=== PATIENT | female | born 1945 | race Hispanic/Latino ===

== ENCOUNTER 2018-06-10 10:14 | Observation (INO) | payer OTHER ==
--- OUTSIDE RECORDS SUMMARY | 2018-06-10 10:44 | XMS REPORT | Clinical Summary ---
:1945 Author Organization [facility] Address [address] [place] [address] Care Team Providers Name Role Phone Asked, No Pcp Primary Care Provider Unavailable Allergies No Known Allergies Medications Medication Sig Dispensed Refills Start Date End Date Status clopidogrel (PLAVIX) 75 Take 75 mg by 0 Active mg tablet mouth daily. levothyroxine Take 125 mcg by 0 Active (SYNTHROID, LEVOTHROID) mouth every 125 MCG tablet morning. isosorbide mononitrate Take 120 mg by 0 Active (IMDUR) 120 MG 24 hr mouth daily. tablet furosemide (LASIX) 20 MG Take 20 mg by 0 Active tablet mouth daily. linagliptin (TRADJENTA) Take 5 mg by 0 Active 5 mg tablet mouth daily with breakfast. lovastatin (MEVACOR) 10 Take 20 mg by 0 Active MG tablet mouth nightly. amlodipine-valsartan Take 1 tablet by 0 Active (EXFORGE) 5-160 mg per mouth daily. tablet Active Problems Not on file Family History Medical History Relation Name Comments No Known Problems Father No Known Problems Mother Relation Name Status Comments Father Mother Social History Tobacco Use Types Packs/Day Years Used Date Never Smoker Alcohol Use Drinks/Week oz/Week Comments No Sex Assigned at Date Recorded Not on file Job Start Date Occupation Industry Not on file Not on file Not on file Travel History Travel Start Travel End No recent travel history available. Last Filed Vital Signs Not on file Plan of Treatment Not on file Results Not on fileafter 06/09/2017 Insurance Payer Benefit Plan / Group Subscriber ID Type Phone Address [employer] MED[employer]ARE [employer] xxxxxxxxx HMO Advance Directives Patient has advance care planning documents on file. For more information, please contact:Walt Davenport[address] [place] [address]
--- OUTSIDE RECORDS SUMMARY | 2018-06-10 10:44 | XMS REPORT ---
:1945 Author Organization [employer] Care Team Providers Name Role Phone Russell, Na Provider Role Unavailable Allergies, Adverse Reactions, Alerts Substance Reaction Event Type N.K.D.A. 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 Assessment senior care current use of insulin Z79.4 Active Problem CKD (chronic kidney disease) stage N18.4 Active 4, GFR 15-29 ml/min Assessment CKD (chronic kidney disease) stage N18.4 Active 4, GFR 15-29 ml/min Assessment Unsteady gait R26.81 Active Problem Elevated blood pressure reading R03.0 Active Problem H/O: CVA (cerebrovascular accident) Z86.73 Active Problem Hyperlipidemia E78.5 Active Problem Unsteady gait R26.81 Active Problem Arteriosclerosis of coronary artery I25.10 Active Assessment Hypothyroidism E03.9 Active Assessment Type 2 diabetes mellitus with E11.22 Active diabetic chronic kidney disease Assessment Hyperlipidemia E78.5 Active Assessment Benign essential HTN I10 Active Problem Type 2 diabetes mellitus with E11.22 Active diabetic chronic kidney disease Problem Chronic kidney disease, stage III N18.3 Active (moderate) Assessment 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 59443451802 150 Active TOME SUSANA TABLETA POR BOCA DOS VECES POR GERI Lipitor [facility] 33517928026 40 Active TOME SUSANA TABLETA SUSANA VEZ AL GERI POR BOCA Lantus SoloStar [facility] 52165662184 100 UNIT/ML Active 66 units daily Subcutaneous once a day Amlodipine [facility] 82661844970 10-160 Orally Active 1 tablet Besylate-Valsar Once a day simon Myrbetriq [facility] 48251663338 25 MG Orally Active 1 tablet Once a day Amitiza [facility] 75139776024 24 MCG Orally Active 1 capsule with Twice a day food ZyrTEC [facility] 77991126608 Active not defined Synthroid ND 42635267867 100 MCG Active TOME SUSANA TABLETA SUSANA VEZ AL GERI POR VIA ORAL Tradjenta [facility] 80622825212 5 MG Orally Active 1 tablet Once a day Lipitor ND 95753603344 40 MG Orally Active 1 tablet Once a day Zantac [facility] 17340055474 150 MG Orally Active 1 tablet at Once a day bedtime Ketoconazole [facility] 60201981089 2 % Externally Active 1 application Once a day to affected area Exforge [facility] 32642966632 10-160 Active TOME SUSANA TABLETA SUSANA VEZ AL GERI POR [place]OC[place] Lasix ND 55116866772 40 MG Orally Aug 18, Active 1 tablet Once a day [address] [facility] 28739683989 24 Active TAKE ONE CAPSULE BY MOUTH TWICE A DAY FOR CONSTIPATION Isosorbide [facility] 46828576760 120 MG Orally Active 1 tablet in Mononitrate ER Once a day the morning Gabapentin ND 14046473550 100 MG Orally Feb 17, Active 1 capsule Three times a 2017 day Glucometer Kit NDC 0 Fingerstick Active Check BS twice BID a day Levothyroxine [facility] 89117397330 112 MCG Orally Active 1 tablet on an Sodium Once a day empty stomach in the morning Plavix [facility] 11216478096 75 MG Orally Active 1 tablet Once a day Levothyroxine [facility] 63208325900 100 MCG Orally Inactive 1 tablet on an Sodium Once a day empty stomach in the morning Triamcinolone [facility] 74138193620 0.5 % Active 1 application Acetonide Externally to affected Twice a day area Amlodipine [facility] 54061001564 10-160 MG Active TOME SUSANA Besylate-Valsar TABLETA SUSANA simon VEZ AL GERI POR VIA ORAL Tradjenta [facility] 80909321947 5 MG Orally Active 1 tablet Once a day Imdur NDC 0 Active not defined Results No Known Results Summary Purpose eClinicalWorks Submission
--- OUTSIDE RECORDS SUMMARY | 2018-06-10 10:44 | XMS REPORT ---
:1945 Author Organization [employer] Care Team Providers Name Role Phone Russell, Lola Provider Role Unavailable Allergies, Adverse Reactions, Alerts Substance Reaction Event Type N.K.D.A. 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 Assessment Hyperlipidemia E78.5 Active Assessment Unsteady gait R26.81 Active Assessment CKD (chronic kidney disease) stage N18.4 Active 4, GFR 15-29 ml/min Assessment Type 2 diabetes mellitus with E11.22 Active diabetic chronic kidney disease Problem Type 2 diabetes mellitus with E11.65 Active hyperglycemia Assessment Benign essential HTN I10 Active Problem Type 2 diabetes mellitus with E11.22 Active diabetic chronic kidney disease Assessment Hypothyroidism E03.9 Active Problem Chronic kidney disease, stage III N18.3 Active (moderate) Medications Medication Code Code Instructions Start End Status Dosage System Date Date Imdur NDC 0 Active not defined Triamcinolone ND 07484977818 0.5 % Active 1 application Acetonide Externally to affected Twice a day area Myrbetriq ND 53651563849 25 MG Orally Active 1 tablet Once a day Exforge ND 10859857715 10-160 Active TOME SUSANA TABLETA SUSANA VEZ AL GERI POR BOCA Plavix ND 89281014926 75 MG Orally Active 1 tablet Once a day Valsartan ND 86991977556 160 MG Orally Inactive 1 tablet Once a day Amlodipine [facility] 23677693940 10-160 Orally Active 1 tablet Besylate-Valsar Once a day simon Ketoconazole [facility] 53223490005 2 % Externally Active 1 application Once a day to affected area Isosorbide [facility] 37360529512 120 MG Orally Active 1 tablet in Mononitrate ER Once a day the morning Lasix [facility] 28052156865 40 MG Orally Aug 18, Active 1 tablet Once a day 2017 Lantus SoloStar [facility] 09160597279 100 UNIT/ML Active as directed Subcutaneous Glucometer Kit [facility] 0 Fingerstick Active Check BS twice BID a day Levothyroxine [facility] 97794951651 112 MCG Orally Active 1 tablet on an Sodium Once a day empty stomach in the morning Amitiza [facility] 49017809758 24 Active TAKE ONE CAPSULE BY MOUTH TWICE A DAY FOR CONSTIPATION Zantac [facility] 62086892173 150 MG Orally Active 1 tablet at Once a day bedtime Amitiza [facility] 43787994966 24 MCG Orally Active 1 capsule with Twice a day food Levothyroxine [facility] 88593785765 100 MCG Orally Inactive 1 tablet on an Sodium Once a day empty stomach in the morning Amlodipine [facility] 53186097385 10-160 MG Active 1 tablet Besylate-Valsar Orally Once a simon day Lipitor [facility] 34769093582 40 MG Orally Active 1 tablet Once a day ZyrTEC [facility] 09878970361 Active not defined Tradjenta [facility] 28390787347 5 MG Orally Active 1 tablet Once a day Results No Known Results Summary Purpose eClinicalWorks Submission
--- OUTSIDE RECORDS SUMMARY | 2018-06-10 10:44 | XMS REPORT ---
:1945 Author [facility] Care Team Providers Name Role Phone Russell, Lola Provider Role Unavailable Allergies, Adverse Reactions, Alerts Substance Reaction Event Type N.K.D.A. 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 Problem Elevated blood pressure reading R03.0 Active Assessment Hyperlipidemia E78.5 Active 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 Problem Constipation, unspecified K59.00 Active constipation type Assessment CKD (chronic kidney disease) stage N18.4 Active 4, GFR 15-29 ml/min Problem Arteriosclerosis of coronary artery I25.10 Active Problem H/O: CVA (cerebrovascular accident) Z86.73 Active Problem CKD (chronic kidney disease) stage N18.4 Active 4, GFR 15-29 ml/min Problem Unsteady gait R26.81 Active Assessment Type 2 diabetes mellitus with E11.22 Active diabetic chronic kidney disease Assessment Benign essential HTN I10 Active Assessment Hypothyroidism E03.9 Active Problem Chronic kidney disease, stage III N18.3 Active (moderate) 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 Problem Type 2 diabetes mellitus with E11.65 Active hyperglycemia Problem Type 2 diabetes mellitus with E11.22 Active diabetic chronic kidney disease Medications Medication Code Code Instructions Start End Status Dosage System Date Date Zantac [facility] 52027328948 150 Active TOME SUSANA TABLETA POR BOCA DOS VECES POR GERI Lipitor [facility] 77024794632 40 Active TOME SUSANA TABLETA SUSANA VEZ AL GERI POR BOCA Amlodipine [facility] 96476898126 10-160 MG Active TOME SUSANA Besylate-Valsar TABLETA SUSANA simon VEZ AL GERI POR VIA ORAL Glucometer Kit ND 0 Fingerstick Active Check BS twice BID a day ZyrTEC [facility] 84327018364 Active not defined Levothyroxine ND 25513820234 112 MCG Orally Active 1 tablet on an Sodium Once a day empty stomach in the morning Exforge ND 96043221434 10-160 Active TOME SUSANA TABLETA SUSANA VEZ AL GERI POR BOCA Amitiza [facility] 50348578903 24 Active TAKE ONE CAPSULE BY MOUTH TWICE A DAY FOR CONSTIPATION Plavix [facility] 59251064049 75 MG Orally Active 1 tablet Once a day Myrbetriq ND 20171460286 25 MG Orally Active 1 tablet Once a day Ketoconazole ND 42931028152 2 % Externally Active 1 application Once a day to affected area Lasix ND 49864283858 40 MG Orally Aug 18, Active 1 tablet Once a day 2017 Levothyroxine [facility] 84377768446 100 MCG Orally Inactive 1 tablet on an Sodium Once a day empty stomach in the morning Lipitor [facility] 40942171000 40 MG Active TOME SUSANA TABLETA SUSANA VEZ AL GERI POR BOCA Synthroid ND 81251085136 100 MCG Active TOME SUSANA TABLETA SUSANA VEZ AL GERI POR VIA ORAL Amlodipine [facility] 33385952594 10-160 Orally Active 1 tablet Besylate-Valsar Once a day simon Zantac [facility] 84784366181 150 MG Active TOME SUSANA TABLETA POR BOCA DOS VECES POR GERI Gabapentin [facility] 84940165615 100 MG Orally Active 1 capsule Three times a day Isosorbide ND 63926737002 120 MG Orally Active 1 tablet in Mononitrate ER Once a day the morning Amitiza [facility] 30771794878 24 MCG Orally Active 1 capsule with Twice a day food Triamcinolone ND 15451154203 0.5 % Active 1 application Acetonide Externally to affected Twice a day area Lipitor ND 81736311206 40 MG Orally Active 1 tablet Once a day Tradjenta ND 01525504938 5 MG Orally Active 1 tablet Once a day Tradjenta [facility] 95941785919 5 MG Orally Active 1 tablet Once a day Imdur NDC 0 Active not defined Adama Back [facility] 37948337473 100 UNIT/ML Active 62 units daily Subcutaneous once a day Results No Known Results Immunizations Vaccine Administration Date FluAD Apr 08, 2018 Summary Purpose eClinicalWorks Submission
--- NOTE | 2018-06-10 11:45 | EKG ---
Test Date: 2018-06-10 Test Time: 10:33:34 [place] Worker: JESSICA MEASUREMENT RESULTS: Intervals: Rate: 50 NM: 138 QRSD: 160 QT: 502 QTc: 457 [place]: P: 64 NM: 138 QRS: 7 T: 114 INTERPRETIVE STATEMENTS: Sinus bradycardia with sinus arrhythmia Left bundle branch block Abnormal ECG Compared to ECG 03/13/2016 07:32:06 Left-axis deviation no longer present Electronically Signed On 06-10-18 11:44:01 [employer]IT [employer] by Omer Dahl
[2018-06-10] MEDS ORDERED: ONDANSETRON 4 MG/2 ML VIAL ONE (11:51)
[2018-06-10] MEDS ORDERED: MORPHINE 4 MG/ML SYR ONE (11:51)
[2018-06-10 11:55] LABS: Protime INR 1.05
[2018-06-10 11:56] LABS: Absolute Lymphocytes (CBC) 1.9 K/uL (0.7-4.9); Absolute Monocytes 0.5 K/uL (0.1-1.3); Absolute Neutrophil 6.1 K/uL (1.8-8.0); Basophils % 0.5 % (0-1.3); Eosinophils % 1.6 % (0-4.4); Hematocrit 36.8 % (36.0-45.0); Lymphocytes % 21.8 % (15.3-44.8); MCH 31.7 pg (27.0-35.0); MCV 92.3 fL (80-100); MPV 8.5 fL (7.6-11.3); Monocytes % 5.8 % (3.3-12.3); RBC Red Blood Cell Count 3.98 M/uL (3.86-4.86)
[2018-06-10 12:02] LABS: Albumin 3.4 g/dL (3.4-5.0); Bilirubin Direct 0.2 mg/dL (0-0.2); Bilirubin Total 0.7 mg/dL (0.2-1.0); Magnesium 2.3 mg/dL (1.8-2.4); Potassium 4.6 mmol/L (3.5-5.1); Protein, Total 6.5 g/dL (6.4-8.2); Troponin (Emerg Dept Use Only) 0.02 ng/mL (0.0-0.045)
--- NOTE | 2018-06-10 12:48 | RAD REPORT ---
EXAM DESCRIPTION: [place] Single View06/10/2018 12:36 pm CLINICAL HISTORY: Shortness of breath COMPARISON: July 23, 2017 FINDINGS: Mild bilateral pulmonary opacities suspected. The heart is mildly to moderately enlarged IMPRESSION: Mild CHF is suspected
--- NOTE | 2018-06-10 13:11 | EDPHYS ---
Physician Documentation [facility] Name: Lola Braun Age: 73 yrs Sex: Female : 1945 Arrival Date: 06/10/2018 Time: 10:18 Bed 26 Private MD: Lola Russell ED Physician Emmett Browne HPI: 06/10 11:23 This 73 yrs old Female presents to ER via Wheelchair with complaints of Back jmm Pain, Chest Pain, Breathing Difficulty. 11:23 The patient or guardian reports chest pain that is located primarily in the substernal jmm area. Onset: gradually, 1 week(s) ago. The pain radiates to Associated signs and symptoms: Pertinent positives: shortness of breath. Duration: The patient or guardian reports multiple episodes, that are intermittent. Modifying factors: The symptoms are alleviated by nothing. the symptoms are aggravated by nothing. This is a 73 year old female with a history of dm, CAd, htn, hlp that presents to the ED with 1 week of intermittent chest pain radiating to the back. Patient also complains of shortness of breath. Episode was similar to a chf exacerbation on a previous admission . Historical: - Allergies: 10:38 NKDA; aj - Home Meds: 10:38 Tradjenta 5 mg oral tab 1 tab once daily [Active]; ranitidine HCl 150 mg Oral cap 1 cap aj 2 times per day [Active]; clopidogrel 75 mg oral tab 1 tab once daily [Active]; isosorbide mononitrate 120 mg Oral Tb24 once daily [Active]; levothyroxine 112 mcg tab 1 tab once daily [Active]; gabapentin 100 mg oral cap 1 caps 3 times per day [Active]; losartan 12.5 mg oral tab 1 tab once daily [Active]; Amitiza 24 mcg oral cap 1 cap 2 times per day [Active]; atorvastatin 40 mg oral tab 1 tab once daily [Active]; amlodipine-valsartan 10-160 mg oral tab 1 tab once daily [Active]; furosemide 40 mg Oral tab 1 tab once daily [Active]; Lantus 100 unit/mL Sub-Q soln 50 units nightly [Active]; - PMHx: 10:38 Diabetes - IDDM; Myocardial infarction; Hypertension; Hyperlipidemia; aj - PSHx: 10:38 Heart stents; aj - Immunization history:: Adult Immunizations up to date, Flu vaccine is up to date. - Social history:: Smoking status: Patient/guardian denies using tobacco. - Ebola Screening: : Patient negative for fever greater than or equal to 101.5 degrees Fahrenheit, and additional compatible Ebola Virus Disease symptoms Patient denies exposure to infectious person Patient denies travel to an Ebola-affected area in the 21 days before illness onset No symptoms or risks identified at this time. ROS: 11:23 Constitutional: Negative for fever, chills, and weight loss, Eyes: Negative for injury, jmm pain, redness, and discharge, ENT: Negative for injury, pain, and discharge, Cardiovascular: Negative for chest pain, palpitations, and edema, Respiratory: Negative for shortness of breath, cough, wheezing, and pleuritic chest pain, Abdomen/GI: Negative for abdominal pain, nausea, vomiting, diarrhea, and constipation. 11:23 MS/Extremity: Negative for injury and deformity. 11:23 Cardiovascular: Positive for chest pain. 11:23 Back: Positive for pain with movement. 11:23 All other systems are negative. Exam: 11:23 Constitutional: This is a well developed, well nourished patient who is awake, alert, jmm and in no acute distress. Head/Face: atraumatic. Eyes: EOMI, no conjunctival erythema appreciated ENT: Moist Mucus Membranes Neck: Trachea midline, Supple Chest/axilla: Normal chest wall appearance and motion. 11:23 Cardiovascular: Rate: normal, Rhythm: regular, Pulses: no pulse deficits are appreciated. 11:23 Respiratory: the patient does not display signs of respiratory distress, Respirations: normal, Breath sounds: are clear throughout. 11:23 Abdomen/GI: Inspection: abdomen appears normal, Bowel sounds: normal, Palpation: abdomen is soft and non-tender. 11:23 Back: ROM is normal. 11:23 Musculoskeletal/extremity: ROM: intact in all extremities. 11:23 Skin: Appearance: Color: normal in color. 11:23 Neuro: Orientation: is normal, Mentation: is normal, Memory: is normal. 11:23 Psych: Behavior/mood is pleasant, cooperative. 13:08 Back: pain, that is moderate, of the right scapular area, right subscapular area and jmm right low back. Vital Signs: 10:38 BP 156 / 53; Pulse 56; Resp 21; Temp 97.8; Pulse Ox 96% on R/A; Weight 98.43 kg; Height aj 5 ft. 5 in. (165.10 cm); 12:41 BP 132 / 52; Pulse 52; Resp 17; Pulse Ox 94% on R/A; Pain 3/10; sg 14:27 BP 145 / 58; Pulse 55; Resp 20; Pulse Ox 96% on R/A; sg 15:20 BP 138 / 55; Pulse 56; Resp 17; Pulse Ox 98% on R/A; Pain 3/10; sg 10:38 Body Mass Index 36.11 (98.43 kg, 165.10 cm) aj MDM: 10:57 Patient medically screened. nerissa 13:08 The patient was given aspirin in the Emergency Department. Data reviewed: vital signs, [facility] nurses notes, lab test result(s), EKG, radiologic studies, plain films. ED course: I discussed the patient with Dr. Jacques whom accepted admission. . 06/10 11:20 Order name: Basic Metabolic Panel; Complete Time: 12:05 [facility] 06/10 11:20 Order name: CBC with Diff; Complete Time: 12:05 [facility] 06/10 11:20 Order name: LFT's; Complete Time: 12:05 [facility] 06/10 11:20 Order name: Magnesium; Complete Time: 12:05 [facility] 06/10 11:20 Order name: NT PRO-BNP; Complete Time: 12:05 [facility] 06/10 11:20 Order name: PT-INR; Complete Time: 12:05 [facility] 06/10 11:20 Order name: Troponin (emerg Dept Use Only); Complete Time: 12:05 [facility] 06/10 11:20 Order name: XRAY Chest (1 view); Complete Time: 12:54 [facility] 06/10 14:04 Order name: Troponin (emerg Dept Use Only) 06/10 14:54 Order name: Troponin (Emerg Dept Use Only); Complete Time: 15:07 [facility] 06/10 14:54 Order name: T4 Free; Complete Time: 15:07 [facility] 06/10 14:54 Order name: Thyroid Stimulating Hormone; Complete Time: 15:07 [facility] 06/10 14:54 Order name: Hemoglobin A1c; Complete Time: 15:07 [facility] 06/10 11:20 Order name: EKG; Complete Time: 11: [facility] 06/10 11:20 Order name: Cardiac monitoring; Complete Time: [facility] 06/10 11:20 Order name: EKG - Nurse/Tech; Complete Time: [facility] 06/10 11:20 Order name: IV Saline Lock; Complete Time: [facility] 06/10 11:20 Order name: Labs collected and sent; Complete Time: [facility] 06/10 11:20 Order name: O2 Per Protocol; Complete Time: [facility] 06/10 11:20 Order name: O2 Sat Monitoring; Complete Time: : [facility] Administered Medications: 11:50 Drug: morphine 2 mg Route: IVP; Site: right forearm; sg 12:25 Follow up: Response: No adverse reaction; Pain is decreased sg 11:53 Drug: Zofran 4 mg Route: IVP; Site: right forearm; sg 12:25 Follow up: Response: No adverse reaction sg 13:45 Drug: Lasix 20 mg Route: IVP; Site: right forearm; sg 13:45 Drug: Aspirin Chewable Tablet 324 mg Route: PO; sg 13:45 Drug: Lasix 20 mg Route: IVP; Site: right forearm; sg Disposition: 17:01 Co-signature as Attending Physician, Emmett Browne MD I agree with the assessment and nerissa plan of care. Disposition: 06/10/18 13:11 Hospitalization ordered by Eliel Jacques for Observation. Preliminary diagnosis are Acute combined systolic (congestive) and diastolic (congestive) heart failure, Chest pain, unspecified. - Bed requested for Telemetry/MedSurg (observation). - Status is Observation. iw - Condition is Stable. - Problem is an acute exacerbation. - Symptoms have improved. UTI on Admission? No Signatures: Dispatcher [employer] El Tran RN RN sg Myers, Amanda, RN RN aj Anderson, Corey, MD MD cha Mickail, Joel, PA PA Bety Langley, Sondra Chicas RN, RN RN df Corrections: (The following items were deleted from the chart) 14:31 13:11 Hospitalization Ordered by Eliel Jacques DO for Observation. Preliminary df diagnosis is Acute combined systolic (congestive) and diastolic (congestive) heart failure; Chest pain, unspecified. Bed requested for Telemetry/MedSurg (observation). Status is Observation. Condition is Stable. Problem is an acute exacerbation. Symptoms have improved. UTI on Admission? No. jmm 15:22 14:31 06/10/2018 13:11 Hospitalization Ordered by Eliel Jacquse DO for Observation. iw Preliminary diagnosis is Acute combined systolic (congestive) and diastolic (congestive) heart failure; Chest pain, unspecified. Bed requested for Telemetry/MedSurg (observation). Status is Observation. Condition is Stable. Problem is an acute exacerbation. Symptoms have improved. UTI on Admission? No. df
--- NOTE | 2018-06-10 13:11 | ER ---
Nurse's Notes [facility] Name: Lola Braun Age: 73 yrs Sex: Female : 1945 Arrival Date: 06/10/2018 Time: 10:18 Bed 26 Private MD: Lola Russell Diagnosis: Acute combined systolic (congestive) and diastolic (congestive) heart failure;Chest pain, unspecified Presentation: 06/10 10:31 Presenting complaint: Patient states: SOB and pain with deep inspiration for 1 week. aj Denies cough or fever. Transition of care: patient was not received from another setting of care. Onset of symptoms was June 03, 2018. Risk Assessment: Do you want to hurt yourself or someone else? Patient reports no desire to harm self or others. Initial Sepsis Screen: Does the patient meet any 2 criteria? No. Patient's initial sepsis screen is negative. Does the patient have a suspected source of infection? No. Patient's initial sepsis screen is negative. Care prior to arrival: None. 10:31 Method Of Arrival: Wheelchair aj 10:31 Acuity: RAUL 3 aj Triage Assessment: 10:38 General: Appears in no apparent distress. comfortable, Behavior is calm, cooperative, aj appropriate for age. EENT: No signs and/or symptoms were reported regarding the EENT system. Neuro: Level of Consciousness is awake, alert, obeys commands, Oriented to person, place, time, situation, Appropriate for age. Respiratory: Airway is patent Respiratory effort is even, unlabored, Respiratory pattern is regular, symmetrical. Respiratory: Reports shortness of breath pain with respiration. GI: Abdomen is non-distended, obese, Reports epigastric pain. Derm: Skin is intact, is healthy with good turgor, Skin is pink, warm \T\ dry. normal. Musculoskeletal: Circulation, motion, and sensation intact. Range of motion:. Historical: - Allergies: 10:38 NKDA; aj - Home Meds: 10:38 Tradjenta 5 mg oral tab 1 tab once daily [Active]; ranitidine HCl 150 mg Oral cap 1 cap aj 2 times per day [Active]; clopidogrel 75 mg oral tab 1 tab once daily [Active]; isosorbide mononitrate 120 mg Oral Tb24 once daily [Active]; levothyroxine 112 mcg tab 1 tab once daily [Active]; gabapentin 100 mg oral cap 1 caps 3 times per day [Active]; losartan 12.5 mg oral tab 1 tab once daily [Active]; Amitiza 24 mcg oral cap 1 cap 2 times per day [Active]; atorvastatin 40 mg oral tab 1 tab once daily [Active]; amlodipine-valsartan 10-160 mg oral tab 1 tab once daily [Active]; furosemide 40 mg Oral tab 1 tab once daily [Active]; Lantus 100 unit/mL Sub-Q soln 50 units nightly [Active]; - PMHx: 10:38 Diabetes - IDDM; Myocardial infarction; Hypertension; Hyperlipidemia; aj - PSHx: 10:38 Heart stents; aj - Immunization history:: Adult Immunizations up to date, Flu vaccine is up to date. - Social history:: Smoking status: Patient/guardian denies using tobacco. - Ebola Screening: : Patient negative for fever greater than or equal to 101.5 degrees Fahrenheit, and additional compatible Ebola Virus Disease symptoms Patient denies exposure to infectious person Patient denies travel to an Ebola-affected area in the 21 days before illness onset No symptoms or risks identified at this time. Screenin:25 Abuse screen: Denies threats or abuse. Denies injuries from another. Nutritional sg screening: No deficits noted. Tuberculosis screening: No symptoms or risk factors identified. Never had TB. Fall Risk None identified. Assessment: 11:24 General: Appears in no apparent distress. comfortable, well groomed, well developed, sg well nourished, Behavior is calm, cooperative, appropriate for age. Neuro: No deficits noted. Level of Consciousness is awake, alert, obeys commands, Oriented to person, place, time, situation, Marketing Assistant are equal bilaterally Moves all extremities. Full function Gait is steady, Speech is normal, Facial symmetry appears normal, Pupils are PERRLA, Denies weakness blurred vision dizziness, difficulty swallowing, paresthesias numbness headache photophobia diplopia. Cardiovascular: Patient's skin is warm and dry. Chest pain is described as vague, is located in anterior chest wall. Respiratory: Airway is patent Respiratory effort is even, unlabored, Respiratory pattern is regular, symmetrical, Parent/caregiver reports the patient having shortness of breath on exertion cough that is. GI: No signs and/or symptoms were reported involving the gastrointestinal system. : No signs and/or symptoms were reported regarding the genitourinary system. EENT: No signs and/or symptoms were reported regarding the EENT system. Derm: Skin is pink, warm \T\ dry. Musculoskeletal: No signs and/or symptoms reported regarding the musculoskeletal system. 12:20 Reassessment: Patient appears in no apparent distress at this time. Patient and/or iw family updated on plan of care and expected duration. Pain level reassessed. Patient is alert, oriented x 3, equal unlabored respirations, skin warm/dry/pink. Patient states feeling better. 13:30 Reassessment: Patient appears in no apparent distress at this time. Patient and/or iw family updated on plan of care and expected duration. Pain level reassessed. Patient is alert, oriented x 3, equal unlabored respirations, skin warm/dry/pink. Patient states feeling better. 14:25 Reassessment: Patient appears in no apparent distress at this time. pt family at iw bedside, pt eating with pt daughter, awaiting a bedside assignment for admission to the floor, pt and pt family stated understanding. 14:40 Reassessment: attempt to call pt report, pt nurse unavailable at this time per Azra PETERSON sg Charge nurse, instructed to please call back. 15:04 Reassessment: Patient appears in no apparent distress at this time. Patient and/or sg family updated on plan of care and expected duration. Pain level reassessed. Patient is alert, oriented x 3, equal unlabored respirations, skin warm/dry/pink. attempt to call report, pt nurse calling report and is unavailable at this time, awaiting a call back, pt and pt family updated on POC, stated understanding, will continue to monitor Patient states feeling better. Vital Signs: 10:38 BP 156 / 53; Pulse 56; Resp 21; Temp 97.8; Pulse Ox 96% on R/A; Weight 98.43 kg; Height aj 5 ft. 5 in. (165.10 cm); 12:41 BP 132 / 52; Pulse 52; Resp 17; Pulse Ox 94% on R/A; Pain 3/10; sg 14:27 BP 145 / 58; Pulse 55; Resp 20; Pulse Ox 96% on R/A; sg 15:20 BP 138 / 55; Pulse 56; Resp 17; Pulse Ox 98% on R/A; Pain 3/10; sg 10:38 Body Mass Index 36.11 (98.43 kg, 165.10 cm) ED Course: 10:18 Patient arrived in ED. mr 10:19 Lola Russell MD is Private Physician. mr 10:32 Triage completed. aj 10:34 EKG done, by supply tech. reviewed by Emmett Browne MD. at1 10:38 Arm band placed on left wrist. Patient placed in waiting room, in a wheelchair, Patient aj notified of wait time. EKG completed in triage. Results shown to MD. 10:45 No provider procedures requiring assistance completed. sg 10:47 Juventino Mckeon PA is PHCP. jmm 10:47 Emmett Browne MD is Attending Physician. jmm 11:00 Patient has correct armband on for positive identification. Placed in gown. Bed in low iw position. Side rails up X2. Pulse ox on. NIBP on. Warm blanket given. Head of bed elevated. 11:18 El Horan, RN is Primary Nurse. sg 11:40 Initial lab(s) drawn, by me, sent to lab. Inserted saline lock: 22 gauge in right iw forearm, using aseptic technique. 12:16 X-ray completed. Portable x-ray completed in exam room. Patient tolerated procedure jb2 well. 12:37 XRAY Chest (1 view) In Process Unspecified. EDMS 13:10 Elile Jacques DO is Hospitalizing Provider. jmm 13:50 Repeat lab(s) drawn. by me, sent to lab. sg 14:30 Patient admitted, IV remains in place. intact, No redness/swelling at site. iw Administered Medications: 11:50 Drug: morphine 2 mg Route: IVP; Site: right forearm; sg 12:25 Follow up: Response: No adverse reaction; Pain is decreased sg 11:53 Drug: Zofran 4 mg Route: IVP; Site: right forearm; sg 12:25 Follow up: Response: No adverse reaction sg 13:45 Drug: Lasix 20 mg Route: IVP; Site: right forearm; sg 13:45 Drug: Aspirin Chewable Tablet 324 mg Route: PO; sg 13:45 Drug: Lasix 20 mg Route: IVP; Site: right forearm; sg Outcome: 13:11 Decision to Hospitalize by Provider. jmm 15:20 Admitted to Tele accompanied by tech, family with patient, via wheelchair, room 416, sg with chart, Report called to NICHOLAS Martin 15:20 Condition: good 15:20 Instructed on the need for admit, safety practices, Demonstrated understanding of instructions. 15:22 Patient left the ED. iw Signatures: Dispatcher [employer] EDEl Leach, Jesika Caba RN, RN RN aj Mickail, Joel, PA PA jmm Rivera, Mary mr Zehrajdhoa, Hal jbBety Raphael RN RN iw Gonzales, Amanda, nurseryman assistant EKG Tat1
[2018-06-10] MEDS ORDERED: ACETAMINOPHEN 500 MG TAB PO PRN (13:54)
[2018-06-10] MEDS ORDERED: ONDANSETRON 4 MG/2 ML VIAL IV PRN (13:54)
--- NOTE | 2018-06-10 14:14 | P.HP ---
Certification for Inpatient Patient admitted to: Observation With expected LOS: <2 Midnights Patient will require the following post-hospital care: Home Health Services Practitioner: I am a practitioner with admitting privileges, knowledge of patient current condition, hospital course, and medical plan of care. Services: Services provided to patient in accordance with Admission requirements found in Title 42 Section 412.3 of the Code of Federal Regulations Patient History Date of Service: 06/10/18 Primary Care Provider: Dr. Russell; Cardiology-Dr. Donovan; Nephrology-Dr. Gilbert Reason for admission: Chest pain, shortness of breath History of Present Illness: 73-year-old female presented to the emergency room with chest pain, shortness of breath and edema to the lower extremity. Patient reports chest pain, shortness of breath and edema to the lower extremities for over a week. Chest pain mainly to the right side and back. He mainly starts in the back and radiates to the front. She reports some lightheadedness with this. She further reports increasing shortness of breath and edema to the lower extremity. Patient with history of CAD, diastolic CHF, diabetes mellitus type 2 insulin dependent, chronic renal disease stage IIIB, hyperlipidemia, hypothyroidism and obesity. Patient came to the ER for further evaluation. In the ER patient evaluated. Blood pressure stable. Patient found to have mild CHF on chest x-ray. BNP elevated. Initial troponin 0.02. CBC unremarkable. Sodium 141, potassium 4.6, BUN of 23, creatinine 1.4 with a GFR 37. Glucose 144. Patient was given IV Lasix in the emergency room. Patient admitted for further evaluation. He EKG showed left bundle branch block. When I saw the patient in the ER, she appeared stable. Daughter at bedside. She is without any significant chest pain at the moment. Edema to the lower extremities noted. Patient had previous echocardiogram done in February of 2016 shown ejection fraction of 52%. At that time she had an abnormal cardiac stress test that required left heart catheterization as an outpatient. Apparently a stent was placed. Patient is seen by cardiology and nephrology as an outpatient. Allergies No Known Drug Allergies Allergy (Verified 03/14/16 17:26) Unknown Home medications list reviewed: Yes Home Medications: Amlodipine/Valsartan [Amlodipine-Valsartan 5-160 mg] 1 tab PO DAILY 03/12/16 Clopidogrel Bisulfate [Clopidogrel] 1 tab PO DAILY 03/12/16 Furosemide [Lasix*] 1 tab PO DAILY 03/12/16 Insulin Glargine,Hum.rec.anlog [Lantus Solostar] 03/12/16 Isosorbide Mononitrate [Imdur] 1 tab PO DAILY 03/12/16 Linagliptin [Tradjenta] 1 tab PO DAILY 03/12/16 Lovastatin 1 tab PO DAILY 03/12/16 Mirabegron [Myrbetriq] 1 tab PO DAILY 03/12/16 Ciprofloxacin HCl [Cipro 500 MG Tablet] 500 mg PO BID #10 tab 03/15/16 Levothyroxine [Synthroid*] 0.125 mg PO [id number] #30 tab 03/15/16 - Past Medical/Surgical History Diabetic: Yes -: Hypertension -: Diabetes mellitus type 2, insulin-dependent -: Coronary artery disease, Cardiology-Dr. Donovan -: Hypothyroidism -: Hyperlipidemia -: History of CVA -: Obesity -: Chronic kidney disease, stage IIIB -: GERD -: Chronic constipation -: Diabetic neuropathy -: Heart catheterization requiring stent -: Appendectomy Psychosocial/ Personal History: She is of 59 years, has 9 children, she does not work. - Family History Father -: Heart disease, Diabetes - Social History Smoking Status: Never smoker Alcohol use: No CD- Drugs: No Caffeine use: Yes Place of Residence: Home Review of Systems General: Weakness, As per HPI Eyes: Unremarkable ENT: Unremarkable Respiratory: Shortness of Breath, As per HPI Cardiovascular: Chest Pain, Edema, As per HPI Gastrointestinal: Unremarkable Genitourinary: Unremarkable Musculoskeletal: Pedal edema, As per HPI Integumentary: Unremarkable Neurological: Unremarkable Lymphatics: Unremarkable Physical Examination - Physical Exam General: Alert, In no apparent distress, Oriented x3, Cooperative HEENT: Atraumatic, Normocephalic, PERRLA, Mucous membr. moist/pink Neck: Supple, No Thyromegaly Respiratory: Diminished (Decreased to the bases bilateral) Cardiovascular: Normal pulses, Regular rate/rhythm Gastrointestinal: Normal bowel sounds, Soft and benign, Non-distended, No ascites, No tenderness, No masses, No rebound, No guarding Musculoskeletal: No erythema, No tenderness, No warmth Integumentary: Tenderness/swelling (1 +nonpitting edema to the lower extremities bilateral) Neurological: Normal speech, Normal strength at 5/5 x4 extr, Normal tone, Normal affect - Studies Laboratory Data (last 24 hrs) 06/10/18 11:30: PT 12.4, INR 1.05 06/10/18 11:30: WBC 8.7, Hgb 12.6, Hct 36.8, Plt Count 198 06/10/18 11:30: Sodium 141, Potassium 4.6, BUN 23 H, Creatinine 1.40 H, Glucose 144 H, Magnesium 2.3, Total Bilirubin 0.7, AST 13 L, ALT 19, Alkaline Phosphatase 92 Assessment and Plan - Plan Impression: Chest pain, shortness of breath and edema to the lower extremities secondary to acute on chronic diastolic CHF complicated with history of CAD with prior stent , EKG showing left bundle branch block Hypertension Diabetes mellitus type 2, insulin dependent Chronic renal disease stage IIIB Hyperlipidemia GERD Obesity Diabetic neuropathy Hypothyroidism Plan: Chest pain, shortness of breath and edema to the lower extremities secondary to acute on chronic diastolic CHF complicated with history of CAD with prior stent : Patient will be admitted and monitored closely. Will continue to monitor on telemetry. Will monitor cardiac enzymes. Patient given IV Lasix. Medication may need to be adjusted at discharge. Will continue with her isosorbide mononitrate 120 mg daily. Will review home medication. Will recheck chest x- ray in the morning. Will order echocardiogram to further evaluate her CHF. Will continue with a 1500 cc per day fluid restriction and low-salt diet. Will monitor strict in/out and daily weights. Will keep the patient NPO as the patient may require cardiac evaluation-stress test or heart catheterization. Cardiology consulted to further assess. Await recommendations. Patient will require home health and physical therapy at discharge. Adjustments in medication may be required. Will check to see if the patient will require home oxygen at discharge. Anticipate discharge in the next 24-48 hr. Hypertension: Will continue with valsartan. Will discontinue Norvasc due to edema. Will also discontinue losartan since the patient is already taking valsartan. Will provide hydralazine as needed. Medications will need to be further monitored and adjusted. Diabetes mellitus type 2, insulin dependent: Will continue with sliding scale. Will check A1c. Patient takes basal insulin at home. Chronic renal disease stage IIIB: Will check renal ultrasound. Will monitor electrolytes since the patient will be on IV Lasix. Will consult nephrology for further recommendation. Hyperlipidemia: Will continue with Lipitor 40 mg daily. Will check fasting lipid panel. GERD: Will discontinue Zantac and provide Protonix 40 mg daily. Obesity: Will calculate BMI. Will address lifestyle modification education. Diabetic neuropathy: Will continue with Neurontin 100 mg 1 pill 3 times a day. Hypothyroidism: Will check tsh and free T4. Will continue with levothyroxine 112 mcg daily. Discharge Plan: Home Plan to discharge in: 24 Hours - Advance Directives Does patient have a Living Will: No Does patient have a Durable POA for Healthcare: No - Code Status/Comfort Care Code Status Assessed: Yes (Patient full code.) Time Spent Managing Pts Care (In Minutes): 55
[2018-06-10] MEDS ORDERED: ASPIRIN 81 MG CHEWABLE TABLET ONE (14:16)
[2018-06-10] MEDS ORDERED: FUROSEMIDE 40 MG/4 ML VIAL ONE (14:17)
[2018-06-10 14:51] LABS: Troponin (Emerg Dept Use Only) 0.02 ng/mL (0.0-0.045)
[2018-06-10 14:52] LABS: Thyroid Stimulating Hormone 9.03 uIU/mL (0.360-3.740)
[2018-06-10] MEDS ORDERED: HYDRALAZINE HCL 20 MG/ML VIAL IV PRN (15:11)
[2018-06-10 16:21] VITALS: BMI 42.0
[2018-06-10] MEDS ORDERED: LUBIPROSTONE 24 MCG PO PRN (16:30)
[2018-06-10] MEDS: INSULIN -REGULAR HUMAN 50 UNIT/0.5 ML ML SQ SCH ×2 (16:30→23:10)
[2018-06-10] MEDS: FUROSEMIDE 20 MG/ 2ML VIAL IV SCH (17:21)
[2018-06-10] MEDS: GABAPENTIN 100 MG CAP PO SCH ×2 (17:21→23:09)
[2018-06-10] MEDS: ENOXAPARIN 40 MG/0.4 ML SQ SCH (17:21)
[2018-06-10 18:19] LABS: CKMB Creatine Kinase MB 2.2 ng/mL (0.3-3.6); Creatine Phosphokinase 119 U/L (26-192); Troponin I < 0.02 ng/mL (0.0-0.045)
[2018-06-10 19:13] LABS: Urine Appearance CLEAR; Urine Bilirubin NEGATIVE (NEG); Urine Blood NEGATIVE (NEG); Urine Color YELLOW; Urine Glucose NEGATIVE (NEG); Urine Protein NEGATIVE (NEG); Urine Specific Gravity <=1.005 (1.005-1.030); Urine Urobilinogen 0.2 mg/dL (0.2-1.0)
--- NOTE | 2018-06-10 19:30 | RAD REPORT ---
EXAM DESCRIPTION: US - Renal Ultrasound-Complete - 06/10/2018 7:14 pm CLINICAL HISTORY: Chronic renal disease COMPARISON: CT imaging November 2016 FINDINGS: The right kidney measures 9.2 x 4.3 x 3.7 cm. The left kidney measures 8.4 x 4.7 x 3.5 cm . Increased cortical echogenicity is present. Multiple areas of cortical thinning are present. Findin gs are all consistent with medical renal disease. Cortical thinning matches the 2017 CT study. No hyd ronephrosis or suspicious renal mass. A small 4 mm echogenic focus lateral mid right kidney may be a nonobstructing calcification or small focus of fatty tissue. This is not seen as a significant findin g. Bladder is mostly contracted. No gross abnormality. IMPRESSION: Bilateral medical renal disease is present. No hydronephrosis or suspicious mass. No other significant findings.
[2018-06-10 19:52] LABS: Urine Microscopic Reflex NO UMIC
--- NOTE | 2018-06-10 20:23 | CON ---
Chief Complaint: Pain all over. One of the pain she has is chest pain. History Of Present Illness: Mrs. Braun came to the hospital mostly because of lower back pain. She has a history of some kind of intervention, not sure if it was a leg artery stent or coronary artery stent done by Dr. Donovan. It was "many years ago, they are not sure how long." They no longer see Dr Tracey Donovan. Mrs. Braun has underlying diabetes and hypertension and dyslipidemia. She uses no tobacco. She has had diabetes for more than 15 years. Outpatient Medications: Tradjenta, clopidogrel, isosorbide mononitrate, levothyroxine, gabapentin, l osartan, Amitiza, atorvastatin, amlodipine, valsartan, furosemide, Lantus insulin. Allergies: SHE REPORTS NO ALLERGIES. Social History: Denies tobacco use, alcohol use, illegal drug use. Physical Examination: General: The patient is obese, alert, oriented, not in distress HEENT: Unremarkable. Vital Signs: Blood pressure 156/53, pulse 56, temperature 97.8, 98 kg, 5 feet 5 inches. Body mass i ndex 36. Lungs: Clear. There is no carotid bruit. Heart: Within normal limits. Abdomen: Soft. Extremities: Unremarkable. Diagnostic Data: Electrocardiogram shows sinus rhythm with a left bundle-branch block. Troponins ar e normal. Impression: The patient has been told she has stable angina in the past, but this according to her i s acceleration or worsening of how often she gets the pain, so I think it would be shelton to do a pharmacologic nuclear stress test and ec ho. SAHIL/COREY Voice ID: [id number] Report ID: [id number]
[2018-06-10] MEDS ORDERED: ATORVASTATIN 40 MG TAB PO SCH (21:00)
[2018-06-11 04:07] LABS: Absolute Monocytes 0.7 K/uL (0.1-1.3); Absolute Neutrophil 5.6 K/uL (1.8-8.0); Basophils % 0.4 % (0-1.3); Eosinophils % 2.3 % (0-4.4); Hematocrit 36.6 % (36.0-45.0); Lymphocytes % 23.7 % (15.3-44.8); MCH 31.2 pg (27.0-35.0); MCV 92.6 fL (80-100); MPV 8.7 fL (7.6-11.3); Monocytes % 7.8 % (3.3-12.3); RBC Red Blood Cell Count 3.96 M/uL (3.86-4.86)
[2018-06-11 04:36] LABS: CKMB Creatine Kinase MB 1.9 ng/mL (0.3-3.6); Creatine Phosphokinase 100 U/L (26-192); Troponin I < 0.02 ng/mL (0.0-0.045)
[2018-06-11 04:40] LABS: Magnesium 2.1 mg/dL (1.8-2.4); Potassium 4.2 mmol/L (3.5-5.1)
[2018-06-11] MEDS ORDERED: LEVOTHYROXINE SOD 0.112 MG TAB PO SCH (06:30)
--- NOTE | 2018-06-11 07:16 | RAD REPORT ---
EXAM DESCRIPTION: RAD - Chest Pa And Lat (2 Views) - 06/11/2018 6:58 am CLINICAL HISTORY: CHF COMPARISON: June 10 TECHNIQUE: PA and lateral views of the chest were obtained. FINDINGS: The lungs are fibrotic as a baseline. Cardiac silhouette remains enlarged. Vasculature h as decreased in prominence. No new or progressive pleural effusion. No pneumothorax. No acute bony fi nding noted. No aortic abnormality. IMPRESSION: CHF/ volume overload pattern has cleared. Patient does have baseline chronic interstitia l lung disease.
[2018-06-11] MEDS: INSULIN -REGULAR HUMAN 50 UNIT/0.5 ML ML SQ SCH ×3 (07:30→17:09)
[2018-06-11] MEDS ORDERED: PANTOPRAZOLE 40MG TABLET PO SCH (07:30)
[2018-06-11] MEDS ORDERED: REGADENOSON 0.4 MG/5 ML SYR IV ONE (08:10)
[2018-06-11] MEDS ORDERED: ISOSORBIDE MONO SR 60 MG TAB PO SCH (09:00)
[2018-06-11] MEDS ORDERED: ASPIRIN EC 81 MG TAB PO SCH (09:00)
[2018-06-11] MEDS ORDERED: CLOPIDOGREL 75 MG TABLET PO SCH (09:00)
[2018-06-11] MEDS ORDERED: VALSARTAN 80 MG TAB PO SCH (09:00)
[2018-06-11] MEDS: GABAPENTIN 100 MG CAP PO SCH ×2 (10:00→14:00)
[2018-06-11] MEDS: ENOXAPARIN 40 MG/0.4 ML SQ SCH (10:02)
[2018-06-11] MEDS: FUROSEMIDE 20 MG/ 2ML VIAL IV SCH ×2 (10:02→17:39)
--- NOTE | 2018-06-11 10:21 | RAD REPORT ---
EXAM DESCRIPTION: NM - Rest Stress Cardiac Imaging - 06/11/2018 10:07 am CLINICAL HISTORY: Chest pain COMPARISON: March 2016 TECHNIQUE: The patient was administered approximately 10 mCi of Tc 99m Sestamibi prior to resting SP ECT imaging of the heart. The patient was then administered approximately 30 mCi of Tc 99m Sestamibi following exercise or pharmacologic stress. Multiplanar SPECT images were reviewed. FINDINGS: The end diastolic volume is 137 ml, the end systolic volume is 77 ml, and the ejection fra ction is 44 %. Ventricular volumes and ejection fraction are similar to the 2016 study. Small to moderate area of scarring seen in the anterior wall. This generally matches the 2016 study. Prior study showed questionable ischemic change inferolateral wall. However, asymmetry is not seen on the current examination. IMPRESSION: No stress-induced ischemia. The questionable ischemia in the inferolateral wall in 2016 is not seen on the current study. Small a moderate area of scarring anterior wall. End-diastolic volume was 137 milliliters with a 44% EF. These values closely match 2016.
--- NOTE | 2018-06-11 14:03 | P.DS ---
Admission Date: 06/10/18 Discharge Date: 06/11/18 Primary Care Provider: Dr. Russell; Cardiology-Dr. Donovan; Nephrology-Dr. Gilbert Disposition: DC HOME/HOME HEALTH CARE Discharge Condition: GOOD Reason for Admission: Chest pain, shortness of breath Consultations: Nephrology-Dr. Hdez Cardiology-Dr. Castaneda Procedures: ECHO: Results Pending at discharge Cardiac Stress test: COMPARISON: March 2016 TECHNIQUE: The patient was administered approximately 10 mCi of Tc 99m Sestamibi prior to resting SPECT imaging of the heart. The patient was then administered approximately 30 mCi of Tc 99m Sestamibi following exercise or pharmacologic stress. Multiplanar SPECT images were reviewed. FINDINGS: The end diastolic volume is 137 ml, the end systolic volume is 77 ml , and the ejection fraction is 44 %. Ventricular volumes and ejection fraction are similar to the 2016 study. Small to moderate area of scarring seen in the anterior wall. This generally matches the 2016 study. Prior study showed questionable ischemic change inferolateral wall. However, asymmetry is not seen on the current examination. IMPRESSION: No stress-induced ischemia. The questionable ischemia in the inferolateral wall in 2016 is not seen on the current study. Small a moderate area of scarring anterior wall. End-diastolic volume was 137 milliliters with a 44% EF. These values closely match 2016. Renal US: COMPARISON: CT imaging November 2016 FINDINGS: The right kidney measures 9.2 x 4.3 x 3.7 cm. The left kidney measures 8.4 x 4.7 x 3.5 cm. Increased cortical echogenicity is present. Multiple areas of cortical thinning are present. Findings are all consistent with medical renal disease. Cortical thinning matches the 2017 CT study. No hydronephrosis or suspicious renal mass. A small 4 mm echogenic focus lateral mid right kidney may be a nonobstructing calcification or small focus of fatty tissue. This is not seen as a significant finding. Bladder is mostly contracted. No gross abnormality. IMPRESSION: Bilateral medical renal disease is present. No hydronephrosis or suspicious mass. No other significant findings. Medical Problem List: Chest pain, shortness of breath and edema to the lower extremities secondary to acute on chronic systolic CHF with EF 44% complicated with history of CAD with prior stent, EKG showing left bundle branch block Hypertension Diabetes mellitus type 2, insulin dependent, uncontrolled with A1C 10.0 Chronic renal disease stage IIIB Hyperlipidemia GERD Obesity, BMI 42 Diabetic neuropathy Hypothyroidism Suspect obstructive sleep apnea Brief History of Present Illness: 73-year-old female presented to the emergency room with chest pain, shortness of breath and edema to the lower extremity. Patient reports chest pain, shortness of breath and edema to the lower extremities for over a week. Chest pain mainly to the right side and back. He mainly starts in the back and radiates to the front. She reports some lightheadedness with this. She further reports increasing shortness of breath and edema to the lower extremity. Patient with history of CAD, diastolic CHF, diabetes mellitus type 2 insulin dependent, chronic renal disease stage IIIB, hyperlipidemia, hypothyroidism and obesity. Patient came to the ER for further evaluation. In the ER patient evaluated. Blood pressure stable. Patient found to have mild CHF on chest x-ray. BNP elevated. Initial troponin 0.02. CBC unremarkable. Sodium 141, potassium 4.6, BUN of 23, creatinine 1.4 with a GFR 37. Glucose 144. Patient was given IV Lasix in the emergency room. Patient admitted for further evaluation. He EKG showed left bundle branch block. When I saw the patient in the ER, she appeared stable. Daughter at bedside. She is without any significant chest pain at the moment. Edema to the lower extremities noted. Patient had previous echocardiogram done in February of 2016 shown ejection fraction of 52%. At that time she had an abnormal cardiac stress test that required left heart catheterization as an outpatient. Apparently a stent was placed. Patient is seen by cardiology and nephrology as an outpatient. Hospital Course: Patient presented with chest pain, shortness of breath, and edema to the lower extremities secondary to acute on chronic systolic CHF complicated with history of CAD with prior stent. Patient given IV Lasix with improvement. Medications were adjusted during her stay. Patient seen by nephrology and cardiology. Cardiology recommended echocardiogram and cardiac stress test. Cardiac stress test showed no stress-induced ischemia. Ejection fraction around 44%. Patient responded to diuretic therapy well. CHF teaching was addressed in detail. At discharge Lasix will be increased to 40 mg 1 pill twice daily. She will continue with a 1500 cc per day fluid restriction and low-salt diet. She is to monitor her weight daily. If her weight increases by more than 5 lb she is to contact her PCP or cardiology for further adjustment in medication. Patient is for the patient follow up with cardiology in 2-4 weeks to monitor her progress. Patient may benefit with CHF rehabilitation as an outpatient. Lifestyle modification education will be provided. Prior discharge home oxygen will be set up to maintain sats above 90%. Home health and physical therapy will also be arranged. Patient may need to limit her activities due to her CHF. Patient has hypertension. Medications were adjusted due to her CHF and renal function. At discharge losartan and Norvasc/valsartan was discontinued. At discharge she will continue with valsartan 160 mg daily. Recommendation is to maintain blood pressures less 150/80. Further adjustment can be done by her PCP or cardiology. Patient has diabetes mellitus type 2, insulin dependent. This is not well controlled. Hemoglobin A1c 10.0. At discharge she will continue with Lantus 50 units subcu every night and Tradjenta 5 mg daily. Recommendation is to maintain blood sugars less than 140 fasting and less than 200 after meals. Further adjustment can be done by her PCP. Patient may benefit with endocrinology evaluation as an outpatient for better control. Patient has chronic renal disease stage IIIB. Patient seen by nephrology. Renal ultrasound shows medical renal disease. Recommendation on no further use of nonsteroidal anti-inflammatories need to be renally dosed. Medications adjusted as above. Recommendations for the patient to follow up with nephrology in 1-2 weeks to follow up this hospitalization and continue her care. Recommendation to recheck lab-BMP in 1 week to monitor her progress. Patient has hyperlipidemia. Patient will continue with Lipitor 40 mg daily. Patient has CAD with prior stent. Patient will continue with aspirin 81 mg daily and Plavix 75 mg daily. As above, cardiac stress test showed no stress- induced ischemia. No further cardiac intervention was required. Patient will follow up with cardiology as directed. Patient has hypothyroidism. Tsh elevated. At discharge thyroid medication will be adjusted. Patient previously on 08/02 5 mcg of levothyroxine. At discharge she will continue with levothyroxine 137 mcg daily. Recommendation to recheck tsh and free T4 in 4-6 weeks to continue to monitor and assess. Patient has GERD. I will discontinue Zantac and replace it with Protonix 40 mg 1 pill once daily. This can be further monitored by her PCP. Patient may benefit with GI evaluation as an outpatient. Patient likely has underlying obstructive sleep apnea. I will recommend that she have a sleep study done as an outpatient to further assess. Patient with diabetic neuropathy and chronic back pain. Patient may continue with gabapentin 100 mg 1 pill 3 times a day. Further adjustment can be done by her PCP. Patient with chronic constipation. Patient will continue with Amitza 24 mcg 1 pill twice daily. Patient with morbid obesity. BMI 42. Recommendation on lifestyle modification education and weight loss. This can be further monitored and addressed by her PCP. Vital Signs/Physical Exam: Temp Pulse Resp BP Pulse Ox 97.5 F 57 18 130/70 94 06/11/18 12:00 06/11/18 12:00 06/11/18 12:00 06/11/18 12:00 06/11/18 12:00 General: Alert, In no apparent distress, Oriented x3, Cooperative HEENT: Atraumatic, Mucous membr. moist/pink Neck: Supple, No Thyromegaly Respiratory: Clear to auscultation bilaterally, Normal air movement Cardiovascular: Normal pulses, Regular rate/rhythm Gastrointestinal: Normal bowel sounds, Soft and benign, Non-distended, No ascites, No tenderness, No masses, No rebound, No guarding Musculoskeletal: No contractures, No erythema, No tenderness, No warmth Integumentary: No tenderness/swelling, No erythema, No warmth, No cyanosis Neurological: Normal speech, Normal strength at 5/5 x4 extr, Normal tone, Normal affect Laboratory Data at Discharge: WBC 8.5 K/uL (4.3-10.9) 06/11/18 03:34 Hgb 12.3 g/dL (12.0-15.0) 06/11/18 03:34 Hct 36.6 % (36.0-45.0) 06/11/18 03:34 Plt Count 193 K/uL (152-406) 06/11/18 03:34 PT 12.4 SECONDS (9.5-12.5) 06/10/18 11:30 INR 1.05 06/10/18 11:30 Sodium 142 mmol/L (136-145) 06/11/18 03:34 Potassium 4.2 mmol/L (3.5-5.1) 06/11/18 03:34 BUN 28 mg/dL (7-18) H 06/11/18 03:34 Creatinine 1.60 mg/dL (0.55-1.3) H 06/11/18 03:34 Glucose 133 mg/dL (74-106) H 06/11/18 03:34 Magnesium 2.1 mg/dL (1.8-2.4) 06/11/18 03:34 Total Bilirubin 0.7 mg/dL (0.2-1.0) 06/10/18 11:30 AST 13 U/L (15-37) L 06/10/18 11:30 ALT 19 U/L (12-78) 06/10/18 11:30 Alkaline Phosphatase 92 U/L (45-117) 06/10/18 11:30 Troponin I < 0.02 ng/mL (0.0-0.045) 06/11/18 03:34 Triglycerides 117 mg/dL (<150) 06/11/18 03:34 Cholesterol 126 mg/dL (<200) 06/11/18 03:34 HDL Cholesterol 35 mg/dL (40-60) L 06/11/18 03:34 Cholesterol/HDL Ratio 3.60 06/11/18 03:34 Home Medications: Clopidogrel Bisulfate [Clopidogrel] 1 tab PO DAILY 03/12/16 Insulin Glargine,Hum.rec.anlog [Lantus Solostar] 50 unit SQ BEDTIME 03/12/16 Isosorbide Mononitrate [Imdur] 1 tab PO DAILY 03/12/16 Linagliptin [Tradjenta] 1 tab PO DAILY 03/12/16 Atorvastatin Calcium 40 mg PO DAILY 06/10/18 Gabapentin 100 mg PO TID 06/10/18 Lubiprostone [Amitiza] 1 cap PO BID 06/10/18 Levothyroxine [Synthroid*] 0.137 mg PO [id number] #30 tab 06/11/18 Pantoprazole [Protonix Tab*] 40 mg PO DAILY #30 tab 06/11/18 Valsartan 160 mg PO DAILY #30 tablet 06/11/18 New Medications: Levothyroxine [Synthroid*] 0.137 mg PO [id number] #30 tab Pantoprazole [Protonix Tab*] 40 mg PO DAILY #30 tab Valsartan 160 mg PO DAILY #30 tablet Patient Discharge Instructions: 1. Patient will need a follow up with her PCP in 1 week to follow up this hospitalization. 2. Patient presented with chest pain, shortness of breath, and edema to the lower extremities secondary to acute on chronic systolic CHF complicated with history of CAD with prior stent. Patient given IV Lasix with improvement. Medications were adjusted during her stay. Patient seen by nephrology and cardiology. Cardiology recommended echocardiogram and cardiac stress test. Cardiac stress test showed no stress- induced ischemia. Ejection fraction around 44%. Patient responded to diuretic therapy well. CHF teaching was addressed in detail. At discharge Lasix will be increased to 40 mg 1 pill twice daily. She will continue with a 1500 cc per day fluid restriction and low-salt diet. She is to monitor her weight daily. If her weight increases by more than 5 lb she is to contact her PCP or cardiology for further adjustment in medication. Patient is for the patient follow up with cardiology in 2-4 weeks to monitor her progress. Patient may benefit with CHF rehabilitation as an outpatient. Lifestyle modification education will be provided. Prior discharge home oxygen will be set up to maintain sats above 90%. Home health and physical therapy will also be arranged. Patient may need to limit her activities due to her CHF. 3. Patient has hypertension. Medications were adjusted due to her CHF and renal function. At discharge losartan and Norvasc/valsartan was discontinued. At discharge she will continue with valsartan 160 mg daily. Recommendation is to maintain blood pressures less 150/80. Further adjustment can be done by her PCP or cardiology. 4. Patient has diabetes mellitus type 2, insulin dependent. This is not well controlled. Hemoglobin A1c 10.0. At discharge she will continue with Lantus 50 units subcu every night and Tradjenta 5 mg daily. Recommendation is to maintain blood sugars less than 140 fasting and less than 200 after meals. Further adjustment can be done by her PCP. Patient may benefit with endocrinology evaluation as an outpatient for better control. 5. Patient has chronic renal disease stage IIIB. Patient seen by nephrology. Renal ultrasound shows medical renal disease. Recommendation on no further use of nonsteroidal anti-inflammatories need to be renally dosed. Medications adjusted as above. Recommendations for the patient to follow up with nephrology in 1-2 weeks to follow up this hospitalization and continue her care. Recommendation to recheck lab-BMP in 1 week to monitor her progress. 6. Patient has hyperlipidemia. Patient will continue with Lipitor 40 mg daily. 7. Patient has CAD with prior stent. Patient will continue with aspirin 81 mg daily and Plavix 75 mg daily. As above, cardiac stress test showed no stress- induced ischemia. No further cardiac intervention was required. Patient will follow up with cardiology as directed. 8. Patient has hypothyroidism. Tsh elevated. At discharge thyroid medication will be adjusted. Patient previously on 08/02 5 mcg of levothyroxine. At discharge she will continue with levothyroxine 137 mcg daily. Recommendation to recheck tsh and free T4 in 4-6 weeks to continue to monitor and assess. 9. Patient has GERD. I will discontinue Zantac and replace it with Protonix 40 mg 1 pill once daily. This can be further monitored by her PCP. Patient may benefit with GI evaluation as an outpatient. 10. Patient likely has underlying obstructive sleep apnea. I will recommend that she have a sleep study done as an outpatient to further assess. 11. Patient with diabetic neuropathy and chronic back pain. Patient may continue with gabapentin 100 mg 1 pill 3 times a day. Further adjustment can be done by her PCP. 12. Patient with chronic constipation. Patient will continue with Amitza 24 mcg 1 pill twice daily. 13. Patient with morbid obesity. BMI 42. Recommendation on lifestyle modification education and weight loss. This can be further monitored and addressed by her PCP. Diet: ADA Activity: Fall precautions Time spent managing pt's care (in minutes): 55
--- NOTE | 2018-06-11 14:06 | P.CNS ---
Date of Consult: 06/11/18 Reason for Consult: CKD Primary Care Provider: Dr. Russell; Cardiology-Dr. Donovan; Nephrology-Dr. Gilbert Chief Complaint: Chest pain, shortness of breath History of Present Illness: 73-year-old female with PMhx of DM, HTN on valsartan and lisinopril and CKD III with baseline Cr ~1.4-1.6 and hypothyroidism Presented with Chest pain, SOB and LE edema pt symptoms improved after diuresis stress test -ve currently asymptomatic Allergies No Known Drug Allergies Allergy (Verified 03/14/16 17:26) Unknown Home Medications: Amlodipine/Valsartan [Amlodipine-Valsartan 5-160 mg] 10 - 160 mg PO DAILY Clopidogrel Bisulfate [Clopidogrel] 1 tab PO DAILY 03/12/16 Insulin Glargine,Hum.rec.anlog [Lantus Solostar] 50 unit SQ BEDTIME 03/12/16 Isosorbide Mononitrate [Imdur] 1 tab PO DAILY 03/12/16 Linagliptin [Tradjenta] 1 tab PO DAILY 03/12/16 Levothyroxine [Synthroid*] 0.125 mg PO [id number] #30 tab 03/15/16 Atorvastatin Calcium 40 mg PO DAILY 06/10/18 Furosemide 40 mg PO DAILY 06/10/18 Gabapentin 100 mg PO TID 06/10/18 Losartan Potassium [Cozaar] 12.5 mg PO DAILY 06/10/18 Lubiprostone [Amitiza] 1 cap PO BID 06/10/18 Ranitidine HCl [Acid Control] 150 mg PO BID 06/10/18 - Past Medical/Surgical History Diabetic: Yes -: Hypertension -: Diabetes mellitus type 2, insulin-dependent -: Coronary artery disease, Cardiology-Dr. Donovan -: Hypothyroidism -: Hyperlipidemia -: History of CVA -: Obesity -: Chronic kidney disease, stage IIIB -: GERD -: Chronic constipation -: Diabetic neuropathy -: Heart catheterization requiring stent -: Appendectomy Psychosocial/ Personal History: She is of 59 years, has 9 children, she does not work. - Family History Father Medical History: Heart disease, Diabetes - Social History Alcohol use: No CD- Drugs: No Caffeine use: Yes Place of Residence: Home Physical Examination Temp Pulse Resp BP Pulse Ox 97.5 F 57 18 130/70 94 06/11/18 12:00 06/11/18 12:00 06/11/18 12:00 06/11/18 12:00 06/11/18 12:00 General: Oriented x3 HEENT: Atraumatic Neck: Supple, Without JVD or thyroid abnormality Respiratory: Clear to auscultation bilaterally Cardiovascular: No edema, Regular rate/rhythm, Normal S1 S2 Gastrointestinal: Normal bowel sounds Conclusions/Impression: 73-year-old female with PMhx of DM, HTN on valsartan and lisinopril and CKD III with baseline Cr ~1.4-1.6 and hypothyroidism Presented with Chest pain, SOB and LE edema pt symptoms improved after diuresis stress test -ve currently asymptomatic CKD III baseline CR 1.4-1.6 likely due to DM Ua : no prot or bld US 9.2/8.4, echogenic kidneys hols lisniopril Cont valsartan SOB and chest pain resolved Cont lasix 80mg po bid at home Stress test -ve repeated CXR : improved edema Dm as per primary HTN controlled
--- NOTE | 2018-06-11 15:04 | ECHO ---
HEIGHT: 5 ft 1 in WEIGHT: 222 lb 3.2 oz DATE OF STUDY: 06/11/[address]: Eliel Jacques DO 2-DIMENSIONAL: YES M.MODE: YES DOPPLER: YES COLOR FLOW: YES TDS: NO PORTABLE: NO DEFINITY: NO BUBBLE STUDY: NO DIAGNOSIS: CONGESTIVE HEART FAILURE CARDIAC HISTORY: CATHERIZATION: NO SURGERY: NO PROSTHETIC VALVE: NO PACEMAKER: NO MEASUREMENTS (cm) DIASTOLIC (NORMALS) SYSTOLIC (NORMALS) IVSd 1.1 (0.6-1.2) LA Diam 4.3 (1.9-4.0) LVEF 52% LVIDd 5.4 (3.5-5.7) LVIDs 4.0 (2.0-3.5) %FS 27% LVPWd 1.1 (0.6-1.2) Ao Diam 2.9 (2.0-3.7) 2 DIMENSIONAL ASSESSMENT: RIGHT ATRIUM: NORMAL LEFT ATRIUM: DILATED RIGHT VENTRICLE: NORMAL LEFT VENTRICLE: NORMAL TRICUSPID VALVE: NORMAL MITRAL VALVE: MITRAL ANNULAR CALCIFICATION PULMONIC VALVE: NORMAL AORTIC VALVE: SCLEROSIS PERICARDIAL EFFUSION: NONE AORTIC ROOT: NORMAL LEFT VENTRICULAR WALL MOTION: NORMAL LEFT VENTRICULAR EJECTION FRACTION. DOPPLER/COLOR FLOW: MILD TRICUSPID REGURGITATION. COMMENTS: MILD TRICUSPID REGURGITATION. NORMAL RIGHT VENTRICULAR SYSTOLIC PRESSURE. NORMAL LEFT VENTRICULAR SIZE AND FUNCTION. MITRAL ANNULAR CALCIFICATION. AORTIC SCLEROSIS. DECREASED LEFT VENTRICULAR COMPLIANCE. TECHNOLOGIST: Idalia HOLBROOK
--- NOTE | 2018-06-11 15:25 | TREADPHA ---
DX: CHEST PAIN Date of Study: 06/11/18 Ht: 5 1 Wt: 222 lb 3.2 oz Consulting Physician: TATIANNA MEDICATIONS: TYLENOL, ASPIRIN, LIPITOR, PLAVIX, LASIX, LOVENOX, NURONTIN HISTORY: 73 YEAR OLD FEMALE HERE FOR CHEST PAIN/ CORONARY ARTERY DISEASE/ LEFT BUNDLE BRANCH BLOCK. HISTORY OF DIABETES, HYPERTENSION, HYPERLIPIDEMIA PHYSICIAL EXAMINATION: RESTING B.P.: 131/98 RESTING H.R.: 55 RESTING EKG: SINUS RHYTHM, LEFT BUNDLE BRANCH BLOCK PROTOCOL: LEXISCAN EXERCISE TIME: 3:30 B.P. AT PEAK STRESS: 131/;58 IMPRESSION: LEXISCAN STRESS TEST PERFORMED. CARDIOLITE INJECTED PER PROTOCOL. NO PREMATURE VENTRICULAR COMPLEXES NOTED. DENIES ANY CHEST PAIN. SEE NUCLEAR MEDICINE REPORT.
[2018-06-11 21:36] VITALS: BP 137/44; TEMP 97.3
[2018-06-11 23:47] VITALS: O2SAT 95
--- NOTE | 2018-06-15 12:31 | PN ---
Date of Progress Note: 06/11/2018 History Of Present Illness: Ms. Braun is 73, was admitted by Dr. Jacques, and was seen by Dr. Dahl. She had an echocardiogram done today because of chest pain and possible congestive heart failure. She has a history of hypertension, dyslipidemia, coronary artery disease, congestive heart failure, n europathy, hypothyroidism, as well as diabetes. Her BNP was 3479. Her creatinine at one point was 1 .6. She was hypothyroid. A Lexiscan that was ordered, but that was canceled. I am not so sure abou t the reason, it could be her weight and her body habitus, but I will discuss the case further with Tod Jacques and I will be following with Cardiology. We will see what her echocardiogram shows. Today , she is feeling good. No chest pain. No shortness of breath. We will continue to follow. JESSIE/COREY Voice ID: [id number] Report ID: [id number]
== END 2018-06-11 22:20 | disposition home health service (06) ==
LOC: ER 10:14 → ERHOLD 13:12 → 4TH 15:13
PROVIDERS: ADMIT Family Medicine; ATTEND Family Medicine
DX: I13.0 Hypertensive heart and chronic kidney disease with heart failure and stage 1 through stage 4 chronic kidney disease, or unspecified chronic kidney disease (principal); I50.23 Acute on chronic systolic (congestive) heart failure; N18.3 Chronic kidney disease, stage 3 (moderate); E11.22 Type 2 diabetes mellitus with diabetic chronic kidney disease; E11.65 Type 2 diabetes mellitus with hyperglycemia; E03.9 Hypothyroidism, unspecified; E11.40 Type 2 diabetes mellitus with diabetic neuropathy, unspecified; E78.5 Hyperlipidemia, unspecified; K21.9 Gastro-esophageal reflux disease without esophagitis; E66.9 Obesity, unspecified; Z68.41 Body mass index [BMI] 40.0-44.9, adult; I44.7 Left bundle-branch block, unspecified; I25.10 Atherosclerotic heart disease of native coronary artery without angina pectoris; Z95.5 Presence of coronary angioplasty implant and graft; K59.00 Constipation, unspecified; Z86.73 Personal history of transient ischemic attack (TIA), and cerebral infarction without residual deficits
CPT/HCPCS: 36415; 71045; 71046; 76770; 78452; 80048 ×2; 80061; 80076; 81003; 82550 ×2; 82553 ×2; 82962 ×6; 83036; 83735 ×2; 83880; 84439; 84443; 84484 ×4; 85025 ×2; 85610; 93005; 93017; 93306; 96374; 96375; 99285; A9500; G0378 ×2; J1650 ×2; J1940 ×4; J2405; J2785

== ENCOUNTER 2019-05-16 08:12 | Observation (INO) | payer OTHER ==
[2019-05-16] MEDS ORDERED: FUROSEMIDE 40 MG/4 ML VIAL ONE (09:14)
[2019-05-16 09:15] LABS: Absolute Lymphocytes (CBC) 1.3 K/uL (0.7-4.9); Basophils % 0.4 % (0-1.3); Hematocrit 40.5 % (36.0-45.0); Lymphocytes % 15.3 % (15.3-44.8); MPV 8.8 fL (7.6-11.3)
[2019-05-16 09:57] LABS: Albumin 3.6 g/dL (3.4-5.0); Bilirubin Direct 0.2 mg/dL (0-0.2); Bilirubin Total 0.9 mg/dL (0.2-1.0); Protein, Total 7.3 g/dL (6.4-8.2); Troponin (Emerg Dept Use Only) 0.02 ng/mL (0.0-0.045)
[2019-05-16 10:03] LABS: Potassium 4.7 mmol/L (3.5-5.1)
--- NOTE | 2019-05-16 10:10 | ER ---
Nurse's Notes [facility] Name: Lola Braun Age: 74 yrs Sex: Female : 1945 Arrival Date: 05/16/2019 Time: 08:14 Bed 8 Private MD: Lola Russell Diagnosis: Unspecified combined systolic (congestive) and diastolic (congestive) heart failure;Dyspnea, unspecified;Pulmonary edema Presentation: 05/16 08:29 Presenting complaint: Patient states: albanian speaking only. SOB for the past week, ch increasing. feels like fluid on lungs. Transition of care: patient was not received from another setting of care. Onset of symptoms was May 09, 2019. Risk Assessment: Do you want to hurt yourself or someone else? Patient reports no desire to harm self or others. Initial Sepsis Screen: Does the patient meet any 2 criteria? No. Patient's initial sepsis screen is negative. Does the patient have a suspected source of infection? No. Patient's initial sepsis screen is negative. Care prior to arrival: None. 08:29 Method Of Arrival: Wheelchair 08:29 Acuity: RAUL 3 ch Triage Assessment: 08:36 General: Appears in no apparent distress. comfortable, Behavior is calm, cooperative, ch appropriate for age. Pain: Denies pain. Cardiovascular: Heart tones S1 S2 present. Historical: - Allergies: 08:36 NKDA; ch - Home Meds: 08:36 ranitidine HCl 150 mg Oral cap 1 cap 2 times per day [Active]; isosorbide mononitrate ch 120 mg Oral Tb24 once daily [Active]; clopidogrel 75 mg Oral tab 1 tab once daily [Active]; gabapentin 100 mg Oral cap 1 caps 3 times per day [Active]; valsartan 160 mg oral tab 1 tab once daily [Active]; atorvastatin 40 mg Oral tab 1 tab once daily [Active]; Amitiza 24 mcg Oral cap 1 cap 2 times per day [Active]; Lantus 100 unit/mL Sub-Q soln 50 units nightly [Active]; furosemide 40 mg Oral tab 1 tab once daily [Active]; levothyroxine 137 mcg oral tab 1 tab once daily [Active]; Tradjenta 5 mg Oral tab 1 tab once daily [Active]; - PMHx: 08:36 Diabetes - IDDM; Hyperlipidemia; Hypertension; Myocardial infarction; GERD; ch - Immunization history:: Adult Immunizations up to date. - Social history:: Smoking status: Patient/guardian denies using tobacco. - Family history:: not pertinent. - Ebola Screening: : Patient negative for fever greater than or equal to 101.5 degrees Fahrenheit, and additional compatible Ebola Virus Disease symptoms Patient denies exposure to infectious person Patient denies travel to an Ebola-affected area in the 21 days before illness onset No symptoms or risks identified at this time. - Hospitalizations: : No recent hospitalization is reported. Screenin:00 Abuse screen: Denies threats or abuse. Denies injuries from another. Nutritional ch screening: No deficits noted. Tuberculosis screening: No symptoms or risk factors identified. Fall Risk None identified. Assessment: 08:37 Reassessment: Patient appears in no apparent distress at this time. No changes from previously documented assessment. Patient and/or family updated on plan of care and expected duration. Pain level reassessed. Patient is alert, oriented x 3, equal unlabored respirations, skin warm/dry/pink. 09:08 Pain: Complains of pain in epigastric area Pain does not radiate. Pain currently is 0 ch out of 10 on a pain scale. at worst was 3 out of 10 on a pain scale. Pain began gradually. Neuro: No deficits noted. Cardiovascular: Heart tones S1 S2 present Capillary refill < 3 seconds in bilateral fingers toes Clubbing of nail beds is absent Patient's skin is warm and dry. Pulses are all present. Edema is 1+ to left ankle, left foot, right ankle and right foot pt has mild edema. pt is also overweight, possible obesity vs edema Rhythm is regular Chest pain is denied. Respiratory: Reports shortness of breath at rest on exertion Airway is patent Trachea midline Respiratory effort is even, unlabored, Breath sounds are coarse Breath sounds are diminished bilaterally. GI: Reports indigestion. : No signs and/or symptoms were reported regarding the genitourinary system. Derm: Skin is pink, warm \T\ dry. 10:00 Reassessment: Patient appears in no apparent distress at this time. No changes from previously documented assessment. Patient and/or family updated on plan of care and expected duration. Pain level reassessed. Patient is alert, oriented x 3, equal unlabored respirations, skin warm/dry/pink. PT URINATES TO BSC. 10:52 Reassessment: Patient appears in no apparent distress at this time. Patient and/or ch family updated on plan of care and expected duration. Pain level reassessed. Patient is alert, oriented x 3, equal unlabored respirations, skin warm/dry/pink. PT URINATES AGAIN. 11:31 Reassessment: REPORT GIVEN TO [facility]. Vital Signs: 08:36 BP 168 / 63; Pulse 56; Resp 22; Temp 97.9; Pulse Ox 95% on R/A; Weight 102.51 kg; Height 5 ft. (152.40 cm); Pain 0/10; 10:00 BP 170 / 58; Pulse 59; Resp 24; Temp 97.9(O); Pulse Ox 95% on R/A; Pain 0/10; ch 10:52 BP 182 / 54; Pulse 51; Resp 24; Pulse Ox 94% on R/A; ch 11:30 BP 160 / 75; Pulse 53; Resp 26; Temp 97.9; Pulse Ox 97% on R/A; Pain 0/10; ch 08:36 Body Mass Index 44.14 (102.51 kg, 152.40 cm) ED Course: 08:14 Patient arrived in ED. as 08:15 Lola Russell MD is Private Physician. as 08:19 Vani Lin, RN is Primary Nurse. 08:19 John Lu MD is Attending Physician. rn 08:30 Triage completed. 08:36 Arm band placed on left wrist. Patient placed in an exam room, on a stretcher, on monitor worker, on pulse oximetry. 08:45 Missed attempt(s): 22 gauge 24 gauge in right forearm. Bleeding controlled, band aid applied, catheter tip intact. 08:46 XRAY CXR (1 view) In Process Unspecified. EDMS 09:00 Patient has correct armband on for positive identification. Bed in low position. Call light in reach. Side rails up X2. Adult w/ patient. panel monitor on. Pulse ox on. NIBP on. 09:00 Door closed. Noise minimized. Warm blanket given. Pillow given. 09:00 No provider procedures requiring assistance completed. Patient maintains SpO2 saturation greater than 95% on room air. 09:05 Initial lab(s) drawn, by me, sent to lab. Inserted saline lock: 20 gauge in left jl7 forearm, using aseptic technique. Blood collected. 10:04 No apparent distress. Resting quietly. 10:08 Angela Jacobsen MD is Hospitalizing Provider. rn 11:31 Patient admitted, IV remains in place. Administered Medications: 09:20 Drug: Lasix 40 mg Route: IVP; Site: left forearm; 10:08 Follow up: Response: No adverse reaction Output: 10:00 Urine: 400ml (Kin[place]); Total: 400ml. Outcome: 10:08 Decision to Hospitalize by Provider. rn 11:31 Admitted to Med/surg accompanied by tech, via wheelchair, room 410 , with chart, Report called to CALLED TO [place] 11:31 Condition: stable 11:31 Instructed on the need for admit. 12:10 Patient left the ED. Signatures: Dispatcher [employer] EDMS Vani Lin RN RN ch Martinez, Amelia as Nieto, Roman, MD MD rn Leal, Jahala, RN RN jl7
--- NOTE | 2019-05-16 10:10 | EDPHYS ---
Physician Documentation [facility] Name: Lola Braun Age: 74 yrs Sex: Female : 1945 Arrival Date: 05/16/2019 Time: 08:14 Bed 8 Private MD: Lola Russell ED Physician John Lu HPI: 05/16 08:25 This 74 yrs old Female presents to ER via Unassigned with complaints of rn Shortness Of Breath. 08:25 The patient has shortness of breath at rest, with light activity. Onset: The rn symptoms/episode began/occurred 1 week(s) ago. Duration: The symptoms are continuous. The patient's shortness of breath is aggravated by exertion, light activity, supine position, talking, walking. Associated signs and symptoms: Pertinent negatives: non-productive cough, productive cough, fever, hemoptysis. Severity of symptoms: At their worst the symptoms were moderate in the emergency department the symptoms are unchanged. The patient has experienced similar episodes in the past. The patient has not recently seen a physician. Historical: - Allergies: 08:36 NKDA; ch - Home Meds: 08:36 ranitidine HCl 150 mg Oral cap 1 cap 2 times per day [Active]; isosorbide mononitrate ch 120 mg Oral Tb24 once daily [Active]; clopidogrel 75 mg Oral tab 1 tab once daily [Active]; gabapentin 100 mg Oral cap 1 caps 3 times per day [Active]; valsartan 160 mg oral tab 1 tab once daily [Active]; atorvastatin 40 mg Oral tab 1 tab once daily [Active]; Amitiza 24 mcg Oral cap 1 cap 2 times per day [Active]; Lantus 100 unit/mL Sub-Q soln 50 units nightly [Active]; furosemide 40 mg Oral tab 1 tab once daily [Active]; levothyroxine 137 mcg oral tab 1 tab once daily [Active]; Tradjenta 5 mg Oral tab 1 tab once daily [Active]; - PMHx: 08:36 Diabetes - IDDM; Hyperlipidemia; Hypertension; Myocardial infarction; GERD; ch - Immunization history:: Adult Immunizations up to date. - Social history:: Smoking status: Patient/guardian denies using tobacco. - Family history:: not pertinent. - Ebola Screening: : Patient negative for fever greater than or equal to 101.5 degrees Fahrenheit, and additional compatible Ebola Virus Disease symptoms Patient denies exposure to infectious person Patient denies travel to an Ebola-affected area in the 21 days before illness onset No symptoms or risks identified at this time. - Hospitalizations: : No recent hospitalization is reported. ROS: 08:25 Constitutional: Negative for fever, chills, and weight loss, Eyes: Negative for injury, rn pain, redness, and discharge, Neck: Negative for injury, pain, and swelling, Cardiovascular: Negative for chest pain, palpitations Respiratory: Negative for cough, wheezing, and pleuritic chest pain, Abdomen/GI: Negative for abdominal pain, nausea, vomiting, diarrhea, and constipation, MS/Extremity: Negative for injury and deformity, Skin: Negative for injury, rash, and discoloration, Neuro: Negative for headache, weakness, numbness, tingling, and seizure. Exam: 08:25 Constitutional: This is a well developed, well nourished patient who is awake, alert, rn and in no acute distress. Head/Face: Normocephalic, atraumatic. ENT: No oral swelling Cardiovascular: Regular rate and rhythm. No pulse deficits. Respiratory: Mild tachypnea, no retractions, + crackles at bases Abdomen/GI: soft, non-tender MS/ Extremity: Pulses equal, no cyanosis. Neurovascular intact. Full, normal range of motion. Equal circumference. Neuro: Awake and alert, GCS 15, oriented to person, place, time, and situation. Cranial nerves II-XII grossly intact. Motor strength 5/5 in all extremities. Sensory grossly intact. Cerebellar exam normal. Normal gait. 09:41 ECG was reviewed by the Attending Physician. rn Vital Signs: 08:36 BP 168 / 63; Pulse 56; Resp 22; Temp 97.9; Pulse Ox 95% on R/A; Weight 102.51 kg; ch Height 5 ft. (152.40 cm); Pain 0/10; 10:00 BP 170 / 58; Pulse 59; Resp 24; Temp 97.9(O); Pulse Ox 95% on R/A; Pain 0/10; ch 10:52 BP 182 / 54; Pulse 51; Resp 24; Pulse Ox 94% on R/A; ch 11:30 BP 160 / 75; Pulse 53; Resp 26; Temp 97.9; Pulse Ox 97% on R/A; Pain 0/10; ch 08:36 Body Mass Index 44.14 (102.51 kg, 152.40 cm) MDM: 08:19 Patient medically screened. rn 10:07 Differential diagnosis: CHF exacerbation, Myocardial Infarction pneumonia, Pneumothorax rn pulmonary edema. Data reviewed: vital signs, nurses notes, lab test result(s), EKG, radiologic studies, plain films, and as a result, I will admit patient. Test interpretation: by ED physician or midlevel provider: ECG, plain radiologic studies, CXR with pulmonary edema, no pneumothorax. Counseling: I had a detailed discussion with the patient and/or guardian regarding: the historical points, exam findings, and any diagnostic results supporting the discharge/admit diagnosis, lab results, radiology results, the need for further work-up and treatment in the hospital. Response to treatment: the patient's symptoms have mildly improved after treatment, and as a result, I will admit patient. Admission orders: after a detailed discussion of the patient's condition and case, the admit orders are written by me. ED course: Pt feels better but still reports dyspnea, especially on exertion, compliant with lasix, will admit for diuresis. . 05/16 08:24 Order name: Blood Culture Adult (2) rn 05/16 08:24 Order name: BMP; Complete Time: 10:05 rn 05/16 08:24 Order name: CBC with Diff; Complete Time: 09:39 rn 05/16 08:24 Order name: Hepatic Function; Complete Time: 10: rn 05/16 08:24 Order name: Lipase; Complete Time: 10: rn 05/16 08:24 Order name: NT PRO-BNP; Complete Time: 10: rn 05/16 08:24 Order name: XRAY CXR (1 view) rn 05/16 08:24 Order name: Troponin (emerg Dept Use Only); Complete Time: 10:05 rn 05/16 08:24 Order name: EKG; Complete Time: 08:25 rn 05/16 08:24 Order name: Cardiac monitoring; Complete Time: 08:37 rn 05/16 08:24 Order name: EKG - Nurse/Tech; Complete Time: 09: rn 05/16 08:24 Order name: IV Saline Lock; Complete Time: 09: rn 11/03 08:24 Order name: Labs collected and sent; Complete Time: 09:07 rn 05/16 08:24 Order name: O2 Per Protocol; Complete Time: 08:38 rn 05/16 08:24 Order name: O2 Sat Monitoring; Complete Time: 08:38 rn EC:41 Rate is 56 beats/min. Rhythm is irregular. Left axis deviation noted. QRS is positive rn in lead I and negative in lead aVF. ID interval is normal. QRS interval is normal. QT interval is normal. No Q waves. T waves are Inverted in leads I, aVL, V6. No ST changes noted. Clinical impression: No change from prior ECG and Sinus bradycardia. Interpreted by me. Reviewed by me. Administered Medications: 09:20 Drug: Lasix 40 mg Route: IVP; Site: left forearm; 10:08 Follow up: Response: No adverse reaction Disposition: 05/16/19 10:08 Hospitalization ordered by Angela Jacobsen for Inpatient Admission. Preliminary diagnosis are Unspecified combined systolic (congestive) and diastolic (congestive) heart failure, Dyspnea, unspecified, Pulmonary edema. - Bed requested for Telemetry/MedSurg (Inpatient). - Status is Inpatient Admission. ch - Condition is Stable. - Problem is an acute exacerbation. - Symptoms have improved. UTI on Admission? No Signatures: Dispatcher [employer] Vani Vázquez RN RN ch Villarreal, Maria ms Nieto, Roman, MD MD manager internal: (The following items were deleted from the chart) 09:44 09:41 Rate is 56 beats/min. Rhythm is irregular. Left axis deviation noted. QRS is rn positive in lead I and negative in lead aVF. ID interval is normal. QRS interval is normal. QT interval is normal. No Q waves. T waves are Inverted in leads I, aVL, V6. No ST changes noted. Clinical impression: Sinus bradycardia. Interpreted by me. Reviewed by me. rn 11:10 10:08 Hospitalization Ordered by Angela Jacobsen MD for Inpatient Admission. Preliminary ms diagnosis is Unspecified combined systolic (congestive) and diastolic (congestive) heart failure; Dyspnea, unspecified; Pulmonary edema. Bed requested for Telemetry/MedSurg (Inpatient). Status is Inpatient Admission. Condition is Stable. Problem is an acute exacerbation. Symptoms have improved. UTI on Admission? No. rn 12:10 11:10 05/16/2019 10:08 Hospitalization Ordered by Angela Jacobsen MD for Inpatient Admission. Preliminary diagnosis is Unspecified combined systolic (congestive) and diastolic (congestive) heart failure; Dyspnea, unspecified; Pulmonary edema. Bed requested for Telemetry/MedSurg (Inpatient). Status is Inpatient Admission. Condition is Stable. Problem is an acute exacerbation. Symptoms have improved. UTI on Admission? No. ms
[2019-05-16] MEDS ORDERED: GLUCAGON 1 MG/VIAL IM PRN (11:52)
[2019-05-16] MEDS ORDERED: ACETAMINOPHEN 500 MG TAB PO PRN (11:52)
[2019-05-16] MEDS ORDERED: D50W 25 GM/50 ML SYRINGE/VIAL IV PRN (11:52)
[2019-05-16] MEDS ORDERED: ONDANSETRON 4 MG/2 ML VIAL IV PRN (11:52)
--- NOTE | 2019-05-16 12:18 | RAD REPORT ---
EXAM DESCRIPTION: RAD - Chest Single View - 05/16/2019 8:48 am CLINICAL HISTORY: DYSPNEA Chest pain. COMPARISON: Chest Pa And Lat (2 Views) dated 03/12/2019; Chest Single View dated 03/11/2019; Chest Pa And Lat (2 Views) dated 06/11/2018; Chest Single View dated 06/10/2018 FINDINGS: Portable technique limits examination quality. Mild interstitial pulmonary edema seen. The heart is moderately enlarged in size. No displaced fractu res.Aortic atherosclerosis. IMPRESSION: Mild CHF versus volume overload pattern.
[2019-05-16 12:31] LABS: Urine Appearance CLEAR; Urine Bilirubin NEGATIVE (NEG); Urine Blood NEGATIVE (NEG); Urine Color YELLOW; Urine Glucose NEGATIVE (NEG); Urine Protein NEGATIVE (NEG); Urine Specific Gravity <=1.005 (1.005-1.030); Urine Urobilinogen 0.2 mg/dL (0.2-1.0)
[2019-05-16 13:09] LABS: Urine Bacteria NONE SEEN /HPF (<20); Urine RBC NONE SEEN /HPF (NONE SEEN)
[2019-05-16 13:10] LABS: Urine Culture Reflex Order NOT NEEDED
[2019-05-16] MEDS: INSULIN -REGULAR HUMAN 50 UNIT/0.5 ML ML SQ SCH ×2 (16:39→20:59)
[2019-05-16] MEDS: FUROSEMIDE 40 MG/4 ML VIAL IV SCH (16:40)
[2019-05-16] MEDS: GABAPENTIN 100 MG CAP PO SCH ×2 (18:33→21:00)
[2019-05-16] MEDS: ENOXAPARIN 30 MG/0.3 ML SQ SCH (18:48)
[2019-05-16] MEDS: INSULIN GLARGINE 100 UNITS/ML SQ SCH (20:58)
[2019-05-16] MEDS: RANITIDINE 150 MG TABLET PO SCH (21:00)
[2019-05-16] MEDS ORDERED: INSULIN GLARGINE HUM REC ANLOG 64 UNIT SQ SCH (21:00)
[2019-05-16] MEDS ORDERED: LUBIPROSTONE 24 MCG CAP PO SCH (21:00)
[2019-05-16] MEDS ORDERED: ATORVASTATIN 40 MG TAB PO SCH (21:00)
--- NOTE | 2019-05-16 22:52 | HP ---
Date of Admission: 05/16/2019 Code Status: Full. Chief Complaint: Shortness of breath. Primary Care Physician: Dr. Russell. History Of Present Illness: The patient is a 74-year-old female with past medical history of diabetes, hypertension, diastolic heart failure, coronary artery disease, his tory of NH, chronic kidney disease, hypothyroidism, comes in with shortness of breath. Patient is ta chypneic and having worsening dyspnea with exertion. Denies any fevers, chills, nausea, vomiting. N o cough or sputum production. No ill contacts. The patient's symptoms are progressively worsening, constant. Patient came into the ER for further evaluation. In the ER, her white blood cell count wa s normal. BNP was elevated at 3169. She was tachypneic. Her chest x-ray showed pulmonary edema. S he was saturating 95% on room air. Patient was given Lasix and then referred for admission. When se en in the ER, she was awake, alert, oriented x3, in some mild respiratory distress. Past Medical History: Hypertension; diabetes mellitus type 2; history of NH; diabetes is insulin dep endent; coronary artery disease, follows with Dr. Weathers, cardiology; hypothyroidism; hyperlipidemia; history of CVA; obesity; chronic kidney disease, stage IIIB; GERD; chronic constipation; diabetic ne uropathy. Surgical History: Appendectomy; heart catheterization requiring stent. Allergies: NO KNOWN DRUG ALLERGIES. Medications: List reviewed. Social History: Patient denies any tobacco use, alcohol use, or illicit drug use. Lives at home. M arried for 61 years, has 9 children. Does not work. Family History: Father had heart disease and diabetes. Review of Systems: Ten-point system reviewed, negative except as per HPI. Physical Examination: Vital Signs: Blood pressure 168/63, pulse 66, respirations 22, temperature 97.9, O2 of 95% on room a ir. BMI is 44. General: Awake, alert, oriented x3. Elderly female with some mild respiratory distress. HEENT: Normocephalic, atraumatic. PERRL. EOMI. Moist mucous membranes. Oropharynx is clear. Con junctivae are anicteric. Neck: Supple. Patient has jugular venous distention, trachea midline. CV: S1, S2. Regular rate and rhythm. Peripheral pulses weak. No murmurs. Respiratory: Diminished breath sounds. Crackles heard. Patient is tachypneic with use of accessory muscles. No stridor. Gastrointestinal: Abdomen is soft, nontender, nondistended. Positive bowel sounds. No guarding or rigidity. Extremities: No clubbing, cyanosis. Patient has lower pedal edema. No calf tenderness. Neuro: Cranial nerves 2-12 intact grossly. No neurological deficits. Speech is normal. Skin: No rashes. Normal skin turgor. Laboratory Data: Sodium 139, potassium 4.7, chloride 103, CO2 of 29, BUN 34, creatinine 1.98, glucos e 250, calcium 8.5, AST 12, ALT 16, alkaline phosphatase 121. Troponin 0.02. BNP 2169. Albumin is 3.6 lipase is 92. WBC 8.6, H and H 13.6 and 40.5, platelets 188, neutrophils 77%. Blood cultures pe nding. Chest x-ray no official report, but shows pulmonary edema. Assessment And Plan: A 74-year-old female with: 1.Acute diastolic heart failure. We will start on congestive heart failure guidelines. We will loretta ce on IV Lasix for diuresis. Monitor I's and O's strictly. Daily weights. Chest x-ray shows pulmon harjinder edema and left-sided pleural effusion. We will hold off on CORRINE inhibitor due to kidney dysfuncti on. Patient has chronic kidney disease. 2.Coronary artery disease, cheesh-na artery, cheesh-na heart, status post myocardial infarction and stent, without angina. 3.Diabetes mellitus type 2, insulin requiring with hyperglycemia and neuropathy. We will start on s liding scale insulin and monitor blood glucose levels. 4.Essential hypertension, stable. 5.Mixed hyperlipidemia. We will continue with home medications. 6.History of cerebrovascular accident, stable. 7.Chronic kidney disease stage IIIB. We will monitor. Kidney function appears to be at baseline. Avoid NSAIDs and nephrotoxins. 8.Morbid obesity. BMI greater than 40. 9.Hypothyroidism. We will continue Synthroid. 10.Gastroesophageal reflux disease. Continue PPI. No esophagitis. 11.Diabetic neuropathy. 12.Deep vein thrombosis prophylaxis with Lovenox renally adjusted. Plan: Admit patient to Med-Surg, place as observation. /COREY Voice ID: [id number]
--- NOTE | 2019-05-17 05:23 | EKG ---
Test Date: 2019-05-16 Test Time: 09:49:58 Metal Dealer: TERENCE MEASUREMENT RESULTS: Intervals: Rate: 56 RI: 150 QRSD: 160 QT: 514 QTc: 496 [place]: P: 19 RI: 150 QRS: -25 T: 137 INTERPRETIVE STATEMENTS: Sinus bradycardia with premature atrial complexes Left bundle branch block Abnormal ECG Compared to ECG 03/11/2019 08:00:03 Atrial premature complex(es) now present Sinus rhythm no longer present Sinus arrhythmia no longer present Electronically Signed On 05-17-19 05:22:52 [employer] by Omer Dahl
[2019-05-17 05:46] VITALS: BMI 42.0
[2019-05-17 05:54] LABS: Absolute Lymphocytes (CBC) 2.7 K/uL (0.7-4.9); Basophils % 0.3 % (0-1.3); Hematocrit 38.2 % (36.0-45.0); Lymphocytes % 29.5 % (15.3-44.8); MPV 8.9 fL (7.6-11.3); RBC Red Blood Cell Count 4.22 M/uL (3.86-4.86)
[2019-05-17] MEDS ORDERED: METOPROLOL TAR 25 MG TAB PO SCH (06:00)
[2019-05-17 06:01] LABS: Albumin 3.3 g/dL (3.4-5.0); Phosphorus 3.6 mg/dL (2.5-4.9); Protein, Total 6.4 g/dL (6.4-8.2)
[2019-05-17] MEDS ORDERED: LEVOTHYROXINE SOD 0.112 MG TAB PO SCH (06:30)
[2019-05-17] MEDS ORDERED: LEVOTHYROXINE SOD 0.025 MG TAB PO SCH (06:30)
[2019-05-17] MEDS: INSULIN -REGULAR HUMAN 50 UNIT/0.5 ML ML SQ SCH ×2 (07:30→11:53)
[2019-05-17] MEDS ORDERED: INFLUENZA VACCINE (for 3y+) 0.5 ML DOSE IMVAC ONE (08:00)
[2019-05-17] MEDS ORDERED: PNEUMOCOCCAL VACCINE 0.5 ML IMVAC ONE (08:00)
[2019-05-17] MEDS: INSULIN GLARGINE 100 UNITS/ML SQ SCH (08:39)
[2019-05-17] MEDS: ENOXAPARIN 30 MG/0.3 ML SQ SCH (08:39)
[2019-05-17] MEDS: RANITIDINE 150 MG TABLET PO SCH (08:40)
[2019-05-17] MEDS: GABAPENTIN 100 MG CAP PO SCH (08:41)
[2019-05-17] MEDS: FUROSEMIDE 40 MG/4 ML VIAL IV SCH (08:42)
[2019-05-17] MEDS ORDERED: ISOSORBIDE MONO SR 60 MG TAB PO SCH (09:00)
[2019-05-17] MEDS ORDERED: VALSARTAN 160 MG TAB PO SCH (09:00)
[2019-05-17] MEDS ORDERED: GLIPIZIDE S.A. 5 MG TAB PO SCH (09:00)
[2019-05-17] MEDS ORDERED: CLOPIDOGREL 75 MG TABLET PO SCH (09:00)
[2019-05-17 10:34] VITALS: O2SAT 94
[2019-05-17 13:00] VITALS: BP 144/64; TEMP 97.5
--- NOTE | 2019-05-18 04:40 | DS ---
Date of Discharge: 05/17/2019 Discharge Diagnoses: 1.Acute diastolic heart failure, improved. 2.Orthostatic hypotension. 3.Coronary artery disease morongo artery and morongo heart, status post myocardial infarction and sten t without angina. 4.Diabetes mellitus type 2, insulin requiring with hyperglycemia, neuropathy. 5.Essential hypertension, stable. 6.Hyperlipidemia. 7.History of cerebrovascular accident, stable. 8.Chronic kidney disease stage IIIB. 9.Morbid obesity, BMI is 42, counseled. 10.Hypothyroidism, on Synthroid. 11.Diabetic neuropathy. 12.Gastroesophageal reflux disease without esophagitis. Hospital Course: Patient is a 74-year-old female, comes in with shortness of breath. Kaylen walker has multiple chronic medical conditions including diabetes, hypertension, heart failure, heart dis ease, NE, chronic kidney disease, and hypothyroidism. Patient was found to be in diastolic heart corinne lure. She was admitted for further evaluation and workup. As she was diuresed well, she had good ur inary output, had negative fluid balance. The patient's kidney function was around her baseline. He r blood glucose levels were elevated. She has poorly controlled diabetes with neuropathy and hypergl ycemia. She is recommended to adjust her diet and to follow up with her PCP for adjustment of her di abetes. Chest x-ray had shown some pulmonary edema. Patient did not require any supplemental oxygen . She felt better, she was able to ambulate, however, while getting up became very dizzy. Orthostat ic vital signs were positive. She had a 40 point drop in her systolic blood pressure when going from sitting to standing. Patient was educated regarding orthostatic hypotension and to get up slowly wh ile changing positions and to wait at least 3-5 minutes before going from sitting to standing positio n. Patient was then cleared for discharge. She did well ambulating with her walker with physical th erapy, did not require any PT at home. She was discharged in a stable condition. Activity: As tolerated. Fall precautions. Ambulate with a walker. Diet: Diabetic, renal diet, 1500 mL fluid restriction, low-sodium diet. Followup: Follow up with primary care physician in 2-3 days. Follow up with rn internal medicine, Dr. Donovan in 2 weeks. Return to ER for worsening condition. Medications: As per medication reconciliation list. Physical Examination: General: Awake, alert, and oriented x3. Morbidly obese elderly female. CV: S1, S2. Respiratory: Moving air well bilaterally. Abdomen: Abdomen is soft, nontender, nondistended. Positive bowel sounds. Extremities: No clubbing, cyanosis, or edema. Neurologic: Nonfocal. SA/MODL Voice ID: [id number] Report ID: [id number]
--- OUTSIDE RECORDS SUMMARY | 2019-05-23 20:14 | XMS REPORT ---
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 Assessment Type 2 diabetes mellitus with E11.22 Active diabetic chronic kidney disease Assessment Hypothyroidism E03.9 Active Assessment Hyperlipidemia E78.5 Active Problem Type 2 diabetes mellitus with E11.65 Active hyperglycemia Problem Type 2 diabetes mellitus with E11.22 Active diabetic chronic kidney disease Problem 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 Problem Constipation, unspecified K59.00 Active constipation type Problem Chronic kidney disease, stage III N18.3 Active (moderate) Problem Adult general medical examination Z00.00 Active Problem Chronic kidney disease (CKD), stage N18.3 Active III (moderate) Problem Other chronic pain G89.29 Active Problem History of skin cancer in adulthood Z85.828 Active Problem Elevated blood pressure reading I10 Active with diagnosis of hypertension Problem Arteriosclerosis of coronary artery I25.10 Active Problem H/O: CVA (cerebrovascular accident) Z86.73 Active Problem Abnormal mammogram R92.8 Active Problem alf current use of insulin Z79.4 Active Problem Chronic systolic congestive heart I50.22 Active failure Problem Acute on chronic diastolic I50.33 Active congestive heart failure Problem Mixed stress and urge urinary N39.46 Active incontinence Problem Chronic diastolic heart failure I50.32 Active Problem Diabetes E11.9 Active Problem Hyperlipidemia E78.5 Active Problem Benign essential HTN I10 Active Problem Hypothyroidism E03.9 Active Problem CKD (chronic kidney disease) stage N18.4 Active 4, GFR 15-29 ml/min Problem Elevated blood pressure reading R03.0 Active Problem Obese E66.9 Active Problem Unsteady gait R26.81 Active Medications No Known Medications Results No Known Results Summary Purpose eClinicalWorks Submission
--- OUTSIDE RECORDS SUMMARY | 2019-05-23 20:14 | XMS REPORT ---
:1945 [facility] Address [address] [place] [address] Dr. [address] [place] [id number] Care Team Providers Name Role Phone Unavailable Unavailable Unavailable Problems This patient has no known problems. Allergies, Adverse Reactions, Alerts This patient has no known allergies or adverse reactions. Medications This patient has no known medications.
== END 2019-05-17 13:16 | disposition home or self-care (01) ==
LOC: ER 08:12 → ERHOLD 10:58 → 4TH 11:31
PROVIDERS: ADMIT Family Medicine; ATTEND Family Medicine
DX: I13.0 Hypertensive heart and chronic kidney disease with heart failure and stage 1 through stage 4 chronic kidney disease, or unspecified chronic kidney disease (principal); I50.31 Acute diastolic (congestive) heart failure; E11.22 Type 2 diabetes mellitus with diabetic chronic kidney disease; N18.3 Chronic kidney disease, stage 3 (moderate); I25.2 Old myocardial infarction; I25.10 Atherosclerotic heart disease of native coronary artery without angina pectoris; E03.9 Hypothyroidism, unspecified; E11.40 Type 2 diabetes mellitus with diabetic neuropathy, unspecified; E11.65 Type 2 diabetes mellitus with hyperglycemia; E78.2 Mixed hyperlipidemia; E66.01 Morbid (severe) obesity due to excess calories; Z68.41 Body mass index [BMI] 40.0-44.9, adult; Z71.3 Dietary counseling and surveillance; Z86.73 Personal history of transient ischemic attack (TIA), and cerebral infarction without residual deficits; Z28.21 Immunization not carried out because of patient refusal
CPT/HCPCS: 93005; 87040 ×2; 85025 ×2; 81001; 80048; 36415; 83735; 84100; 82947 ×4; 80076; 84484; 83690; 80053; 83880; 71045; 97112; 97116; 97161; 97530; 94760 ×3; 96374; 99285; J1940 ×3; J1650 ×2; G0378 ×3; J1815

== ENCOUNTER 2019-05-26 09:00 | Emergency (ER) | payer OTHER ==
--- OUTSIDE RECORDS SUMMARY | 2019-05-26 09:02 | XMS REPORT ---
[...] Active Problem Abnormal mammogram R92.8 Active Problem [facility] current use of insulin [...]
--- OUTSIDE RECORDS SUMMARY | 2019-05-26 09:02 | XMS REPORT ---
:1945 Author Organization [employer] Care Team Providers Name Role Phone Russell, Na Provider Role Unavailable Allergies No Known Allergies Problems Problem Type Condition Code Onset Dates Condition Status Problem Type 2 diabetes mellitus with E11.65 [...] Active Problem Abnormal mammogram R92.8 Active Problem shelter current use of insulin Z79.4 Active Problem [...]
--- OUTSIDE RECORDS SUMMARY | 2019-05-26 09:02 | XMS REPORT ---
:1945 [facility] Address [address] [place] [address] [address]. [address] [place] [address] Care Team Providers Name Role Phone Unavailable Unavailable Unavailable Problems This patient has no known problems. Allergies, Adverse Reactions, Alerts This patient has no known allergies or adverse reactions. Medications This patient has no known medications.
[2019-05-26 10:20] LABS: Absolute Lymphocytes (CBC) 1.4 K/uL (0.7-4.9); Basophils % 0.2 % (0-1.3); Hematocrit 41.4 % (36.0-45.0); MPV 8.9 fL (7.6-11.3); RBC Red Blood Cell Count 4.49 M/uL (3.86-4.86)
[2019-05-26 10:29] LABS: Potassium 4.6 mmol/L (3.5-5.1); Troponin (Emerg Dept Use Only) 0.03 ng/mL (0.0-0.045)
[2019-05-26] MEDS ORDERED: FUROSEMIDE 40 MG/4 ML VIAL ONE (10:40)
--- NOTE | 2019-05-26 10:40 | EKG ---
Test Date: 2019-05-26 Test Time: 09:15:42 Elevator Constructor Hydraulic: JESSICA MEASUREMENT RESULTS: Intervals: Rate: 66 WV: 148 QRSD: 158 QT: 466 QTc: 488 [place]: P: -18 WV: 148 QRS: -26 T: 121 INTERPRETIVE STATEMENTS: Sinus rhythm with marked sinus arrhythmia Left bundle branch block Abnormal ECG Compared to ECG 05/16/2019 09:49:58 Sinus bradycardia no longer present Atrial premature complex(es) no longer present Electronically Signed On 05-26-19 10:40:10 HOUSING PROJECT MANAGER by Omer Dahl
[2019-05-26] MEDS ORDERED: LIDOCAINE VISCOUS 2% SOLN 15 ML UDC ONE (10:56)
[2019-05-26] MEDS ORDERED: MAGNE/ALUM HYDROXD 30 ML UCUP ONE (10:56)
--- NOTE | 2019-05-26 11:11 | RAD REPORT ---
EXAM DESCRIPTION: RAD - Chest Single View - 05/26/2019 9:32 am CLINICAL HISTORY: Shortness of breath, chest pain COMPARISON: May 16 TECHNIQUE: AP portable chest image was obtained 0928 hours . FINDINGS: Medial right base opacification has improved. Cardiomegaly is present but diminished from comparison. Central vasculature also improved. No new mid or upper lung field focal abnormality. Trac hea is midline. No pneumothorax or large pleural effusion. IMPRESSION: Mild CHF/volume overload findings are evident but are less prominent than seen May 16. More focal medial right base opacification is present also diminished in prominence from the prior st udy.
[2019-05-26] MEDS ORDERED: FUROSEMIDE 20 MG/ 2ML VIAL ONE (12:09)
--- NOTE | 2019-05-26 13:00 | ER ---
Nurse's Notes [facility] Name: Lola Braun Age: 74 yrs Sex: Female : 1945 Arrival Date: 05/26/2019 Time: 09:02 Bed 7 Private MD: Lola Russell Diagnosis: Unspecified combined systolic (congestive) and diastolic (congestive) heart failure;Dyspnea, unspecified Presentation: 05/26 09:21 Presenting complaint: Patient states: feels SOB on exertion, and is having chest pain, iw was recently d/c from hospital, symptoms are same from last visit, is taking meds as prescribed. Transition of care: patient was not received from another setting of care. Onset of symptoms was May 26, 2019. Risk Assessment: Do you want to hurt yourself or someone else? Patient reports no desire to harm self or others. Initial Sepsis Screen: Does the patient meet any 2 criteria? No. Patient's initial sepsis screen is negative. Does the patient have a suspected source of infection? No. Patient's initial sepsis screen is negative. Care prior to arrival: None. 09:21 Method Of Arrival: Wheelchair iw 09:21 Acuity: RAUL 3 iw Historical: - Allergies: 09:23 NKDA; iw - Home Meds: 09:26 atorvastatin 40 mg Oral tab 1 tab once daily [Active]; clopidogrel 75 mg Oral tab 1 tab iw once daily [Active]; gabapentin 100 mg Oral cap 1 caps 3 times per day [Active]; isosorbide mononitrate 120 mg Oral Tb24 once daily [Active]; levothyroxine 137 mcg tab 1 tab once daily [Active]; valsartan 160 mg Oral tab 1 tab once daily [Active]; Lantus 100 unit/mL subcutaneous soln 60 unit nightly [Active]; glipizide 5 mg Oral tr24 1 tab once daily [Active]; ranitidine HCl 150 mg Oral cap 1 cap 2 times per day [Active]; - PMHx: 09:23 Diabetes - IDDM; GERD; Hyperlipidemia; Hypertension; Myocardial infarction; iw - Immunization history:: Adult Immunizations up to date. - Social history:: Smoking status: Patient/guardian denies using tobacco. - Family history:: not pertinent. - Ebola Screening: : Patient negative for fever greater than or equal to 101.5 degrees Fahrenheit, and additional compatible Ebola Virus Disease symptoms Patient denies exposure to infectious person Patient denies travel to an Ebola-affected area in the 21 days before illness onset No symptoms or risks identified at this time. - Hospitalizations: : The patient was recently seen at [facility]. Screenin:27 Abuse screen: Denies threats or abuse. Denies injuries from another. Nutritional ph screening: No deficits noted. Tuberculosis screening: No symptoms or risk factors identified. Fall Risk None identified. Assessment: 09:25 General: Appears in no apparent distress. uncomfortable, obese, well groomed, Behavior ph is calm, cooperative, appropriate for age, Denies fever. Pain: Complains of pain in mid-sternal area Pain does not radiate. Quality of pain is described as pressure. Neuro: Level of Consciousness is awake, alert, obeys commands, Oriented to person, place, time, situation. Cardiovascular: Reports chest pain, shortness of breath, Capillary refill < 3 seconds in bilateral fingers Patient's skin is warm and dry. Chest pain quality is pressure. Respiratory: Reports shortness of breath on exertion Airway is patent Respiratory effort is even, unlabored, Respiratory pattern is regular, symmetrical. GI: Abdomen is round Reports upper abdominal pain, bloating, Patient currently denies diarrhea, nausea, vomiting. Derm: Skin is intact, is healthy with good turgor, Skin is pink, warm \T\ dry. Musculoskeletal: Circulation, motion, and sensation intact. Range of motion: intact in all extremities. 10:50 Reassessment: Patient appears in no apparent distress at this time. Patient and/or ph family updated on plan of care and expected duration. Pain level reassessed. Patient is alert, oriented x 3, equal unlabored respirations, skin warm/dry/pink. ERP at bedside to speak w/ pt. 12:00 Reassessment: Patient appears in no apparent distress at this time. Patient and/or ph family updated on plan of care and expected duration. Pain level reassessed. Patient is alert, oriented x 3, equal unlabored respirations, skin warm/dry/pink. 13:30 Reassessment: Patient appears in no apparent distress at this time. Patient and/or ph family updated on plan of care and expected duration. Pain level reassessed. Patient is alert, oriented x 3, equal unlabored respirations, skin warm/dry/pink. Awaiting daughter to bring pt's pants. 13:39 Reassessment: Daughter at bedside assisting pt to dress. ph Vital Signs: 09:23 Resp 20; Temp 98.2(TE); Pulse Ox 95% on R/A; Weight 97.52 kg; Height 5 ft. 0 in. iw (152.40 cm); Pain 5/10; 09:27 BP 192 / 89; ph 10:30 BP 147 / 63; Pulse 61; Resp 22; Pulse Ox 96% on R/A; ph 12:21 BP 140 / 68; Pulse 69; Resp 22; Pulse Ox 95% ; sv 13:30 BP 137 / 70; Pulse 62; Resp 16; Temp 97.8; Pulse Ox 96% on R/A; ph 09:23 Body Mass Index 41.99 (97.52 kg, 152.40 cm) iw ED Course: 09:02 Patient arrived in ED. mr 09:02 Lola Russell MD is Private Physician. mr 09:04 John Lu MD is Attending Physician. rn 09:23 Triage completed. iw 09:23 Grisel Warner, NICHOLAS is Primary Nurse. ph 09:28 Arm band placed on Patient placed in an exam room, on a stretcher, on manager monitoring, ph on pulse oximetry. 09:28 Patient has correct armband on for positive identification. Placed in gown. Bed in low ph position. Call light in reach. Side rails up X2. radiation monitor on. Pulse ox on. NIBP on. Door closed. Noise minimized. Warm blanket given. Head of bed elevated. 09:28 Patient maintains SpO2 saturation greater than 95% on room air. ph 09:30 XRAY Chest (1 view) In Process Unspecified. EDMS 09:51 Missed attempt(s): 22 gauge in right antecubital area. Bleeding controlled, band aid ph applied, catheter tip intact. Missed attempt(s): 24 gauge in right hand. Bleeding controlled, band aid applied, catheter tip intact. 09:55 Inserted saline lock: 22 gauge in left forearm, using aseptic technique. ,using aseptic sv technique. diffusics Blood collected. Flushed left forearm with 5 ml normal saline. 12:29 EKG done, by computed tomography technologist. reviewed by John Lu MD. at1 13:00 Lola Russell MD is Referral Physician. rn 13:40 No provider procedures requiring assistance completed. IV discontinued, intact, ph bleeding controlled, No redness/swelling at site. Pressure dressing applied. Administered Medications: 10:45 Drug: Lasix 40 mg Route: IVP; Site: left forearm; ph 13:00 Follow up: Response: No adverse reaction ph 11:01 Drug: GI Cocktail without - (Maalox Suspension 30 ml, Lidocaine Liquid 2 % 15 ph ml) Route: PO; 13:00 Follow up: Response: No adverse reaction ph 12:15 Drug: Lasix 20 mg Route: IVP; Site: left forearm; ph 13:00 Follow up: Response: No adverse reaction ph Output: 11:32 Urine: 500ml (Voided); Total: 500ml. ph Outcome: 13:00 Discharge ordered by MD. rn 13:40 Discharged to home via wheelchair, with family. ph 13:40 Condition: good 13:40 Discharge instructions given to patient, family, Instructed on discharge instructions, follow up and referral plans. Demonstrated understanding of instructions, follow-up care. 13:41 Patient left the ED. ph Signatures: Dispatcher [employer] EDMS Yoko Allen RN RN Michelle Wheeler Irene, RN RN iw Nieto, Roman, MD MD rn Gonzales, Amanda, farm equipment engineer EKG Tat1 Grisel Warner RN RN ph
--- NOTE | 2019-05-26 13:01 | EDPHYS ---
Physician Documentation [facility] Name: Lola Braun Age: 74 yrs Sex: Female : 1945 Arrival Date: 05/26/2019 Time: 09:02 Bed 7 Private MD: Lola Russell ED Physician John Lu HPI: 05/26 09:15 This 74 yrs old Female presents to ER via Unassigned with complaints of Chest rn Pain, Breathing Difficulty. 09:15 The patient has shortness of breath with light activity. Onset: The symptoms/episode rn began/occurred 5 day(s) ago. Duration: The symptoms are intermittent. The patient's shortness of breath is aggravated by exertion, light activity, is alleviated by nothing. Severity of symptoms: in the emergency department the symptoms. The patient has experienced similar episodes in the past. The patient has been recently been admitted at [facility]. Patient just admitted for CHF twice in last 2 weeks, reports felt better when left hospital, adhering to fluid restriction and diet, dyspnea on exertion and chest pain as well. No fever/cough. Reports constipated. Compliant with diuretics. . Historical: - Allergies: 09:23 NKDA; iw - Home Meds: 09:26 atorvastatin 40 mg Oral tab 1 tab once daily [Active]; clopidogrel 75 mg Oral tab 1 tab iw once daily [Active]; gabapentin 100 mg Oral cap 1 caps 3 times per day [Active]; isosorbide mononitrate 120 mg Oral Tb24 once daily [Active]; levothyroxine 137 mcg tab 1 tab once daily [Active]; valsartan 160 mg Oral tab 1 tab once daily [Active]; Lantus 100 unit/mL subcutaneous soln 60 unit nightly [Active]; glipizide 5 mg Oral tr24 1 tab once daily [Active]; ranitidine HCl 150 mg Oral cap 1 cap 2 times per day [Active]; - PMHx: 09:23 Diabetes - IDDM; GERD; Hyperlipidemia; Hypertension; Myocardial infarction; iw - Immunization history:: Adult Immunizations up to date. - Social history:: Smoking status: Patient/guardian denies using tobacco. - Family history:: not pertinent. - Ebola Screening: : Patient negative for fever greater than or equal to 101.5 degrees Fahrenheit, and additional compatible Ebola Virus Disease symptoms Patient denies exposure to infectious person Patient denies travel to an Ebola-affected area in the 21 days before illness onset No symptoms or risks identified at this time. - Hospitalizations: : The patient was recently seen at [facility]. ROS: 09:15 Constitutional: Negative for fever, chills, and weight loss, Eyes: Negative for injury, rn pain, redness, and discharge, Neck: Negative for injury, pain, and swelling, Cardiovascular: Negative for palpitations Respiratory: Negative for cough, wheezing, and pleuritic chest pain, Abdomen/GI: Negative for nausea, vomiting, diarrhea MS/Extremity: Negative for injury and deformity, Neuro: Negative for headache, weakness, numbness, tingling, and seizure. Exam: 09:15 Constitutional: Overweight female, mild tachypnea after transferring from wheelchair rn to bed. Head/Face: Normocephalic, atraumatic. ENT: MMM Cardiovascular: Regular rate and rhythm. No pulse deficits. Respiratory: Mild tachypnea with bibasilar crackles, no retractions Abdomen/GI: soft, non-tender MS/ Extremity: Pulses equal, no cyanosis. Neurovascular intact. Full, normal range of motion. Equal circumference. Neuro: Awake and alert, GCS 15, oriented to person, place, time, and situation. Cranial nerves II-XII grossly intact. Motor strength 5/5 in all extremities. Sensory grossly intact. Cerebellar exam normal. Normal gait. Vital Signs: 09:23 Resp 20; Temp 98.2(TE); Pulse Ox 95% on R/A; Weight 97.52 kg; Height 5 ft. 0 in. iw (152.40 cm); Pain 5/10; 09:27 BP 192 / 89; ph 10:30 BP 147 / 63; Pulse 61; Resp 22; Pulse Ox 96% on R/A; ph 12:21 BP 140 / 68; Pulse 69; Resp 22; Pulse Ox 95% ; sv 13:30 BP 137 / 70; Pulse 62; Resp 16; Temp 97.8; Pulse Ox 96% on R/A; ph 09:23 Body Mass Index 41.99 (97.52 kg, 152.40 cm) iw MDM: 09:04 Patient medically screened. rn 12:58 Differential diagnosis: CHF exacerbation, Pneumothorax pulmonary edema. Data reviewed: rn vital signs, nurses notes, old medical records, lab test result(s), EKG, radiologic studies, plain films, and as a result, I will discharge patient. Counseling: I had a detailed discussion with the patient and/or guardian regarding: the historical points, exam findings, and any diagnostic results supporting the discharge/admit diagnosis, lab results, radiology results, the need for outpatient follow up, to return to the emergency department if symptoms worsen or persist or if there are any questions or concerns that arise at home. Response to treatment: the patient's symptoms have markedly improved after treatment. Special discussion: I discussed with the patient/guardian in detail that at this point there is no indication for admission to the hospital. It is understood, however, that if the symptoms persist or worsen the patient needs to return immediately for re-evaluation. ED course: Pt improved after lasix 60mg IV, states breathing better, CXR improved compared to last week when admitted, will dc home with doubling of her lasix next 2-3 days, and pcp f/u, has room to go up on lasix as only taking 40mg daily, and increased visits for CHF exacerbation. return precautions given and understood. . 05/26 09:13 Order name: CBC with Diff; Complete Time: 10:28 rn 05/26 09:13 Order name: Basic Metabolic Panel; Complete Time: : rn 05/26 09:13 Order name: XRAY Chest (1 view); Complete Time: : rn 05/26 09:13 Order name: N-Terminal Pro-brain Natriuretic Peptide; Complete Time: 10: rn 05/26 09:13 Order name: Troponin (emerg Dept Use Only); Complete Time: 10: rn 05/26 09:13 Order name: IV Start; Complete Time: 10: rn 05/26 09:13 Order name: EKG; Complete Time: : rn 05/26 09:13 Order name: EKG - Nurse/Tech; Complete Time: 09:29 rn Administered Medications: 10:45 Drug: Lasix 40 mg Route: IVP; Site: left forearm; ph 13:00 Follow up: Response: No adverse reaction ph 11:01 Drug: GI Cocktail without - (Maalox Suspension 30 ml, Lidocaine Liquid 2 % 15 ph ml) Route: PO; 13:00 Follow up: Response: No adverse reaction ph 12:15 Drug: Lasix 20 mg Route: IVP; Site: left forearm; ph 13:00 Follow up: Response: No adverse reaction ph Disposition: 05/26/19 13:00 Discharged to Home. Impression: Unspecified combined systolic (congestive) and diastolic (congestive) heart failure, Dyspnea, unspecified. - Condition is Stable. - Discharge Instructions: Heart Failure, Shortness of Breath. - Medication Reconciliation Form, Thank You Letter, Antibiotic Education, Prescription Opioid Use form. - Follow up: Lola Russell MD; When: 2 - 3 days; Reason: Recheck today's complaints, Re-evaluation by your physician. - Problem is an acute exacerbation. - Symptoms have improved. Signatures: Dispatcher [employer] EDBety Schwarz RN RN iw Nieto, Roman, MD MD rn Hall, Patricia, RN RN ph Corrections: (The following items were deleted from the chart) 13:41 13:00 05/26/2019 13:00 Discharged to Home. Impression: Unspecified combined systolic ph (congestive) and diastolic (congestive) heart failure; Dyspnea, unspecified. Condition is Stable. Forms are Medication Reconciliation Form, Thank You Letter, Antibiotic Education, Prescription Opioid Use. Follow up: Lola Russell; When: 2 - 3 days; Reason: Recheck today's complaints, Re-evaluation by your physician. Problem is an acute exacerbation. Symptoms have improved. derrick
[2019-05-26 14:02] VITALS: TEMP 98.2
[2019-05-26 14:06] VITALS: BP 140/68; O2SAT 95
== END 2019-05-26 13:41 | disposition home or self-care (01) ==
LOC: ER 09:00
DX: I50.40 Unspecified combined systolic (congestive) and diastolic (congestive) heart failure (principal); R06.00 Dyspnea, unspecified; E11.9 Type 2 diabetes mellitus without complications; K21.9 Gastro-esophageal reflux disease without esophagitis; E78.5 Hyperlipidemia, unspecified; I10 Essential (primary) hypertension; I25.2 Old myocardial infarction
CPT/HCPCS: 93005; 85025; 80048; 36415; 84484; 83880; 71045; 96374; 99285; J1940 ×2

== ENCOUNTER 2019-09-01 10:17 | Emergency (ER) | payer OTHER ==
--- OUTSIDE RECORDS SUMMARY | 2019-09-01 10:20 | XMS REPORT ---
:1945 [facility] Address [address] [place] [address] [address]. [address] [place] [address] Care Team Providers Name Role Phone Unavailable Unavailable Unavailable Problems This patient has no known problems. Allergies, Adverse Reactions, Alerts This patient has no known allergies or adverse reactions. Medications This patient has no known medications.
--- OUTSIDE RECORDS SUMMARY | 2019-09-01 10:21 | XMS REPORT ---
[...] Active Problem Abnormal mammogram R92.8 Active Problem [facility] current use of insulin Z79.4 Active Problem [...]
--- OUTSIDE RECORDS SUMMARY | 2019-09-01 10:21 | XMS REPORT ---
:1945 Author Organization eClinicalWorks Care Team Providers Name Role Phone Russell, Na Provider Role Unavailable Allergies, Adverse Reactions, Alerts Substance Reaction Event Type N.K.D.A. 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 Problem Type 2 diabetes mellitus with E11.65 Active hyperglycemia Problem Constipation, unspecified K59.00 Active constipation type Problem Adult general medical examination Z00.00 Active Problem Type 2 diabetes mellitus with E11.22 Active diabetic chronic kidney disease Problem Chronic kidney disease (CKD), stage N18.3 Active III (moderate) Problem Other chronic pain G89.29 Active Problem Acute on chronic diastolic I50.33 Active congestive heart failure Problem Abnormal mammogram R92.8 Active Problem History of skin cancer in adulthood Z85.828 Active Problem Benign essential HTN I10 Active Problem Arteriosclerosis of coronary artery I25.10 Active Problem Gastroesophageal reflux disease, K21.9 Active esophagitis presence not specified Problem H/O: CVA (cerebrovascular accident) Z86.73 Active Problem Chronic diastolic heart failure I50.32 Active Problem Chronic systolic congestive heart I50.22 Active failure Problem Elevated blood pressure reading I10 Active with diagnosis of hypertension Problem Mixed stress and urge urinary N39.46 Active incontinence Assessment Constipation, unspecified K59.00 Active constipation type Problem Hyperlipidemia E78.5 Active Assessment Other chronic pain G89.29 Active Problem Obese E66.9 Active Assessment Arteriosclerosis of coronary artery I25.10 Active Problem Hypothyroidism E03.9 Active Assessment Gastroesophageal reflux disease, K21.9 Active esophagitis presence not specified Problem Diabetes E11.9 Active Assessment Unsteady gait R26.81 Active Problem 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 Assessment Screening for colon cancer Z12.11 Active Problem Elevated blood pressure reading R03.0 Active Problem Unsteady gait R26.81 Active Problem CKD (chronic kidney disease) stage N18.4 Active 4, GFR 15-29 ml/min Medications Medication Code Code Instructions Start End Status Dosage System Date Date Pen [place] [facility] 85948652347 32G X 4 MM Active USE ONCE A DAY WITH LANTUS Plavix [facility] 25240811268 75 MG Orally Active 1 tablet Once a day Tradjenta [facility] 10906097373 5 MG Orally Active 1 tablet Once a day Omeprazole [facility] 87066748994 40 MG Orally Jun 02, Active 1 capsule Once a day 2018 Amitiza [facility] 39196353456 24 Inactive TAKE ONE CAPSULE BY MOUTH TWICE A DAY FOR CONSTIPATION Imdur [facility] 0 Active not defined Lantus SoloStar [facility] 50833554688 100 UNIT/ML Active 66 units Subcutaneous daily once a day Plavix [facility] 06434770022 75 MG Orally Active 1 tablet Once a day Amlodipine [facility] 15151509502 10-160 Orally Active 1 tablet Besylate-Valsar Once a day simon Linzess [facility] 78833252221 72 MCG Orally Jun 02, November Active 1 capsule on Once a day 2018 18, an empty 2020 stomach Gabapentin [facility] [address]-11 100 MG Active TOME SUSANA CAPSULA POR VIA ORAL [place] VECES POR GERI Valsartan [facility] 52624283806 160 MG Orally Active 1 tablet Once a day GlipiZIDE XL [facility] 00290895421 5 MG Orally Active 1 tablet with Once a day food Lasix [facility] [address]-17 40 MG Orally Active 1 tablet twice a day Lyrica [facility] 62981150639 50 MG Orally Active 1 capsule twice a day Levothyroxine [facility] 00957572050 150 MCG Orally Active 1 tablet on Sodium Once a day an empty stomach in the morning Lipitor [facility] 94993556880 40 MG Active TOME SUSANA TABLETA SUSANA VEZ AL GERI POR VIA ORAL Lantus SoloStar [facility] 32041886516 100 unit/mL Active INJECT 48 UNITS DEBAJO DE [place] PIEL CADA NOCHE Lipitor [facility] 54420832853 40 MG Orally Active 1 tablet Once a day Lipitor [facility] 19012667141 40 MG Active TOME SUSANA TABLETA SUSANA VEZ AL GERI POR BOCA ZyrTEC [facility] 93320093646 Active not defined Tradjenta [facility] 95719067908 5 MG Orally Active 1 tablet Once a day Myrbetriq [facility] 98718049931 25 MG Orally Active 1 tablet Once a day Isosorbide [facility] 48557323562 120 MG Orally Active 1 tablet in Mononitrate ER Once a day the morning Results No Known Results Summary Purpose eClinicalWorks Submission
--- OUTSIDE RECORDS SUMMARY | 2019-09-01 10:21 | XMS REPORT ---
[...] Active Problem Abnormal mammogram R92.8 Active Problem residential current use of insulin Z79.4 Active Problem [...]
--- OUTSIDE RECORDS SUMMARY | 2019-09-01 10:21 | XMS REPORT ---
:1945 Author Organization e[employer]Works Care Team Providers Name Role Phone Russell, Lola Provider Role Unavailable Allergies, Adverse Reactions, Alerts Substance Reaction Event Type N.K.D.A. 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 Assessment Hypothyroidism E03.9 Active Assessment Elevated blood pressure reading I10 Active with diagnosis of hypertension Assessment Type 2 diabetes mellitus with E11.22 [...] Problem Chronic diastolic heart failure I50.32 Active Assessment Osteoporosis screening Z13.820 Active Problem Diabetes E11.9 Active Assessment Arteriosclerosis of coronary artery I25.10 Active Problem Hyperlipidemia E78.5 Active Problem Benign essential HTN I10 Active Assessment Needs flu shot Z23 Active Problem Hypothyroidism E03.9 Active Problem CKD (chronic kidney disease) stage N18.4 Active 4, GFR 15-29 ml/min Problem Elevated blood pressure reading R03.0 Active Problem Obese E66.9 Active Problem Unsteady gait R26.81 Active Medications Medication Code Code Instructions Start End Status Dosage System Date Date Valsartan [facility] 31169152366 160 MG Orally Active 1 tablet Once a day Amlodipine [facility] 31446183535 10-160 Orally Active 1 tablet Besylate-Valsart Once a day an Lipitor [facility] 00587315927 40 MG Active TOME SUSANA TABLETA SUSANA VEZ AL GERI POR BOCA Pantoprazole [facility] 28903487287 40 MG Orally Active 1 tablet Sodium Once a day Amitiza [facility] 50403733529 24 MCG Orally Active 1 capsule with Twice a day food Tradjenta [facility] 13193820790 5 MG Orally Active 1 tablet Once a day ZyrTEC [facility] 31190723350 Active not defined Isosorbide [facility] 10765045029 120 MG Orally Active 1 tablet in Mononitrate ER Once a day the morning Lasix [facility] 54839207563 40 MG Orally Active 1 tablet Once a day Lantus SoloStar [facility] 70654817405 100 unit/mL Active INJECT 48 UNITS DEBAJO [place] CADA NOCHE GlipiZIDE XL [facility] 97992536993 5 MG Orally Active 1 tablet with Once a day food Lipitor [facility] 17297699010 40 MG Orally Active 1 tablet Once a day Imdur NDC 0 Active not defined Exforge [facility] 39658512144 10-160 Active TOME SUSANA TABLETA SUSNAA VEZ AL GERI POR BOCA Tradjenta [facility] 57785569200 5 MG Orally Active 1 tablet Once a day Protonix [facility] 86229869567 40 MG Orally Jul 20, Active 1 tablet Once a day 2018 Gabapentin [facility] [address]-72 100 MG Active TOME SUSANA CAPSULA POR VIA ORAL [place] VECES POR GERI Myrbetriq ND 50922148470 25 MG Orally Active 1 tablet Once a day Plavix [facility] 61829517977 75 MG Orally Active 1 tablet Once a day Amitiza [facility] 64794185629 24 Active TAKE ONE CAPSULE BY MOUTH TWICE A DAY FOR CONSTIPATION Gabapentin ND 64991699100 100 MG Active TOME SUSANA CAPSULA POR VIA ORAL [place] VECES POR GERI Pen [place] [facility] 80045412772 32G X 4 MM Active USE ONCE A DAY WITH LANTUS Lantus SoloStar [facility] 13241068265 100 UNIT/ML Active 66 units daily Subcutaneous once a day Zantac [facility] [address]-10 150 MG Active TOME SUSANA TABLETA POR VIA ORAL DOS VECES POR GERI Plavix [facility] 07948473875 75 MG Orally Active 1 tablet Once a day Lyrica [facility] 16444390688 50 MG Orally Active 1 capsule twice a day Levothyroxine [facility] 65104955607 150 MCG Orally Active 1 tablet on an Sodium Once a day empty stomach in the morning Lipitor [facility] 94879434490 40 MG Active TOME SUSANA TABLETA SUSANA VEZ AL GERI POR VIA ORAL Results No Known Results Immunizations Vaccine Administration Date FluAD May 24, 2019 Summary Purpose eClinicalWorks Submission
--- OUTSIDE RECORDS SUMMARY | 2019-09-01 10:22 | XMS REPORT ---
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
--- OUTSIDE RECORDS SUMMARY | 2019-09-01 10:22 | XMS REPORT ---
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
--- OUTSIDE RECORDS SUMMARY | 2019-09-01 10:22 | XMS REPORT ---
:1945 Author Organization eClinicalWorks Care Team Providers Name Role Phone Russell, Lola Provider Role Unavailable Allergies, Adverse Reactions, Alerts Substance Reaction Event Type N.K.D.A. 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 Problem H/O: CVA (cerebrovascular accident) Z86.73 Active Problem Arteriosclerosis of coronary artery I25.10 Active Problem Chronic kidney disease (CKD), stage N18.3 Active III (moderate) Problem Acute on chronic diastolic I50.33 Active congestive heart failure Problem Benign essential HTN I10 Active Problem Chronic systolic congestive heart I50.22 Active failure Problem Elevated blood pressure reading I10 Active with diagnosis of hypertension Problem Chronic diastolic heart failure I50.32 Active Problem Female genital prolapse, N81.9 Active unspecified Problem Unspecified urinary incontinence R32 Active Problem Hyperlipidemia E78.5 Active Problem Diabetes E11.9 Active Assessment Unspecified urinary incontinence R32 Active Problem Primary insomnia F51.01 Active Problem Hypothyroidism E03.9 Active Assessment Female genital prolapse, N81.9 Active unspecified Problem History of skin cancer in adulthood Z85.828 Active Problem Mixed stress and urge urinary N39.46 Active incontinence Problem Gastroesophageal reflux disease, K21.9 Active esophagitis presence not specified Problem Abnormal mammogram R92.8 Active Assessment Hyperlipidemia E78.5 Active Problem CKD (chronic kidney disease) stage N18.4 Active 4, GFR 15-29 ml/min Assessment Hypothyroidism E03.9 Active Problem 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 Assessment Chronic diastolic heart failure I50.32 Active Problem Obese E66.9 Active Assessment 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 Problem Unsteady gait R26.81 Active Assessment Arteriosclerosis of coronary artery I25.10 Active Problem Adult general medical examination Z00.00 Active Assessment Chronic kidney disease (CKD), stage N18.3 Active III (moderate) Problem Other chronic pain G89.29 Active Problem Elevated blood pressure reading R03.0 Active Problem Constipation, unspecified K59.00 Active constipation type Medications Medication Code Code Instructions Start End Status Dosage System Date Date Pen [place] [facility] 61523709561 32G X 4 MM Active USE ONCE A DAY WITH LANTUS Levothyroxine [facility] 39910062494 150 MCG Orally Active 1 tablet Sodium Once a day on an empty stomach in the morning Valsartan [facility] 92140623977 160 MG Orally Active 1 tablet Once a day Isosorbide [facility] 79402799033 120 MG Orally Active 1 tablet Mononitrate ER Once a day in the morning Pantoprazole [facility] 08980349810 40 MG Orally Active 1 tablet Sodium Once a day Gabapentin [facility] [address]-50 100 MG Active TOME SUSANA CAPSULA POR VIA ORAL [place] VECES POR GERI GlipiZIDE XL [facility] 11062529151 5 MG Orally Active 1 tablet Once a day with food Amlodipine [facility] 23947246115 10-160 Orally Active 1 tablet Besylate-Valsart Once a day an Lipitor [facility] 02987017811 40 MG Active TOME SUSANA TABLETA SUSANA VEZ AL GERI POR BOCA Lantus SoloStar [facility] 83804141312 100 unit/mL Active INJECT 48 UNITS DEBAJO DE LA PIEL CADA NOCHE Trazodone HCl [facility] 71866985382 50 MG Orally Jul 02, Active 1 tablet Once a day 2018 at bedtime as needed ZyrTEC [facility] 61740427497 Active not defined Lantus SoloStar [facility] 67939349745 100 UNIT/ML Active 66 units Subcutaneous daily once a day Linzess [facility] 16503337991 72 MCG Orally Jun 02November 28, Active 1 capsule Once a day 2018 2019 on an empty stomach Tradjenta [facility] 82952639444 5 MG Orally Active 1 tablet Once a day Plavix [facility] 39885362044 75 MG Orally Active 1 tablet Once a day Omeprazole [facility] 82565987506 40 MG Orally Nov , Active 1 capsule Once a day 2018 Lyrica [facility] 15959015349 50 MG Orally Active 1 capsule twice a day Lasix [facility] 41517039858 40 MG Orally Active 1 tablet twice a day Plavix [facility] 60164558233 75 MG Orally Active 1 tablet Once a day Lipitor [facility] 18048716126 40 MG Active TOME SUSANA TABLETA SUSANA VEZ AL GERI POR VIA ORAL Imdur [place] 0 Active not defined Tradjenta [facility] 44408010791 5 MG Orally Active 1 tablet Once a day Lipitor [facility] 48128670856 40 MG Orally Active 1 tablet Once a day Myrbetriq [facility] 94628941625 25 MG Orally Active 1 tablet Once a day Results No Known Results Summary Purpose eClinicalWorks Submission
--- OUTSIDE RECORDS SUMMARY | 2019-09-01 10:22 | XMS REPORT ---
:1945 Author Organization eClinicalWorks Care Team Providers Name Role Phone Russell, Lola Provider Role Unavailable Allergies No Known Allergies Problems Problem Type Condition Code Onset Dates Condition Status Assessment Screening for colon cancer Z12.11 Active Problem Chronic kidney disease, stage III N18.3 Active (moderate) Problem meterman current use of insulin Z79.4 Active Problem [...]
--- OUTSIDE RECORDS SUMMARY | 2019-09-01 10:22 | XMS REPORT ---
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
[2019-09-01 11:31] LABS: Protime INR 1.03
[2019-09-01 11:47] LABS: Albumin 3.4 g/dL (3.4-5.0); Bilirubin Direct 0.3 mg/dL (0-0.2); Bilirubin Total 1.1 mg/dL (0.2-1.0); Magnesium 2.4 mg/dL (1.8-2.4); Protein, Total 6.9 g/dL (6.4-8.2); Troponin (Emerg Dept Use Only) 0.03 ng/mL (0.0-0.045)
--- NOTE | 2019-09-01 11:57 | RAD REPORT ---
EXAM DESCRIPTION: [place] Single View09/01/2019 11:45 am CLINICAL HISTORY: sob COMPARISON: May 2019 FINDINGS: Mild bilateral pulmonary opacities The heart is mildly to moderately enlarged IMPRESSION: Mild CHF
[2019-09-01 12:10] LABS: Absolute Lymphocytes (CBC) 1.8 K/uL (0.7-4.9); Basophils % 0.4 % (0-1.3); Hematocrit 38.9 % (36.0-45.0); Lymphocytes % 14.2 % (15.3-44.8); RBC Red Blood Cell Count 4.25 M/uL (3.86-4.86)
--- NOTE | 2019-09-01 12:30 | EKG ---
Test Date: 2019-09-01 Test Time: 11:04:37 Acquisition Manager: JESSICA MEASUREMENT RESULTS: Intervals: Rate: 59 NH: 140 QRSD: 162 QT: 474 QTc: 469 [place]: P: 52 NH: 140 QRS: -1 T: 93 INTERPRETIVE STATEMENTS: Sinus bradycardia with sinus arrhythmia Left bundle branch block Abnormal ECG Compared to ECG 05/26/2019 09:15:42 Sinus rhythm no longer present Electronically Signed On 09-01-19 12:29:36 CURRENCY MACHINE OPERATOR by Omer Dahl
--- NOTE | 2019-09-01 12:36 | RAD REPORT ---
EXAM DESCRIPTION: US - Abdomen Exam Limited - 09/01/2019 11:47 am CLINICAL HISTORY: Abdominal pain. COMPARISON: None. FINDINGS: The gallbladder wall measures 7 millimeters. A gallstone is not seen. . The biliary tree is normal caliber. Small amount of gallbladder sludge IMPRESSION: Thickened gallbladder wall may indicate acalculous cholecystitis. Hypoalbuminemia could also result in this appearance
[2019-09-01] MEDS ORDERED: FUROSEMIDE 40 MG/4 ML VIAL ONE (12:44)
[2019-09-01] MEDS ORDERED: WATER FOR INJ,STERILE 10 ML ONE (12:44)
[2019-09-01] MEDS ORDERED: PANTOPRAZOLE 40 MG INJ ONE (12:44)
[2019-09-01] MEDS ORDERED: FUROSEMIDE 20 MG/ 2ML VIAL ONE (12:45)
[2019-09-01] MEDS ORDERED: MAGNE/ALUM HYDROXD 30 ML UCUP ONE (12:53)
[2019-09-01] MEDS ORDERED: CIPROFLOXACIN HCL 500 MG TAB ONE (12:54)
[2019-09-01] MEDS ORDERED: LIDOCAINE VISCOUS 2% SOLN 15 ML UDC ONE (12:54)
--- NOTE | 2019-09-01 13:52 | ER ---
Nurse's Notes [facility] Name: Lola Braun Age: 74 yrs Sex: Female : 1945 Arrival Date: 09/01/2019 Time: 10:29 Bed 23 Private MD: Lola Russell Diagnosis: Cholecystitis;Chronic combined systolic (congestive) and diastolic (congestive) heart failure Presentation: 09/01 10:48 Presenting complaint: Child states: pain from right side of back and radiates up to iw abdomen and chest X 1 week also feels SOB, worse on exertion. Transition of care: patient was not received from another setting of care. Onset of symptoms was August 25, 2019. Risk Assessment: Do you want to hurt yourself or someone else? Patient reports no desire to harm self or others. Initial Sepsis Screen: Does the patient meet any 2 criteria? No. Patient's initial sepsis screen is negative. Does the patient have a suspected source of infection? No. Patient's initial sepsis screen is negative. Care prior to arrival: None. 10:48 Method Of Arrival: Wheelchair iw 10:48 Acuity: RAUL 3 iw Historical: - Allergies: 10:50 NKDA; iw - Home Meds: 10:50 Amitiza 24 mcg Oral cap 1 cap 2 times per day [Active]; atorvastatin 40 mg Oral tab 1 iw tab once daily [Active]; clopidogrel 75 mg Oral tab 1 tab once daily [Active]; furosemide 40 mg Oral tab 1 tab once daily [Active]; gabapentin 100 mg Oral cap 1 caps 3 times per day [Active]; glipizide 5 mg Oral tr24 1 tab once daily [Active]; isosorbide mononitrate 120 mg Oral Tb24 once daily [Active]; Lantus 100 unit/mL Sub-Q soln 60 unit nightly [Active]; levothyroxine 137 mcg tab 1 tab once daily [Active]; ranitidine HCl 150 mg Oral cap 1 cap 2 times per day [Active]; Tradjenta 5 mg Oral tab 1 tab once daily [Active]; valsartan 160 mg Oral tab 1 tab once daily [Active]; - PMHx: 10:50 Diabetes - IDDM; GERD; Hyperlipidemia; Hypertension; Myocardial infarction; iw - Immunization history:: Adult Immunizations up to date. - Coronavirus screen:: The patient has NOT traveled to [place] in the past 14 days. Proceed with normal triage process as indicated. - Social history:: Smoking status: Patient denies any tobacco usage or history of. - Ebola Screening: : Patient negative for fever greater than or equal to 101.5 degrees Fahrenheit, and additional compatible Ebola Virus Disease symptoms Patient denies exposure to infectious person Patient denies travel to an Ebola-affected area in the 21 days before illness onset No symptoms or risks identified at this time. Screenin:00 Abuse screen: Denies threats or abuse. Denies injuries from another. Nutritional ca1 screening: No deficits noted. Tuberculosis screening: No symptoms or risk factors identified. Fall Risk IV access (20 points). Gait- Weak (10 pts.). Total Beasley Fall Scale indicates Low Risk Score (25-44 pts). Fall prevention measures have been instituted. Side Rails Up X 2 Family Present and informed to notify staff if they need to leave bedside As available Patient and Family Educated on Fall Prevention Program and strategies. Assessment: 11:00 General: Appears in no apparent distress. comfortable, Behavior is calm, cooperative, ca1 appropriate for age. Pain: Complains of pain in abdomen Pain currently is 8 out of 10 on a pain scale. Neuro: Level of Consciousness is awake, alert, obeys commands, Oriented to person, place, time, situation, Appropriate for age. Cardiovascular: Heart tones S1 S2 present Capillary refill < 3 seconds Patient's skin is warm and dry. Rhythm is sinus rhythm. Respiratory: Airway is patent Respiratory effort is even, unlabored, Respiratory pattern is regular, symmetrical, Breath sounds are clear bilaterally. GI: Abdomen is round non-distended, Bowel sounds present X 4 quads. Abd is soft X 4 quads Abdomen is tender to palpation in right upper quadrant and left upper quadrant. : No signs and/or symptoms were reported regarding the genitourinary system. EENT: Derm: Skin is intact, is healthy with good turgor, Skin is pink, warm \T\ dry. Musculoskeletal: Circulation, motion, and sensation intact. Capillary refill < 3 seconds. 11:57 Reassessment: Patient appears in no apparent distress at this time. No changes from ca1 previously documented assessment. Patient and/or family updated on plan of care and expected duration. Pain level reassessed. Patient is alert, oriented x 3, equal unlabored respirations, skin warm/dry/pink. 12:55 Reassessment: Patient appears in no apparent distress at this time. Patient and/or ca1 family updated on plan of care and expected duration. Pain level reassessed. Patient is alert, oriented x 3, equal unlabored respirations, skin warm/dry/pink. 14:07 Reassessment: Patient appears in no apparent distress at this time. Patient is alert, ca1 oriented x 3, equal unlabored respirations, skin warm/dry/pink. Vital Signs: 10:50 BP 156 / 60; Pulse 61; Resp 20 S; Temp 97.9; Pulse Ox 94% on R/A; Weight 98.43 kg; iw Height 5 ft. 0 in. (152.40 cm); Pain 0/10; 11:57 BP 157 / 69; Pulse 75; Resp 19 S; Pulse Ox 96% on R/A; ca1 12:55 BP 175 / 53; Pulse 60; Resp 17 S; Pulse Ox 97% ; ca1 14:00 BP 157 / 83; Pulse 61; Resp 17 S; Pulse Ox 99% on R/A; ca1 10:50 Body Mass Index 42.38 (98.43 kg, 152.40 cm) iw ED Course: 10:29 Patient arrived in ED. mr 10:29 Lola Russell MD is Private Physician. mr 10:49 Triage completed. iw 10:49 Olu Lafleur PA is PHCP. jr8 10:49 Jhon Lu MD is Attending Physician. jr8 10:52 Arm band placed on. iw 11:00 Patient has correct armband on for positive identification. Placed in gown. Bed in low ca1 position. Call light in reach. Side rails up X2. conveyor monitor on. Pulse ox on. NIBP on. Warm blanket given. 11:03 May Desai, NICHOLAS is Primary Nurse. ca1 11:14 No provider procedures requiring assistance completed. Initial lab(s) drawn, by la, ca1 sent to lab. Inserted saline lock: 22 gauge in right forearm, using aseptic technique. Blood collected. 11:26 EKG done, by utility locate technician. reviewed by Olu PIEDRA. at1 11:51 XRAY Chest (1 view) In Process Unspecified. EDMS 11:51 US Abdomen Limited In Process Unspecified. EDMS 13:50 Neftali Rogers MD is Referral Physician. jr8 14:09 IV discontinued, intact, bleeding controlled, No redness/swelling at site. Pressure ca1 dressing applied. Administered Medications: 12:36 Drug: ProTONIX 40 mg Route: IVP; Site: right forearm; ca1 13:36 Follow up: Response: No adverse reaction ca1 12:40 Drug: Lasix 60 mg Route: IVP; Site: right forearm; ca1 13:36 Follow up: Urinated x 2 ca1 12:49 Drug: GI Cocktail without - (Maalox Suspension 30 ml, Lidocaine Liquid 2 % 15 ca1 ml) Route: PO; 13:35 Follow up: Response: No adverse reaction ca1 12:54 Drug: Cipro 500 mg Route: PO; ca1 13:34 Follow up: Response: No adverse reaction ca1 Intake: Outcome: 13:50 Discharge ordered by . jr8 14:09 Discharged to home via wheelchair, with family. ca1 14:09 Condition: stable 14:09 Discharge instructions given to patient, family, Instructed on discharge instructions, follow up and referral plans. medication usage, Demonstrated understanding of instructions, follow-up care, medications, Prescriptions given X 3. 14:10 Patient left the ED. ca1 Signatures: Dispatcher [employer] EDLA Michelle Jiang Irene, RN RN iw Olu Lafleur PA PA jr8 Jesika Joshi, shirt maker EKG Tat1 May Desai RN RN ca1 Corrections: (The following items were deleted from the chart) 10:52 10:48 Presenting complaint: Child states: pain from right side of back and radiates up iw to chest X 1 week also feels SOB, worse on exertion iw 10:53 10:50 Pulse 61bpm; Resp 20bpm; Spontaneous; Pulse Ox 94% RA; Temp 97.9F; 98.43 kg; iw Height 5 ft. 0 in.; BMI: 42.3; Pain 0/10; iw 10:53 10:50 Pulse 61bpm; Resp 20bpm; Spontaneous; Pulse Ox 94% RA; Temp 97.9F; 98.43 kg; iw Height 5 ft. 0 in.; BMI: 42.3; Pain 0/10; iw 11:25 11:24 No provider procedures requiring assistance completed. ca1 ca1 11:25 11:24 Inserted saline lock: 22 gauge in right forearm, using aseptic technique. Blood ca1 collected. ca1 11:25 11:24 Initial lab(s) drawn, by me, sent to lab. ca1 ca1
--- NOTE | 2019-09-01 13:53 | EDPHYS ---
Physician Documentation [facility] Name: Lola Braun Age: 74 yrs Sex: Female : 1945 Arrival Date: 09/01/2019 Time: 10:29 Bed 23 Private MD: Lola Russell ED Physician John Lu HPI: 09/01 11:03 This 74 yrs old Female presents to ER via Wheelchair with complaints of Back jr8 Pain, Abdominal Pain, Breathing Difficulty, Trouble Walking. 11:03 The patient presents with abdominal pain in the upper abdomen. Onset: The jr8 symptoms/episode began/occurred acutely, 2 day(s) ago, and became worse. The symptoms radiate to back. Associated signs and symptoms: Pertinent positives: nausea, shortness of breath. The symptoms are described as stabbing. Modifying factors: The symptoms are alleviated by nothing, the symptoms are aggravated by nothing. Severity of pain: At its worst the pain was moderate in the emergency department the pain is unchanged. The patient has experienced a previous episode. The patient has not recently seen a physician. Historical: - Allergies: 10:50 NKDA; iw - Home Meds: 10:50 Amitiza 24 mcg Oral cap 1 cap 2 times per day [Active]; atorvastatin 40 mg Oral tab 1 iw tab once daily [Active]; clopidogrel 75 mg Oral tab 1 tab once daily [Active]; furosemide 40 mg Oral tab 1 tab once daily [Active]; gabapentin 100 mg Oral cap 1 caps 3 times per day [Active]; glipizide 5 mg Oral tr24 1 tab once daily [Active]; isosorbide mononitrate 120 mg Oral Tb24 once daily [Active]; Lantus 100 unit/mL Sub-Q soln 60 unit nightly [Active]; levothyroxine 137 mcg tab 1 tab once daily [Active]; ranitidine HCl 150 mg Oral cap 1 cap 2 times per day [Active]; Tradjenta 5 mg Oral tab 1 tab once daily [Active]; valsartan 160 mg Oral tab 1 tab once daily [Active]; - PMHx: 10:50 Diabetes - IDDM; GERD; Hyperlipidemia; Hypertension; Myocardial infarction; iw - Immunization history:: Adult Immunizations up to date. - Coronavirus screen:: The patient has NOT traveled to [place] in the past 14 days. Proceed with normal triage process as indicated. - Social history:: Smoking status: Patient denies any tobacco usage or history of. - Ebola Screening: : Patient negative for fever greater than or equal to 101.5 degrees Fahrenheit, and additional compatible Ebola Virus Disease symptoms Patient denies exposure to infectious person Patient denies travel to an Ebola-affected area in the 21 days before illness onset No symptoms or risks identified at this time. ROS: 11:03 Eyes: Negative for injury, pain, redness, and discharge, ENT: Negative for injury, jr8 pain, and discharge, Neck: Negative for injury, pain, and swelling, Cardiovascular: Negative for chest pain, palpitations, and edema, Back: Negative for injury and pain, MS/Extremity: Negative for injury and deformity, Skin: Negative for injury, rash, and discoloration, Neuro: Negative for headache, weakness, numbness, tingling, and seizure. 11:03 Respiratory: Positive for dyspnea on exertion, shortness of breath, Negative for cough, sputum production, wheezing. 11:03 Abdomen/GI: Positive for abdominal pain, nausea, Negative for vomiting, diarrhea, constipation, abdominal cramps, abdominal distension. Exam: 11:03 Eyes: Pupils equal round and reactive to light, extra-ocular motions intact. Lids and jr8 lashes normal. Conjunctiva and sclera are non-icteric and not injected. Cornea within normal limits. Periorbital areas with no swelling, redness, or edema. ENT: Nares patent. No nasal discharge, no septal abnormalities noted. Tympanic membranes are normal and external auditory canals are clear. Oropharynx with no redness, swelling, or masses, exudates, or evidence of obstruction, uvula midline. Mucous membranes moist. Neck: Trachea midline, no thyromegaly or masses palpated, and no cervical lymphadenopathy. Supple, full range of motion without nuchal rigidity, or vertebral point tenderness. No Meningismus. Cardiovascular: Regular rate and rhythm with a normal S1 and S2. No gallops, murmurs, or rubs. Normal PMI, no JVD. No pulse deficits. Respiratory: Lungs have equal breath sounds bilaterally, clear to auscultation and percussion. No rales, rhonchi or wheezes noted. No increased work of breathing, no retractions or nasal flaring. Back: No spinal tenderness. No costovertebral tenderness. Full range of motion. Skin: Warm, dry with normal turgor. Normal color with no rashes, no lesions, and no evidence of cellulitis. MS/ Extremity: Pulses equal, no cyanosis. Neurovascular intact. Full, normal range of motion. Neuro: Awake and alert, GCS 15, oriented to person, place, time, and situation. Cranial nerves II-XII grossly intact. Motor strength 5/5 in all extremities. Sensory grossly intact. Cerebellar exam normal. Normal gait. 11:03 Abdomen/GI: Inspection: obese Bowel sounds: active, all quadrants, Palpation: soft, in all quadrants, nontender, in the suprapubic area, right lower quadrant and left lower quadrant, mild abdominal tenderness, in the epigastric area and left upper quadrant, moderate abdominal tenderness, in the right upper quadrant, mass, is not appreciated, rebound tenderness, is not appreciated, voluntary guarding, is not appreciated, involuntary guarding, is not appreciated, no appreciated organomegaly, Indicators: McBurney's point is not tender, Singh's sign is positive, Rovsing's sign is negative, Liver: tenderness, is not appreciated. 12:31 ECG was reviewed by the Attending Physician. [facility] Vital Signs: 10:50 BP 156 / 60; Pulse 61; Resp 20 S; Temp 97.9; Pulse Ox 94% on R/A; Weight 98.43 kg; iw Height 5 ft. 0 in. (152.40 cm); Pain 0/10; 11:57 BP 157 / 69; Pulse 75; Resp 19 S; Pulse Ox 96% on R/A; ca1 12:55 BP 175 / 53; Pulse 60; Resp 17 S; Pulse Ox 97% ; ca1 14:00 BP 157 / 83; Pulse 61; Resp 17 S; Pulse Ox 99% on R/A; ca1 10:50 Body Mass Index 42.38 (98.43 kg, 152.40 cm) iw MDM: 10:54 Patient medically screened. [facility] 13:07 Data reviewed: vital signs, nurses notes, lab test result(s), EKG, radiologic studies, jr8 plain films, ultrasound. Data interpreted: Pulse oximetry: on room air is 97 %. Interpretation: normal. Counseling: I had a detailed discussion with the patient and/or guardian regarding: the historical points, exam findings, and any diagnostic results supporting the discharge/admit diagnosis, lab results, radiology results. ED course: Spoke with Dr. Rogers about patient. Will see patient in next couple of days in office to order HIDA scan for further evaluation of GB. Patient pain under control at this point. VS stable and without fever. Also has mild chronic CHF which patient will be given IV lasix for. 09/01 10:54 Order name: Basic Metabolic Panel; Complete Time: 11:53 09/01 10:54 Order name: CBC with Diff; Complete Time: 12:16 09/01 10:54 Order name: LFT's; Complete Time: 11:53 09/01 10:54 Order name: Magnesium; Complete Time: 11:53 09/01 10:54 Order name: NT PRO-BNP; Complete Time: :53 09/01 10:54 Order name: PT-INR; Complete Time: 11:37 09/01 10:54 Order name: Troponin (emerg Dept Use Only); Complete Time: 11:53 09/01 10:54 Order name: XRAY Chest (1 view); Complete Time: 12:29 09/01 10:54 Order name: Lipase; Complete Time: 11:53 09/01 11:02 Order name: US Abdomen Limited; Complete Time: 13:31 09/01 10:54 Order name: EKG; Complete Time: 10:56 09/01 10:54 Order name: Cardiac monitoring; Complete Time: 11:09/01 10:54 Order name: EKG - Nurse/Tech; Complete Time: 11:09/01 10:54 Order name: IV Saline Lock; Complete Time: 11:24 09/01 10:54 Order name: Labs collected and sent; Complete Time: 11:24 09/01 10:54 Order name: O2 Per Protocol; Complete Time: 11:09/01 10:54 Order name: O2 Sat Monitoring; Complete Time: 11:04 09/01 11:29 Order name: Labs - recollect needed: recollect cbc; Complete Time: 11:58 bd EC:31 Rate is 59 beats/min. Rhythm is regular, Sinus bradycardia. QRS [place] is Normal. PA jr8 interval is normal at 140 msec. QRS interval is prolonged at 162 msec. QT interval is normal. No Q waves. T waves are Normal. No ST changes noted. Clinical impression: No evidence of ischemia and LBBB. Interpreted by me. Reviewed by me. Administered Medications: 12:36 Drug: ProTONIX 40 mg Route: IVP; Site: right forearm; ca1 13:36 Follow up: Response: No adverse reaction ca1 12:40 Drug: Lasix 60 mg Route: IVP; Site: right forearm; ca1 13:36 Follow up: Urinated x 2 ca1 12:49 Drug: GI Cocktail without - (Maalox Suspension 30 ml, Lidocaine Liquid 2 % 15 ca1 ml) Route: PO; 13:35 Follow up: Response: No adverse reaction ca1 12:54 Drug: Cipro 500 mg Route: PO; ca1 13:34 Follow up: Response: No adverse reaction ca1 Disposition: 14:31 Co-signature as Attending Physician, John Lu MD. rn Disposition: 09/01/19 13:50 Discharged to Home. Impression: Cholecystitis, Chronic combined systolic (congestive) and diastolic (congestive) heart failure. - Condition is Stable. - Discharge Instructions: Heart Failure, Clear Liquid Diet, Adult, Cholecystitis, Gallbladder Nuclear Scan, Cholecystostomy. - Prescriptions for Cipro 500 mg Oral Tablet - take 1 tablet by ORAL route every 12 hours for 10 days; 20 tablet. Tylenol- Codeine #3 300-30 mg Oral Tablet - take 2 tablets by ORAL route every 6 hours As needed; 20 tablet. Zofran 4 mg Oral Tablet - take 1 tablet by ORAL route every 12 hours As needed; 20 tablet. - Medication Reconciliation Form, Thank You Letter, Antibiotic Education, Prescription Opioid Use form. - Follow up: Neftali Rogers MD; When: 48 Hours; Reason: Recheck today's complaints, Continuance of care, Re-evaluation by your physician. - Problem is new. - Symptoms have improved. - Notes: To take lasix 40 mg twice a day for next 3 days then go back to lasix 40 mg once a day Signatures: Dispatcher [employer] EDMS Selene Childers Irene, RN RN iw John Lu MD MD rn Roszak, Josh, PA PA jr8 May Desai RN RN ca1 Corrections: (The following items were deleted from the chart) 14:10 13:50 09/01/2019 13:50 Discharged to Home. Impression: Cholecystitis; Chronic combined ca1 systolic (congestive) and diastolic (congestive) heart failure. Condition is Stable. Forms are Medication Reconciliation Form, Thank You Letter, Antibiotic Education, Prescription Opioid Use. Follow up: Dr. Neftali Rogers; When: 48 Hours; Reason: Recheck today's complaints, Continuance of care, Re-evaluation by your physician. Problem is new. Symptoms have improved. jr8
[2019-09-01 14:50] VITALS: TEMP 97.9
[2019-09-01 14:54] VITALS: BP 157/83; O2SAT 99
== END 2019-09-01 14:10 | disposition home or self-care (01) ==
LOC: ER 10:17
DX: K81.9 Cholecystitis, unspecified (principal); I50.42 Chronic combined systolic (congestive) and diastolic (congestive) heart failure; E11.9 Type 2 diabetes mellitus without complications; E78.5 Hyperlipidemia, unspecified; I10 Essential (primary) hypertension; I25.2 Old myocardial infarction; K21.9 Gastro-esophageal reflux disease without esophagitis
CPT/HCPCS: 93005; 85025; 80048; 36415; 83735; 85610; 80076; 84484; 83690; 83880; 71045; 76705; 96375; 96374; 99285; J1940 ×2; C9113

== ENCOUNTER 2020-02-08 10:16 | Inpatient (IN) | payer OTHER ==
[2020-02-08 12:06] LABS: Absolute Lymphocytes (CBC) 1.3 K/uL (0.7-4.9); Basophils % 0.7 % (0-1.3); Hematocrit 36.8 % (36.0-45.0); Lymphocytes % 17.4 % (15.3-44.8); MPV 8.9 fL (7.6-11.3); RBC Red Blood Cell Count 4.02 M/uL (3.86-4.86)
[2020-02-08 12:10] LABS: Protime INR 1.13
[2020-02-08] MEDS ORDERED: FUROSEMIDE 20 MG/ 2ML VIAL ONE ×2 (12:25→15:08)
--- OUTSIDE RECORDS SUMMARY | 2020-02-08 12:25 | XMS REPORT | Clinical Summary ---
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
[2020-02-08 12:26] LABS: Albumin 3.2 g/dL (3.4-5.0); Bilirubin Direct 0.5 mg/dL (0-0.2); Bilirubin Total 1.5 mg/dL (0.2-1.0); Potassium 4.2 mmol/L (3.5-5.1); Protein, Total 6.7 g/dL (6.4-8.2); Troponin (Emerg Dept Use Only) 0.03 ng/mL (0.0-0.045)
--- OUTSIDE RECORDS SUMMARY | 2020-02-08 12:26 | XMS REPORT ---
:1945 Author Organization [employer] Care Team Providers Name Role Phone Russell, Na Provider Role Unavailable Allergies No Known Allergies Problems Problem Type Condition Code Onset Dates Condition Statu s Problem Type 2 diabetes mellitus with E11.65 Active hyperglycemia Problem Type 2 diabetes mellitus with E11.22 Active diabetic chronic kidney disease Problem Chronic kidney disease, stage III N18.3 Active (moderate) Problem terminal carman current use of insulin Z79.4 Active Problem H/O: CVA (cerebrovascular accident) Z86.73 Active Problem Arteriosclerosis of coronary artery I25.10 Active Problem Benign essential HTN I10 Active Problem Acute on chronic diastolic I50.33 A ctive congestive heart failure Problem Chronic systolic congestive heart I50.22 Active failure Problem Hypothyroidism E03.9 Active Problem Chronic diastolic heart failure I50.32 Active Problem Mixed stress and urge urinary N39.46 Active incontinence Problem Elevated blood pressure reading I10 Active with diagnosis of hypertension Problem Primary insomnia F51.01 Active Problem Female genital prolapse, N81.9 Act jeremiah unspecified Problem Obese E66.9 Active Problem Hyperlipidemia E78.5 Active Problem Depression with anxiety F41.8 Acti ve Problem Diabetes E11.9 Active Problem Abnormal mammogram R92.8 Active Problem History of skin cancer in adulthood Z85.828 Active Problem Unspecified urinary incontinence R32 Active Problem Gastroesophageal reflux disease, K21.9 Active esophagitis presence not specified Problem 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
--- OUTSIDE RECORDS SUMMARY | 2020-02-08 12:26 | XMS REPORT | Continuity of Care Document ---
:1945 Author Organization [facility] t Address [address] [place] [address] Care Team Providers Name Role Phone Asked, No Pcp Primary Care Physician Unavailable Radiology Attending Clinician Unavailable Doctor Unassigned, Name Attending Clinician Unavailable Problems Condition Condition Condition Status Onset Resolution Last Treating Co mments Source Name Details Category Date Date Treatment Clinician Date residential residential Problem Active [facility] current current [facility] use of use of Memoria insulin insulin l [facility] Elevated Elevated Diagnosis Active [facility] blood blood [facility] - pressure pressure Memori a reading reading l with with Outpati diagnosis diagnosis ent of of Clinics hypertensi hypertensi on on Obese Obese Problem Active [facility] CKD CKD Problem Active [facility] (chronic (chronic [facility] - kidney kidney Memoria disease) disease) l stage 4, stage 4, Outpat i GFR 15-29 GFR 15-29 ent ml/min ml/min Clinics Arterioscl Arterioscl Problem Active [facility] erosis of erosis of Luke s - coronary coronary Memori a artery artery l [facility] Unsteady Unsteady Problem Active [facility] gait gait [facility] Diabetes Diabetes Problem Active [facility] Hypothyroi Hypothyroi Problem Active [facility] dism dism [facility] H/O: CVA H/O: CVA Problem Active [facility] (cerebrova (cerebrova Michelle kes - scular scular Memoria accident) accident) l [facility] Hyperlipid Hyperlipid Problem Active [facility] emia emia [facility] Type 2 Type [address] [facility] diabetes diabetes [facility] - mellitus mellitus Memori a with with l diabetic diabetic Outpat i chronic chronic ent kidney kidney Clinics disease disease Type 2 Type [address] [facility] diabetes diabetes [facility] - mellitus mellitus Memori a with with l hyperglyce hyperglyce Ou tpati [facility]ohn john ent Clinics Chronic Chronic Problem Active [facility] kidney kidney [facility] - disease disease Memoria (CKD), (CKD), l stage III stage III Outp ati (moderate) (moderate) en t Clinics 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 Michelle kes - athy athy Memoria associated associated l with type with type Outp ati 2 diabetes 2 diabetes en t mellitus mellitus Clinic s Elevated Elevated Problem Active [facility] blood blood [facility] - pressure pressure Memori a reading reading l [facility]ics Constipati Constipati Problem Active [facility] on, on, [facility]ukes - unspecifie unspecifie Me moria d d l constipati constipati Ou tpati on type on type ent Clinics Other Other Problem Active [facility] chronic chronic [facility] - pain pain Memoria l [facility] Acute on Acute on Problem Active [facility] chronic chronic [facility] - diastolic diastolic Edmund simone congestive congestive l heart heart Outpati failure failure ent Clinics Adult Adult Problem Active [facility] general [facility] Chronic Chronic Problem Active [facility] systolic systolic [facility] - congestive congestive Me moria heart heart l failure failure [facility] Mixed Mixed Problem Active [facility] stress and stress and Michelle kes - urge urge Memoria urinary urinary l incontinen incontinen Ou tpati ce ce ent Clinics Chronic Chronic Problem Active [facility] diastolic diastolic Luke s - heart heart Memoria failure failure l [facility] History of History of Problem Active [facility] skin skin [facility] - cancer in cancer in Edmund simone adulthood adulthood l [facility] Abnormal Abnormal Problem Active [facility] mammogram mammogram Luke [facility] - Memoria l [facility] Gastroesop Gastroesop Problem Active [facility] hageal hageal [facility] - reflux reflux Memoria disease, disease, l esophagiti esophagiti Ou tpati s presence s presence en t not not Clinics specified specified Primary Primary Problem Active [facility] insomnia insomnia [facility] Female Female Problem Active [facility] genital genital [facility] - prolapse, prolapse, Edmund simone unspecifie unspecifie l d d [facility] Unspecifie Unspecifie Problem Active [facility] d urinary d urinary Luke s - incontinen incontinen Me moria ce ce l [facility] Depression Depression Problem Active [facility] with with [facility] - anxiety anxiety Memoria l [facility] Abdominal Abdominal Diagnosis Active [facility] bloating bloating [facility] Allergies, Adverse Reactions, Alerts This patient has no known allergies or adverse reactions. Family History Family Member Diagnosis Comments Start Date Stop Date Source Natural father No Known Problems Marsha callie Mormon Natural mother No Known Problems Marsha [place] Social History Social Habit Start Date Stop Date Quantity Comments Source Sex Assigned At [facility] ethodist Alcohol intake 2016-04-09 2016-04-09 [facility]:00 non-drinker of alcohol (finding) Smoking Status Start Date Stop Date Source Never smoker [facility] Medications Ordered Filled Start Stop Current Ordering Indication Dosage Frequency Signature Comments Components Source Medication Medication Date Date Medication? Clinician (SIG) Name Name Fosamax Fosamax 2020- Yes Na Russell [address] [facility] 6-06-21 with water [facility] - 00:00: 00:00 in the am Memoria 00 :00 30 minutes l prior to [facility] other ent medication Clinics s, food or drink Citalopram Citalopram Yes Na Russell [address] [facility] Hydrobromid Hydrobromid 5-12 L ukes - e e 00:00: Memoria 00 l [facility] ent Clinics Linzess Linzess 2018-07- No Na Russell [address] [facility] 1-20 -18 on an Lukes - 00:00: 00:00 empty Memoria 00 :00 stomach l [facility] ent Clinics clopidogrel Yes 75mg QD Take 75 mg [place] (PLAVIX) 75 9-26 by mouth Meth maria elena mg tablet 21:23: daily. st 05 levothyroxi 2016-0 Yes 125ug QD Take 125 [place] ne 9-26 mcg by Methodi (SYNTHROID, 21:23: mouth st LEVOTHROID) 05 every 125 MCG morning. tablet isosorbide 2016-0 Yes 120mg QD Take 120 [place] mononitrate 9-26 mg by Methodi (IMDUR) 120 21:23: mouth st MG 24 hr 05 daily. tablet furosemide 2016-0 Yes 20mg QD Take 20 mg [place] (LASIX) 20 9-26 by mouth Metho di MG tablet 21:23: daily. st 05 linagliptin 2016-0 Yes 5mg QD Take 5 mg [place] (TRADJENTA) - by mouth Meth maria elena 5 mg tablet 21:23: daily with st 05 breakfast. lovastatin 2016-0 Yes 20mg QD Take 20 mg [place] (MEVACOR) - by mouth Method i 10 MG 21:23: nightly. st tablet 05 amlodipine- 2016-0 Yes 1{tbl} QD Take 1 [place] valsartan 9-26 tablet by Metho di (EXFORGE) 21:23: mouth st 5-160 mg 05 daily. per tablet Isosorbide Isosorbide Yes Na Russell [address] [facility] Mononitrate Mononitrate in the [facility] - ER ER morning Memoria l Outpati ent Clinics Imdur Imdur Yes Na Russell not [facility] defined [facility] Out[facility] ent Clinics [facility] Yes Na Russell not [facility] defined [facility] ent Clinics Valsartan Valsartan Yes Na Russell [address] [facility] Outpat[facility] ent Clinics Pantoprazol Pantoprazol Yes Na Russell TOME SUSANA [facility] e Sodium e Sodium TABLETA Luke s - SUSANA VEZ AL Memoria GERI POR l VIA ORAL Outpati ent Clinics Metolazone Metolazone Yes Na Russell [address] [facility] Outpat[facility] ent Clinics Amitiza Amitiza Yes Na Russell [address] with food [facility] - and water Memoria l Outpati ent Clinics Lipitor Lipitor Yes Na Russell [address] [facility] Outpat[facility] ent Clinics Tradjenta Tradjenta Yes Na Russell [address] [facility] Out[facility] ent Clinics GlipiZIDE GlipiZIDE Yes Na Russell [address] [facility] XL XL with food [facility] - Memoria l Outpati ent Clinics Gabapentin Gabapentin Yes Na Russell TOME SUSANA [facility] CAPSULA [facility] - POR VIA Memoria ORAL MARIA VICTORIA l VECES POR Outpati GERI ent Clinics Lyrica Lyrica Yes Na Russell [address] [facility] Outpati ent Clinics Amlodipine Amlodipine Yes Na Russell [address] [facility] Besylate-Va Besylate-Va L ukes - lsartan lsartan Memoria l Outpati ent Clinics [place] Yes Na Russell USE ONCE A [facility] DAY WITH [facility] - LANTUS Memoria l Outpati ent Clinics Myrbetriq Myrbetriq Yes Na Russell [address] [facility] Outpati ent Clinics Lantus Lantus Yes Na Russell [address] SoloStar SoloStar and Lukes - increase Memoria by 2 units l every 2 Outpati days until ent fbg less Clinics 120 ( max of 80 units daily) Levothyroxi Levothyroxi Yes Na Russell TAKE ONE [facility] ne Sodium ne Sodium TABLET BY Lukes - MOUTH Memoria EVERY l MORNING ON Outpati EMPTY ent STOMACH Clinics Omeprazole Omeprazole Yes Na Russell [address] [facility] Memoria l Outpati ent Clinics Lasix Lasix Yes Na Russell [address] [facility] Clinics Plavix Plavix Yes Na Russell [address] [facility] Out[facility] ent Clinics Trazodone Trazodone Yes Na Russell TOME SUSANA [facility] HCl HCl TABLETA [facility]ukes - POR VIA Memoria ORAL CADA l NOCHE AL Outpati ACOSTARSE ent JULIAN SEA Clinics NECESARIO Losartan Losartan Yes Na Russell [address] [facility] Potassium Potassium [facility] - Memoria l Outpati ent Clinics Immunizations Ordered Filled Immunization Date Status Comments [facility] Immunization Name Name FluAD FluAD 2019-05-[address] [facility] - 00:[facility]00 [facility] Outpatient [facility] FluAD FluAD 2018-04-[address] [facility] - 00[facility]00 [facility] Outpatient [facility] Procedures This patient has no known procedures. Encounters Start End Encounter Admission Attending Care Care Encounter Source Date/Time Date/Time Type Type Clinicians Facility Department ID 2020-01-21 2020-01-21 [facility] [id number] [facility] 14:00:00 14:00:[place] [employer] [facility] Family Medicine l Medicine Outpati ent Clinics 2020-01-21 2020-01-21 [facility] [id number] [facility] 13:20:00 13:20:00 [place] [employer] [facility] Medicine l Medicine Outpati ent Clinics 2020-01-02 2020-01-02 [facility] [id number] [address] 03:03:00 03:03:00 [place] [employer] [facility] Medicine l Medicine Outpati ent Clinics 2019-12-24 2019-12-24 [facility] [id number] 14:20:00 14:20:00 t [employer] [facility] Medicine l Medicine Outpati ent Clinics 2019-12-10 2019-12-10 [facility] [id number] 15:00:00 15:00:00 t [employer] [facility] Medicine l Medicine Outpati ent Clinics 2019-12-02 2019-12-02 [facility] [id number] 14:07:00 14:07:00 t [employer] [facility] Medicine l Medicine Outpati ent Clinics 2019-11-23 2019-11-23 [facility] [id number] [address] 14:00:00 14:00:00 t [employer] [facility] Medicine l Medicine Outpati ent Clinics 2019-10-08 2019-10-08 [facility] [id number] [address] 16:40:00 16:40:00 [place] [employer] [facility] Medicine l Medicine Outpati ent Clinics 2019-09-09 2019-09-09 [facility] [id number] 14:33:00 14:33:00 t [employer] [facility] Medicine l Medicine Outpati ent Clinics 2019-08-10 2019-08-10 [facility] [id number] 09:35:00 09:35:00 [place] [employer] [facility] Medicine l Medicine Outpati ent Clinics 2019-07-02 2019-07-02 [facility] [id number] 15:00:00 15:00:[address] [place] [address] [address] [place] - Drive [facility] Medicine l Medicine Outpati ent Clinics 2019-06-27 2019-06-27 [facility] [id number] [address] 01:31:00 01:31:[address] [place] [address] Luke [place] - Drive [facility] Medicine l Medicine Outpati ent Clinics 2019-06-21 2019-06-21 [facility] [id number] [address] 12[facility]40:00 12:40:[address] [place] [address] Luke [place] - Drive [facility] Medicine l Medicine Outpati ent Clinics 2019-06-18 2019-06-18 [facility] [id number] [address] 14:20:00 14:20:00 [place] [employer] Luke s - Drive [facility] Medicine l Medicine Outpati ent Clinics 2019-06-02 2019-06-02 [facility] [id number] 12:20:00 12:20:00 [place] [employer] Luke s - Drive [facility] Medicine l Medicine Outpati ent Clinics 2019-05-24 2019-05-24 [facility] [id number] [address] 11:00:00 11:00:00 [place] [employer] Luke s - Drive [facility] Medicine l Medicine Outpati ent Clinics 2019-05-14 2019-05-14 [facility] [id number] 16:21:00 16:21:00 [place] [employer] Luke s - Drive [facility] Medicine l Medicine Outpati ent Clinics 2019-05-13 2019-05-13 [facility] [id number] [address] 10:40:00 10:40:00 [place] [employer] [place] s - Drive [facility] Medicine l Medicine Outpati ent Clinics 2019-05-04 2019-05-04 [facility] [id number] 09:56:00 09:56:00 [place] [employer] [place] s - Drive [facility] Medicine l Medicine Outpati ent Clinics 2019-04-06 2019-04-06 [facility] [id number] [address] 16:35:00 16:35:00 [place] [employer] s [employer] [facility] Family Medicine Medicine Outpati ent Clinics 2019-03-26 2019-03-26 Hospital Radiology [facility] [id number] 10:22:25 23:59:00 Encounter [place] [id number] [place] [id number] [place] [id number] 2019-03-26 2019-03-26 Orders Doctor ADAM [id number] 00:00:00 00:00:00 Only Unassigned, FREDDIE [id number] [place] [facility] [id number] 2019-03-23 2019-03-23 [facility] [id number] 09:00:00 09:00:00 [place] [employer] [facility] Medicine Medicine Outpati ent Clinics 2019-03-05 2019-03-05 [facility] [id number] 16:40:00 16:40:00 [place] [employer] s [employer] [facility] Medicine Medicine Outpati ent Clinics 2019-01-26 2019-01-26 [facility] [id number] 16:20:00 16:20:00 t [place] [employer] [facility] Medicine Medicine Outpati ent Clinics 2018-09-21 2018-09-21 [facility] [id number] 10:32:00 10:32:00 t [place] [employer] [facility] Medicine Medicine Outpati ent Clinics 2018-09-21 2018-09-21 [facility] [id number] 09:15:00 09:15:00 [place] [employer] [facility] Medicine l Medicine Outpati ent Clinics 2018-07-23 2018-07-23 [facility] [id number] 11:15:00 11:15:00 [place] [employer] [facility] Medicine l Medicine Outpati ent Clinics 2018-07-17 2018-07-17 [facility] [id number] [address] 11:57:00 11:57:00 [place] [employer] [facility] Medicine Outpati ent Clinics 2018-06-22 2018-06-22 [facility] [id number] 11:30:00 11:30:00 t [employer] [facility] Medicine Outpati ent Clinics 2018-04-08 2018-04-08 [facility] [id number] 10:30:00 10:30:00 t [employer] [facility] Medicine Outpati ent Clinics 2018-02-17 2018-02-17 [facility] [id number] 09:15:00 09:15:00 t [employer] [facility] Medicine Outpati ent Clinics 2017-11-17 2017-11-17 [facility] [id number] [facility] 11:00:00 11:00:00 t [employer] [facility] Medicine Outpati ent Clinics Results This patient has no known results.
--- OUTSIDE RECORDS SUMMARY | 2020-02-08 12:26 | XMS REPORT ---
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
--- OUTSIDE RECORDS SUMMARY | 2020-02-08 12:26 | XMS REPORT ---
:1945 Author Organization [employer] Care Team Providers Name Role Phone Russell, Na Provider Role Unavailable Allergies, Adverse Reactions, Alerts Substance Reaction Event Type N.K.D.A. 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 [...] Obese E66.9 Active Problem Hyperlipidemia E78.5 Active Assessment Chronic kidney disease (CKD), stage N18.3 Active III (moderate) Problem Depression with anxiety F41.8 Acti ve Problem Diabetes E11.9 Active Assessment 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 Problem Abnormal mammogram R92.8 Active Assessment Chronic diastolic heart failure I50.32 Active Problem History of skin cancer in adulthood Z85.828 Active Assessment Constipation, unspecified K59.00 Ac tive constipation type Problem Unspecified urinary incontinence R32 Active Problem Gastroesophageal reflux disease, K21.9 Active esophagitis presence not specified Assessment Depression with anxiety F41.8 Acti ve Problem 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 Assessment Primary insomnia F51.01 Active Problem Elevated blood pressure reading R03.0 Active Assessment Hypothyroidism E03.9 Active Problem CKD (chronic kidney disease) stage N18.4 Active 4, GFR 15-29 ml/min Assessment Right foot pain M79.671 Active Problem Unsteady gait R26.81 Active Assessment Hyperlipidemia E78.5 Active Problem Other chronic pain G89.29 Active Assessment Right ankle swelling M25.471 Active Problem Chronic kidney disease (CKD), stage N18.3 Active III (moderate) Problem Constipation, unspecified K59.00 Ac tive constipation type Problem Adult general medical examination Z00.00 Active Medications Medication Code Code Instructions Start End Status Dosage System Date Date Isosorbide [facility] 97783432992 120 MG Orally Active 1 t ablet Mononitrate ER Once a day in the morning Imdur ND 0 Active not defined ZyrTEC [facility] 03551344954 Active not defined Valsartan [facility] 08641043003 160 MG Orally Active 1 ta blet Once a day Pantoprazole [facility] 82236136198 40 MG Active TOME UN A Sodium TABLETA SUSANA VEZ AL GERI POR VIA ORAL Metolazone [facility] 34128156585 2.5 MG Orally Active 1 t ablet Once a day Amitiza [facility] 80780749313 24 MCG Orally Active 1 caps ule Twice a day with food and water Levothyroxine [facility] 07360353409 150 MCG Orally Active 1 tablet Sodium Once a day on an empty stomach in the morning Lantus SoloStar [facility] 47599085432 100 unit/mL Active INJECT 48 UNITS DEBAJO DE [place] PIEL CADA NOCHE Lipitor [facility] 96212685275 40 MG Orally Active 1 table t Once a day Tradjenta [facility] 04047028285 5 MG Orally Active 1 tabl et Once a day GlipiZIDE XL [facility] 68049119135 5 MG Orally Active 1 t ablet Once a day with food Omeprazole [facility] 33535977217 40 MG Orally Jun 02, Active 1 ca psule Once a day 2018 Gabapentin [facility] [address]-64 100 MG Active TOME UN A CAPSULA POR VIA ORAL MARIA VICTORIA VECES POR GERI Citalopram ND 93070885793 10 MG Orally November 22, Active 1 ta blet Hydrobromide Once a day 2019 Lyrica [facility] 17782403261 50 MG Orally Active 1 capsu le twice a day Lasix [facility] 17075461620 40 MG Orally Active 1 table t twice a day Amlodipine [facility] 08352260899 10-160 Orally Active 1 t ablet Besylate-Valsart Once a day an Pen Dwight [facility] 60874728979 32G X 4 MM Active USE O NCE A DAY WITH LANTUS Myrbetriq [facility] 03719800420 25 MG Orally Active 1 tab let Once a day Plavix [facility] 64010707079 75 MG Orally Active 1 table t Once a day Tradjenta [facility] 26334585157 5 MG Orally Active 1 tabl et Once a day Losartan [facility] 46418966959 100 MG Orally September Active 1 tab let Potassium Once a day 2019 Lantus SoloStar [facility] 50895091366 100 UNIT/ML Active 66 units Subcutaneous daily once a day Trazodone HCl [facility] 46905517113 100 MG Orally Active 1 tablet Once a day at bedtime as needed Linzess [facility] 34494686889 72 MCG Orally Jun 02, November 28, Active 1 caps ule Once a day 2018 2019 on an empty stomach Results Name Result Date Reference Range Unit Abnormali ty Flag Uric Acid, Serum ----Uric Acid 5.8 [id number] 2.5-7.1 mg/dL Summary Purpose [employer] Submission
--- OUTSIDE RECORDS SUMMARY | 2020-02-08 12:27 | XMS REPORT ---
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 Problem [...] Active with type 2 diabetes mellitus Assessment Depression with anxiety F41.8 Acti ve Problem Elevated blood pressure reading R03.0 Active [...] Start End Status Dosage System Date Date Levothyroxine [facility] 41725445972 150 MCG Active TAKE O NE Sodium TABLET BY MOUTH EVERY MORNING ON EMPTY STOMACH Omeprazole [facility] 13037581232 40 MG Orally Active 1 ca psule Once a day Pen [place] [facility] 69496063188 32G X 4 MM Active USE O NCE A DAY WITH LANTUS ZyrTEC [facility] 85136721882 Active not defined Tradjenta [facility] 64963098947 5 MG Orally Active 1 tabl et Once a day GlipiZIDE XL [facility] 74874511107 5 MG Orally Active 1 t ablet Once a day with food Gabapentin [facility] [address]-71 100 MG Active TOME UN A [place] POR VIA ORAL [place] P[place] GERI Citalopram [facility] 25538426605 10 MG Orally Active 1 ta blet Hydrobromide Once a day Imdur [facility] 0 Active not defined Lipitor [facility] 35718268555 40 MG Orally Active 1 table t Once a day Lasix [facility] 68334607294 40 MG Orally Active 1 table t Once a day Lantus SoloStar [facility] 62385489678 100 UNIT/ML Active 66 units Subcutaneous daily once a day Losartan [facility] 50305281459 100 MG Orally March Active 1 tab let Potassium Once a day 2019 Metolazone [facility] 43588948715 2.5 MG Orally Active 1 t ablet Once a day Myrbetriq [facility] 35045690041 25 MG Orally Active 1 tab let Once a day Lyrica [facility] 95195527248 50 MG Orally Active 1 capsu le twice a day Amitiza [facility] 49748355267 24 MCG Orally Active 1 caps ule Twice a day with food and water Amlodipine [facility] 20062791269 10-160 Orally Active 1 t ablet Besylate-Valsart Once a day an Tradjenta [facility] 81951089194 5 MG Orally Active 1 tabl et Once a day Linzess [facility] 24753376773 72 MCG Orally Active 1 caps ule Once a day on an empty stomach Plavix [facility] 56885908599 75 MG Orally Active 1 table t Once a day Isosorbide [facility] 46569745653 120 MG Orally Active 1 t ablet in Mononitrate ER Once a day the mo rning Trazodone HCl [facility] 31647176039 100 MG Active TOME U NA TABLETA POR VIA ORAL CADA NOCHE AL ACOSTARSE JULIAN SEA NECESARIO Pantoprazole [facility] 33927248938 40 MG Active TOME UN A Sodium TABLETA SUSANA VEZ AL GERI POR VIA ORAL Valsartan [facility] 37561286203 160 MG Orally Active 1 ta blet Once a day Results No Known Results Summary Purpose eClinicalWorks Submission
--- OUTSIDE RECORDS SUMMARY | 2020-02-08 12:27 | XMS REPORT ---
:1945 Author Organization eClinicalWorks Care Team Providers Name Role Phone Russell, Na Provider Role Unavailable Allergies No Known Allergies Problems Problem Type Condition Code Onset Dates Condition Statu s Assessment Type 2 diabetes mellitus with E11.22 Active diabetic chronic kidney disease Assessment Depression with anxiety F41.8 Acti ve Problem Type 2 diabetes mellitus with E11.65 Active hyperglycemia Problem Type 2 diabetes mellitus with E11.22 Active diabetic chronic kidney disease Problem Chronic kidney disease, stage III N18.3 Active (moderate) Problem FDC current use of insulin Z79.4 Active Problem [...] K21.9 Active esophagitis presence not specified Assessment Elevated blood pressure reading I10 Active with diagnosis of hypertension Problem 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 Assessment Abdominal bloating R14.0 Active Problem Elevated blood pressure reading R03.0 Active Problem CKD (chronic kidney disease) stage N18.4 Active 4, GFR 15-29 ml/min Assessment Constipation, unspecified K59.00 Ac tive constipation type Problem Unsteady gait R26.81 Active Problem Other chronic pain G89.29 Active Problem Chronic kidney disease (CKD), stage N18.3 Active III (moderate) Problem Constipation, unspecified K59.00 Ac tive constipation type Problem Adult general medical examination Z00.00 Active Medications Medication Code Code Instructions Start End Status Dosage System Date Date Imdur [facility] 0 Active not defined Pen [place] [facility] 96108968287 32G X 4 MM Active USE O NCE A DAY WITH LANTUS Metolazone [facility] 37745378515 2.5 MG Orally Active 1 t ablet Once a day Tradjenta [facility] 43112143371 5 MG Orally Active 1 tabl et Once a day Valsartan [facility] 99361079836 160 MG Orally Active 1 ta blet Once a day Citalopram [facility] 64676075851 10 MG Orally Active 1 ta blet Hydrobromide Once a day Losartan [facility] 86233364890 100 MG Orally Active 1 tab let Potassium Once a day Myrbetriq [facility] 30375827285 25 MG Orally Active 1 tab let Once a day ZyrTEC [facility] 48470377364 Active not defined Linzess [facility] 95031162074 72 MCG Orally Active 1 caps ule Once a day on an empty stomach Lasix [facility] 72995042101 40 MG Orally Active 1 table t Once a day Trazodone HCl [facility] 75660692668 100 MG Active TOME U NA TABLETA POR VIA ORAL CADA NOCHE AL ACOSTARSE JULIAN SEA NECESARIO Lantus SoloStar [facility] 45967776697 100 UNIT/ML Active 40 units Subcutaneous and once daily increase by 2 units every 2 days until fbg less 120 ( max of 80 units daily) GlipiZIDE XL [facility] 65906672181 5 MG Orally Active 1 t ablet Once a day with food Lyrica [facility] 14344288622 50 MG Orally Active 1 capsu le twice a day Levothyroxine [facility] 48333723330 150 MCG Active TAKE O NE Sodium TABLET BY MOUTH EVERY MORNING ON EMPTY STOMACH Tradjenta [facility] 86902417923 5 MG Orally Active 1 tabl et Once a day Amlodipine [facility] 89240687405 10-160 Orally Active 1 t ablet Besylate-Valsart Once a day an Gabapentin [facility] [address]-40 100 MG Active TOME UN A [place] POR VIA ORAL [place] P[place] GERI Plavix [facility] 69977670189 75 MG Orally Active 1 table t Once a day Omeprazole [facility] 89925679162 40 MG Orally Active 1 ca psule Once a day Amitiza [facility] 67734184752 24 MCG Orally Active 1 caps ule Twice a day with food and water Fosamax [facility] 32311050627 70 MG Orally December Active 1 table t once a week , with water 2019 2019 in the am 30 minutes prior to other medications , food or drink Lipitor [facility] 32196714503 40 MG Orally Active 1 table t Once a day Pantoprazole [facility] 28926906553 40 MG Active TOME UN A Sodium TABLETA SUSANA VEZ AL GERI POR VIA ORAL Isosorbide [facility] 99720235347 120 MG Orally Active 1 t ablet in Mononitrate ER Once a day the mo rning Results No Known Results Summary Purpose eClinicalWorks Submission
--- OUTSIDE RECORDS SUMMARY | 2020-02-08 12:27 | XMS REPORT ---
:1945 Author [facility] Care Team Providers Name Role Phone Russell, [...] Start End Status Dosage System Date Date Lyrica [facility] 92503940455 50 MG Orally Active 1 capsu le twice a day Myrbetriq [facility] 67981466557 25 MG Orally Active 1 tab let Once a day Metolazone [place] 84104169140 2.5 MG Orally Active 1 t ablet Once a day Amlodipine [facility] 48939736807 10-160 Orally Active 1 t ablet Besylate-Valsart Once a day an Fosamax [facility] 33935833271 70 MG Orally December Active 1 table t once a week , with water 2019 2019 in the am 30 minutes prior to other medications , food or drink Lantus SoloStar [facility] 66347295670 100 UNIT/ML Active 66 units Subcutaneous daily once a day Isosorbide ND 43888398079 120 MG Orally Active 1 t ablet in Mononitrate ER Once a day the mo rning Pen [place] [facility] 50826930485 32G X 4 MM Active USE O NCE A DAY WITH LANTUS Tradjenta [facility] 56316090471 5 MG Orally Active 1 tabl et Once a day Pantoprazole [facility] 77584564616 40 MG Active TOME UN A Sodium TABLETA SUSANA VEZ AL GERI POR VIA ORAL Lasix [facility] 94791908664 40 MG Orally Active 1 table t Once a day Valsartan ND 83753586298 160 MG Orally Active 1 ta blet Once a day Tradjenta [facility] 83278121274 5 MG Orally Active 1 tabl et Once a day Citalopram ND 25543181619 10 MG Orally Active 1 ta blet Hydrobromide Once a day Imdur [place] 0 Active not defined ZyrTEC [facility] 16656603144 Active not defined GlipiZIDE XL [facility] 74901885890 5 MG Orally Active 1 t ablet Once a day with food Gabapentin [facility] [address]-40 100 MG Active TOME UN A [place] POR VIA ORAL [place] V[place] POR GERI Amitiza [facility] 53794252896 24 MCG Orally Active 1 caps ule Twice a day with food and water Levothyroxine [facility] 06558084688 150 MCG Active TAKE O NE Sodium TABLET BY MOUTH EVERY MORNING ON EMPTY STOMACH Lipitor ND 43903308365 40 MG Orally Active 1 table t Once a day Losartan ND 08504951671 100 MG Orally March Active 1 tab let Potassium Once a day 2019 Plavix [facility] 34488627531 75 MG Orally Active 1 table t Once a day Omeprazole [facility] 20443570277 40 MG Orally Active 1 ca psule Once a day Linzess [facility] 71156955708 72 MCG Orally Active 1 caps ule Once a day on an empty stomach Trazodone HCl [facility] 51461560294 100 MG Active TOME U NA TABLETA POR VIA ORAL CADA NOCHE AL ACOSTARSE JULIAN SEA NECESARIO Results No Known Results Summary Purpose eClinicalWorks Submission
--- OUTSIDE RECORDS SUMMARY | 2020-02-08 12:27 | XMS REPORT ---
:1945 Author Organization eClinicalWorks Care Team Providers Name Role Phone Russell, Lola Provider Role Unavailable Allergies, Adverse Reactions, Alerts Substance Reaction Event Type N.K.D.A. Info Not Available Non Drug Allergy Problems Problem Type Condition Code Onset Dates Condition Statu s Assessment Medicare annual wellness visit, Z00.00 Active subsequent Assessment Encounter for screening mammogram Z12.31 Active for malignant neoplasm of breast Problem Type 2 diabetes mellitus with E11.65 Active hyperglycemia Problem Type 2 diabetes mellitus with E11.22 Active diabetic chronic kidney disease Problem Chronic kidney disease, stage III N18.3 Active (moderate) Problem residential current use of insulin Z79.4 [...] End Status Dosage System Date Date Lyrica [facility] 24079852949 50 MG Orally Active 1 capsu le twice a day Levothyroxine [facility] 01337073270 150 MCG Active TAKE O NE Sodium TABLET BY MOUTH EVERY MORNING ON EMPTY STOMACH Amlodipine [facility] 59250949671 10-160 Orally Active 1 t ablet Besylate-Valsart Once a day an ZyrTEC [facility] 09374654464 Active not defined Trazodone HCl [facility] 32428078317 100 MG Active TOME U NA TABLETA POR VIA ORAL CADA NOCHE AL ACOSTARSE JULIAN SEA NECESARIO Lantus SoloStar [facility] 07431894098 100 UNIT/ML Active 40 units Subcutaneous and once daily increase by 2 units every 2 days until fbg less 120 ( max of 80 units daily) GlipiZIDE XL [facility] 63533681306 5 MG Orally Active 1 t ablet Once a day with food Pen [place] [facility] 27877730931 32G X 4 MM Active USE O NCE A DAY WITH LANTUS Gabapentin [facility] [address]-54 100 MG Active TOME UN A [place] POR VIA ORAL [place] V[place] POR GERI Lipitor [facility] 16182635751 40 MG Orally Active 1 table t Once a day Valsartan [facility] 68526432275 160 MG Orally Active 1 ta blet Once a day Losartan [facility] 19733823227 100 MG Orally Active 1 tab let Potassium Once a day Isosorbide [facility] 73354107617 120 MG Orally Active 1 t ablet in Mononitrate ER Once a day the mo rning Citalopram [facility] 84807265669 10 MG Orally Active 1 ta blet Hydrobromide Once a day Myrbetriq [facility] 05925800800 25 MG Orally Active 1 tab let Once a day Imdur NDC 0 Active not defined Tradjenta [facility] 21938709698 5 MG Orally Active 1 tabl et Once a day Tradjenta [facility] 30189276080 5 MG Orally Active 1 tabl et Once a day Metolazone [facility] 95452930637 2.5 MG Orally Active 1 t ablet Once a day Linzess [facility] 03404646275 72 MCG Orally Active 1 caps ule Once a day on an empty stomach Plavix [facility] 94762624691 75 MG Orally Active 1 table t Once a day Amitiza [facility] 13358135722 24 MCG Orally Active 1 caps ule Twice a day with food and water Fosamax [facility] 12104339489 70 MG Orally December Active 1 table t once a week , with water 2019 2019 in the am 30 minutes prior to other medications , food or drink Omeprazole [facility] 50407364566 40 MG Orally Active 1 ca psule Once a day Pantoprazole [facility] 85994098418 40 MG Active TOME UN A Sodium TABLETA SUSANA VEZ AL GERI POR VIA ORAL Lasix [facility] 61416311356 40 MG Orally Active 1 table t Once a day Results No Known Results Summary Purpose eClinicalWorks Submission
--- NOTE | 2020-02-08 12:50 | RAD REPORT ---
EXAM DESCRIPTION: Nuria Single View02/08/2020 12:41 pm CLINICAL HISTORY: Cough COMPARISON: August 2019 FINDINGS: Upper lobe vessels are prominent indicative venous hypertension Lungs appear clear of acute infiltrate. Heart is moderately Small left pleural effusion may present
[2020-02-08 13:54] LABS: Urine Blood TRACE (NEG); Urine Glucose NEGATIVE (NEG); Urine Protein 1+ (NEG); Urine Specific Gravity 1.015 (1.005-1.030); Urine pH 6.5 (5.0-7.0)
--- NOTE | 2020-02-08 14:53 | EDPHYS ---
Physician Documentation [facility] Name: Lola Braun Age: 74 yrs Sex: Female : 1945 Arrival Date: 02/08/2020 Time: 11:00 Bed 19 Private MD: Lola Russell ED Physician Emmett Browne HPI: 02/07 14:48 This 74 yrs old Female presents to ER via Wheelchair with complaints of nerissa Shortness Of Breath, swelling. 14:48 The patient has shortness of breath at rest, with light activity. Onset: The nerissa symptoms/episode began/occurred 3 day(s) ago. Duration: The symptoms are continuous, and are steadily getting worse. The patient's shortness of breath has no apparent modifying factors. Associated signs and symptoms: The patient has no apparent associated signs or symptoms. Severity of symptoms: At their worst the symptoms were mild moderate in the emergency department the symptoms are unchanged. The patient has not experienced similar symptoms in the past. Historical: - Allergies: 11:30 NKDA; tw2 - PMHx: 11:30 Diabetes - IDDM; Hyperlipidemia; Hypertension; Myocardial infarction; GERD; tw2 - Immunization history:: Adult Immunizations. - Social history:: Smoking status: . - Family history:: not pertinent. ROS: 14:48 Constitutional: Negative for fever, chills, and weight loss, Eyes: Negative for injury, nerissa pain, redness, and discharge, ENT: Negative for injury, pain, and discharge, Neck: Negative for injury, pain, and swelling, Cardiovascular: Negative for chest pain, palpitations, and edema, Abdomen/GI: Negative for abdominal pain, nausea, vomiting, diarrhea, and constipation, Back: Negative for injury and pain, : Negative for injury, bleeding, discharge, and swelling, Skin: Negative for injury, rash, and discoloration, Neuro: Negative for headache, weakness, numbness, tingling, and seizure, Psych: Negative for depression, anxiety, suicide ideation, homicidal ideation, and hallucinations, Allergy/Immunology: Negative for hives, rash, and allergies, Endocrine: Negative for neck swelling, polydipsia, polyuria, polyphagia, and marked weight changes, Hematologic/Lymphatic: Negative for swollen nodes, abnormal bleeding, and unusual bruising. 14:48 Respiratory: Positive for cough, dyspnea on exertion, orthopnea, shortness of breath. 14:48 MS/extremity: Positive for decreased range of motion, pain, swelling, tenderness, of the right leg and left leg. Exam: 13:30 ECG was reviewed by the Attending Physician. nerissa 14:48 Constitutional: This is a well developed, well nourished patient who is awake, alert, nerissa and in no acute distress. Head/Face: Normocephalic, atraumatic. Eyes: Pupils equal round and reactive to light, extra-ocular motions intact. Lids and lashes normal. Conjunctiva and sclera are non-icteric and not injected. Cornea within normal limits. Periorbital areas with no swelling, redness, or edema. ENT: Nares patent. No nasal discharge, no septal abnormalities noted. Tympanic membranes are normal and external auditory canals are clear. Oropharynx with no redness, swelling, or masses, exudates, or evidence of obstruction, uvula midline. Mucous membranes moist. Neck: Trachea midline, no thyromegaly or masses palpated, and no cervical lymphadenopathy. Supple, full range of motion without nuchal rigidity, or vertebral point tenderness. No Meningismus. Chest/axilla: Normal chest wall appearance and motion. Nontender with no deformity. No lesions are appreciated. Cardiovascular: Regular rate and rhythm with a normal S1 and S2. No gallops, murmurs, or rubs. Normal PMI, no JVD. No pulse deficits. Abdomen/GI: Soft, non-tender, with normal bowel sounds. No distension or tympany. No guarding or rebound. No evidence of tenderness throughout. Back: No spinal tenderness. No costovertebral tenderness. Full range of motion. Female : Normal external genitalia. Skin: Warm, dry with normal turgor. Normal color with no rashes, no lesions, and no evidence of cellulitis. MS/ Extremity: Pulses equal, no cyanosis. Neurovascular intact. Full, normal range of motion. Neuro: Awake and alert, GCS 15, oriented to person, place, time, and situation. Cranial nerves II-XII grossly intact. Motor strength 5/5 in all extremities. Sensory grossly intact. Cerebellar exam normal. Normal gait. Psych: Awake, alert, with orientation to person, place and time. Behavior, mood, and affect are within normal limits. 14:48 Respiratory: mild respiratory distress is noted, Respirations: labored breathing, that is mild, Breath sounds: rales, that are mild, are located in both bases, decreased breath sounds. Vital Signs: 11:22 BP 185 / 67; Pulse 63; Resp 19; Temp 97.6(TE); Pulse Ox 95% on R/A; tw2 15:00 BP 184 / 65; Pulse 61; Resp 20; Pulse Ox 94% ; ah 16:00 BP 177 / 96; Pulse 54; Resp 18; Pulse Ox 96% ; ah MDM: 11:21 Patient medically screened. [facility] 14:53 Data reviewed: vital signs, nurses notes, lab test result(s), EKG, radiologic studies, nerissa plain films. 14:53 Differential diagnosis: Anemia Anxiety Reaction CHF exacerbation, Chronic Obstructive nerissa Pulmonary Disease pneumonia, Pneumothorax pulmonary edema, Pulmonary Embolism reactive airway disease, Unstable Angina. Antibiotic administration: Not indicated. The patient's [place] Deep Vein Thrombosis Score was calculated as follows: Imm/Surg in last 4 wks (1.5 Pts) Total Score: 0-2 Pts- Low Risk. The patient's pulmonary embolism risk score was calculated as follows: patient has experienced immobilization or surgery in the last four weeks (1.5 Pts) Total Score: 0-2 points. This patient was found to be at low risk for a pulmonary embolism by using the Well's assessment criteria. Immunization status: Pneumococcal vaccine: Influenza vaccine: Data interpreted: ekg monitor: rate is 63 beats/min, rhythm is regular, Pulse oximetry: on room air is 95 %. Test interpretation: by ED physician or midlevel provider: ECG, plain radiologic studies. Counseling: I had a detailed discussion with the patient and/or guardian regarding: the historical points, exam findings, and any diagnostic results supporting the discharge/admit diagnosis, the presence of at least one elevated blood pressure reading (>120/80) during this emergency department visit, lab results, radiology results, the need for further work-up and treatment in the hospital. ED course: improved,sara price, will place obs orders. 02/07 11:33 Order name: Basic Metabolic Panel; Complete Time: 12:50 [facility] 02/07 11:33 Order name: CBC with Diff; Complete Time: 12:50 [facility] 02/07 11:33 Order name: LFT's; Complete Time: 12:50 [facility] 02/07 11:33 Order name: Magnesium; Complete Time: 12:50 [facility] 02/07 11:33 Order name: PT-INR; Complete Time: 12:50 [facility] 02/07 11:33 Order name: Troponin (emerg Dept Use Only); Complete Time: 12:50 [facility] 02/07 11:35 Order name: Urine Culture [facility] 02/07 11:42 Order name: Type And Screen; Complete Time: 14:46 02/07 13:18 Order name: Urine Dipstick--Ancillary (enter results); Complete Time: 14:46 02/07 13:30 Order name: BNP; Complete Time: 14:46 [facility] 02/07 15:07 Order name: Urinalysis [facility] 02/07 15:07 Order name: CBC with Automated Diff [facility] 02/07 15:07 Order name: CBC with Automated Diff [facility] 02/07 15:07 Order name: Comprehensive Metabolic Panel [facility] 02/07 11:33 Order name: XRAY Chest (1 view); Complete Time: 13:29 [facility] 02/07 11:33 Order name: EKG; Complete Time: 11:34 [facility] 02/07 11:33 Order name: Cardiac monitoring; Complete Time: 12:01 [facility] 02/07 11:33 Order name: EKG - Nurse/Tech; Complete Time: 12:01 [facility] 02/07 11:33 Order name: IV Saline Lock; Complete Time: 12:01 [facility] 02/07 11:33 Order name: Labs collected and sent; Complete Time: 12:01 [facility] 02/07 11:33 Order name: O2 Per Protocol; Complete Time: 12:01 [facility] 02/07 15:07 Order name: Heart Healthy [facility] 02/07 15:07 Order name: Comprehensive Metabolic Panel [facility] 02/07 15:07 Order name: Magnesium [facility] 02/07 15:07 Order name: Magnesium [facility] 02/07 15:07 Order name: Phosphorus [facility] 02/07 15:07 Order name: Phosphorus [facility] 02/07 15:58 Order name: ABO/RH no charge [facility] 02/07 11:33 Order name: O2 Sat Monitoring; Complete Time: 12:01 [facility] 02/07 15:04 Order name: Labs - recollect needed: collect rb/oh no charge; Complete Time: 15:07 bd EC:30 Rate is 54 beats/min. Rhythm is regular. QRS [place] is Normal. OH interval is normal. QRS nerissa interval is prolonged. QT interval is normal. No Q waves. T waves are Normal. No ST changes noted. Clinical impression: Sinus bradycardia and No evidence of ischemia. Interpreted by me. Reviewed by me. Administered Medications: 12:24 Drug: Lasix 20 mg Route: IVP; Site: left forearm; 15:07 Follow up: Response: No adverse reaction 15:03 Drug: Lasix 20 mg Route: IVP; Site: left forearm; 16:00 Follow up: Response: No adverse reaction Disposition: 02/08/20 14:52 Hospitalization ordered by Elvin Price for Observation. Preliminary diagnosis are Unspecified combined systolic (congestive) and diastolic (congestive) heart failure, Type 1 diabetes mellitus, Cardiomegaly, Pleural effusion in conditions classified elsewhere, Unspecified kidney failure - acute on chronic. - Bed requested for Telemetry/MedSurg (observation). - Status is Observation. ss - Condition is Fair. - Problem is new. - Symptoms have improved. Signatures: Dispatcher [employer] EDMS Selene Childers Corey, MD MD cha Smirch, Shelby, RN RN Yanet Mesa RN RN [facility] Wanda Dahl RN RN Corrections: (The following items were deleted from the chart) 16:07 14:52 Hospitalization Ordered by Evlin Price MD for Observation. Preliminary bd diagnosis is Unspecified combined systolic (congestive) and diastolic (congestive) heart failure; Type 1 diabetes mellitus; Cardiomegaly; Pleural effusion in conditions classified elsewhere; Unspecified kidney failure - acute on chronic. Bed requested for Telemetry/MedSurg (observation). Status is Observation. Condition is Fair. Problem is new. Symptoms have improved. nerissa 18:00 16:07 02/08/2020 14:52 Hospitalization Ordered by Elvin Price MD for Observation. ss Preliminary diagnosis is Unspecified combined systolic (congestive) and diastolic (congestive) heart failure; Type 1 diabetes mellitus; Cardiomegaly; Pleural effusion in conditions classified elsewhere; Unspecified kidney failure - acute on chronic. Bed requested for Telemetry/MedSurg (observation). Status is Observation. Condition is Fair. Problem is new. Symptoms have improved. bd
--- NOTE | 2020-02-08 14:53 | ER ---
Nurse's Notes [facility] Name: Lola Braun Age: 74 yrs Sex: Female : 1945 Arrival Date: 02/08/2020 Time: 11:00 Bed 19 Private MD: Lola Russell Diagnosis: Unspecified combined systolic (congestive) and diastolic (congestive) heart failure;Type 1 diabetes mellitus;Cardiomegaly;Pleural effusion in conditions classified elsewhere;Unspecified kidney failure-acute on chronic Presentation: 02/07 11:31 Ebola Screen: Patient denies travel to an Ebola-affected area in the 21 days before tw2 illness onset. Initial Sepsis Screen: Does the patient meet any 2 criteria? No. Patient's initial sepsis screen is negative. Does the patient have a suspected source of infection? No. Patient's initial sepsis screen is negative. Risk Assessment: Do you want to hurt yourself or someone else? Patient reports no desire to harm self or others. Onset of symptoms was January 31, 2020. 11:31 Acuity: RAUL 3 tw2 11:31 Method Of Arrival: Wheelchair [facility] 11:31 Chief complaint: Patient states: shortness of breath on exertion, "water in lungs" and ss bilateral feet swelling that began 8 days ago. Pt reports that she needs to get this fluid off as she has before with IV Lasix so she will be well to have her Colonoscopy next Friday. 11:31 Method Of Arrival: Wheelchair 15:06 Coronavirus screen: Proceed with normal triage. Triage Assessment: 11:22 General: Appears in no apparent distress. obese, well groomed, Behavior is calm, tw2 cooperative, appropriate for age. Pain: Complains of pain in abdomen. Cardiovascular: Edema is 2+ to left midcalf, left ankle, left foot, right midcalf, right ankle and right foot. Respiratory: Reports shortness of breath at rest Onset: The symptoms/episode began/occurred 8 days ago, the patient has mild shortness of breath. Historical: - Allergies: 11:30 NKDA; tw2 - PMHx: 11:30 Diabetes - IDDM; Hyperlipidemia; Hypertension; Myocardial infarction; GERD; tw2 - Immunization history:: Adult Immunizations. - Social history:: Smoking status: . - Family history:: not pertinent. Screenin:31 Abuse screen: Denies threats or abuse. Nutritional screening: No deficits noted. tw2 Tuberculosis screening: No symptoms or risk factors identified. Fall Risk Secondary diagnosis (15 points) impaired mobility. Assessment: 11:25 General: Appears uncomfortable, Behavior is calm, cooperative, appropriate for age. ah Pain: Denies pain. Neuro: Level of Consciousness is awake, alert, obeys commands, Oriented to person, place, time, situation, Appropriate for age. Cardiovascular: Heart tones S1 S2 present Capillary refill < 3 seconds Patient's skin is warm and dry. Cardiovascular: edema noted to BLE. Respiratory: Reports shortness of breath on exertion Airway is patent Respiratory effort is even, unlabored, Respiratory pattern is regular, symmetrical, the patient has moderate shortness of breath. Derm: Skin is intact. 12:30 Reassessment: Patient and/or family updated on plan of care and expected duration. Pain ah level reassessed. Patient is alert, oriented x 3, equal unlabored respirations, skin warm/dry/pink. awaiting lab results. No needs voiced at this time. Lasix given IV at this time. 13:30 Reassessment: Patient and/or family updated on plan of care and expected duration. Pain ah level reassessed. Patient is alert, oriented x 3, equal unlabored respirations, skin warm/dry/pink. Pt assisted to restroom and back in bed. Tolerated well. 15:00 Reassessment: Patient and/or family updated on plan of care and expected duration. Pain ah level reassessed. Pt given another dose of Lasix at this time. No other needs voiced at this time. 16:00 Reassessment: Patient and/or family updated on plan of care and expected duration. Pain ah level reassessed. Patient is alert, oriented x 3, equal unlabored respirations, skin warm/dry/pink. awaiting on room assignment. No needs voiced. Pt assisted to bathroom and back in bed. 17:00 Reassessment: Patient and/or family updated on plan of care and expected duration. Pain ah level reassessed. Patient is alert, oriented x 3, equal unlabored respirations, skin warm/dry/pink. No needs voiced at this time. Tray given to Pt for dinner. Vital Signs: 11:22 BP 185 / 67; Pulse 63; Resp 19; Temp 97.6(TE); Pulse Ox 95% on R/A; tw2 15:00 BP 184 / 65; Pulse 61; Resp 20; Pulse Ox 94% ; ah 16:00 BP 177 / 96; Pulse 54; Resp 18; Pulse Ox 96% ; ED Course: 11:00 Patient arrived in ED. am2 11:00 Lola Russell MD is Private Physician. am2 11:07 Emmett Browne MD is Attending Physician. [facility] 11:14 Bed in low position. Call light in reach. Side rails up X 1. Pulse ox on. NIBP on. Warm tw2 blanket given. 11:22 Arm band placed on. tw2 11:31 Triage completed. tw2 11:41 Wanda Dahl, RN is Primary Nurse. 12:01 Inserted saline lock: 22 gauge in left forearm, using aseptic technique. Blood mt collected. 12:41 XRAY Chest (1 view) In Process Unspecified. EDSD 14:51 Elvin Leo MD is Hospitalizing Provider. [facility] 16:32 No provider procedures requiring assistance completed. Patient admitted, IV remains in place. Administered Medications: 12:24 Drug: Lasix 20 mg Route: IVP; Site: left forearm; 15:07 Follow up: Response: No adverse reaction 15:03 Drug: Lasix 20 mg Route: IVP; Site: left forearm; 16:00 Follow up: Response: No adverse reaction Outcome: 14:52 Decision to Hospitalize by Provider. [facility] 17:55 Admitted to Med/surg accompanied by [facility], via stretcher, room 207, with chart, Report called to NICHOLAS Kramer 17:55 Condition: stable 17:55 Instructed on the need for admit. 18:00 Patient left the ED. ss Signatures: Dispatcher [employer] EDSD Emmett Browne MD MD cha Smirch, Shelby RN RN Yanet Mesa RN RN [facility] Jesika Kan [facility] Beatrice May [place] Wanda Dahl, NICHOLAS RN Corrections: (The following items were deleted from the chart) 16:26 12:30 Reassessment: Patient and/or family updated on plan of care and expected ah duration. Pain level reassessed. Patient is alert, oriented x 3, equal unlabored respirations, skin warm/dry/pink. awaiting lab results. No needs voiced at this time 16:31 16:29 Reassessment: Patient and/or family updated on plan of care and expected ah duration. Pain level reassessed.
[2020-02-08] MEDS ORDERED: ONDANSETRON 4 MG/2 ML VIAL IV PRN (15:04)
[2020-02-08] MEDS ORDERED: ACETAMINOPHEN 500 MG TAB PO PRN (15:04)
--- NOTE | 2020-02-08 15:04 | P.HP ---
Certification for Inpatient Patient admitted to: Inpatient With expected LOS: >2 Midnights Patient will require the following post-hospital care: None Practitioner: I am a practitioner with admitting privileges, knowledge of patient current condition, hospital course, and medical plan of care. Services: Services provided to patient in accordance with Admission requirements found in Title 42 Section 412.3 of the Code of Federal Regulations Patient History Date of Service: 02/09/20 Reason for admission: SOB History of Present Illness: 74 yrs old Female with past medical history of diabetes, hyperlipidemia, hypertension, CAD status post MS, GERD presents with complaints of Shortness Of Breath and pedal edema, . Patient states that she has been getting shortness of breath even with minimal activities recently which started progressively get worse 3 days back. Denies any fever or chills. No sick contacts Patient was assessed in the ER and was admitted for further management Allergies No Known Drug Allergies Allergy (Verified 03/11/19 14:05) Unknown Home medications list reviewed: Yes Home Medications: Atorvastatin Calcium 40 mg PO BEDTIME 03/11/19 Clopidogrel Bisulfate [Plavix*] 75 mg PO DAILY 03/11/19 Furosemide [Lasix*] 40 mg PO DAILY 03/11/19 Isosorbide Mononitrate [Isosorbide Mononitrate ER] 120 mg PO DAILY 03/11/19 Levothyroxine Sodium 150 mcg PO DAILY 03/11/19 Glipizide [Glipizide Xl] 5 mg PO DAILY 05/16/19 Insulin Glargine,Hum.rec.anlog [Lantus Solostar] 64 units SQ BEDTIME 05/16/19 Citalopram Hydrobromide [Citalopram HBr] 10 mg PO DAILY 02/08/20 Linagliptin [Tradjenta] 5 mg PO DAILY 02/08/20 Losartan Potassium [Cozaar] 100 mg PO DAILY 02/08/20 Pantoprazole Sodium 40 mg PO DAILY 02/08/20 Trazodone [Desyrel*] 100 mg PO BEDTIME PRN 02/08/20 - Past Medical/Surgical History Diabetic: Yes -: Hypertension -: Diabetes mellitus type 2, insulin-dependent -: Coronary artery disease, Cardiology-Dr. Donovan -: Hypothyroidism -: Hyperlipidemia -: History of CVA -: Obesity -: Chronic kidney disease, stage IIIB -: GERD -: Chronic constipation -: Diabetic neuropathy -: Pulmonary Edema -: Heart catheterization requiring stent -: Appendectomy Psychosocial/ Personal History: She is of 59 years, has 9 children, she does not work. - Family History Father -: Heart disease, Diabetes - Social History Alcohol use: No CD- Drugs: No Caffeine use: Yes Review of Systems 10-point ROS is otherwise unremarkable Physical Examination - Vital Signs Temperature: 97.6 F Blood Pressure: 185/67 Pulse: 68 Respirations: 18 - Physical Exam General: Alert, In no apparent distress, Obese HEENT: Atraumatic, Normocephalic Neck: Supple Respiratory: Normal air movement, Diminished, Crackles/rales Cardiovascular: Regular rate/rhythm, Normal S1 S2, Edema Capillary refill: <2 Seconds Gastrointestinal: Soft and benign, W/out hepatosplenomegaly Musculoskeletal: No clubbing, Swelling Integumentary: No rashes, No breakdown Neurological: Normal speech, Normal strength at 5/5 x4 extr Lymphatics: No axilla or inguinal lymphadenopathy - Studies Laboratory Data (last 24 hrs) 02/08/20 11:55: PT 13.3 H, INR 1.13 02/08/20 11:55: WBC 7.5, Hgb 11.8 L, Hct 36.8, Plt Count 187 02/08/20 11:55: Sodium 138, Potassium 4.2, BUN 32 H, Creatinine 1.73 H, Glucose 265 H, Magnesium 2.0, Total Bilirubin 1.5 H, AST 13 L, ALT 14, Alkaline Phosphatase 84 Assessment and Plan - Plan Acute on Chronic diastolic heart failure H/o Coronary artery disease [place] artery and [place] heart, status post myocardial infarction and stent Diabetes mellitus type 2, insulin requiring , with hyperglycemia, neuropathy. Accelerated hypertension, Hyperlipidemia. History of cerebrovascular accident, stable. Chronic kidney disease stage IIIB. Hypothyroidism, Diabetic neuropathy. Gastroesophageal reflux disease without esophagitis. Plan Patient admitted and was monitored closely under telemetry Cardiac enzymes trended Start on aggressive diuresis Will get a repeat x-ray Continue home medications and titrate as needed Will get an echocardiogram Last echo showed normal EF with moderate Will get an cardiology consult if not better Electrolytes monitored and replaced Insulin sliding scale GI/DVT prophylaxis Advanced directives full Code - Advance Directives Does patient have a Living Will: No Does patient have a Durable POA for Healthcare: No Time Spent Managing Pts Care (In Minutes): 46
[2020-02-08 17:59] VITALS: BMI 33.5
[2020-02-08] MEDS ORDERED: GLUCAGON 1 MG/VIAL IM PRN (18:19)
[2020-02-08] MEDS ORDERED: D50W 25 GM/50 ML SYRINGE/VIAL IV PRN (18:19)
[2020-02-08] MEDS: ENOXAPARIN 30 MG/0.3 ML SQ SCH (18:37)
[2020-02-08] MEDS ORDERED: TRAZODONE 50 MG TABLET PO PRN (19:16)
[2020-02-08] MEDS: INSULIN -REGULAR HUMAN 50 UNIT/0.5 ML ML SQ SCH (21:00)
[2020-02-08] MEDS: ATORVASTATIN 40 MG TAB PO SCH (22:01)
[2020-02-08] MEDS: INSULIN GLARGINE 100 UNITS/ML SQ SCH (22:03)
[2020-02-09 05:51] LABS: Basophils % 0.4 % (0-1.3); Lymphocytes % 20.6 % (15.3-44.8); MPV 8.7 fL (7.6-11.3); RBC Red Blood Cell Count 3.98 M/uL (3.86-4.86)
[2020-02-09] MEDS: LEVOTHYROXINE SOD 0.075 MG TAB PO SCH (06:04)
[2020-02-09] MEDS: PANTOPRAZOLE 40MG TABLET PO SCH (06:05)
[2020-02-09 06:12] LABS: Albumin 3.1 g/dL (3.4-5.0); Bilirubin Total 1.3 mg/dL (0.2-1.0); Phosphorus 3.6 mg/dL (2.5-4.9); Potassium 3.7 mmol/L (3.5-5.1); Protein, Total 6.4 g/dL (6.4-8.2)
[2020-02-09 06:23] LABS: Urine Appearance CLOUDY; Urine Bilirubin NEGATIVE (NEG); Urine Blood NEGATIVE (NEG); Urine Color YELLOW; Urine Glucose NEGATIVE (NEG); Urine Protein 2+ (NEG); Urine Specific Gravity 1.015 (1.005-1.030); Urine pH 6.5 (5.0-7.0)
[2020-02-09 06:27] LABS: Urine Microscopic Reflex ORDER UMIC
[2020-02-09 06:42] LABS: Urine Bacteria <20 /HPF (<20); Urine Culture Reflex Order NOT NEEDED; Urine RBC <5 /HPF (NONE SEEN)
[2020-02-09] MEDS: INSULIN -REGULAR HUMAN 50 UNIT/0.5 ML ML SQ SCH ×4 (07:30→20:57)
[2020-02-09] MEDS: ISOSORBIDE MONO SR 60 MG TAB PO SCH (08:14)
[2020-02-09] MEDS: CLOPIDOGREL 75 MG TABLET PO SCH (08:14)
[2020-02-09] MEDS: CITALOPRAM 10 MG TABLET PO SCH (08:14)
[2020-02-09] MEDS: FUROSEMIDE 40 MG/4 ML VIAL IV SCH ×2 (08:15→17:04)
[2020-02-09] MEDS: ENOXAPARIN 30 MG/0.3 ML SQ SCH (08:15)
[2020-02-09] MEDS ORDERED: ENOXAPARIN 40 MG/0.4 ML SQ SCH (09:00)
[2020-02-09] MEDS ORDERED: POTASSIUM CL SA 10 MEQ TAB PO ONE (09:00)
--- NOTE | 2020-02-09 09:29 | RAD REPORT ---
EXAM DESCRIPTION: RAD - Chest Single View - 02/09/2020 9:21 am CLINICAL HISTORY: CHF/PNA Chest pain. COMPARISON: Chest Single View dated 02/08/2020; Chest Single View dated 09/01/2019; Chest Single View dated 05/26/2019; Chest Single View dated 05/16/2019 FINDINGS: Portable technique limits examination quality. Mild interstitial pulmonary edema is again seen, unchanged. The heart is significantly enlarged. No d isplaced fractures. IMPRESSION: Mild CHF pattern again noted, without appreciable change since comparative study.
--- NOTE | 2020-02-09 11:24 | P.PN ---
Subjective Date of Service: 02/09/20 Chief Complaint: SOB Subjective: No new changes, Improving, Other (Shortness of breath is improving denies any chest pain) Review of Systems 10-point ROS is otherwise unremarkable Physical Examination - Vital Signs Temperature: 97 F Blood Pressure: 189/78 Pulse: 61 Respirations: 20 Pulse Ox (%): 95 - Physical Exam General: Alert, In no apparent distress HEENT: Atraumatic, Normocephalic Neck: Supple Respiratory: Normal air movement, Crackles/rales Cardiovascular: Regular rate/rhythm, Normal S1 S2 Capillary refill: <2 Seconds Gastrointestinal: Soft and benign, W/out hepatosplenomegaly Musculoskeletal: No clubbing, Swelling Integumentary: No rashes Neurological: Normal speech, Normal strength at 5/5 x4 extr Lymphatics: No axilla or inguinal lymphadenopathy - Studies Laboratory Data (last 24 hrs) 02/08/20 11:55: PT 13.3 H, INR 1.13 02/08/20 11:55: WBC 7.5, Hgb 11.8 L, Hct 36.8, Plt Count 187 02/08/20 11:55: Sodium 138, Potassium 4.2, BUN 32 H, Creatinine 1.73 H, Glucose 265 H, Magnesium 2.0, Total Bilirubin 1.5 H, AST 13 L, ALT 14, Alkaline Phosphatase 84 Assessment & Plan Physician Review Additional Text: Acute on Chronic diastolic heart failure H/o Coronary artery disease [place] artery and [place] heart, status post myocardial infarction and stent Diabetes mellitus type 2, insulin requiring , with hyperglycemia, neuropathy. Accelerated hypertension, Hyperlipidemia. History of cerebrovascular accident, stable. Chronic kidney disease stage IIIB. Hypothyroidism, Diabetic neuropathy. Gastroesophageal reflux disease without esophagitis. Plan Patient admitted and was monitored closely under telemetry Cardiac enzymes trended Start on aggressive diuresis Will get a repeat x-ray Continue home medications and titrate as needed Will get an echocardiogram Last echo showed normal EF with moderate Will get an cardiology consult if not better Electrolytes monitored and replaced Insulin sliding scale GI/DVT prophylaxis Advanced directives full Code 02/09/2020 Clinically much better Shortness of breath improving Oxygen support if needed Will get a PT eval Monitor closely under telemetry Awaiting echocardiogram Continue diuresis Continue home medications and titrate as needed Time Spent Managing Pts Care (In Minutes): 42
[2020-02-09] MEDS: HYDRALAZINE HCL 25 MG TABLET PO SCH ×2 (17:04→20:58)
[2020-02-09] MEDS: carvediloL 6.25 MG TAB PO SCH ×2 (17:04→20:58)
[2020-02-09] MEDS: LACTULOSE 20 GM/30 ML UCUP PO SCH (17:10)
[2020-02-09] MEDS ORDERED: FUROSEMIDE 40 MG/4 ML VIAL IV SCH (19:13)
[2020-02-09] MEDS: INSULIN GLARGINE 100 UNITS/ML SQ SCH (20:56)
[2020-02-09] MEDS: ATORVASTATIN 40 MG TAB PO SCH (20:58)
[2020-02-10] MEDS: FUROSEMIDE 40 MG/4 ML VIAL IV SCH ×2 (01:19→09:07)
[2020-02-10] MEDS: LEVOTHYROXINE SOD 0.075 MG TAB PO SCH (06:09)
[2020-02-10] MEDS: PANTOPRAZOLE 40MG TABLET PO SCH (06:09)
--- NOTE | 2020-02-10 07:37 | EKG ---
Test Date: 2020-02-08 Test Time: 11:44:37 Material Control Associate: MARLY MEASUREMENT RESULTS: Intervals: Rate: 54 NC: 150 QRSD: 164 QT: 520 QTc: 493 [place]: P: 8 NC: 150 QRS: -41 T: 106 INTERPRETIVE STATEMENTS: Sinus bradycardia Left axis deviation Left bundle branch block Abnormal ECG Compared to ECG 09/01/2019 11:04:37 Left-axis deviation now present Sinus arrhythmia no longer present Electronically Signed On 02-10-20 07:32:59 CDT by Angel Luis Castaneda
[2020-02-10] MEDS: INSULIN -REGULAR HUMAN 50 UNIT/0.5 ML ML SQ SCH ×2 (09:01→11:30)
[2020-02-10] MEDS: carvediloL 6.25 MG TAB PO SCH (09:04)
[2020-02-10] MEDS: LACTULOSE 20 GM/30 ML UCUP PO SCH (09:04)
[2020-02-10] MEDS: CITALOPRAM 10 MG TABLET PO SCH (09:04)
[2020-02-10] MEDS: HYDRALAZINE HCL 25 MG TABLET PO SCH (09:04)
[2020-02-10] MEDS: CLOPIDOGREL 75 MG TABLET PO SCH (09:04)
[2020-02-10] MEDS: ISOSORBIDE MONO SR 60 MG TAB PO SCH (09:06)
[2020-02-10 09:07] VITALS: O2SAT 97
[2020-02-10] MEDS: ENOXAPARIN 30 MG/0.3 ML SQ SCH (09:07)
[2020-02-10 09:08] VITALS: BP 171/72
--- NOTE | 2020-02-10 09:35 | ECHO ---
HEIGHT: 5 ft 6 in WEIGHT: 207 lb 9.6 oz DATE OF STUDY: 02/09/[address]: Tera Leo DO 2-DIMENSIONAL: YES M.MODE: YES DOPPLER: YES COLOR FLOW: YES TDS: NO PORTABLE: NO DEFINITY: NO BUBBLE STUDY: NO DIAGNOSIS: CONGESTIVE HEART FAILURE CARDIAC HISTORY: CATHERIZATION: YES SURGERY: NO PROSTHETIC VALVE: NO PACEMAKER: NO MEASUREMENTS (cm) DIASTOLIC (NORMALS) SYSTOLIC (NORMALS) IVSd 1.2 (0.6-1.2) LA Diam 4.0 (1.9-4.0) LVEF 44% LVIDd 4.6 (3.5-5.7) LVIDs 3.6 (2.0-3.5) %FS 22% LVPWd 1.3 (0.6-1.2) Ao Diam 3.0 (2.0-3.7) 2 DIMENSIONAL ASSESSMENT: RIGHT ATRIUM: NORMAL LEFT ATRIUM: NORMAL RIGHT VENTRICLE: NORMAL LEFT VENTRICLE: LEFT VENTRICULAR HYPERTROPHY TRICUSPID VALVE: NORMAL MITRAL VALVE: NORMAL PULMONIC VALVE: NORMAL AORTIC VALVE: STENOTIC PERICARDIAL EFFUSION: NONE AORTIC ROOT: NORMAL LEFT VENTRICULAR WALL MOTION: MILD GLOBAL HYPOKINESIS. DOPPLER/COLOR FLOW: MODERATE AORTIC STENOSIS. AORTIC VALVE AREA 1.0 CENTIMETERS SQUARED. COMMENTS: MODERATE AORTIC STENOSIS. AORTIC VALVE AREA 1.0 CENTIMETERS SQUARED. MILD GLOBAL HYPOKINESIS. LEFT VENTRICULAR EJECTION FRACTION 44%. LEFT VENTRICULAR HYPERTROPHY. TECHNOLOGIST: Micaela LAUGHLIN
--- NOTE | 2020-02-10 09:40 | P.DS ---
Admission Date: 02/08/20 Discharge Date: 02/10/20 Disposition: ROUTINE DISCHARGE Discharge Condition: GOOD Reason for Admission: SOB Brief History of Present Illness: 74 yrs old Female with past medical history of diabetes, hyperlipidemia, hypertension, CAD status post [place], GERD presents with complaints of Shortness Of Breath and pedal edema, . Patient states that she has been getting shortness of breath even with minimal activities recently which started progressively get worse 3 days back. Denies any fever or chills. No sick contacts Patient was assessed in the ER and was admitted for further management Hospital Course: Acute on Chronic Combined Systolic / diastolic heart failure H/o Coronary artery disease [place] artery and [place] heart, status post myocardial infarction and stent Diabetes mellitus type 2, insulin requiring , with hyperglycemia, neuropathy. Accelerated hypertension, Hyperlipidemia. History of cerebrovascular accident, stable. Chronic kidney disease stage IIIB. Hypothyroidism, Diabetic neuropathy. Gastroesophageal reflux disease without esophagitis. Plan Patient admitted and was monitored closely under telemetry Cardiac enzymes trended Start on aggressive diuresis Will get a repeat x-ray Continue home medications and titrate as needed Will get an echocardiogram Last echo showed normal EF with moderate Will get an cardiology consult if not better Electrolytes monitored and replaced Insulin sliding scale GI/DVT prophylaxis Advanced directives full Code The patient was admitted and was monitored closely under telemetry. Patient was started on aggressive diuresis and oxygen supplementation. cardiac enzymes were trended. An echocardiogram which showed an EF of 44% with global hypokinesis and moderate . Patient responded well to the treatment and is being discharged home today in a stable condition with advice to follow up with PCP in 1 week and also with Cardiology in 1-2 weeks. Vital Signs/Physical Exam: Temp Pulse Resp BP Pulse Ox 97 F 61 16 171/72 H 95 02/10/20 04:00 02/10/20 09:07 02/10/20 04:00 02/10/20 09:07 02/10/20 04:00 General: Alert, In no apparent distress HEENT: Atraumatic, Normocephalic Neck: Supple Respiratory: Clear to auscultation bilaterally Cardiovascular: Regular rate/rhythm, Normal S1 S2 Capillary refill: <2 Seconds Gastrointestinal: Soft and benign, W/out hepatosplenomegaly Musculoskeletal: No clubbing Integumentary: No rashes Neurological: Normal speech, Normal strength at 5/5 x4 extr Lymphatics: No axilla or inguinal lymphadenopathy Laboratory Data at Discharge: WBC 9.7 K/uL (4.3-10.9) D 02/09/20 05:20 Hgb 12.0 g/dL (12.0-15.0) 02/09/20 05:20 Hct 36.0 % (36.0-45.0) 02/09/20 05:20 Plt Count 189 K/uL (152-406) 02/09/20 05:20 PT 13.3 SECONDS (9.5-12.5) H 02/08/20 11:55 INR 1.13 02/08/20 11:55 Sodium 142 mmol/L (136-145) 02/09/20 05:20 Potassium 3.7 mmol/L (3.5-5.1) 02/09/20 05:20 BUN 29 mg/dL (7-18) H 02/09/20 05:20 Creatinine 1.66 mg/dL (0.55-1.3) H 02/09/20 05:20 Glucose 76 mg/dL (74-106) 02/09/20 05:20 Phosphorus 3.6 mg/dL (2.5-4.9) 02/09/20 05:20 Magnesium 2.0 mg/dL (1.8-2.4) 02/09/20 05:20 Total Bilirubin 1.3 mg/dL (0.2-1.0) H 02/09/20 05:20 AST 11 U/L (15-37) L 02/09/20 05:20 ALT 15 U/L (12-78) 02/09/20 05:20 Alkaline Phosphatase 79 U/L (45-117) 02/09/20 05:20 Home Medications: Atorvastatin Calcium 40 mg PO BEDTIME 03/11/19 Clopidogrel Bisulfate [Plavix*] 75 mg PO DAILY 03/11/19 Isosorbide Mononitrate [Isosorbide Mononitrate ER] 120 mg PO DAILY 03/11/19 Levothyroxine Sodium 150 mcg PO DAILY 03/11/19 Glipizide [Glipizide Xl] 5 mg PO DAILY 05/16/19 Insulin Glargine,Hum.rec.anlog [Lantus Solostar] 64 units SQ BEDTIME 05/16/19 Citalopram Hydrobromide [Citalopram HBr] 10 mg PO DAILY 02/08/20 Linagliptin [Tradjenta] 5 mg PO DAILY 02/08/20 Losartan Potassium [Cozaar] 100 mg PO DAILY 02/08/20 Pantoprazole Sodium 40 mg PO DAILY 02/08/20 Trazodone [Desyrel*] 100 mg PO BEDTIME PRN 02/08/20 Furosemide [Lasix] 40 mg PO BID #60 tablet 02/10/20 Hydralazine [Apresoline*] 50 mg PO TID #90 tab 02/10/20 carvediloL [Coreg*] 6.25 mg PO BID #60 tab 02/10/20 New Medications: Hydralazine [Apresoline*] 50 mg PO TID #90 tab carvediloL [Coreg*] 6.25 mg PO BID #60 tab Furosemide [Lasix] 40 mg PO BID #60 tablet Diet: ADA Activity: Ad yi Physician Review: Patient Assessed, Agree with Above Assessment and Plan Time spent managing pt's care (in minutes): 42
[2020-02-10 10:18] VITALS: TEMP 97
== END 2020-02-10 13:00 | disposition home or self-care (01) | DRG 291 ==
LOC: ER 10:16 → ERHOLD 15:05 → 2ND 17:14
PROVIDERS: ADMIT Family Medicine; ATTEND Family Medicine
DX: I13.0 Hypertensive heart and chronic kidney disease with heart failure and stage 1 through stage 4 chronic kidney disease, or unspecified chronic kidney disease (principal); I50.43 Acute on chronic combined systolic (congestive) and diastolic (congestive) heart failure; N18.3 Chronic kidney disease, stage 3 (moderate); E11.22 Type 2 diabetes mellitus with diabetic chronic kidney disease; E78.5 Hyperlipidemia, unspecified; E03.9 Hypothyroidism, unspecified; I25.10 Atherosclerotic heart disease of native coronary artery without angina pectoris; K21.9 Gastro-esophageal reflux disease without esophagitis; E11.65 Type 2 diabetes mellitus with hyperglycemia; E66.9 Obesity, unspecified; E11.40 Type 2 diabetes mellitus with diabetic neuropathy, unspecified; I25.2 Old myocardial infarction; Z79.02 Long term (current) use of antithrombotics/antiplatelets; Z79.890 Hormone replacement therapy; Z79.4 Long term (current) use of insulin; Z79.899 Other long term (current) drug therapy; Z86.73 Personal history of transient ischemic attack (TIA), and cerebral infarction without residual deficits; Z90.49 Acquired absence of other specified parts of digestive tract; Z68.33 Body mass index [BMI] 33.0-33.9, adult; Z95.5 Presence of coronary angioplasty implant and graft; Z20.828 Contact with and (suspected) exposure to other viral communicable diseases; R06.02 Shortness of breath
CPT/HCPCS: 36415; 71045; 80048; 80053; 80076; 81003; 81015; 82947; 83735; 83880; 84100; 84484; 85025; 85610; 86850; 86900; 86901; 87086; 87088; 93005; 93306; 94760; 96374; 99285; J1650; J1815; J1940

== ENCOUNTER 2020-03-18 11:21 | Observation (INO) | payer OTHER ==
--- OUTSIDE RECORDS SUMMARY | 2020-03-18 11:23 | XMS REPORT | Clinical Summary ---
:1945 Author Organization [facility] Address [address] [place] [id number] Care Team Providers Name Role Phone Asked, [...] Not on file Results Not on fileafter 03/18/2019 Advance Directives For more information, please contact: [phone] Type Date Recorded Patient Methods Examiner Explanati on Advance Directives, Living Will and Medical Power of Loom Setter Fourdrinier
--- OUTSIDE RECORDS SUMMARY | 2020-03-18 11:23 | XMS REPORT | Continuity of Care Document ---
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 [facility] use of use of [facility] insulin insulin l [facility] Elevated Elevated Diagnosis Active [facility] blood blood [facility] - pressure pressure Memori a reading reading l with with Outpati diagnosis diagnosis ent of of Clinics hypertensi hypertensi on on Obese Obese Problem Active [facility] CKD CKD Problem Active [facility] (chronic (chronic [facility] - kidney kidney Memoria disease) disease) l stage 4, stage 4, Outpat i GFR 15-29 GFR 15-29 ent ml/min ml/min Clinics Arterioscl Arterioscl Problem Active [facility] erosis of erosis of Luke s - coronary coronary Memori a artery artery l [facility] Unsteady Unsteady Problem Active [facility] gait gait [facility] Diabetes Diabetes Problem [facility] Hypothyroi Hypothyroi Problem Active [facility] dism dism [facility] H/O: CVA H/O: CVA Problem Active [facility] (cerebrova (cerebrova Michelle kes - scular scular Memoria accident) accident) l [facility] Hyperlipid Hyperlipid Problem Active [facility] emia emia [facility] Type 2 Type 2 [...] pressure pressure Memori a reading reading l [facility] ent Clinics Constipati Constipati Problem Active [facility] on, on, [facility] - unspecifie unspecifie Me moria d d l constipati constipati Ou tpati on type on type ent Clinics Other Other Problem Active [facility] chronic chronic [facility] - pain pain [facility] l [facility]ics Acute on Acute on Problem Active [facility] chronic chronic [facility] - diastolic diastolic Edmund simone congestive congestive l heart heart Outpati failure failure ent Clinics Adult Adult Problem Active [facility] general general [facility] - medical medical Memoria examinatio examinatio l n n [facility]ics Chronic Chronic Problem Active [facility] systolic systolic [facility] - congestive congestive Me moria heart heart l failure failure [facility] Mixed Mixed Problem Active [facility] stress and stress and Michelle kes - urge urge Memoria urinary urinary l incontinen incontinen Ou tpati ce ce ent Clinics Chronic Chronic Problem Active [facility] diastolic diastolic Luke [facility] - heart heart Memoria failure failure l [facility] History of History of Problem Active [facility] skin skin [facility] - cancer in cancer in Edmund simone adulthood adulthood l [facility] Abnormal Abnormal Problem Active [facility] mammogram mammogram [facility] - [facility]oria l [facility] Gastroesop Gastroesop Problem Active [facility] hageal hageal [facility] - reflux reflux Memoria disease, disease, l esophagiti esophagiti Ou tpati s presence s presence en t not not Clinics specified specified Primary Primary Problem Active [facility] insomnia insomnia [facility] Female Female Problem Active [facility] genital genital [facility] - prolapse, prolapse, Edmund simone unspecifie unspecifie l d d [facility] ent Clinics Unspecifie Unspecifie Problem Active [facility] d urinary d urinary Luke [facility] - incontinen incontinen Me moria ce ce l [facility] ent Clinics Depression Depression Problem Active [facility] with with [facility] - anxiety anxiety Memoria l [facility] ent Clinics Abdominal Abdominal Diagnosis Active [facility] bloating bloating [facility] Clinics Allergies, Adverse Reactions, Alerts This patient has no known allergies or adverse reactions. Family History Family Member Diagnosis Comments Start Date Stop Date Source Natural father No Known Problems Marsha [place]en[place] Natural mother No Known Problems Marsha Daven[place] Social History Social Habit Start Date Stop Date Quantity Comments Source Sex Assigned At [facility] ethodist Alcohol intake 2016-04-09 2016-04-09 [facility] 00:[facility]:00 00:00:00 non-drinker of alcohol (finding) Smoking Status Start Date Stop Date Source Never smoker [place] [facility] Medications Ordered Filled Start Stop Current Ordering Indication Dosage Frequency Signature Comments Components Source Medication Medication Date Date Medication? Clinician (SIG) Name Name Fosamax Fosamax 2020- Yes Na Russell [address] [facility] -06-21 with water [facility] - 00:00: 00:00 in the am Memoria 00 :00 30 minutes l prior to [facility] other ent medication Clinics s, food or drink Citalopram Citalopram Yes Na Russell [address] [facility] Hydrobromid Hydrobromid 5-12 L ukes - e e 00:00: Memoria 00 l [facility] ent Clinics Linzess Linzess 2018-07- No Na Russell [address] [facility] 1-20 18 on an [facility] - 00:00: 00:00 empty Memoria 00 :00 stomach l [facility] ent Clinics clopidogrel Yes 75mg QD Take 75 mg [place] (PLAVIX) 75 9- by mouth Meth maria elena mg tablet 21:23: daily. st 05 levothyroxi Yes 125ug QD Take 125 [place] [...] QD Take 5 mg [place] (TRADJENTA) 04-08 by mouth Meth maria elena 5 mg [...] [facility] Outpat[facility] ent Clinics [facility] Yes Na Russell not [facility] [...] lsartan Memoria l Outpati ent Clinics Pen Sumrall Pen Sumrall Yes Na Russell USE ONCE A [facility] [...] Immunizations Ordered Filled Immunization Date Status Comments [facility] e Immunization Name Name FluAD FluAD 2019-05-[address] [facility]00 [facility] FluAD FluAD 2018-04-[address] [facility]00 [facility] Procedures This patient has no known procedures. Encounters Start End Encounter Admission Attending Care Care Encounter Source Date/Time Date/Time Type Type Clinicians Facility Department ID 2020-01-21 2020-01-21 [facility] [id number] [facility] 14:00:00 14:00:00 [facility] [place] [facility] l Medicine Outpati ent Clinics 2020-01-21 2020-01-21 [facility] [id number] [facility] 13:20:00 13:20:00 t [facility] Medicine l Medicine Outpati ent Clinics 2020-01-02 2020-01-02 [facility] [id number] [facility] 03:03:00 03:03:00 t [facility] Medicine l Medicine Outpati ent Clinics 2019-12-24 2019-12-24 [facility] [id number] [facility] 14:20:00 14:20:00 t [facility] Medicine l Medicine Outpati ent Clinics 2019-12-10 2019-12-10 [facility] [id number] [facility] 15:00:00 15:00:00 t [facility] Medicine l Medicine Outpati ent Clinics 2019-12-02 2019-12-02 [facility] [id number] [facility] 14:07:00 14:07:00 t [facility] Medicine l Medicine Outpati ent Clinics 2019-11-23 2019-11-23 [facility] [id number] 14:00:00 14:00:00 t [facility] Medicine l Medicine Outpati ent Clinics 2019-10-08 2019-10-08 [facility] [id number] [facility] 16:40:00 16:40:00 t [facility] Medicine l Medicine Outpati ent Clinics 2019-09-09 2019-09-09 [facility] [id number] [address] 14:33:00 14:33:00 t [facility] Medicine l Medicine Outpati ent Clinics 2019-08-10 2019-08-10 [facility] [id number] [facility] 09:35:00 09:35:00 t [facility] Medicine l Medicine Outpati ent Clinics 2019-07-02 2019-07-02 [facility] [id number] [facility] 15:00:00 15:00:[address] [facility] - Drive [facility] l Medicine Outpati ent Clinics 2019-06-27 2019-06-27 [facility] [id number] 01:31:00 01:31:[address] [facility] - Drive [facility] Medicine l Medicine Outpati ent Clinics 2019-06-21 2019-06-21 [facility] [id number] 12:40:00 12:40:[address] [facility] - Drive [facility] Medicine l Medicine Outpati ent Clinics 2019-06-18 2019-06-18 [facility] [id number] 14:20:00 14:20:[address] [facility] - Drive [facility] Medicine l Medicine Outpati ent Clinics 2019-06-02 2019-06-02 [facility] [id number] [facility] 12:20:00 12:20:[address] [facility] - Drive [facility] Medicine l Medicine Outpati ent Clinics 2019-05-24 2019-05-24 [facility] [id number] 11:00:00 11:00:[address] [facility] - Drive [facility] Medicine l Medicine Outpati ent Clinics 2019-05-14 2019-05-14 [facility] [id number] 16:21:00 16:21:[address] [facility] - Drive [facility] Medicine l Medicine Outpati ent Clinics 2019-05-13 2019-05-13 [facility] [id number] 10:40:00 10:40:[address] [facility] - Drive [facility] Medicine l Medicine Outpati ent Clinics 2019-05-04 2019-05-04 [facility] [id number] [facility] 09:56:00 09:56:[address] [facility] s - Drive [facility] Medicine l Medicine Outpati ent Clinics 2019-04-06 2019-04-06 [facility] [id number] 16:35:00 16:35:[address] [facility] - Drive [facility] l Medicine Outpati ent Clinics 2019-03-26 2019-03-26 Hospital Radiology [facility] [id number] 10:22:25 23:59:00 Encounter Jordyn [id number] [place] [id number] [place] [id number] 2019-03-26 2019-03-26 Orders Doctor ADAM [id number] 00:00:00 00:00:00 Only Unassigned, FREDDIE [id number] [place] [facility] [id number] 2019-03-23 2019-03-23 [facility] [id number] [facility] 09:00:00 09:00:00 t [facility] Medicine l Medicine Outpati ent Clinics 2019-03-05 2019-03-05 [facility] [id number] [address] 16:40:00 16:40:00 t [facility] l Medicine Outpati ent Clinics 2019-01-26 2019-01-26 [facility] [id number] [facility] 16:20:00 16:20:00 t [facility] Medicine l Medicine Outpati ent Clinics 2018-09-21 2018-09-21 [facility] [id number] 10:32:00 10:32:00 t [facility] Medicine l Medicine Outpati ent Clinics 2018-09-21 2018-09-21 [facility] [id number] 09:15:00 09:15:00 t [employer] [facility] l Medicine Outpati ent Clinics 2018-07-23 2018-07-23 [facility] [id number] 11:15:00 11:15:00 t [facility] Medicine l Medicine Outpati ent Clinics 2018-07-17 2018-07-17 [facility] [id number] [facility] 11:57:00 11:57:00 t [facility] l Medicine Outpati ent Clinics 2018-06-22 2018-06-22 [facility] [id number] 11:30:00 11:30:00 t [place] [employer] s - Drive [facility] Medicine Outpati ent Clinics 2018-04-08 2018-04-08 [facility] [id number] 10:30:00 10:30:00 t [employer] s - Drive [facility] Medicine Outpati ent Clinics 2018-02-17 2018-02-17 [facility] [id number] 09:15:00 09:15:00 t [employer] - [employer] [facility] Medicine Outpati ent Clinics 2017-11-17 2017-11-17 [facility] [id number] 11:00:00 11:00:00 t [employer] s - Drive [facility] Medicine Outpati ent Clinics Results This patient has no known results.
--- OUTSIDE RECORDS SUMMARY | 2020-03-18 11:24 | XMS REPORT ---
[...] disease, stage III N18.3 Active (moderate) Problem prison current use of insulin Z79.4 Active Problem [...] End Status Dosage System Date Date Lyrica [facility] 07816807174 50 MG Orally Active 1 capsu le twice a day Levothyroxine [facility] 27561919677 150 MCG Active TAKE O NE Sodium TABLET BY MOUTH EVERY MORNING ON EMPTY STOMACH Amlodipine [facility] 27124103958 10-160 Orally Active 1 t ablet Besylate-Valsart Once a day an ZyrTEC [facility] 04592843161 Active not defined Trazodone HCl [facility] 20137999840 100 MG Active TOME U NA TABLETA POR VIA ORAL CADA NOCHE AL ACOSTARSE JULIAN SEA NECESARIO Lantus SoloStar [facility] 67215021323 100 UNIT/ML Active 40 units Subcutaneous and once daily increase by 2 units every 2 days until fbg less 120 ( max of 80 units daily) GlipiZIDE XL [facility] 37607723840 5 MG Orally Active 1 t ablet Once a day with food Pen Harlan [facility] 84130089819 32G X 4 MM Active USE O NCE A DAY WITH LANTUS Gabapentin [facility] [address]-98 100 MG Active TOME UN A CAPSULA POR VIA ORAL [place] VECES POR GERI Lipitor [facility] 03150417248 40 MG Orally Active 1 table t Once a day Valsartan [facility] 00066667260 160 MG Orally Active 1 ta blet Once a day Losartan [facility] 01081901293 100 MG Orally Active 1 tab let Potassium Once a day Isosorbide [facility] 09945130991 120 MG Orally Active 1 t ablet in Mononitrate ER Once a day the mo rning Citalopram [facility] 76244320655 10 MG Orally Active 1 ta blet Hydrobromide Once a day Myrbetriq [facility] 23613698732 25 MG Orally Active 1 tab let Once a day Imdur NDC 0 Active not defined Tradjenta [facility] 37943886738 5 MG Orally Active 1 tabl et Once a day Tradjenta [facility] 49907893955 5 MG Orally Active 1 tabl et Once a day Metolazone [facility] 47217667496 2.5 MG Orally Active 1 t ablet Once a day Linzess [facility] 30667052291 72 MCG Orally Active 1 caps ule Once a day on an empty stomach Plavix [facility] 08776250638 75 MG Orally Active 1 table t Once a day Amitiza [facility] 80946214769 24 MCG Orally Active 1 caps ule Twice a day with food and water Fosamax [facility] 05838291023 70 MG Orally December Active 1 table t once a week , with water 2019 2019 in the am 30 minutes prior to other medications , food or drink Omeprazole [facility] 29815975302 40 MG Orally Active 1 ca psule Once a day Pantoprazole [facility] 62703479817 40 MG Active TOME UN A Sodium TABLETA SUSANA VEZ AL GERI POR VIA ORAL Lasix [facility] 68762995893 40 MG Orally Active 1 table t Once a day Results No Known Results Summary Purpose eClinicalWorks Submission
--- OUTSIDE RECORDS SUMMARY | 2020-03-18 11:24 | XMS REPORT ---
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 [...] Active Problem Female genital prolapse, N81.9 Act ejremiah unspecified Problem Obese E66.9 Active Problem Hyperlipidemia [...] End Status Dosage System Date Date Levothyroxine [facility] 27161673076 150 MCG Active TAKE O NE Sodium TABLET BY MOUTH EVERY MORNING ON EMPTY STOMACH Omeprazole [facility] 70189913055 40 MG Orally Active 1 ca psule Once a day Pen Reading [facility] 95237113587 32G X 4 MM Active USE O NCE A DAY WITH LANTUS ZyrTEC [facility] 25122785927 Active not defined Tradjenta [facility] 36149381005 5 MG Orally Active 1 tabl et Once a day GlipiZIDE XL [facility] 64977740248 5 MG Orally Active 1 t ablet Once a day with food Gabapentin [facility] [address]-18 100 MG Active TOME UN A CAPSULA POR VIA ORAL [place] VECES POR GERI Citalopram [facility] 10500323824 10 MG Orally Active 1 ta blet Hydrobromide Once a day Imdur [facility] 0 Active not defined Lipitor [facility] 63859419871 40 MG Orally Active 1 table t Once a day Lasix [facility] 84292064923 40 MG Orally Active 1 table t Once a day Lantus SoloStar [facility] 21561672597 100 UNIT/ML Active 66 units Subcutaneous daily once a day Losartan [facility] 70272474180 100 MG Orally March Active 1 tab let Potassium Once a day 2019 Metolazone [facility] 48435654736 2.5 MG Orally Active 1 t ablet Once a day Myrbetriq [facility] 09653504894 25 MG Orally Active 1 tab let Once a day Lyrica [facility] 31786235502 50 MG Orally Active 1 capsu le twice a day Amitiza [facility] 45446847461 24 MCG Orally Active 1 caps ule Twice a day with food and water Amlodipine [facility] 54086898508 10-160 Orally Active 1 t ablet Besylate-Valsart Once a day an Tradjenta [facility] 64248526092 5 MG Orally Active 1 tabl et Once a day Linzess [facility] 56066717442 72 MCG Orally Active 1 caps ule Once a day on an empty stomach Plavix [facility] 39940990189 75 MG Orally Active 1 table t Once a day Isosorbide [facility] 44479197930 120 MG Orally Active 1 t ablet in Mononitrate ER Once a day the mo rning Trazodone HCl [facility] 94770223864 100 MG Active TOME U NA TABLETA POR VIA ORAL CADA NOCHE AL ACOSTARSE JULIAN SEA NECESARIO Pantoprazole [facility] 78371470604 40 MG Active TOME UN A Sodium TABLETA SUSANA VEZ AL GERI POR VIA ORAL Valsartan [facility] 88063477073 160 MG Orally Active 1 ta blet Once a day Results No Known Results Summary Purpose eClinicalWorks Submission
--- OUTSIDE RECORDS SUMMARY | 2020-03-18 11:24 | XMS REPORT ---
[...] disease, stage III N18.3 Active (moderate) Problem halfway current use of insulin Z79.4 Active Problem [...] End Status Dosage System Date Date Imdur [facility] 0 Active not defined Pen Pemberton [facility] 03129303192 32G X 4 MM Active USE O NCE A DAY WITH LANTUS Metolazone [facility] 41924691879 2.5 MG Orally Active 1 t ablet Once a day Tradjenta [facility] 90280449673 5 MG Orally Active 1 tabl et Once a day Valsartan [facility] 66795407424 160 MG Orally Active 1 ta blet Once a day Citalopram [facility] 91913819091 10 MG Orally Active 1 ta blet Hydrobromide Once a day Losartan [facility] 37820855721 100 MG Orally Active 1 tab let Potassium Once a day Myrbetriq [facility] 99445709008 25 MG Orally Active 1 tab let Once a day ZyrTEC [facility] 53670194222 Active not defined Linzess [facility] 01749988427 72 MCG Orally Active 1 caps ule Once a day on an empty stomach Lasix [facility] 22293764548 40 MG Orally Active 1 table t Once a day Trazodone HCl [facility] 67001057348 100 MG Active TOME U NA TABLETA POR VIA ORAL CADA NOCHE AL ACOSTARSE JULIAN SEA NECESARIO Lantus SoloStar [facility] 88229090824 100 UNIT/ML Active 40 units Subcutaneous and once daily increase by 2 units every 2 days until fbg less 120 ( max of 80 units daily) GlipiZIDE XL [facility] 37581457468 5 MG Orally Active 1 t ablet Once a day with food Lyrica [facility] 43960267401 50 MG Orally Active 1 capsu le twice a day Levothyroxine [facility] 74691187190 150 MCG Active TAKE O NE Sodium TABLET BY MOUTH EVERY MORNING ON EMPTY STOMACH Tradjenta [facility] 75186043465 5 MG Orally Active 1 tabl et Once a day Amlodipine [facility] 38121395857 10-160 Orally Active 1 t ablet Besylate-Valsart Once a day an Gabapentin [facility] [address]-97 100 MG Active TOME UN A CAPSULA POR VIA ORAL [place] VECES POR GERI Plavix [facility] 47276778880 75 MG Orally Active 1 table t Once a day Omeprazole [facility] 46315102153 40 MG Orally Active 1 ca psule Once a day Amitiza [facility] 26687113575 24 MCG Orally Active 1 caps ule Twice a day with food and water Fosamax [facility] 21761452648 70 MG Orally December Active 1 table t once a week , with water 2019 2019 in the am 30 minutes prior to other medications , food or drink Lipitor [facility] 23451287103 40 MG Orally Active 1 table t Once a day Pantoprazole [facility] 28072180220 40 MG Active TOME UN A Sodium TABLETA SUSANA VEZ AL GERI POR VIA ORAL Isosorbide [facility] 87616059285 120 MG Orally Active 1 t ablet in Mononitrate ER Once a day the mo rning Results No Known Results Summary Purpose eClinicalWorks Submission
--- OUTSIDE RECORDS SUMMARY | 2020-03-18 11:24 | XMS REPORT ---
:1945 [facility] Providers Name Role Phone Russell, Lola Provider Role Unavailable Allergies No Known Allergies Problems Problem Type Condition Code Onset Dates Condition Statu s Problem Type 2 diabetes mellitus with E11.65 Active hyperglycemia Problem Type 2 diabetes mellitus with E11.22 Active diabetic chronic kidney disease Problem Chronic kidney disease, stage III N18.3 Active (moderate) Problem shelter current use of insulin Z79.4 [...] End Status Dosage System Date Date Lyrica [facility] 26061230420 50 MG Orally Active 1 capsu le twice a day Myrbetriq [facility] 62555191643 25 MG Orally Active 1 tab let Once a day Metolazone [place] 60749193480 2.5 MG Orally Active 1 t ablet Once a day Amlodipine [facility] 65919455665 10-160 Orally Active 1 t ablet Besylate-Valsart Once a day an Fosamax [facility] 92705433371 70 MG Orally December Active 1 table t once a week , with water 2019 2019 in the am 30 minutes prior to other medications , food or drink Lantus SoloStar [facility] 54629128050 100 UNIT/ML Active 66 units Subcutaneous daily once a day Isosorbide ND 30690974742 120 MG Orally Active 1 t ablet in Mononitrate ER Once a day the mo rning Pen Reardan [facility] 97354600155 32G X 4 MM Active USE O NCE A DAY WITH LANTUS Tradjenta [facility] 23614452863 5 MG Orally Active 1 tabl et Once a day Pantoprazole [facility] 64010895804 40 MG Active TOME UN A Sodium TABLETA SUSANA VEZ AL GERI POR VIA ORAL Lasix [facility] 46985013196 40 MG Orally Active 1 table t Once a day Valsartan ND 76222942721 160 MG Orally Active 1 ta blet Once a day Tradjenta [facility] 79925436220 5 MG Orally Active 1 tabl et Once a day Citalopram ND 07317902361 10 MG Orally Active 1 ta blet Hydrobromide Once a day Imdur [place] 0 Active not defined ZyrTEC [facility] 97973412967 Active not defined GlipiZIDE XL [facility] 68815560454 5 MG Orally Active 1 t ablet Once a day with food Gabapentin [facility] [address]-17 100 MG Active TOME UN A CAPSULA POR VIA ORAL [place] VECES POR GERI Amitiza [facility] 03360341999 24 MCG Orally Active 1 caps ule Twice a day with food and water Levothyroxine [facility] 67169416100 150 MCG Active TAKE O NE Sodium TABLET BY MOUTH EVERY MORNING ON EMPTY STOMACH Lipitor ND 83150817275 40 MG Orally Active 1 table t Once a day Losartan ND 87906741528 100 MG Orally March Active 1 tab let Potassium Once a day 2019 Plavix [facility] 20162883939 75 MG Orally Active 1 table t Once a day Omeprazole [facility] 13400838617 40 MG Orally Active 1 ca psule Once a day Linzess [facility] 62732867608 72 MCG Orally Active 1 caps ule Once a day on an empty stomach Trazodone HCl [facility] 33793992918 100 MG Active TOME U NA TABLETA POR VIA ORAL CADA NOCHE AL ACOSTARSE JULIAN SEA NECESARIO Results No Known Results Summary Purpose eClinicalWorks Submission
[2020-03-18 12:21] LABS: Absolute Lymphocytes (CBC) 1.4 K/uL (0.7-4.9); Basophils % 0.7 % (0-1.3); Hematocrit 37.5 % (36.0-45.0); Lymphocytes % 19.8 % (15.3-44.8); MPV 9.6 fL (7.6-11.3)
[2020-03-18] MEDS ORDERED: NA CHLORIDE 0.9% 1,000 ML ONE (12:21)
[2020-03-18 12:22] LABS: Protime INR 1.18
[2020-03-18 12:33] LABS: Albumin 3.5 g/dL (3.4-5.0); Bilirubin Direct 0.5 mg/dL (0-0.2); Bilirubin Total 1.6 mg/dL (0.2-1.0); Magnesium 2.2 mg/dL (1.8-2.4); Potassium 4.4 mmol/L (3.5-5.1); Protein, Total 6.6 g/dL (6.4-8.2); Troponin (Emerg Dept Use Only) 0.04 ng/mL (0.0-0.045)
--- NOTE | 2020-03-18 12:50 | RAD REPORT ---
EXAM DESCRIPTION: RAD - Chest Single View - 03/18/2020 12:13 pm CLINICAL HISTORY: Cough;Dyspnea Chest pain. COMPARISON: Chest Single View dated 02/09/2020; Chest Single View dated 02/08/2020; Chest Single View dated 09/01/2019; Chest Single View dated 05/26/2019 FINDINGS: Portable technique limits examination quality. Mild interstitial pulmonary edema is seen with small pleural effusions. The heart is significantly en larged. No displaced fractures.Aortic atherosclerosis. IMPRESSION: Mild CHF versus volume overload pattern.
[2020-03-18 13:02] LABS: Urine Blood TRACE (NEG); Urine Glucose NEGATIVE (NEG); Urine Protein 3+ (NEG)
[2020-03-18] MEDS ORDERED: FUROSEMIDE 40 MG/4 ML VIAL ONE (13:25)
--- NOTE | 2020-03-18 13:27 | ER ---
Nurse's Notes [facility] Name: Lola Braun Age: 74 yrs Sex: Female : 1945 Arrival Date: 03/18/2020 Time: 11:22 Bed 8 Private MD: Lola Russell Diagnosis: Unspecified combined systolic (congestive) and diastolic (congestive) heart failure;Edema, unspecified;Unspecified kidney failure;Type 1 diabetes mellitus;Abdominal tenderness;Cholelithiasis Presentation: 03/18 11:30 Chief complaint: Patient states: has had difficulty breathing and swelling in her legs iw since being d/c from hospital in January, also has redness on her abdomen for a couple weeks. Ebola Screen: Patient negative for fever greater than or equal to 101.5 degrees Fahrenheit, and additional compatible Ebola Virus Disease symptoms Patient denies exposure to infectious person. Patient denies travel to an Ebola-affected area in the 21 days before illness onset. No symptoms or risks identified at this time. Initial Sepsis Screen: Does the patient meet any 2 criteria? No. Patient's initial sepsis screen is negative. Does the patient have a suspected source of infection? No. Patient's initial sepsis screen is negative. Risk Assessment: Do you want to hurt yourself or someone else? Patient reports no desire to harm self or others. Onset of symptoms was January 2020. 11:30 Method Of Arrival: Wheelchair iw 11:30 Acuity: RAUL 3 iw 11:30 Coronavirus screen: Client denies travel out of the [place] in the last 14 days. shortness jl7 of breath, Client presents with at least one sign or symptom that may indicate coronavirus-19. Standard/surgical mask placed on the client. Provider contacted for isolation considerations. 11:30 Care prior to arrival: None. Transition of care: patient was not received from another [facility] setting of care. Historical: - Allergies: 11:33 NKDA; iw - Home Meds: 11:33 Amitiza 24 mcg Oral cap 1 cap 2 times per day [Active]; atorvastatin 40 mg Oral tab 1 iw tab once daily [Active]; clopidogrel 75 mg Oral tab 1 tab once daily [Active]; furosemide 40 mg Oral tab 1 tab once daily [Active]; gabapentin 100 mg Oral cap 1 caps 3 times per day [Active]; glipizide 5 mg Oral tr24 1 tab once daily [Active]; isosorbide mononitrate 120 mg Oral Tb24 once daily [Active]; Lantus 100 unit/mL Sub-Q soln 60 unit nightly [Active]; levothyroxine 137 mcg tab 1 tab once daily [Active]; ranitidine HCl 150 mg Oral cap 1 cap 2 times per day [Active]; Tradjenta 5 mg Oral tab 1 tab once daily [Active]; valsartan 160 mg Oral tab 1 tab once daily [Active]; - PMHx: 11:33 Diabetes - IDDM; GERD; Hyperlipidemia; Hypertension; Myocardial infarction; iw - Immunization history:: Adult Immunizations unknown. - Family history:: not pertinent. - Social history:: Smoking status: unknown. Screenin:52 Abuse screen: Denies threats or abuse. Denies injuries from another. Nutritional ca1 screening: No deficits noted. Tuberculosis screening: No symptoms or risk factors identified. Fall Risk IV access (20 points). Ambulatory Aid- Crutches/Cane/Walker (15 pts). Gait- Weak (10 pts.). Total Beasley Fall Scale indicates High Risk Score (45 or more points). Fall prevention measures have been instituted. Side Rails Up X 2 As available patient and family educated on Fall Prevention Program and Strategies. Assessment: 12:14 General: Appears in no apparent distress. uncomfortable, Behavior is calm, cooperative, jl7 appropriate for age. Pain: Complains of pain in JACINTO Pain currently is 8 out of 10 on a pain scale. Neuro: Level of Consciousness is awake, alert, obeys commands, Oriented to person, place, time, situation. Cardiovascular: Heart tones present Patient's skin is warm and dry. 12:14 Cardiovascular: Edema is 2+ to bilateral lower extremities. Respiratory: Reports jl7 shortness of breath on exertion Airway is patent Respiratory effort is even, labored, Respiratory pattern is symmetrical, tachypnea Breath sounds with crackles in left lower lobe, right lower lobe, left posterior lower lobe and right posterior lower lobe. GI: Abdomen is round non-distended, Bowel sounds present X 4 quads. Abd is soft. Derm: Skin is pink, warm \\T\\ dry. 13:25 Reassessment: Patient appears in no apparent distress at this time. No changes from jl7 previously documented assessment. Patient and/or family updated on plan of care and expected duration. Pain level reassessed. Patient is alert, oriented x 3, equal unlabored respirations, skin warm/dry/pink. 14:49 Reassessment: Dr. Gonzalez at bedside, states "Why did you start fluids? She is hear jl7 for shortness of breath. you don't start fluids on shortness of breath. I stopped them." No new orders received at this time. Vital Signs: 11:30 BP 160 / 52; Pulse 56; Resp 16; Temp 98.2; Pulse Ox 96% on R/A; Weight 90.72 kg; Height iw 5 ft. (152.40 cm); Pain 8/10; 13:01 BP 160 / 70; Pulse 56; Resp 24; Temp 98.4(O); Pulse Ox 95% on R/A; mh5 13:32 BP 159 / 72; Pulse 64; Resp 21; Pulse Ox 98% ; jl7 14:30 BP 167 / 63; Pulse 53; Resp 20; Pulse Ox 97% ; jl7 11:30 Body Mass Index 39.06 (90.72 kg, 152.40 cm) iw ED Course: 11:22 Patient arrived in ED. as 11:23 Lola Russell MD is Private Physician. as 11:32 Triage completed. iw 11:33 Lien Louie, NICHOLAS is Primary Nurse. jl7 11:41 Emmett Browne MD is Attending Physician. nerissa 11:50 Initial lab(s) drawn, by me, sent to lab. EKG done, by ED staff, reviewed by Emmett Browne MD. Inserted saline lock: in right wrist, using aseptic technique. Blood collected. 11:52 Arm band placed on right wrist. ca1 11:52 Patient has correct armband on for positive identification. Placed in gown. Bed in low ca1 position. Call light in reach. Side rails up X2. media monitor on. Pulse ox on. NIBP on. 12:13 XRAY Chest (1 view) In Process Unspecified. EDMS 13:26 Maksim Gonzalez MD is Hospitalizing Provider. nerissa 13:34 Kinney cath inserted, using sterile technique, 16 Fr., Patient tolerated well. ll2 13:53 CT Stone Protocol In Process Unspecified. EDMS 14:52 No provider procedures requiring assistance completed. Patient admitted, IV remains in jl7 place. intact, No redness/swelling at site. Administered Medications: Discontinued: NS 0.9% 1000 ml IV at 75 ml/hr continuous 13:33 Drug: Lasix 40 mg Route: IVP; Site: right wrist; ll2 13:35 Follow up: Response: No adverse reaction ll2 14:00 Drug: NS 0.9% 1000 ml Route: IV; Rate: 75 ml/hr; Site: right hand; jl7 14:47 Follow up: IV Status: Order to discontinue infusion jl7 17:51 Not Given (Pt admitted): Zosyn 3.375 grams IVPB once over 60 mins; (mix in NS 100 mL) jl7 Outcome: 13:27 Decision to Hospitalize by Provider. nerissa 15:03 Admitted to Tele accompanied by tech, via stretcher, room 212, with chart, Report jl7 called to NICHOLAS Kramer 15:03 Condition: stable 15:03 Discharge instructions given to patient, Instructed on the need for admit, Demonstrated understanding of instructions. 15:10 Patient left the ED. jl7 Signatures: Dispatcher [employer] Emmett Al MD MD cha Martinez, Amelia as Williams, Irene, Ceci Wei RN [facility] Lien Louie RN RN jl7 May Desai RN RN ca1 Alyssa Feng, NICHOLAS RN ll2 Corrections: (The following items were deleted from the chart) 11:53 11:52 Fall Risk IV access (20 points). Ambulatory Aid- Crutches/Cane/Walker (15 pts). ca1 Gait- Weak (10 pts.). ca1 13:03 13:01 BP 166 / 70; Pulse 56bpm; Resp 24bpm; Pulse Ox 95% RA; mh5 mh5
--- NOTE | 2020-03-18 13:28 | EDPHYS ---
Physician Documentation [facility] Name: Lola Braun Age: 74 yrs Sex: Female : 1945 Arrival Date: 03/18/2020 Time: 11:22 Bed 8 Private MD: Lola Russell ED Physician Emmett Browne HPI: 03/18 13:19 This 74 yrs old Female presents to ER via Wheelchair with complaints of Leg nerissa Swelling, Abdominal Pain - redness, Weakness. 13:20 The patient presents with decreased range of motion, pain. The complaints affect the nerissa right leg and left leg. Context: The problem was sustained at an unknown site. Modifying factors: The symptoms are alleviated by elevating leg, the symptoms are aggravated by movement. The patient has shortness of breath at rest, with light activity. Duration: The symptoms are continuous, and are steadily getting worse. Associated signs and symptoms: Pertinent positives: non-productive cough. Historical: - Allergies: 11:33 NKDA; iw - Home Meds: 11:33 Amitiza 24 mcg Oral cap 1 cap 2 times per day [Active]; atorvastatin 40 mg Oral tab 1 iw tab once daily [Active]; clopidogrel 75 mg Oral tab 1 tab once daily [Active]; furosemide 40 mg Oral tab 1 tab once daily [Active]; gabapentin 100 mg Oral cap 1 caps 3 times per day [Active]; glipizide 5 mg Oral tr24 1 tab once daily [Active]; isosorbide mononitrate 120 mg Oral Tb24 once daily [Active]; Lantus 100 unit/mL Sub-Q soln 60 unit nightly [Active]; levothyroxine 137 mcg tab 1 tab once daily [Active]; ranitidine HCl 150 mg Oral cap 1 cap 2 times per day [Active]; Tradjenta 5 mg Oral tab 1 tab once daily [Active]; valsartan 160 mg Oral tab 1 tab once daily [Active]; - PMHx: 11:33 Diabetes - IDDM; GERD; Hyperlipidemia; Hypertension; Myocardial infarction; iw - Immunization history:: Adult Immunizations unknown. - Family history:: not pertinent. - Social history:: Smoking status: unknown. ROS: 13:20 Constitutional: Negative for fever, chills, and weight loss, Eyes: Negative for injury, nerissa pain, redness, and discharge, ENT: Negative for injury, pain, and discharge, Neck: Negative for injury, pain, and swelling, Cardiovascular: Negative for chest pain, palpitations, and edema, Abdomen/GI: Negative for abdominal pain, nausea, vomiting, diarrhea, and constipation, Back: Negative for injury and pain, : Negative for injury, bleeding, discharge, and swelling, Skin: Negative for injury, rash, and discoloration, Neuro: Negative for headache, weakness, numbness, tingling, and seizure, Psych: Negative for depression, anxiety, suicide ideation, homicidal ideation, and hallucinations, Allergy/Immunology: Negative for hives, rash, and allergies, Endocrine: Negative for neck swelling, polydipsia, polyuria, polyphagia, and marked weight changes. 13:20 Respiratory: Positive for cough, shortness of breath, at rest. 13:20 Abdomen/GI: Positive for abdominal distension. 13:20 MS/extremity: Positive for decreased range of motion, pain, swelling, tenderness, of the right leg and left leg. Exam: 13:22 Constitutional: This is a well developed, well nourished patient who is awake, alert, nerissa and in no acute distress. Head/Face: Normocephalic, atraumatic. Eyes: Pupils equal round and reactive to light, extra-ocular motions intact. Lids and lashes normal. Conjunctiva and sclera are non-icteric and not injected. Cornea within normal limits. Periorbital areas with no swelling, redness, or edema. ENT: Nares patent. No nasal discharge, no septal abnormalities noted. Tympanic membranes are normal and external auditory canals are clear. Oropharynx with no redness, swelling, or masses, exudates, or evidence of obstruction, uvula midline. Mucous membranes moist. Neck: Trachea midline, no thyromegaly or masses palpated, and no cervical lymphadenopathy. Supple, full range of motion without nuchal rigidity, or vertebral point tenderness. No Meningismus. Chest/axilla: Normal chest wall appearance and motion. Nontender with no deformity. No lesions are appreciated. Cardiovascular: Regular rate and rhythm with a normal S1 and S2. No gallops, murmurs, or rubs. Normal PMI, no JVD. No pulse deficits. Abdomen/GI: Soft, non-tender, with normal bowel sounds. No distension or tympany. No guarding or rebound. No evidence of tenderness throughout. Back: No spinal tenderness. No costovertebral tenderness. Full range of motion. Female : Normal external genitalia. Skin: Warm, dry with normal turgor. Normal color with no rashes, no lesions, and no evidence of cellulitis. Neuro: Awake and alert, GCS 15, oriented to person, place, time, and situation. Cranial nerves II-XII grossly intact. Motor strength 5/5 in all extremities. Sensory grossly intact. Cerebellar exam normal. Normal gait. Psych: Awake, alert, with orientation to person, place and time. Behavior, mood, and affect are within normal limits. 13:22 Cardiovascular: Rate: bradycardic, Rhythm: regular, Pulses: Pulses are 4+ in bilateral radial, brachial, femoral, popliteal, posterior tibial and and dorsalis pedis arteries.. Heart sounds: normal, Edema: 4+ edema to level of left midcalf and right midcalf, JVD: is noted bilaterally, to the angle of the jaw. 13:22 Respiratory: mild respiratory distress is noted, Respirations: labored breathing. 13:22 Musculoskeletal/extremity: Circulation is intact in all extremities. Sensation intact. Compartment Syndrome exam of affected extremity: is normal. DVT Exam: negative Homans' sign noted on exam, no appreciated bluish discoloration, no erythema, no increased warmth, pain, swelling, tenderness. 13:29 ECG was reviewed by the Attending Physician. [facility] Vital Signs: 11:30 BP 160 / 52; Pulse 56; Resp 16; Temp 98.2; Pulse Ox 96% on R/A; Weight 90.72 kg; Height iw 5 ft. (152.40 cm); Pain 8/10; 13:01 BP 160 / 70; Pulse 56; Resp 24; Temp 98.4(O); Pulse Ox 95% on R/A; mh5 13:32 BP 159 / 72; Pulse 64; Resp 21; Pulse Ox 98% ; jl7 14:30 BP 167 / 63; Pulse 53; Resp 20; Pulse Ox 97% ; jl7 11:30 Body Mass Index 39.06 (90.72 kg, 152.40 cm) MDM: 11:41 Patient medically screened. [facility] 13:24 Data reviewed: vital signs, nurses notes, lab test result(s), EKG, radiologic studies, [facility] CT scan, plain films. 13:28 Differential diagnosis: asthma, Bronchitis CHF exacerbation, Chronic Obstructive nerissa Pulmonary Disease pneumonia, pulmonary edema, Pulmonary Embolism reactive airway disease. Antibiotic administration: Not indicated. The patient's Wells Deep Vein Thrombosis Score was calculated as follows: Total Score: 0-2 Pts- Low Risk. The patient's pulmonary embolism risk score was calculated as follows: Total Score: 0-2 points. This patient was found to be at low risk for a pulmonary embolism by using the Well's assessment criteria. Immunization status: Pneumococcal vaccine: Influenza vaccine: Data interpreted: hairspring setter: rate is 56 beats/min, rhythm is regular, Pulse oximetry: on room air is 95 %. Test interpretation: by ED physician or midlevel provider: ECG, plain radiologic studies. 13:30 ED course: discussed labs, also with dr trent , will admit. [facility] 03/18 11:43 Order name: Basic Metabolic Panel; Complete Time: 12:52 [facility] 03/18 11:43 Order name: CBC with Diff; Complete Time: 12:52 [facility] 03/18 11:43 Order name: LFT's; Complete Time: 12:52 [facility] 03/18 11:43 Order name: Magnesium; Complete Time: 12:52 [facility] 03/18 11:43 Order name: NT PRO-BNP; Complete Time: 12:52 [facility] 03/18 11:43 Order name: PT-INR; Complete Time: 12:52 [facility] 03/18 11:43 Order name: Troponin (emerg Dept Use Only); Complete Time: 12:52 [facility] 03/18 11:43 Order name: Lipase; Complete Time: 12:52 [facility] 03/18 11:58 Order name: Urine Dipstick--Ancillary (enter results); Complete Time: 13:28 03/18 13:45 Order name: Thyroid Stimulating Hormone EDMS 03/18 13:45 Order name: UR CREAT EDMS 03/18 13:45 Order name: UR SODIUM EDMS 03/18 13:45 Order name: CBC with Automated Diff EDMS 03/18 13:45 Order name: CBC with Automated Diff EDMS 03/18 11:43 Order name: XRAY Chest (1 view); Complete Time: 12:52 nerissa 03/18 13:25 Order name: CT Stone Protocol; Complete Time: 14:41 nerissa 03/18 13:45 Order name: Echo with Doppler EDMS 03/18 13:45 Order name: Comprehensive Metabolic Panel EDPR 03/18 13:45 Order name: Comprehensive Metabolic Panel [facility] 03/18 13:45 Order name: Magnesium [facility] 03/18 13:45 Order name: Magnesium [facility] 03/18 13:45 Order name: Magnesium [facility] 03/18 13:45 Order name: Magnesium [facility] 03/18 13:45 Order name: Troponin I [facility] 03/18 13:45 Order name: Troponin I [facility] 03/18 13:45 Order name: Troponin I [facility] 03/18 14:42 Order name: US Abdomen Limited [facility] 03/18 11:43 Order name: EKG; Complete Time: 11:44 [facility] 03/18 11:43 Order name: Cardiac monitoring; Complete Time: 11:51 [facility] 03/18 11:43 Order name: EKG - Nurse/Tech; Complete Time: 11:52 [facility] 03/18 11:43 Order name: IV Saline Lock; Complete Time: 12:14 [facility] 03/18 11:43 Order name: Labs collected and sent; Complete Time: 12:14 [facility] 03/18 11:43 Order name: O2 Per Protocol; Complete Time: 11:52 [facility] 03/18 11:43 Order name: O2 Sat Monitoring; Complete Time: 11:52 [facility] 03/18 11:43 Order name: Urine Dipstick-Ancillary (obtain specimen); Complete Time: 11:51 [facility] 03/18 13:25 Order name: Kinney; Complete Time: 13:32 [facility] 03/18 13:45 Order name: CONS Pharmacy Consult [facility] 03/18 13:45 Order name: CONS Physician Consult [facility] 03/18 13:45 Order name: Consistent Carb (ADA) 1800 Ernesto EDPR 03/18 14:42 Order name: NPO; Complete Time: 17:50 [facility] EC:29 Rate is 59 beats/min. Rhythm is regular. QRS [place] is Normal. [place] interval is normal. QRS nerissa interval is normal. QT interval is normal. No Q waves. T waves are Normal. No ST changes noted. Clinical impression: NSR w/ Non-specific ST/T Changes, Sinus bradycardia, and No evidence of ischemia. Interpreted by me. Reviewed by me. Administered Medications: Discontinued: NS 0.9% 1000 ml IV at 75 ml/hr continuous 13:33 Drug: Lasix 40 mg Route: IVP; Site: right wrist; ll2 13:35 Follow up: Response: No adverse reaction ll2 14:00 Drug: NS 0.9% 1000 ml Route: IV; Rate: 75 ml/hr; Site: right hand; jl7 14:47 Follow up: IV Status: Order to discontinue infusion jl7 17:51 Not Given (Pt admitted): Zosyn 3.375 grams IVPB once over 60 mins; (mix in NS 100 mL) jl7 Disposition: 03/18/20 13:27 Hospitalization ordered by Maksim Gonzalez for Inpatient Admission. Preliminary diagnosis are Unspecified combined systolic (congestive) and diastolic (congestive) heart failure, Edema, unspecified, Unspecified kidney failure, Type 1 diabetes mellitus, Abdominal tenderness, Cholelithiasis. - Bed requested for Telemetry/MedSurg (Inpatient). - Status is Inpatient Admission. jl7 - Condition is Fair. - Problem is new. - Symptoms have improved. Signatures: Dispatcher [employer] EDMS Emmett Browne MD MD cha Williams, Irene, RN RN Lien Louie RN RN 7 Angeli Cisneros Lacie, RN RN ll2 Corrections: (The following items were deleted from the chart) 13:27 13:27 Hospitalization Ordered by Maksim Gonazlez MD for Inpatient Admission. Preliminary nerissa diagnosis is Unspecified combined systolic (congestive) and diastolic (congestive) heart failure; Edema, unspecified; Unspecified kidney failure. Bed requested for Telemetry/MedSurg (Inpatient). Status is Inpatient Admission. Condition is Fair. Problem is new. Symptoms have improved. nerissa 14:21 13:27 03/18/2020 13:27 Hospitalization Ordered by Maksim Gonzalez MD for Inpatient eb Admission. Preliminary diagnosis is Unspecified combined systolic (congestive) and diastolic (congestive) heart failure; Edema, unspecified; Unspecified kidney failure; Type 1 diabetes mellitus. Bed requested for Telemetry/MedSurg (Inpatient). Status is Inpatient Admission. Condition is Fair. Problem is new. Symptoms have improved. nerissa 14:43 14:21 03/18/2020 13:27 Hospitalization Ordered by Maksim Gonzalez MD for Inpatient nerissa Admission. Preliminary diagnosis is Unspecified combined systolic (congestive) and diastolic (congestive) heart failure; Edema, unspecified; Unspecified kidney failure; Type 1 diabetes mellitus. Bed requested for Telemetry/MedSurg (Inpatient). Status is Inpatient Admission. Condition is Fair. Problem is new. Symptoms have improved. eb 15:10 14:43 03/18/2020 13:27 Hospitalization Ordered by Maksim Gonzalez MD for Inpatient jl7 Admission. Preliminary diagnosis is Unspecified combined systolic (congestive) and diastolic (congestive) heart failure; Edema, unspecified; Unspecified kidney failure; Type 1 diabetes mellitus; Abdominal tenderness; Cholelithiasis. Bed requested for Telemetry/MedSurg (Inpatient). Status is Inpatient Admission. Condition is Fair. Problem is new. Symptoms have improved. nerissa
[2020-03-18] MEDS ORDERED: ONDANSETRON 4 MG/2 ML VIAL IV PRN (13:36)
[2020-03-18] MEDS ORDERED: ALBUTEROL 2.5 MG/3 ML NEB SOL NEB PRN (13:36)
[2020-03-18] MEDS ORDERED: ACETAMINOPHEN 500 MG TAB PO PRN (13:36)
[2020-03-18] MEDS ORDERED: MORPHINE 2 MG/ML SYR IV PRN (13:36)
[2020-03-18] MEDS ORDERED: TRAZODONE 150 MG TAB PO PRN (13:40)
[2020-03-18] MEDS ORDERED: HYDRALAZINE HCL 20 MG/ML VIAL IV PRN (13:42)
--- NOTE | 2020-03-18 13:53 | P.HP ---
Certification for Inpatient Patient admitted to: Observation With expected LOS: <2 Midnights Patient will require the following post-hospital care: Home Health Services Practitioner: I am a practitioner with admitting privileges, knowledge of patient current condition, hospital course, and medical plan of care. Services: Services provided to patient in accordance with Admission requirements found in Title 42 Section 412.3 of the Code of Federal Regulations Patient History Date of Service: 03/18/20 Reason for admission: Dyspnea on exertion, body swelling History of Present Illness: 74-year-old female past medical history of HTN, dm, HLD hypothyroidism, history of presumed systolic CHF admitted for worsening body swelling with more prominence over the lower extremities, associated with worsening dyspnea on exertion as well as cough. She denies any fevers she denies any rhinorrhea. She denies any headache or dizziness. She admits to abdominal pain over anterior lower abdominal , non-radiating located over the left flank. She denies any dysuria or hematuria. On admission she had chest x-ray shows evidence of pulmonary edema. She has been given Lasix and is being admitted for acute CHF exacerbation. Her proBNP is elevated at 13,132. Allergies No Known Drug Allergies Allergy (Verified 03/11/19 14:05) Unknown Home Medications: Atorvastatin Calcium 40 mg PO BEDTIME 03/11/19 Clopidogrel Bisulfate [Plavix*] 75 mg PO DAILY 03/11/19 Isosorbide Mononitrate [Isosorbide Mononitrate ER] 120 mg PO DAILY 03/11/19 Levothyroxine Sodium 150 mcg PO DAILY 03/11/19 Glipizide [Glipizide Xl] 5 mg PO DAILY 05/16/19 Insulin Glargine,Hum.rec.anlog [Lantus Solostar] 64 units SQ BEDTIME 05/16/19 Citalopram Hydrobromide [Citalopram HBr] 10 mg PO DAILY 02/08/20 Linagliptin [Tradjenta] 5 mg PO DAILY 02/08/20 Losartan Potassium [Cozaar] 100 mg PO DAILY 02/08/20 Pantoprazole Sodium 40 mg PO DAILY 02/08/20 Trazodone [Desyrel*] 100 mg PO BEDTIME PRN 02/08/20 Furosemide [Lasix] 40 mg PO BID #60 tablet 02/10/20 Hydralazine [Apresoline*] 50 mg PO TID #90 tab 02/10/20 carvediloL [Coreg*] 6.25 mg PO BID #60 tab 02/10/20 - Past Medical/Surgical History Diabetic: Yes -: Hypertension -: Diabetes mellitus type 2, insulin-dependent -: Coronary artery disease, Cardiology-Dr. Donovan -: Hypothyroidism -: Hyperlipidemia -: History of CVA -: Obesity -: Chronic kidney disease, stage IIIB -: GERD -: Chronic constipation -: Diabetic neuropathy -: Pulmonary Edema -: Heart catheterization requiring stent -: Appendectomy Psychosocial/ Personal History: She is of 59 years, has 9 children, she does not work. - Family History Father -: Heart disease, Diabetes - Social History Smoking Status: Former smoker Alcohol use: No CD- Drugs: No Caffeine use: Yes Review of Systems 10-point ROS is otherwise unremarkable Physical Examination - Physical Exam General: Alert, In no apparent distress, Oriented x3 HEENT: Atraumatic, Normocephalic, PERRLA Neck: Supple, 2+ carotid pulse no bruit, No Thyromegaly, JVD distended Respiratory: Diminished, Crackles/rales Cardiovascular: Regular rate/rhythm, Normal S1 S2, Edema Gastrointestinal: Normal bowel sounds, Soft and benign, Non-distended, No ascites, No rebound Musculoskeletal: No clubbing, No swelling, Swelling Integumentary: No breakdown, Rash(es) (- mild er), Erythema (mild erythema over anterior pain ) Neurological: Normal speech, Normal strength at 5/5 x4 extr, Normal tone - Studies Laboratory Data (last 24 hrs) 03/18/20 12:05: PT 13.9 H, INR 1.18 03/18/20 12:05: WBC 7.1, Hgb 12.3, Hct 37.5, Plt Count 149 L 03/18/20 12:05: Sodium 141, Potassium 4.4, BUN 29 H, Creatinine 1.83 H, Glucose 219 H, Magnesium 2.2, Total Bilirubin 1.6 H, AST 9 L, ALT 17, Alkaline Phosphatase 83, Lipase 57 L Assessment and Plan - Problems (Diagnosis) (1) DAHL (dyspnea on exertion) Current Visit: No Status: Acute (2) Chronic diastolic CHF (congestive heart failure) Onset Date: 06/11/18 Current Visit: No Status: Chronic (3) Chronic kidney disease Onset Date: 03/13/16 Current Visit: No Status: Chronic (4) Coronary artery disease Onset Date: 03/13/16 Current Visit: No Status: Chronic Qualifiers: (5) Diabetes mellitus Onset Date: 03/13/16 Current Visit: No Status: Chronic Qualifiers: (6) Hyperlipidemia Onset Date: 03/13/16 Current Visit: No Status: Chronic Qualifiers: (7) Hypertension Onset Date: 03/13/16 Current Visit: No Status: Chronic Qualifiers: (8) Hypothyroidism Onset Date: 03/13/16 Current Visit: No Status: Chronic Qualifiers: - Advance Directives Does patient have a Living Will: No Does patient have a Durable POA for Healthcare: No Physician Review: Patient Assessed, Agree with Above Assessment and Plan Physician Review Additional Text: 1 Acute systolic CHF exacerbation-on home diuretic Lasix 40 b.i.d. -will switch to IV Lasix 40 Q 12 for now -follow and monitor clinical symptoms -started on supplemental O2 now, wean as tolerated. Monitor intake and output Adjust diuretic dosage if poor urine output today Prior Echo with EF 44% and global hypokinesis, no urgent need for repeat Echo now 2 Elevated creatinine-may be due to acute kidney injury on baseline CKD stage 3BA2 ( Baseline cr of 1.5-1.6) Mild proteinuria noted, follow random urine protein creatinine ratio -Obtain urine sodium and creatinine -may be due to cardiorenal syndrome type IV -will consult Nephrology to follow 3 HTN-elevated, restart home regimen -start IV hydralazine p.r.n. 4 HLD-resume regimen 5 CAD-normal cardiac enzymes and EKG now, continue Plavix 6 Abdominal pain/rash -likley due to fungal dermatitis from diaper rash - will start miconazole powder 7 DVT prophylaxis-subcutaneous Lovenox Disposition-possible hospital stay for less than 48 hr Critical Care: Yes Time Spent Managing Pts Care (In Minutes): 65
[2020-03-18] MEDS: HYDRALAZINE HCL 25 MG TABLET PO SCH ×3 (14:00→21:53)
--- NOTE | 2020-03-18 14:08 | RAD REPORT ---
EXAM DESCRIPTION: CT - Stone Protocol - 03/18/2020 1:53 pm CLINICAL HISTORY: Flank pain. ABDOMINAL DISTENTION COMPARISON: Abdomen Pelvis Wo Contrast dated 03/11/2019; Abdomen W Contrast dated 12/03/2016; Abdome n Exam Limited dated 09/01/2019 TECHNIQUE: Axial images were obtained without oral or IV contrast. Lack of contrast limits solid org an and vascular assessment. The [id number] spans the entirety of the system partially obscuring uppermost abdomen and lung bases. Coronal reformatted images were obtained and reviewed. All CT scans are performed using dose optimization technique as appropriate and may include automated exposure control or mA/KV adjustment according to patient size. FINDINGS: Trace pleural effusions bilaterally with atelectasis in both lung bases. Mild free fluid is seen in the upper abdomen adjacent to the liver and spleen.Mild fluid is seen surr ounding the gallbladder. The pancreas and left adrenal gland are normal. 25 mm right adrenal mass is present, likely an adenoma. No pathologic lymphadenopathy in the abdomen or pelvis. No urinary tract stones or obstructive uropathy. Mild free fluid is seen in the pelvis. No bowel obstruction or free air.Kinney catheter is present in the urinary bladder. No significant bony abnormality. IMPRESSION: No urinary tract stones or obstructive uropathy. Mild pericholecystic fluid is present. Gallbladder ultrasound could be performed if further assessmen t is clinically needed. 25 mm right adrenal mass, probably an adenoma.
--- NOTE | 2020-03-18 15:29 | P.CNS ---
Date of Consult: 03/18/20 Reason for Consult: CKD , fluid overload Chief Complaint: Dyspnea on exertion, body swelling History of Present Illness: A 74-year-old female with PMhx of DM, HTN , CHD EF 45% , and CKD III with baseline Cr ~1.6-1.8 and hypothyroidism Presented with , SOB and LE edema symptoms , was gradually getting worse denied chest pain, palpitation, nausea , vomiting , fever or chills Physical exam general: AAOX3, NAD , obese Neck; Supple, No elevated JVD hear: RRR, normal S1,2 no murmur or rub Chest: B/l basal rales Abdomen: Soft , Nt Extremities +1 edema , no ulcer CKD III baseline CR 1.6-1.8 likely due to DM will order uPC Abd CT: no hydro renal dose meds CHF exacerbation agree with lasix I/O will consider to remove jansen by tomorrow Dm as per primary HTN controlled Hypothyrdosim will check TSH Cont synthroid Adrenal mass likely adenoma W/U as an OP Allergies No Known Drug Allergies Allergy (Verified 03/11/19 14:05) Unknown Home Medications: Atorvastatin Calcium 40 mg PO BEDTIME 03/11/19 Clopidogrel Bisulfate [Plavix*] 75 mg PO DAILY 03/11/19 Isosorbide Mononitrate [Isosorbide Mononitrate ER] 120 mg PO DAILY 03/11/19 Levothyroxine Sodium 150 mcg PO DAILY 03/11/19 Glipizide [Glipizide Xl] 5 mg PO DAILY 05/16/19 Insulin Glargine,Hum.rec.anlog [Lantus Solostar] 64 units SQ BEDTIME 05/16/19 Citalopram Hydrobromide [Citalopram HBr] 10 mg PO DAILY 02/08/20 Linagliptin [Tradjenta] 5 mg PO DAILY 02/08/20 Losartan Potassium [Cozaar] 100 mg PO DAILY 02/08/20 Pantoprazole Sodium 40 mg PO DAILY 02/08/20 Trazodone [Desyrel*] 100 mg PO BEDTIME PRN 02/08/20 Furosemide [Lasix] 40 mg PO BID #60 tablet 02/10/20 Hydralazine [Apresoline*] 50 mg PO TID #90 tab 02/10/20 carvediloL [Coreg*] 6.25 mg PO BID #60 tab 02/10/20 - Past Medical/Surgical History Diabetic: Yes -: Hypertension -: Diabetes mellitus type 2, insulin-dependent -: Coronary artery disease, Cardiology-Dr. Donovan -: Hypothyroidism -: Hyperlipidemia -: History of CVA -: Obesity -: Chronic kidney disease, stage IIIB -: GERD -: Chronic constipation -: Diabetic neuropathy -: Pulmonary Edema -: Heart catheterization requiring stent -: Appendectomy Psychosocial/ Personal History: She is of 59 years, has 9 children, she does not work. - Family History Father Medical History: Heart disease, Diabetes - Social History Smoking Status: Current every day smoker Alcohol use: No CD- Drugs: No Caffeine use: Yes Physical Examination Laboratory Data (last 24 hrs) 03/18/20 12:05: PT 13.9 H, INR 1.18 03/18/20 12:05: WBC 7.1, Hgb 12.3, Hct 37.5, Plt Count 149 L 03/18/20 12:05: Sodium 141, Potassium 4.4, BUN 29 H, Creatinine 1.83 H, Glucose 219 H, Magnesium 2.2, Total Bilirubin 1.6 H, AST 9 L, ALT 17, Alkaline Phosphatase 83, Lipase 57 L
[2020-03-18] MEDS ORDERED: TRAZODONE 50 MG TABLET PO PRN (16:00)
[2020-03-18 16:24] VITALS: BMI 40.3
[2020-03-18 16:32] LABS: Magnesium 2.2 mg/dL (1.8-2.4); Thyroid Stimulating Hormone 2.8 uIU/mL (0.360-3.740); Troponin I 0.02 ng/mL (0.0-0.045)
[2020-03-18] MEDS: FUROSEMIDE 40 MG/4 ML VIAL IV SCH (16:57)
[2020-03-18] MEDS: INSULIN -REGULAR HUMAN 50 UNIT/0.5 ML ML SQ SCH ×2 (16:57→21:54)
--- NOTE | 2020-03-18 16:58 | RAD REPORT ---
EXAM DESCRIPTION: US - Abdomen Exam Limited - 03/18/2020 4:16 pm CLINICAL HISTORY: ABD PAIN COMPARISON: Abdomen Exam Limited dated 09/01/2019 FINDINGS: The gallbladder demonstrates gallbladder sludge. Gallbladder wall appears thickened with m ild intramural edema measuring up to 12 mm. The common bile duct is upper limit normal measuring 7 mm .. The liver demonstrates no findings of intrahepatic biliary dilatation. IMPRESSION: Gallbladder sludge with thickened edematous gallbladder wall as detailed. Chronic lisa cystitis is a possibility.
[2020-03-18] MEDS ORDERED: FUROSEMIDE 40 MG/4 ML VIAL IV SCH (17:00)
[2020-03-18 18:37] LABS: Urine Protein/Creatinine Ratio 1.33 ratio (<0.15)
[2020-03-18 18:42] LABS: Urine Appearance CLEAR; Urine Bilirubin NEGATIVE (NEG); Urine Blood NEGATIVE (NEG); Urine Color YELLOW; Urine Glucose NEGATIVE (NEG); Urine Protein NEGATIVE (NEG); Urine Specific Gravity <=1.005 (1.005-1.030); Urine pH 7.5 (5.0-7.0)
[2020-03-18 18:56] LABS: Urine Bacteria <20 /HPF (<20); Urine Culture Reflex Order NOT NEEDED; Urine RBC <5 /HPF (NONE SEEN)
[2020-03-18] MEDS: MICONAZOLE 2% TOPICAL 15 GM TOP SCH (21:00)
[2020-03-18] MEDS ORDERED: ATORVASTATIN 40 MG TAB PO SCH (21:00)
[2020-03-18] MEDS: carvediloL 6.25 MG TAB PO SCH (21:53)
[2020-03-19] MEDS: FUROSEMIDE 40 MG/4 ML VIAL IV SCH ×2 (00:44→08:20)
[2020-03-19 06:09] LABS: Absolute Lymphocytes (CBC) 1.6 K/uL (0.7-4.9); Basophils % 0.6 % (0-1.3); Hematocrit 37.1 % (36.0-45.0); Lymphocytes % 19.3 % (15.3-44.8); MPV 9.7 fL (7.6-11.3); RBC Red Blood Cell Count 4.08 M/uL (3.86-4.86)
[2020-03-19 06:21] LABS: Albumin 3.3 g/dL (3.4-5.0); Bilirubin Total 1.6 mg/dL (0.2-1.0); Potassium 3.8 mmol/L (3.5-5.1); Protein, Total 6.3 g/dL (6.4-8.2)
[2020-03-19] MEDS ORDERED: LEVOTHYROXINE SOD 0.075 MG TAB PO SCH (06:30)
[2020-03-19] MEDS: INSULIN -REGULAR HUMAN 50 UNIT/0.5 ML ML SQ SCH ×2 (07:30→13:11)
[2020-03-19] MEDS: carvediloL 6.25 MG TAB PO SCH (08:18)
[2020-03-19] MEDS: HYDRALAZINE HCL 25 MG TABLET PO SCH (08:18)
[2020-03-19] MEDS ORDERED: GLIPIZIDE S.A. 5 MG TAB PO SCH (09:00)
[2020-03-19] MEDS ORDERED: PANTOPRAZOLE 40MG TABLET PO SCH (09:00)
[2020-03-19] MEDS ORDERED: CITALOPRAM 10 MG TABLET PO SCH (09:00)
[2020-03-19] MEDS ORDERED: ENOXAPARIN 30 MG/0.3 ML SQ SCH (09:00)
[2020-03-19] MEDS: MICONAZOLE 2% TOPICAL 15 GM TOP SCH (09:00)
[2020-03-19] MEDS ORDERED: CLOPIDOGREL 75 MG TABLET PO SCH (09:00)
[2020-03-19] MEDS ORDERED: FLUTICASONE 50MCG NASAL SPRAY NAS SCH (10:00)
[2020-03-19] MEDS ORDERED: ISOSORBIDE MONO SR 60 MG TAB PO SCH (10:10)
--- NOTE | 2020-03-19 10:10 | P.DS ---
Admission Date: 03/18/20 Discharge Date: 03/19/20 Disposition: ROUTINE DISCHARGE Discharge Condition: FAIR Reason for Admission: Dyspnea on exertion, body swelling - Problems (1) DAHL (dyspnea on exertion) Current Visit: No Status: Acute (2) Chronic diastolic CHF (congestive heart failure) Onset Date: 06/11/18 Current Visit: No Status: Chronic (3) Chronic kidney disease Onset Date: 03/13/16 Current Visit: No Status: Chronic (4) Coronary artery disease Onset Date: 03/13/16 Current Visit: No Status: Chronic Qualifiers: (5) Diabetes mellitus Onset Date: 03/13/16 Current Visit: No Status: Chronic Qualifiers: (6) Hyperlipidemia Onset Date: 03/13/16 Current Visit: No Status: Chronic Qualifiers: (7) Hypertension Onset Date: 03/13/16 Current Visit: No Status: Chronic Qualifiers: (8) Hypothyroidism Onset Date: 03/13/16 Current Visit: No Status: Chronic Qualifiers: Brief History of Present Illness: 74-year-old female past medical history of HTN, dm, HLD hypothyroidism, history of presumed systolic CHF admitted for worsening body swelling with more prominence over the lower extremities, associated with worsening dyspnea on exertion as well as cough. She denies any fevers she denies any rhinorrhea. She denies any headache or dizziness. She admits to abdominal pain over anterior lower abdominal , non-radiating located over the left flank. She denies any dysuria or hematuria. On admission she had chest x-ray shows evidence of pulmonary edema. She has been given Lasix and is being admitted for acute CHF exacerbation. Her proBNP is elevated at 13,132. Hospital Course: Patient was admitted for acute systolic CHF exacerbation. She was started on IV diuretics with Lasix 40 mg Q 8. She has adequate diuresis with negative fluid balance. Her shortness of breath and leg swelling significantly improved. Cardiac enzymes were negative. She was noted with elevated creatinine at 1.87 and losartan was initially held her creatinine improved to 1.7 next day. Her blood pressure was elevated with hold off some of her blood pressure medication but she was restarted on isosorbide, as well as losartan and added hydralazine. 6 significantly much improved except for nasal congestion symptoms which was managed with Flonase. On admission she was noted with some rash over the lower abdomen now folds area that was treated with miconazole powder and significantly improved. Low-salt intake has been discussed as well as her diuretic has been switch from Lasix to Bumex. She has been advice to follow up with Nephrology as outpatient. Vital Signs/Physical Exam: Temp Pulse Resp BP Pulse Ox 96.6 F L 52 16 187/81 H 92 03/19/20 08:00 03/19/20 08:20 03/19/20 08:00 03/19/20 08:20 03/19/20 08:00 General: Alert, In no apparent distress, Oriented x3, Obese HEENT: Atraumatic, Normocephalic, PERRLA Neck: Supple, 2+ carotid pulse no bruit, JVD not distended Respiratory: Clear to auscultation bilaterally, Normal air movement Cardiovascular: No edema (improved), Normal pulses, Regular rate/rhythm, Normal S1 S2 Gastrointestinal: Normal bowel sounds, Soft and benign, Non-distended, No ascites Musculoskeletal: No clubbing, No swelling Integumentary: No rashes, No breakdown Neurological: Normal gait, Normal speech, Normal strength at 5/5 x4 extr, Normal tone Laboratory Data at Discharge: WBC 8.5 K/uL (4.3-10.9) D 03/19/20 05:25 Hgb 12.4 g/dL (12.0-15.0) 03/19/20 05:25 Hct 37.1 % (36.0-45.0) 03/19/20 05:25 Plt Count 155 K/uL (152-406) 03/19/20 05:25 PT 13.9 SECONDS (9.5-12.5) H 03/18/20 12:05 INR 1.18 03/18/20 12:05 Sodium 142 mmol/L (136-145) 03/19/20 05:25 Potassium 3.8 mmol/L (3.5-5.1) 03/19/20 05:25 BUN 27 mg/dL (7-18) H 03/19/20 05:25 Creatinine 1.74 mg/dL (0.55-1.3) H 03/19/20 05:25 Glucose 115 mg/dL (74-106) H 03/19/20 05:25 Magnesium 2.2 mg/dL (1.8-2.4) 03/18/20 15:52 Total Bilirubin 1.6 mg/dL (0.2-1.0) H 03/19/20 05:25 AST 10 U/L (15-37) L 03/19/20 05:25 ALT 15 U/L (12-78) 03/19/20 05:25 Alkaline Phosphatase 69 U/L (45-117) 03/19/20 05:25 Troponin I 0.04 ng/mL (0.0-0.045) 03/18/20 19:50 Lipase 57 U/L (73-393) L 03/18/20 12:05 Home Medications: Atorvastatin Calcium 40 mg PO BEDTIME 03/11/19 Clopidogrel Bisulfate [Plavix*] 75 mg PO DAILY 03/11/19 Isosorbide Mononitrate [Isosorbide Mononitrate ER] 120 mg PO DAILY 03/11/19 Levothyroxine Sodium 150 mcg PO [id number] 03/11/19 Glipizide [Glipizide Xl] 5 mg PO DAILY 05/16/19 Insulin Glargine,Hum.rec.anlog [Lantus Solostar] 64 units SQ BEDTIME 05/16/19 Citalopram Hydrobromide [Citalopram HBr] 10 mg PO DAILY 02/08/20 Linagliptin [Tradjenta] 5 mg PO DAILY 02/08/20 Losartan Potassium [Cozaar] 100 mg PO DAILY 02/08/20 Pantoprazole Sodium 40 mg PO DAILY 02/08/20 Trazodone [Desyrel*] 100 mg PO BEDTIME PRN 02/08/20 carvediloL [Coreg*] 6.25 mg PO BID #60 tab 02/10/20 Bumetanide [Bumex] 2 mg PO BID #60 tablet 03/19/20 Hydralazine [Apresoline*] 50 mg PO TID #90 tab 03/19/20 Linaclotide [Linzess] 72 mcg PO DAILY 03/19/20 Miconazole Cream [Monistat-Derm*] 1 appl TOP BID 5 Days #1 tube 03/19/20 New Medications: Hydralazine [Apresoline*] 50 mg PO TID #90 tab Bumetanide [Bumex] 2 mg PO BID #60 tablet Miconazole Cream [Monistat-Derm*] 1 appl TOP BID 5 Days #1 tube Patient Discharge Instructions: -Take medication as prescribed. -Do low-salt and diabetic diet Diet: Low sodium Followup: Ketty Sloan MD [ACTIVE - CAN ADMIT] - Time spent managing pt's care (in minutes): 35
--- NOTE | 2020-03-19 11:35 | P.PN ---
Subjective Date of Service: 03/19/20 Chief Complaint: Dyspnea on exertion, body swelling Subjective A 74-year-old female with PMhx of DM, HTN , CHD EF 45% , and CKD III with baseline Cr ~1.6-1.8 and hypothyroidism Presented with , SOB and LE edema today chest clear on examination Cr slightly improved off O2 Bp elevated , home meds resumed can be discharged today from nephrology point of view once BP controlled Physical exam general: AAOX3, NAD , obese Neck; Supple, No elevated JVD hear: RRR, normal S1,2 no murmur or rub Chest: CTAB, no rales or wheezes Abdomen: Soft , Nt Extremities trace edema , no ulcer CKD III baseline CR 1.6-1.8 likely due to DM will order uPC Abd CT: no hydro renal dose meds CHF exacerbation lasix to PO I/O Dm as per primary HTN elevated resume home meds Adrenal mass likely adenoma W/U as an OP Physical Examination - Vital Signs Temperature: 96.6 F Blood Pressure: 187/81 Pulse: 52 Respirations: 16 Pulse Ox (%): 92 - Studies Laboratory Data (last 24 hrs) 03/18/20 12:05: PT 13.9 H, INR 1.18 03/18/20 12:05: WBC 7.1, Hgb 12.3, Hct 37.5, Plt Count 149 L 03/18/20 12:05: Sodium 141, Potassium 4.4, BUN 29 H, Creatinine 1.83 H, Glucose 219 H, Magnesium 2.2, Total Bilirubin 1.6 H, AST 9 L, ALT 17, Alkaline Phosphatase 83, Lipase 57 L Assessment And Plan Physician Review: Patient Assessed, Agree with Above Assessment and Plan
[2020-03-19 11:55] VITALS: BP 150/66; TEMP 96.9
[2020-03-19 12:07] VITALS: O2SAT 92
[2020-03-20] MEDS ORDERED: HOME MED 1 EA UNK (Linagliptin [Tradjenta] 5 MG) PO SCH (09:00)
[2020-03-20] MEDS ORDERED: ISOSORBIDE MONONITRATE 120 MG PO SCH (09:00)
--- NOTE | 2020-03-21 05:23 | EKG ---
Test Date: 2020-03-18 Test Time: 11:47:46 Juice Scaleman: SAMANTA MEASUREMENT RESULTS: Intervals: Rate: 59 [place]: 152 QRSD: 162 QT: 504 QTc: 498 [place]: P: 11 [place]: 152 QRS: -30 T: 99 INTERPRETIVE STATEMENTS: Sinus bradycardia Left axis deviation Left bundle branch block Abnormal ECG Compared to ECG 02/08/2020 11:44:37 No significant changes Electronically Signed On 03-21-20 05:20:49 CDT by Angel Luis Castaneda
== END 2020-03-19 13:29 | disposition home or self-care (01) ==
LOC: ER 11:21 → ERHOLD 14:03 → 2ND 15:04
PROVIDERS: ADMIT Internal Medicine; ATTEND Internal Medicine
DX: I13.0 Hypertensive heart and chronic kidney disease with heart failure and stage 1 through stage 4 chronic kidney disease, or unspecified chronic kidney disease (principal); I50.41 Acute combined systolic (congestive) and diastolic (congestive) heart failure; E11.22 Type 2 diabetes mellitus with diabetic chronic kidney disease; N18.3 Chronic kidney disease, stage 3 (moderate); R10.9 Unspecified abdominal pain; R21 Rash and other nonspecific skin eruption; I25.10 Atherosclerotic heart disease of native coronary artery without angina pectoris; E03.9 Hypothyroidism, unspecified; E27.8 Other specified disorders of adrenal gland; K82.8 Other specified diseases of gallbladder; Z20.828 Contact with and (suspected) exposure to other viral communicable diseases; I44.7 Left bundle-branch block, unspecified; R00.1 Bradycardia, unspecified; R94.31 Abnormal electrocardiogram [ECG] [EKG]; E11.40 Type 2 diabetes mellitus with diabetic neuropathy, unspecified; E78.5 Hyperlipidemia, unspecified; I25.2 Old myocardial infarction; K21.9 Gastro-esophageal reflux disease without esophagitis; Z79.02 Long term (current) use of antithrombotics/antiplatelets; Z79.4 Long term (current) use of insulin; Z79.899 Other long term (current) drug therapy; Z86.73 Personal history of transient ischemic attack (TIA), and cerebral infarction without residual deficits; Z95.5 Presence of coronary angioplasty implant and graft; Z87.891 Personal history of nicotine dependence
CPT/HCPCS: 96361; 93005; 85025 ×2; 81001; 80048; 36415; 83735 ×2; 85610; 84300; 82947 ×4; 80076; 84443; 81003; 82570; 84484 ×3; 83690; 80053; 83880; 84156; 76377; 74176; 71045; 76705; 51702; 96374; 99285; U0002; J1940 ×4; J1650; J7030; G0378 ×3

== ENCOUNTER 2020-04-28 10:22 | Inpatient (IN) | payer OTHER ==
--- OUTSIDE RECORDS SUMMARY | 2020-04-28 11:11 | XMS REPORT | Clinical Summary ---
:1945 Author Organization [facility] Address [address] [place] [address] Care Team Providers Name Role Phone Asked, No Pcp Primary Care Provider Unavailable Allergies No Known Active Allergies Medications Medication Sig Dispensed Refills Start [...] daily. 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 Invasive Locatio n; Service: Cardiovascular; Laterality: N/A; LOCO LV POSS PCI Medical History Medical History Date Comments Hypertension Disease of thyroid gland Coronary artery disease Diabetes mellitus (HCC) Hyperlipidemia Family History Medical History Relation Name Comments No Known Problems Father No Known Problems Mother Relation Name Status Comments Father Mother Social History Tobacco Use Types Packs/Day Years Used Date Never Smoker Alcohol Use Drinks/Week oz/Week Comments No Sex Assigned at Date Recorded Not on file Last Filed Vital Signs Not on file Plan of Treatment Not on file Results Not on fileafter 04/28/2019 Advance Directives For more information, please contact: [phone] Type Date 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
--- OUTSIDE RECORDS SUMMARY | 2020-04-28 11:11 | XMS REPORT | Continuity of Care Document ---
:1945 Author Organization [facility] t Address [address] [place] [address] Care Team Providers Name Role Phone Asked, No Pcp Primary Care Physician Unavailable Radiology Attending Clinician Unavailable Doctor Unassigned, Name Attending Clinician Unavailable Problems This patient has no known problems. Allergies, Adverse Reactions, Alerts This patient has no known allergies or adverse reactions. Family History Family Member Diagnosis Comments Start Date Stop Date Source Natural father No Known Problems Marsha [place] Natural mother No Known Problems Marsha [place] Social History Social Habit Start Date Stop Date Quantity Comments Source Sex Assigned At [place] [facility] Alcohol intake 2016-04-09 2016-04-09 Current [facility] 00:00:00 00:00:00 non-drinker of alcohol (finding) Smoking Status Start Date Stop Date Source Never smoker [facility] Medications Ordered Filled Start Stop Current Ordering Indication Dosage Frequency Signature Comments Components Source Medication Medication Date Date Medication? Clinician (SIG) Name Name Fosamax Fosamax 2019-0 2020- No Na Russell [address] [facility] 01-03 [facility] water [facility] the am [facility] 00 :00 30 minutes l prior to Outpati other ent medication Clinics s, food or drink Citalopram Citalopram 2019-0 Yes Na Russell [address] [facility] Hydrobromid Hydrobromid 5-12 L ukes - e e 00:00: [facility] 00 l Outpati ent Clinics Karla Acosta 2018-07 2020- No Na Russlel [address] [facility] 1-20 05-18 on an [facility] 00:[facility]: [facility]:00 empty [facility] 00 :00 [facility] clopidogrel 2016-0 Yes 75mg QD Take 75 mg [place] (PLAVIX) 75 9-26 by mouth Meth maria elena mg tablet 21:23: daily. st 05 levothyroxi 2015-0 Yes 125ug QD Take 125 [place] 9-26 mcg by Methodi (SYNTHROID, 21:23: mouth st LEVOTHROID) 05 every 125 MCG morning. tablet isosorbide Yes 120mg QD Take 120 [place] [...] 21:23: daily with st 05 breakfast. lovastatin 2015-0 Yes 20mg QD Take 20 mg [place] (MEVACOR) 9-26 by mouth Method i 10 MG 21:23: nightly. st tablet 05 amlodipine- 2016-0 Yes 1{tbl} QD Take 1 [place] valsartan 9-26 tablet by Metho di (EXFORGE) 21:23: mouth st 5-160 mg 05 daily. per tablet Isosorbide Isosorbide Yes Na Russell [address] [facility] Mononitrate Mononitrate in the [facility] ER morning [facility] Imdur Imdur Yes Na Russell not [facility] defined [facility] Yes Na Russell not [facility] Valsartan Valsartan Yes Na Russell [address] [facility] Metolazone Metolazone Yes Na Russell [address] [facility] Amitiza Amitiza Yes Na Russell [address] with food [facility] - and water [facility] Out[facility] ent Clinics Lipitor Lipitor Yes Na Russell TOME SUSANA [facility] TABLETA [facility] [place] VEZ AL [facility] GERI POR l VIA ORAL Outpati ent Clinics Tradjenta Tradjenta Yes Na [...] lsartan [facility] l Outpati ent Clinics [place] Yes Na Russell USE ONCE A [facility] [...] [facility]ics Carvedilol Carvedilol Yes Na Russell [address] [facility] with food [facility] Bumetanide Bumetanide Yes Na Russell [address] [facility] HydrALAZINE HydrALAZINE Yes Na Russell [address] [facility] HCl HCl with food [facility] Vitamin D2 Vitamin D2 Yes Na Russell [address] [facility] Levothyroxi Levothyroxi Yes Na Russell [address] [facility] ne Sodium ne Sodium on an Luke s - empty [facility]oria stomach in l the Outpati morning ent Clinics Plavix Plavix Yes Na Russell TOME SUSANA [facility] TABLETA [facility] [facility] AL [facility] GERI POR l VIA ORAL Outpati ent Clinics Pantoprazol Pantoprazol Yes Na Russell TOME SUSANA [facility] e Sodium e Sodium TABLETA Luke s - S[place]NA VEZ AL Memoria GERI P[place] l VIA ORAL [facility] Immunizations Ordered Filled Immunization Date Status Comments Sour e Immunization Name Name FluAD FluAD 2019-05-[address] [facility] FluAD FluAD 2018-04-[address] [facility] Procedures This patient has no known procedures. Encounters Start End Encounter Admission Attending Care Care Encounter Source Date/Time Date/Time Type Type Clinicians Facility Department ID 2020-04-27 2020-04-27 Outpatient [facility] [id number] [facility] 2020-04-25 2020-04-25 Outpatient [facility] [id number] 2020-03-23 2020-03-23 [facility] [id number] [facility] 14:26:00 14:26:00 [facility] Medicine Medicine Outpati ent Clinics 2020-03-23 2020-03-23 [facility] [id number] [facility] 13:00:00 13:00:00 [facility] Medicine Medicine Outpati ent Clinics 2020-01-21 2020-01-21 [facility] [id number] [facility] 14:00:00 14:00:00 [place] [employer] [facility] Family Medicine l Medicine Outpati ent Clinics 2020-01-21 2020-01-21 [facility] [id number] [facility] 13:20:00 13:20:00 t [place] [employer] [facility] - Angella Joy [facility] Medicine l Medicine Outpati ent Clinics 2020-01-02 2020-01-02 [facility] [id number] 03:03:00 03:03:00 t [place] [employer] [facility] - Angella Joy [facility] Medicine l Medicine Outpati ent Clinics 2019-12-24 2019-12-24 [facility] [id number] 14:20:00 14:20:00 t Lantronix s Peatix [facility] Medicine l Medicine Outpati ent Clinics 2019-12-10 2019-12-10 [facility] [id number] [address] 15:00:00 15:00:00 t [place] [employer] [facility] Medicine l Medicine Outpati ent Clinics 2019-12-02 2019-12-02 [facility] [id number] 14:07:00 14:07:00 t Lantronix s Peatix [facility] Medicine l Medicine Outpati ent Clinics 2019-11-23 2019-11-23 [facility] [id number] [address] 14:00:00 14:00:00 t Lantronix s Peatix [facility] Medicine l Medicine Outpati ent Clinics 2019-10-08 2019-10-08 [facility] [id number] [facility] 16:40:00 16:40:00 t [place] [employer]at[facility] Medicine l Medicine Outpati ent Clinics 2019-09-09 2019-09-09 [facility] [id number] [facility] 14[facility]33:00 14:33:00 t Lantronix s Peatix [facility] Medicine l Medicine Outpati ent Clinics 2019-08-10 2019-08-10 [facility] [id number] [facility] 09:35:00 09:35:00 t [place] [facility] [facility] - Drive [facility] l Medicine Outpati ent Clinics 2019-07-02 2019-07-02 [facility] [id number] [facility] 15:00:00 15:00:[address] Luke s - Drive [facility] Medicine l Medicine Outpati ent Clinics 2019-06-27 2019-06-27 [facility] [id number] [address] 01:31:00 01:31:00 t [place] Angella Joy Luke s - Drive [facility] Medicine l Medicine Outpati ent Clinics 2019-06-21 2019-06-21 [facility] [id number] [address] 12:40:00 12:40:00 t [place] Angella Joy Luke s - Drive [facility] Medicine l Medicine Outpati ent Clinics 2019-06-18 2019-06-18 [facility] [id number] [address] 14:20:00 14:20:00 t [place] Angella Joy Luke s - Drive [facility] Medicine l Medicine Outpati ent Clinics 2019-06-02 2019-06-02 [facility] [id number] 12:20:00 12:20:00 t [place] Angella Joy [facility] - Drive [facility] Medicine l Medicine Outpati ent Clinics 2019-05-24 2019-05-24 [facility] [id number] [facility] 11:00:00 11:00:00 t [place] Angella Joy Luke s - Drive [facility] Medicine l Medicine Outpati ent Clinics 2019-05-14 2019-05-14 [facility] [id number] 16:21:00 16:21:00 t [place] Angella Joy Luke [facility] - Drive [facility] Medicine Medicine Outpati ent Clinics 2019-05-13 2019-05-13 [facility] [id number] 10:40:00 10:40:00 t [place] Angella Joy Luke [facility] - Drive [facility] Medicine l Medicine Outpati ent Clinics 2019-05-04 2019-05-04 [facility] [id number] [facility] 09:56:00 09:56:00 t [place] Angella Joy [facility] - Drive [facility] Medicine l Medicine Outpati ent Clinics 2019-04-06 2019-04-06 [facility] [id number] [address] 16:35:00 16:35:00 t [place] [employer] - Angella Joy [facility] Family Medicine l Medicine Outpati ent Clinics 2019-03-26 2019-03-26 Hospital Radiology [facility] [id number] 10:22:25 23:59:00 Encounter [place] [id number] [place] [id number] [place] [id number] 2019-03-26 2019-03-26 Orders Doctor [facility] [id number] 00:00:00 00:00:00 Only Unassigned, FREDDIE [id number] [place] [facility] [id number] 2019-03-23 2019-03-23 [facility] [id number] [facility] 09:00:00 09:00:00 t [place] [employer] - Angella Joy [facility] Medicine l Medicine Outpati ent Clinics 2019-03-05 2019-03-05 [facility] [id number] [facility] 16:40:00 16:40:00 t [place] [employer] - Angella Joy [facility] Medicine l Medicine Outpati ent Clinics 2019-01-26 2019-01-26 [facility] [id number] [facility] 16:20:00 16:20:00 t [place] [employer] - Angella Joy [facility] Medicine Medicine Outpati ent Clinics 2018-09-21 2018-09-21 [facility] [id number] 10:32:00 10:32:00 t [place] [employer] - Angella Joy [facility] Medicine l Medicine Outpati ent Clinics 2018-09-21 2018-09-21 [facility] [id number] 09:15:00 09:15:00 t [place] Ang[place] Joy [employer] - Drive [facility] Medicine l Medicine Outpati ent Clinics 2018-07-23 2018-07-23 [facility] [id number] [facility] 11:15:00 11:15:00 t [place] [employer] - Angella Joy [facility] Medicine l Medicine Outpati ent Clinics 2018-07-17 2018-07-17 [facility] [id number] 11:57:00 11:57:00 t [place] [employer] [facility] Medicine Outpati ent Clinics 2018-06-22 2018-06-22 [facility] [id number] [address] 11:30:00 11:30:00 t [place] [facility] Medicine Outpati ent Clinics 2018-04-08 2018-04-08 [facility] [id number] [facility] 10:30:00 10:30:00 t [place] [facility] Medicine Outpati ent Clinics 2018-02-17 2018-02-17 [facility] [id number] [facility] 09:15:00 09:15:00 t [place] [facility] Medicine Outpati ent Clinics 2017-11-17 2017-11-17 [facility] [id number] [facility] 11:00:00 11:00:00 t [place] [facility] Medicine Outpati ent Clinics Results This patient has no known results.
--- OUTSIDE RECORDS SUMMARY | 2020-04-28 11:12 | XMS REPORT ---
:1945 Author Organization [facility] Address 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 482834790 use of insulin Problem Hypothyroidism E03.9 Active 11624699 Problem Benign essential I10 Active 96901302 HTN Problem Hyperlipidemia E78.5 Active 00745375 Problem Diabetes E11.9 Active 562919454 Problem H/O: CVA Z86.73 Active 868354587 (cerebrovascular accident) Problem Obese E66.9 Active 826360937 Problem Mixed stress and N39.46 Active 944472756 urge urinary incontinence Problem Chronic diastolic I50.32 Active 566668498 heart failure Problem Type 2 diabetes E11.22 Active 06604126 mellitus with diabetic chronic kidney disease Problem Type 2 diabetes E11.65 Active 147021377935729 mellitus with hyperglycemia Problem Diabetic E11.42 Active 84860506 polyneuropathy associated with type 2 diabetes mellitus Problem Elevated blood R03.0 Active 08909682 pressure reading Problem Adult general Z00.00 Active 707042517 medical examination Problem Constipation, K59.00 Active 41964179 unspecified constipation type Problem Chronic kidney N18.3 Active 916823824 disease (CKD), stage III (moderate) Problem Other chronic pain G89.29 Active 75571036 Problem Chronic systolic I50.22 Active 983665306 congestive heart failure Problem Acute on chronic I50.33 Active 455647067 diastolic congestive heart failure Problem Elevated blood I10 Active 30323923 pressure reading with diagnosis of hypertension Problem History of skin Z85.828 Active 106417085 cancer in adulthood Problem Abnormal mammogram R92.8 Active 356694719 Problem Depression with F41.8 Active 612635058 anxiety Problem Unsteady gait R26.81 Active 87940917 Problem Heart failure, I50.9 Active 13288802 unspecified Problem Arteriosclerosis I25.10 Active 141602128883708 of coronary artery Problem CKD (chronic N18.4 Active 852454658 kidney disease) stage 4, GFR 15-29 ml/min Problem Gastroesophageal K21.9 Active 754423858 reflux disease, esophagitis presence not specified Problem Unspecified R32 Active 486030374 urinary incontinence Problem Female genital N81.9 Active 46517639 prolapse, unspecified Problem Primary insomnia F51.01 Active 4011355 ALLERGIES No Known Allergies ENCOUNTERS from 1945 to 2020-04-25 Encounter Location Date Provider Diagnosis [address] [address] Apr, 2020 Na Russell Typ e 2 diabetes mellitus Family Medicine [address] [place], [place] [address] kidney disease E11.22 ; Diabetic polyne uropathy associated with type 2 diabetes [facility] E11.42 ; CKD (chronic kidney disease) stage 4, GFR 15-29 ml/min N1 8.4 and Heart failure, unspecified I50 .9 IMMUNIZATIONS Vaccine Route Administration Date Status FluAD IM Intramuscular May 24, 2019 Administered FluAD IM Intramuscular Apr 08, 2018 Administered SOCIAL HISTORY Tobacco Use: Social History Observation Description Date Details (start date - stop date) Never Smoker Sex Assigned At : Social History Observation Description Sex Assigned At Unknown PHQ9 Question Answer Notes Little interest or pleasure in doing Nearly every day things Feeling down, depressed, or hopeless Nearly every day Trouble falling or staying asleep or Nearly every day sleeping too much Feeling tired or having little energy Nearly every day Poor appetite or overeating Nearly every day Feeling bad about yourself, or that you Nearly every day are a failure, or have let yourself or your family down Trouble concentrating on things, such as Not at all reading the newspaper or watching television Moving or speaking so slowly that other Nearly every day people could have noticed; or the opposite, being so fidgety or restless that you have been moving around a lot more than usual Total Score 24 Interpretation Severe Depression Thoughts that you would be better off Nearly every day (Consider Suicide or of hurting yourself in some way Assessment Risk) Tobacco Use/Smoking Question Answer Notes Are you a never smoker REASON FOR REFERRAL No Information VITAL SIGNS No information MEDICATIONS Medication SIG (Take, Route, Start Date End Date Status Frequency, Duration) Levothyroxine Sodium 150 TAKE ONE TABLET BY MOUTH Active MCG EVERY MORNING ON EMPTY STOMACH for 90 Amlodipine 1 tablet Orally Once a Not-T aking Besylate-Valsartan 10-160 day Levothyroxine Sodium 150 1 tablet on an empty Active MCG stomach in the morning Orally Once a day for 90 days Gabapentin 100 MG TOME SUSANA CAPSULA POR VIA Not-Taking ORAL MARIA VICTORIA VECES POR GERI for 30 Lasix 40 MG 1 tablet Orally Once a Activ e day for 90 HydrALAZINE HCl 25 MG 2 tablets with food Active Orally Three times a day ( hold if BP less 140/90 for 90 days Omeprazole 40 MG 1 capsule Orally Once a Active day for 90 Tradjenta 5 MG 1 tablet Orally Once a Not -Taking day Amitiza 24 MCG 1 capsule with food and Ac tive water Orally Twice a day for 30 day(s) Fosamax 70 MG 1 tablet with water in Dec, Jun, Acti ve the am 30 minutes prior to other medications, food or drink Orally once a week for 84 days ZyrTEC Not-Taking Imdur Unknown Isosorbide Mononitrate ER 1 tablet in the morning Active 120 MG Orally Once a day for 90 days Tradjenta 5 MG 1 tablet Orally Once a Act jeremiah day for 90 days Bumetanide 2 MG 1 tab Orally twice a day Active for swelling for 90 days Citalopram Hydrobromide 1 tablet Orally Once a Active 10 MG day for 90 days Pantoprazole Sodium 40 MG TOME SUSANA TABLETA SUSANA VEZ Active AL GERI POR VIA ORAL Losartan Potassium 100 MG 1 tablet Orally Once a Active day for 90 days Lantus SoloStar 100 40 units and increase by Active UNIT/ML 2 units every 2 days until fbg less 120 ( max of 80 units daily) Subcutaneous once daily for 30 days Plavix 75 MG TOME SUSANA TABLETA SUSANA VEZ Act jeremiah AL GERI POR VIA ORAL Vitamin D2 50 MCG (2000 1 tablet Orally Once a Active [place]) day Myrbetriq 25 MG 1 tablet Orally Once a Un known day Carvedilol 6.25 MG 1 tablet with food Act jeremiah Orally Twice a day for 90 days Trazodone HCl 100 MG TOME SUSANA TABLETA POR VIA Active ORAL CADA NOCHE AL ACOSTARSE JULIAN SEA NECESARIO PARA SLEEP GlipiZIDE XL 5 MG 1 tablet with food Acti ve Orally Once a day for 30 days Linzess 72 MCG 1 capsule on an empty Acti ve stomach Orally Once a day for 90 days Lyrica 50 MG 1 capsule Orally twice a Act jeremiah day for 30 days Lipitor 40 MG 1 tablet Orally Once a Acti ve day for 90 days Metolazone 2.5 MG 1 tablet Orally Once a Active day for 30 day(s) [place] 32G X 4 MM USE ONCE A DAY WITH Active LANTUS for 90 PROCEDURES No Information RESULTS No Results REASON FOR VISIT referral MEDICAL (GENERAL) HISTORY Type Description Date Medical History Diabetes Medical History Benign essential HTN Medical History Hypothyroidism Medical History Hyperlipidemia Medical History Arteriosclerosis of coronary artery Medical History H/O: CVA (cerebrovascular accident) Medical History Obese Surgical History Heart Surgery Goals Section No Information Health Concerns No Information MEDICAL EQUIPMENT No Information MENTAL STATUS No Information FUNCTIONAL STATUS No Information ASSESSMENTS Encounter Date Diagnosis Notes Apr, Heart failure, unspecified (ICD-10 - I50 .9) Apr, Type 2 diabetes mellitus with diabetic c hronic kidney disease (ICD-10 - E11.22) Apr, CKD (chronic kidney disease) stage 4, GF R 15-29 ml/min (ICD-10 - N18.4) Apr, Diabetic polyneuropathy associated with type 2 diabetes mellitus (ICD-10 - E11.42) PLAN OF TREATMENT Medication Medication Name Sig Start Date Stop Date Bumetanide 2 MG 1 tab Orally twice a day for swelling for 90 days Lipitor 40 MG 1 tablet Orally Once a day for 90 days Losartan Potassium 100 MG 1 tablet Orally Once a day for 90 days HydrALAZINE HCl 25 MG 2 tablets with food Orally Three times a day ( hold if BP less 140/90 for 90 days Carvedilol 6.25 MG 1 tablet with food Orally Twice a day for 90 days Levothyroxine Sodium 150 MCG 1 tablet on an empty stomach in the morning Orally Once a day for 90 days Citalopram Hydrobromide 10 MG 1 tablet Orally Once a day for 90 days Tradjenta 5 MG 1 tablet Orally Once a day for 90 days GlipiZIDE XL 5 MG 1 tablet with food Orally Once a day for 30 days Lantus SoloStar 100 UNIT/ML 40 units and increase by 2 units every 2 days until fbg less 120 ( max of 80 units daily) Subcutaneous once daily for 30 days Isosorbide Mononitrate ER 120 MG 1 tablet in the morning Orally Once a day for 90 days Next Appt Details Provider Name:Lola Russell, 2020-05-25 11:2 0:00 AM, [address], [address], [place], [address], Insurance Providers Payer Name Payer Payer Insured Patient Coverage Coverage End Address Phone Name Relationship to Start Date Dontae e Insured [phone] Lola Braun [facility] [address] [address] [place] [address]
--- OUTSIDE RECORDS SUMMARY | 2020-04-28 11:12 | XMS REPORT ---
[...] disease, stage III N18.3 Active (moderate) Problem care home current use of insulin Z79.4 Active Problem [...]
--- OUTSIDE RECORDS SUMMARY | 2020-04-28 11:12 | XMS REPORT ---
:1945 Author Organization [facility] Address 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 Active 058051123 use of insulin Problem Hypothyroidism E03.9 Active 48445002 Problem Benign essential I10 Active 35292281 HTN Problem Hyperlipidemia E78.5 Active 88237389 Problem Diabetes E11.9 Active 944295568 Problem H/O: CVA Z86.73 Active 264337924 (cerebrovascular accident) Problem Obese E66.9 Active 768155837 Problem Mixed stress and N39.46 Active 334087014 urge urinary incontinence Problem Chronic diastolic I50.32 Active 483847273 heart failure Problem Type 2 diabetes E11.22 Active 91619570 mellitus with diabetic chronic kidney disease Problem Type 2 diabetes E11.65 Active 662432076112621 mellitus with hyperglycemia Problem Diabetic E11.42 Active 19651874 polyneuropathy associated with type 2 diabetes mellitus Problem Elevated blood R03.0 Active 07342898 pressure reading Problem Adult general Z00.00 Active 085954395 medical examination Problem Constipation, K59.00 Active 74502258 unspecified constipation type Problem Chronic kidney N18.3 Active 726301760 disease (CKD), stage III (moderate) Problem Other chronic pain G89.29 Active 95689142 Problem Chronic systolic I50.22 Active 451639162 congestive heart failure Problem Acute on chronic I50.33 Active 867140481 diastolic congestive heart failure Problem Elevated blood I10 Active 99570324 pressure reading with diagnosis of hypertension Problem History of skin Z85.828 Active 258729020 cancer in adulthood Problem Abnormal mammogram R92.8 Active 698031216 Problem Depression with F41.8 Active 398941351 anxiety Problem Unsteady gait R26.81 Active 07905102 Problem Heart failure, I50.9 Active 59833395 unspecified Problem Arteriosclerosis I25.10 Active 552785910637942 of coronary artery Problem CKD (chronic N18.4 Active 276108518 kidney disease) stage 4, GFR 15-29 ml/min Problem Gastroesophageal K21.9 Active 421425949 reflux disease, esophagitis presence not specified Problem Unspecified R32 Active 787602247 urinary incontinence Problem Female genital N81.9 Active 14715151 prolapse, unspecified Problem Primary insomnia F51.01 Active 4042539 ALLERGIES No Known Allergies ENCOUNTERS from 1945 to 2020-04-27 Encounter Location Date Provider Diagnosis [facility] [address] 15 Apr, 2020 Lola Russell Chronic diastolic Family Medicine [place], [place] heart fa ilure I50.32 [id number] IMMUNIZATIONS Vaccine Route Administration Date Status FluAD [...] Start Date End Date Status Frequency, Duration) Isosorbide Mononitrate ER 1 tablet in the morning Active 120 MG Orally Once a day for 90 days Myrbetriq 25 MG 1 tablet Orally Once a Un known day Tradjenta 5 MG 1 tablet Orally Once a Act jeremiah day for 90 days Imdur Unknown Linzess 72 MCG 1 capsule on an empty Acti ve stomach Orally Once a day for 90 days ZyrTEC Not-Taking Metolazone 2.5 MG 1 tablet Orally Once a Active day for 30 day(s) Amitiza 24 MCG 1 capsule with food and Ac tive water Orally Twice a day for 30 day(s) HydrALAZINE HCl 25 MG 2 tablets with food Active Orally Three times a day ( hold if BP less 140/90 for 90 days Lantus SoloStar 100 40 units and increase by Active UNIT/ML 2 units every 2 days until fbg less 120 ( max of 80 units daily) Subcutaneous once daily for 30 days Bumetanide 2 MG 1 tab Orally twice a day Active for swelling for 90 days Tradjenta 5 MG 1 tablet Orally Once a Not -Taking day Losartan Potassium 100 MG 1 tablet Orally Once a Active day for 90 days Plavix 75 MG TOME SUSANA TABLETA SUSANA VEZ Act jeremiah AL GERI POR VIA ORAL Omeprazole 40 MG 1 capsule Orally Once a Active day for 90 GlipiZIDE XL 5 MG 1 tablet with food Acti ve Orally Once a day for 30 days Citalopram Hydrobromide 1 tablet Orally Once a Active 10 MG day for 90 days Vitamin D2 50 MCG (2000 1 tablet Orally Once a Active [place]) day Pantoprazole Sodium 40 MG TOME SUSANA TABLETA SUSANA VEZ Active AL GERI POR VIA ORAL [place] 32G X 4 MM USE ONCE A DAY WITH Active LANTUS for 90 Levothyroxine Sodium 150 1 tablet on an empty Active MCG stomach in the morning Orally Once a day for 90 days Amlodipine 1 tablet Orally Once a Not-T aking Besylate-Valsartan 10-160 day Carvedilol 6.25 MG 1 tablet with food Act jeremiah Orally Twice a day for 90 days Lyrica 50 MG 1 capsule Orally twice a Act jeremiah day for 30 days Gabapentin 100 MG TOME SUSANA CAPSULA POR VIA Not-Taking ORAL MARIA VICTORIA VECES POR GERI for 30 Levothyroxine Sodium 150 TAKE ONE TABLET BY MOUTH Active MCG EVERY MORNING ON EMPTY STOMACH for 90 Lipitor 40 MG 1 tablet Orally Once a Acti ve day for 90 days Fosamax 70 MG 1 tablet with water in Dec, Jun, Acti ve the am 30 minutes prior to other medications, food or drink Orally once a week for 84 days Trazodone HCl 100 MG TOME SUSANA TABLETA POR VIA Active ORAL CADA NOCHE AL ACOSTARSE JULIAN SEA NECESARIO PARA SLEEP Lasix 40 MG 1 tablet Orally Once a Activ e day for 90 PROCEDURES No Information RESULTS No Results REASON FOR VISIT Medication refill - Bumetanide MEDICAL (GENERAL) HISTORY Type Description Date Medical [...] Information ASSESSMENTS Encounter Date Diagnosis Notes Apr, Chronic diastolic heart failure (ICD-10 - I50.32) PLAN OF TREATMENT Medication Medication Name Sig Start Date Stop Date Carvedilol 6.25 MG 1 tablet with food Orally Twice a day for 90 days Lipitor 40 MG 1 tablet Orally Once a day for 90 days GlipiZIDE XL 5 MG 1 tablet with food Orally Once a day for 30 days HydrALAZINE HCl 25 MG 2 tablets with food Orally Three times a day ( hold if BP less 140/90 for 90 days Losartan Potassium 100 MG 1 tablet Orally Once a day for 90 days Bumetanide 2 MG 1 tab Orally twice a day for swelling for 90 days Levothyroxine Sodium 150 MCG 1 tablet on an empty stomach in the morning Orally Once a day for 90 days Isosorbide Mononitrate ER 120 MG 1 tablet in the morning Orally Once a day for 90 days Tradjenta 5 MG 1 tablet Orally Once a day for 90 days Citalopram Hydrobromide 10 MG 1 tablet Orally Once a day for 90 days Lantus SoloStar 100 UNIT/ML 40 units and increase by 2 units every 2 days until fbg less 120 ( max of 80 units daily) Subcutaneous once daily for 30 days Next Appt Details Provider Name:Lola Russell, 2020-05-25 11:2 0:00 AM, [address], [address], [place], [address], Insurance Providers Payer Name Payer Payer Insured Patient Coverage Coverage End Address Phone Name Relationship to Start Date Dontae e Insured [phone] Lola Braun [facility] [address] [address] [place] [address]
--- OUTSIDE RECORDS SUMMARY | 2020-04-28 11:12 | XMS REPORT ---
[...] Active Problem Hyperlipidemia E78.5 Active Assessment Chronic diastolic heart failure I50.32 Active Problem Depression with anxiety F41.8 Acti ve Problem Diabetes E11.9 Active Assessment Gall bladder inflammation K81.9 Ac tive Problem Abnormal mammogram R92.8 Active Assessment Chronic kidney disease (CKD), stage N18.3 Active III (moderate) Problem History of skin cancer in adulthood Z85.828 Active Assessment Unsteady gait R26.81 Active Problem Unspecified urinary incontinence R32 Active Problem Gastroesophageal reflux disease, K21.9 Active esophagitis presence not specified Assessment Abdominal bloating R14.0 Active Problem 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 Assessment Depression with anxiety F41.8 Acti ve Problem Elevated blood pressure reading R03.0 Active Assessment Hypothyroidism E03.9 Active Problem CKD (chronic kidney disease) stage N18.4 Active 4, GFR 15-29 ml/min Assessment Constipation, unspecified K59.00 Ac tive constipation type Problem Unsteady gait R26.81 Active Assessment 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 Problem Other chronic pain G89.29 Active Assessment Hyperlipidemia E78.5 Active Problem Chronic kidney disease (CKD), stage N18.3 Active III (moderate) Problem Constipation, unspecified K59.00 Ac tive constipation type Problem Adult general medical examination Z00.00 Active Medications Medication Code Code Instructions Start End Status Dosage System Date Date GlipiZIDE XL [facility] 28859529647 5 MG Orally Active 1 t ablet Once a day with food Lantus SoloStar ND 45095329059 100 UNIT/ML Active 40 units Subcutaneous and once daily increase by 2 units every 2 days until fbg less 120 ( max of 80 units daily) Myrbetriq ND 48853961275 25 MG Orally Active 1 tab let Once a day Isosorbide ND 05265610662 120 MG Orally Active 1 t ablet in Mononitrate ER Once a day the mo rning Carvedilol [facility] 45694678414 6.25 MG Orally Active 1 tablet Twice a day with food Bumetanide ND 72705349101 2 MG Orally Active 1 tab once a day for swelling HydrALAZINE HCl ND 65057267121 25 MG Orally Active 2 tablets Three times a with food day ( hold if BP less 140/90 Tradjenta ND 45517927358 5 MG Orally Active 1 tabl et Once a day Imdur NDC 0 Active not defined Lipitor ND 69107758018 40 MG Orally Active 1 table t Once a day Linzess [facility] 39054240616 72 MCG Orally Active 1 caps ule Once a day on an empty stomach Losartan ND 61977041954 100 MG Orally Active 1 tab let Potassium Once a day Trazodone HCl [facility] 55486591604 100 MG Active TOME U NA TABLETA POR VIA ORAL CADA NOCHE AL ACOSTARSE JULIAN SEA NECESARIO Lasix [facility] 18703761632 40 MG Orally Active 1 table t Once a day Vitamin D2 [facility] 43261083407 50 MCG (2000 Active 1 ta blet [place]) Orally Once a day Citalopram [facility] 73138154313 10 MG Orally Active 1 ta blet Hydrobromide Once a day Levothyroxine [facility] 39519072386 150 MCG Orally Active 1 tablet on Sodium Once a day an empty stomach in the morning Tradjenta [facility] 05478335446 5 MG Orally Active 1 tabl et Once a day Plavix [facility] 01366551792 75 MG Active TOME SUSANA TABLETA SUSANA VEZ AL GERI POR VIA ORAL Fosamax [facility] 28118164529 70 MG Orally December Active 1 table t once a week , with water 2019 2019 in the am 30 minutes prior to other medications , food or drink ZyrTEC [facility] 17278216314 Active not defined Valsartan ND 98688512244 160 MG Orally Inactive 1 t ablet Once a day Lipitor [facility] 03482331218 40 MG Active TOME SUSANA TABLETA SUSANA VEZ AL GERI POR VIA ORAL Gabapentin [facility] [address]-70 100 MG Active TOME UN A CAPSULA POR VIA ORAL MARIA VICTORIA VECES POR GERI Pen [place] [facility] 78667695980 32G X 4 MM Active USE O NCE A DAY WITH LANTUS Pantoprazole [facility] 95150888910 40 MG Active TOME UN A Sodium TABLETA SUSANA VEZ AL GERI POR VIA ORAL Lyrica [facility] 22870170322 50 MG Orally Active 1 capsu le twice a day Amlodipine [facility] 96523883589 10-160 Orally Active 1 t ablet Besylate-Valsart Once a day an Omeprazole [facility] 83997076264 40 MG Orally Active 1 ca psule Once a day Metolazone [facility] 78500748154 2.5 MG Orally Active 1 t ablet Once a day Amitiza [facility] 40059937491 24 MCG Orally Active 1 caps ule Twice a day with food and water Levothyroxine [facility] 56887955618 150 MCG Active TAKE O NE Sodium TABLET BY MOUTH EVERY MORNING ON EMPTY STOMACH Results No Known Results Summary Purpose eClinicalWorks Submission
[2020-04-28 11:47] LABS: Absolute Lymphocytes (CBC) 1.8 K/uL (0.7-4.9); Basophils % 0.4 % (0-1.3); Hematocrit 37.3 % (36.0-45.0); Lymphocytes % 16.1 % (15.3-44.8); MPV 9.1 fL (7.6-11.3); RBC Red Blood Cell Count 4.14 M/uL (3.86-4.86)
[2020-04-28 11:48] LABS: Protime INR 1.11
--- NOTE | 2020-04-28 12:07 | RAD REPORT ---
EXAM DESCRIPTION: Nuria Single View04/28/2020 11:54 am CLINICAL HISTORY: Chest pain COMPARISON: March 2020 FINDINGS: The lungs appear clear of acute infiltrate. The heart is mildly enlarged IMPRESSION: No acute abnormalities displayed
[2020-04-28 12:08] LABS: Albumin 3.3 g/dL (3.4-5.0); Bilirubin Direct 0.5 mg/dL (0-0.2); Bilirubin Total 2.2 mg/dL (0.2-1.0); Protein, Total 7.1 g/dL (6.4-8.2); Troponin (Emerg Dept Use Only) 0.05 ng/mL (0.0-0.045)
--- NOTE | 2020-04-28 12:08 | RAD REPORT ---
EXAM DESCRIPTION: RAD - Wrist Right 3 View - 04/28/2020 11:54 am CLINICAL HISTORY: Right wrist pain status post injury FINDINGS: The bones are markedly osteoporotic. No fracture or dislocation is seen. If the patient continues to have symptoms to suggest an occult fr acture then a followup plain film series in 7 days would be recommended.
--- NOTE | 2020-04-28 12:09 | RAD REPORT ---
EXAM DESCRIPTION: CT - Head C Spine Cap Wo Con - 04/28/2020 11:38 am TECHNIQUE: Computed axial tomography of the head and cervical spine was obtained. Coronal and sagitt al reconstruction was performed Computed axial tomography of the chest, abdomen and pelvis was obtained. Contrast was not requested. All CT scans are performed using dose optimization technique as appropriate and may include automated exposure control or mA/KV adjustment according to patient size. CLINICAL HISTORY: Head and neck injury with chest and abdominal pain status post fall COMPARISON: CT abdomen March 2020 and 2016 FINDINGS: An intracranial bleed is not seen. The ventricles are normal in caliber. An extra-axial fluid collection is not noted. . Low-density area within the left basal ganglia compatible with old infarction. Mild to moderate low-d ensity areas within periventricular, deep and subcortical white matter likely ischemic changes second harjinder to small vessel disease Fluid within the sinuses/mastoids is not seen. A cervical fracture is not seen. No dislocation is noted. The evaluation of mediastinum, isa, vessels, solid organs and bowel are limited secondary to the lac k of contrast administration. A mediastinal hematoma is not noted. A pleural effusion is not seen. A lung contusion is not present. The liver,spleen, pancreas, left adrenal gland appear grossly normal. Bilateral renal cortical thinning probably secondary prior inflammation 33 millimeter right adrenal mass unchanged 2016 probably an adenoma Gallbladder wall appears mildly thickened No evidence of diverticulitis. Rectum is mildly distended with stool. Atherosclerotic disease is pres ent. IMPRESSION: 1. No acute intracranial abnormality is seen. 2. A cervical fracture is not visualized. If the patient continues have symptoms to suggest intracran ial/spinal cord pathology MRI be recommended 3. No traumatic abnormality involving the chest/abdomen/pelvis. 4. Mild thickening of the gallbladder wall may be secondary to hypoalbuminemia or inflammation. If cl inically indicated further evaluation with ultrasound could be obtained
[2020-04-28 12:12] LABS: Magnesium 2.3 mg/dL (1.8-2.4); Potassium 4.5 mmol/L (3.5-5.1)
--- NOTE | 2020-04-28 13:20 | ER ---
Nurse's Notes [facility] Name: Lola Braun Age: 74 yrs Sex: Female : 1945 Arrival Date: 04/28/2020 Time: 10:24 Bed 4 Private MD: Diagnosis: Chest pain, unspecified;Fall on same level from slipping, tripping and stumbling;Pain in right wrist Presentation: 04/28 10:45 Chief complaint: Patient states: chest pain that radiates to back that began yesterday ss morning. Pt fell twice yesterday because she slipped on water and the second time she tripped. No c/o pain to R wrist after fall. Pt took Tylenol today and states that her pain feels better. Coronavirus screen: Client denies travel out of the [place] in the last 14 days. At this time, the client does not indicate any symptoms associated with coronavirus-19. Ebola Screen: Patient denies exposure to infectious person. Patient denies travel to an Ebola-affected area in the 21 days before illness onset. Initial Sepsis Screen: Does the patient meet any 2 criteria? No. Patient's initial sepsis screen is negative. Does the patient have a suspected source of infection? No. Patient's initial sepsis screen is negative. Risk Assessment: Do you want to hurt yourself or someone else? Patient reports no desire to harm self or others. Onset of symptoms was April 27, 2020. 10:45 Method Of Arrival: Wheelchair ss 10:45 Acuity: RAUL 3 ss Triage Assessment: 10:45 General: Appears in no apparent distress. uncomfortable, Behavior is cooperative, bp appropriate for age, anxious. Pain: Complains of pain in back. EENT: No deficits noted. Neuro: No deficits noted. Cardiovascular: No deficits noted. Respiratory: No deficits noted. GI: No signs and/or symptoms were reported involving the gastrointestinal system. : No signs and/or symptoms were reported regarding the genitourinary system. Derm: No deficits noted. Musculoskeletal: No deficits noted. Historical: - Allergies: 10:45 NKDA; ss - PMHx: 10:45 Diabetes - IDDM; GERD; Hyperlipidemia; Hypertension; Myocardial infarction; ss - Immunization history:: Adult Immunizations up to date. - Social history:: Smoking status: Patient denies any tobacco usage or history of. Screenin:45 Abuse screen: Denies threats or abuse. Denies injuries from another. Nutritional bp screening: No deficits noted. Tuberculosis screening: No symptoms or risk factors identified. Fall Risk None identified. Assessment: 10:45 General: SEE TRIAGE NOTE. bp 11:58 Reassessment: PT RETURNED FROM CT. bp 12:51 Reassessment: Patient appears in no apparent distress at this time. No changes from tw2 previously documented assessment. Patient and/or family updated on plan of care and expected duration. Pain level reassessed. Patient is alert, oriented x 3, equal unlabored respirations, skin warm/dry/pink. 14:00 Reassessment: ADMIT INITIATED, VS STABLE ON MONITOR. bp 15:00 Reassessment: ADMIT IN PROCESS, PT SEEN BY ADMIT MD. NO CP AT THIS TIME. bp 16:00 Reassessment: ADMIT IN PROCESS, PT ASYMPTOMATIC AT THIS TIME. bp 17:00 Reassessment: REPORT TO MERCED PETERSON FOR RM 211, ADMIT COMPLETE. bp Vital Signs: 10:45 Pulse 55; Resp 16; Temp 97.0(TE); Pulse Ox 96% on R/A; Weight 88 kg; Height 4 ft. 11 ss in. (150 cm); Pain 7/10; 10:45 BP 136 / 47; Pulse 52; Resp 16; Pulse Ox 100% ; bp 11:58 BP 127 / 42; Pulse 53; Resp 17; Pulse Ox 95% ; bp 12:50 BP 138 / 45; Pulse 52; Resp 17; Pulse Ox 96% on R/A; tw2 14:00 BP 120 / 43; Pulse 56; Resp 23; Pulse Ox 97% ; bp 15:00 BP 133 / 42; Pulse 56; Resp 22; Pulse Ox 94% ; bp 16:00 BP 140 / 54; Pulse 55; Resp 21; Pulse Ox 94% ; bp 10:45 Body Mass Index 39.11 (88.00 kg, 150 cm) ss ED Course: 10:24 Patient arrived in ED. ag5 10:45 Arm band placed on right wrist. ss 10:50 Triage completed. ss 10:52 Masha Tovar FNP-C is PHCP. kb 10:52 Tre Connolly MD is Attending Physician. kb 10:57 Js Jang, NICHOLAS is Primary Nurse. bp 11:20 Initial lab(s) drawn, by me, sent to lab. EKG done, by ED staff, reviewed by Tre Connolly MD. Missed attempt(s): 22 gauge in left forearm. 11:21 Patient has correct armband on for positive identification. Placed in gown. Bed in low mh5 position. Call light in reach. Side rails up X2. Warm blanket given. railroad dining car stewardess on. Pulse ox on. NIBP on. 11:22 Basic Metabolic Panel Sent. 5 11:22 CBC with Diff Sent. [facility] 11:22 LFT's Sent. [facility] 11:22 Magnesium Sent. [facility] 11:22 NT PRO-BNP Sent. [facility] 11:22 PT-INR Sent. [facility] 11:22 Troponin (emerg Dept Use Only) Sent. [facility] 11:38 CT Traumagram (Head C Spine CAP wo con) In Process Unspecified. EDMS 11:53 Wrist Right 3 View XRAY In Process Unspecified. EDMS 11:53 XRAY Chest (1 view) In Process Unspecified. EDMS 13:19 Thomas Lu MD is Hospitalizing Provider. kb 13:19 Inserted saline lock: 22 gauge in right antecubital area, using aseptic technique. bp Administered Medications: No medications were administered Outcome: 13:19 Decision to Hospitalize by Provider. kb 17:50 Patient left the ED. bp Signatures: Dispatcher [employer] EDMS Masha Tovar, BUSINESS INVESTOR-C BUSINESS INVESTOR-CkCarissa Aden RN RN ss Yanet Mesa RN RN 2 Ceci Reyes [facility] Js Jang RN RN Sebas Chapman 5 Corrections: (The following items were deleted from the chart) 11:28 11:28 General: SEE TRIAGE NOTE. bp bp 11:30 10:45 BP 125 / 96; ss bp
--- NOTE | 2020-04-28 13:20 | EDPHYS ---
Physician Documentation [facility] Name: Lola Braun Age: 74 yrs Sex: Female : 1945 Arrival Date: 04/28/2020 Time: 10:24 Bed 4 Private MD: ED Physician Tre Connolly HPI: 04/28 15:08 This 74 yrs old Female presents to ER via Wheelchair with complaints of Fall kb Injury, Chest Pain. 15:08 The patient or guardian reports chest pain that is located primarily in the substernal kb area. Onset: yesterday. The pain does not radiate. Associated signs and symptoms: The patient has no apparent associated signs or symptoms. The chest pain is described as aching. Duration: The patient or guardian reports a single episode. Modifying factors: The symptoms are alleviated by nothing. the symptoms are aggravated by nothing. Severity of pain: At its worst the pain was moderate in the emergency department the pain is unchanged. The patient has not experienced similar symptoms in the past. The patient has not recently seen a physician. Pt reports chest pain since yesterday morning. Also reports right wrist pain, back pains/p fall from standing. States she slipped in the shower and then tripped in the bedroom. Daughter reports pt gets tired and short of breath upon exertion.. Historical: - Allergies: 10:45 NKDA; ss - PMHx: 10:45 Diabetes - IDDM; GERD; Hyperlipidemia; Hypertension; Myocardial infarction; ss - Immunization history:: Adult Immunizations up to date. - Social history:: Smoking status: Patient denies any tobacco usage or history of. ROS: 14:57 Constitutional: Negative for fever, chills, and weight loss, Abdomen/GI: Negative for kb abdominal pain, nausea, vomiting, diarrhea, and constipation, Neuro: Negative for headache, weakness, numbness, tingling, and seizure. 14:57 Neck: Positive for pain with movement, pain at rest. 14:57 Cardiovascular: Positive for chest pain, Negative for edema, orthopnea, palpitations, paroxysmal nocturnal dyspnea. 14:57 Respiratory: Positive for dyspnea on exertion, Negative for cough, hemoptysis, orthopnea, pleurisy, shortness of breath, sputum production, wheezing. 14:57 Back: Positive for pain at rest, pain with movement, of the left scapular area, right scapular area and lumbar area. 14:57 MS/extremity: Positive for pain, tenderness, of the right wrist. Exam: 15:06 Constitutional: This is a well developed, well nourished patient who is awake, alert, kb and in no acute distress. Head/Face: Normocephalic, atraumatic. Chest/axilla: Normal chest wall appearance and motion. Nontender with no deformity. No lesions are appreciated. Cardiovascular: Regular rate and rhythm with a normal S1 and S2. No gallops, murmurs, or rubs. Normal PMI, no JVD. No pulse deficits. Respiratory: Lungs have equal breath sounds bilaterally, clear to auscultation and percussion. No rales, rhonchi or wheezes noted. No increased work of breathing, no retractions or nasal flaring. Abdomen/GI: Soft, non-tender, with normal bowel sounds. No distension or tympany. No guarding or rebound. No evidence of tenderness throughout. MS/ Extremity: Pulses equal, no cyanosis. Neurovascular intact. Full, normal range of motion. Neuro: Awake and alert, GCS 15, oriented to person, place, time, and situation. Cranial nerves II-XII grossly intact. Motor strength 5/5 in all extremities. Sensory grossly intact. Cerebellar exam normal. Normal gait. 15:06 Neck: C-spine: vertebral tenderness, that is moderate, diffusely. 15:06 Back: pain, that is moderate, of the right scapular area and lumbar area, ROM is normal. 15:06 Skin: injury, contusion(s), that are superficial, of the right scapular area. Vital Signs: 10:45 Pulse 55; Resp 16; Temp 97.0(TE); Pulse Ox 96% on R/A; Weight 88 kg; Height 4 ft. 11 ss in. (150 cm); Pain 7/10; 10:45 BP 136 / 47; Pulse 52; Resp 16; Pulse Ox 100% ; bp 11:58 BP 127 / 42; Pulse 53; Resp 17; Pulse Ox 95% ; bp 12:50 BP 138 / 45; Pulse 52; Resp 17; Pulse Ox 96% on R/A; tw2 14:00 BP 120 / 43; Pulse 56; Resp 23; Pulse Ox 97% ; bp 15:00 BP 133 / 42; Pulse 56; Resp 22; Pulse Ox 94% ; bp 16:00 BP 140 / 54; Pulse 55; Resp 21; Pulse Ox 94% ; bp 10:45 Body Mass Index 39.11 (88.00 kg, 150 cm) ss MDM: 10:52 Patient medically screened. kb 15:01 Data reviewed: vital signs, nurses notes. Data interpreted: Pulse oximetry: on room air kb is 96 %. Interpretation: normal. Counseling: I had a detailed discussion with the patient and/or guardian regarding: the historical points, exam findings, and any diagnostic results supporting the discharge/admit diagnosis, lab results, radiology results, the need for further work-up and treatment in the hospital. Physician consultation: Thomas Lu MD was contacted at 15:02, regarding admission, to the telemetry unit. patient's condition, and will see patient in ED. 04/28 11:00 Order name: Basic Metabolic Panel; Complete Time: 12:15 kb 04/28 11:00 Order name: CBC with Diff; Complete Time: 11:50 kb 04/28 11:00 Order name: LFT's; Complete Time: 12:15 kb 04/28 11:00 Order name: Magnesium; Complete Time: 12:15 kb 04/28 11:00 Order name: NT PRO-BNP; Complete Time: 12:15 kb 04/28 11:00 Order name: PT-INR; Complete Time: 11:50 kb 04/28 11:00 Order name: CT Traumagram (Head C Spine CAP wo con); Complete Time: 12:15 kb 04/28 11:00 Order name: Wrist Right 3 View XRAY; Complete Time: 12:09 kb 04/28 11:00 Order name: Troponin (emerg Dept Use Only); Complete Time: 12:15 kb 04/28 11:00 Order name: XRAY Chest (1 view); Complete Time: 12:09 kb 04/28 11:00 Order name: EKG; Complete Time: 11:02 kb 04/28 11:00 Order name: Cardiac monitoring; Complete Time: 11:12 kb 04/28 11:00 Order name: EKG - Nurse/Tech; Complete Time: 11:12 kb 04/28 14:20 Order name: CONS Physician Consult EDMS 04/28 11:00 Order name: IV Saline Lock; Complete Time: 13:41 kb 04/28 11:00 Order name: Labs collected and sent; Complete Time: 11:27 kb 04/28 11:00 Order name: O2 Per Protocol; Complete Time: 11:13 kb 04/28 11:00 Order name: O2 Sat Monitoring; Complete Time: 11:12 kb Administered Medications: No medications were administered Disposition: 04/29 13:27 Co-signature as Attending Physician, Tre Connolly MD I agree with the assessment and kdr plan of care. Disposition: 04/28/20 13:19 Hospitalization ordered by Thomas Lu for Observation. Preliminary diagnosis are Chest pain, unspecified, Fall on same level from slipping, tripping and stumbling, Pain in right wrist. - Bed requested for Telemetry/MedSurg (observation). - Status is Observation. bp - Condition is Stable. - Problem is new. - Symptoms are unchanged. Signatures: Dispatcher [employer] EDMS Masha Tovar, CHIP LOFT WORKER-C CHIP LOFT WORKER-CkTre Marcus MD MD [facility] Robert Reyes em1 Carissa Palencia RN RN Js Jang RN RN bp Corrections: (The following items were deleted from the chart) 04/28 16:31 13:19 Hospitalization Ordered by Thomas Lu MD for Observation. Preliminary em1 diagnosis is Chest pain, unspecified; Fall on same level from slipping, tripping and stumbling; Pain in right wrist. Bed requested for Telemetry/MedSurg (observation). Status is Observation. Condition is Stable. Problem is new. Symptoms are unchanged. kb 17:50 16:31 04/28/2020 13:19 Hospitalization Ordered by Thomas Lu MD for Observation. bp Preliminary diagnosis is Chest pain, unspecified; Fall on same level from slipping, tripping and stumbling; Pain in right wrist. Bed requested for Telemetry/MedSurg (observation). Status is Observation. Condition is Stable. Problem is new. Symptoms are unchanged. em1
[2020-04-28 18:06] VITALS: BMI 38.2
[2020-04-28] MEDS: INSULIN -REGULAR HUMAN 50 UNIT/0.5 ML ML SQ SCH ×2 (18:23→21:36)
[2020-04-28] MEDS ORDERED: HYDRALAZINE HCL 20 MG/ML VIAL IV PRN (19:14)
--- NOTE | 2020-04-28 19:20 | P.HP ---
Patient History Date of Service: 04/28/20 Reason for admission: Chest pain History of Present Illness: 74yo F, PMH: DM 2, CKD, HTN, CAD, prior [place], hypothyroidism, chronic CHF who presents to the ED due to chest pain, shortness of breath, dyspnea on exertion. She also reports falling twice, states she slept due to water on the floor, and tripped the 2nd time. She reports the chest pain and shortness of breath for her 1st symptoms. Chest pain is described as aching in nature, not alleviated or aggravated by anything. Has been constant since yesterday morning. Also complains of right wrist pain, back pain after her falls. CXR: No acute abnormalities. CT head/chest/abdomen/pelvis: No acute intracranial abnormality. No cervical fracture. No traumatic abnormality. Mild thickening of gallbladder wall. Labwork notable for no leukocytosis, elevated creatinine of 2.17, troponin 0.05, BNP: 58487. She reported no worsening of her swelling in. Allergies No Known Drug Allergies Allergy (Verified 03/11/19 14:05) Unknown Home Medications: Atorvastatin Calcium 40 mg PO BEDTIME 03/11/19 Clopidogrel Bisulfate [Plavix*] 75 mg PO DAILY 03/11/19 Isosorbide Mononitrate [Isosorbide Mononitrate ER] 120 mg PO DAILY 03/11/19 Levothyroxine Sodium 150 mcg PO [id number] 03/11/19 Glipizide [Glipizide Xl] 5 mg PO DAILY 05/16/19 Insulin Glargine,Hum.rec.anlog [Lantus Solostar] 64 units SQ BEDTIME 05/16/19 Citalopram Hydrobromide [Citalopram HBr] 10 mg PO DAILY 02/08/20 Linagliptin [Tradjenta] 5 mg PO DAILY 02/08/20 Losartan Potassium [Cozaar] 100 mg PO DAILY 02/08/20 Pantoprazole Sodium 40 mg PO DAILY 02/08/20 Trazodone [Desyrel*] 100 mg PO BEDTIME PRN 02/08/20 carvediloL [Coreg*] 6.25 mg PO BID #60 tab 02/10/20 Bumetanide [Bumex] 2 mg PO BID #60 tablet 03/19/20 Hydralazine [Apresoline*] 50 mg PO TID #90 tab 03/19/20 Linaclotide [Linzess] 72 mcg PO DAILY 03/19/20 Miconazole Cream [Monistat-Derm*] 1 appl TOP BID 5 Days #1 tube 03/19/20 - Past Medical/Surgical History Has patient received pneumonia vaccine in the past: No Diabetic: Yes -: Hypertension -: Diabetes mellitus type 2, insulin-dependent -: Coronary artery disease, Cardiology-Dr. Donovan -: Hypothyroidism -: Hyperlipidemia -: History of CVA -: Obesity -: Chronic kidney disease, stage IIIB -: GERD -: Chronic constipation -: Diabetic neuropathy -: Pulmonary Edema -: Heart catheterization requiring stent -: Appendectomy Psychosocial/ Personal History: She is of 59 years, has 9 children, she does not work. - Family History Father -: Heart disease, Diabetes - Social History Smoking Status: Never smoker Alcohol use: No CD- Drugs: No Caffeine use: Yes Place of Residence: Home Review of Systems 10-point ROS is otherwise unremarkable Physical Examination - Vital Signs Temperature: 98.2 F Blood Pressure: 142/62 Pulse: 58 Respirations: 20 Pulse Ox (%): 91 - Physical Exam General: Alert, In no apparent distress, Oriented x3 HEENT: Atraumatic, Sclerae nonicteric Neck: Supple, JVD not distended Respiratory: Clear to auscultation bilaterally, Normal air movement Cardiovascular: Edema (1+) Gastrointestinal: Soft and benign, Non-distended, No tenderness Musculoskeletal: No erythema Integumentary: No rashes Neurological: Normal speech, Normal affect, Abnormal strength (4+ RLE, 5/5 LLE, 5/5 b/l UEs) - Studies Laboratory Data (last 24 hrs) 04/28/20 11:16: PT 13.1 H, INR 1.11 04/28/20 11:16: WBC 10.9 D, Hgb 12.5, Hct 37.3, Plt Count 151 L 04/28/20 11:16: Sodium 134 L, Potassium 4.5, BUN 48 H, Creatinine 2.17 H, Glucose 289 H, Magnesium 2.3, Total Bilirubin 2.2 H, AST 14 L, ALT 17, Alkaline Phosphatase 77 Assessment and Plan - Advance Directives Does patient have a Living Will: No Does patient have a Durable POA for Healthcare: Yes Physician Review Additional Text: Chest pain. CAD, prior [place] Falls, dizziness NATHANIEL on CKD DM 2 Chronic systolic CHF Hypothyroidism HTN Chest pain CAD, prior [place] -patient does not recall her medications, will obtain home medications and continue as appropriate -given significant past cardiac history, will trend troponins, cardiology consulted Falls, dizziness -unclear etiology, CT head negative -will monitor on telemetry, monitor vitals -consult physical therapy NATHANIEL on CKD -possible cardiorenal syndrome, however doesn't appear significantly overloaded -consult nephrology Chronic systolic CHF DM 2 Hypothyroidism HTN -patient sever call or her home medications, will obtain home medications and continue as appropriate Dispo: anticipated dc home in 24-48hrs, pending PT eval, may need SNF/rehab Patient comes from home, lives with her Time Spent Managing Pts Care (In Minutes): 55
[2020-04-28] MEDS: ENOXAPARIN 30 MG/0.3 ML SQ SCH (19:41)
[2020-04-29] MEDS ORDERED: ALENDRONATE 70 MG TAB PO SCH (05:00)
[2020-04-29] MEDS ORDERED: DRISDOL (VITAMIN D=ERGOCALCIFEROL) 50000 UNIT CAP PO SCH (05:00)
[2020-04-29 07:17] LABS: Protime INR 1.13
[2020-04-29 07:20] LABS: Absolute Lymphocytes (CBC) 1.6 K/uL (0.7-4.9); Basophils % 0.4 % (0-1.3); Hematocrit 36.1 % (36.0-45.0); Lymphocytes % 16.9 % (15.3-44.8); MPV 9.1 fL (7.6-11.3); RBC Red Blood Cell Count 4.06 M/uL (3.86-4.86)
[2020-04-29] MEDS ORDERED: LEVOTHYROXINE SOD 0.075 MG TAB PO SCH (07:30)
[2020-04-29] MEDS ORDERED: PANTOPRAZOLE 40MG TABLET PO SCH (07:30)
[2020-04-29 07:31] LABS: Albumin 2.8 g/dL (3.4-5.0); Bilirubin Total 1.8 mg/dL (0.2-1.0); Magnesium 2.1 mg/dL (1.8-2.4); Potassium 4.2 mmol/L (3.5-5.1); Protein, Total 6.4 g/dL (6.4-8.2)
[2020-04-29] MEDS: INSULIN -REGULAR HUMAN 50 UNIT/0.5 ML ML SQ SCH ×3 (08:20→16:40)
[2020-04-29] MEDS: ENOXAPARIN 30 MG/0.3 ML SQ SCH (08:23)
[2020-04-29] MEDS: carvediloL 6.25 MG TAB PO SCH ×2 (08:27→16:22)
[2020-04-29] MEDS ORDERED: ASPIRIN EC 81 MG TAB PO SCH (09:00)
[2020-04-29] MEDS ORDERED: ATORVASTATIN 40 MG TAB PO SCH (09:00)
[2020-04-29] MEDS ORDERED: FLUTICASONE 50MCG NASAL SPRAY NAS SCH (09:00)
[2020-04-29] MEDS ORDERED: ISOSORBIDE MONO SR 60 MG TAB PO SCH (09:00)
[2020-04-29] MEDS ORDERED: BUMETANIDE 1 MG TABLET PO SCH (09:00)
[2020-04-29] MEDS ORDERED: CLOPIDOGREL 75 MG TABLET PO SCH (09:00)
[2020-04-29] MEDS ORDERED: CITALOPRAM 10 MG TABLET PO SCH (09:00)
[2020-04-29] MEDS ORDERED: PNEUMOCOCCAL VACCINE 0.5 ML IMVAC ONE (12:00)
[2020-04-29 12:46] VITALS: O2SAT 93
[2020-04-29 14:54] LABS: Urine Appearance CLEAR; Urine Bilirubin NEGATIVE (NEG); Urine Blood NEGATIVE (NEG); Urine Color YELLOW; Urine Glucose NEGATIVE (NEG); Urine Protein NEGATIVE (NEG)
[2020-04-29 15:05] LABS: Urine Microscopic Reflex NO UMIC
[2020-04-29 16:23] VITALS: BP 138/52
[2020-04-29 18:35] VITALS: TEMP 97.9
--- NOTE | 2020-04-29 20:55 | P.DS ---
Admission Date: 04/28/20 Discharge Date: 04/29/20 Disposition: ROUTINE DISCHARGE Discharge Condition: GOOD Reason for Admission: Chest pain Consultations: Cardiology - Dr. Arredondo Procedures: CXR (04/28): lungs appear clear of acute infiltrate. heart is mildly enlarged Wrist X-ray (04/28): no fracture or dislocation. suggest f/u film in 7 days if symptoms suggest occult fracture CT head/c-spine/chest/abd/pelvis (04/28): no acute intracranial abnormality seen. cervical fracture is not visualized. no traumatic abnormality involving chest/abd/pelvis. mild thickening of gallbladder wall may be secondary to hypoalbuminemia or inflammation. Problem List Chest pain moderate aortic stenosis CAD, prior [place] / stent Falls, dizziness NATHANIEL on CKD3 DM 2 Chronic systolic CHF Hypothyroidism HTN Brief History of Present Illness: 74yo F, PMH: DM 2, CKD, HTN, CAD, prior [place], hypothyroidism, chronic CHF who presents to the ED due to chest pain, shortness of breath, dyspnea on exertion. She also reports falling twice, states she slept due to water on the floor, and tripped the 2nd time. She reports the chest pain and shortness of breath were h er 1st symptoms (prior to fall). Chest pain is described as aching in nature, not alleviated or aggravated by anything. Has been constant since yesterday morning. Also complains of right wrist pain, back pain after her falls. Labwork notable for no leukocytosis, elevated creatinine of 2.17, troponin 0.05, BNP: 29302. Hospital Course: Patient was admitted for further evaluation. Her troponins were trended and remained at 0.04 x3, her chest pain resolved overnight of admission. Review of prior records revealed h/o moderate aortic stenosis. Patient did not appear v olume overloaded on exam. She was continued on her home medications and felt significantly better the following morning. She reported no SOB, was able to walk ~300ft with PT around the nursing station with minimal DAHL. Her case was discussed with cardiology who recommended patient have a right/left heart cath to evaluate her aortic valve. Her elevated BNP, DAHL, and possibly her falls may be related to worsening of her aortic stenosis. This was explained to the patient and her daughter using teller manager. It was felt patient would benefit and be a candidate for TAVR if she is found to have severe aortic stenosis. The patient and her daughter considered their options and decided against staying for further evaluation and preferred to be discharged home to follow-up closely with their supportability engineer in the next 1-2 weeks. Vital Signs/Physical Exam: Temp Pulse Resp BP Pulse Ox 97.9 F 52 20 138/52 L 94 04/29/20 16:00 04/29/20 16:22 04/29/20 16:00 04/29/20 16:22 04/29/20 16:00 General: Alert, In no apparent distress, Oriented x3 HEENT: Sclerae nonicteric Neck: JVD not distended Respiratory: Clear to auscultation bilaterally, Normal air movement Cardiovascular: No edema, Regular rate/rhythm, Systolic murmur (4/6) Gastrointestinal: Soft and benign, Non-distended, No tenderness Musculoskeletal: No erythema, No tenderness Integumentary: No rashes Neurological: Normal speech, Normal affect Laboratory Data at Discharge: WBC 9.6 K/uL (4.3-10.9) 04/29/20 06:37 Hgb 12.1 g/dL (12.0-15.0) 04/29/20 06:37 Hct 36.1 % (36.0-45.0) 04/29/20 06:37 Plt Count 147 K/uL (152-406) L 04/29/20 06:37 PT 13.3 SECONDS (9.5-12.5) H 04/29/20 06:37 INR 1.13 04/29/20 06:37 Sodium 138 mmol/L (136-145) 04/29/20 06:37 Potassium 4.2 mmol/L (3.5-5.1) 04/29/20 06:37 BUN 47 mg/dL (7-18) H 04/29/20 06:37 Creatinine 2.00 mg/dL (0.55-1.3) H 04/29/20 06:37 Glucose 174 mg/dL (74-106) H 04/29/20 06:37 Phosphorus 4.0 mg/dL (2.5-4.9) 04/29/20 06:37 Magnesium 2.1 mg/dL (1.8-2.4) 04/29/20 06:37 Total Bilirubin 1.8 mg/dL (0.2-1.0) H 04/29/20 06:37 AST 13 U/L (15-37) L 04/29/20 06:37 ALT 17 U/L (12-78) 04/29/20 06:37 Alkaline Phosphatase 63 U/L (45-117) 04/29/20 06:37 Troponin I 0.04 ng/mL (0.0-0.045) 04/29/20 06:37 Home Medications: Alendronate Sodium 70 mg PO Q7D 04/29/20 Atorvastatin Calcium 40 mg PO DAILY 04/29/20 Bumetanide 2 mg PO BID 04/29/20 Carvedilol [Coreg] 6.25 mg PO BID 04/29/20 Citalopram Hydrobromide [Citalopram HBr] 10 mg PO DAILY 04/29/20 Clopidogrel Bisulfate [Plavix*] 75 mg PO DAILY 04/29/20 Ergocalciferol (Vitamin D2) [Vitamin D2] 1.25 mcg PO Q30D 04/29/20 Fluticasone [Flonase 50MCG Nasal [place]*] 1 spray IH BID 04/29/20 Glipizide [Glipizide Xl] 5 mg PO DAILY 04/29/20 Isosorbide Mononitrate [Isosorbide Mononitrate ER] 120 mg PO DAILY 04/29/20 Levothyroxine [Synthroid*] 150 mcg PO DAILY 04/29/20 Linaclotide [Linzess] 72 mcg PO DAILY 04/29/20 Linagliptin [Tradjenta] 5 mg PO DAILY 04/29/20 Pantoprazole [Protonix Tab*] 40 mg PO DAILY 04/29/20 Patient Discharge Instructions: follow up with PCP within 3- 5 days. follow up with Milling Machine Set Up Operator within 1-2 weeks - as soon as possible. Discuss further evaluation of aortic valve, if TAVR is recommended. no changes to home medications Diet: ADA Activity: Fall precautions Time spent managing pt's care (in minutes): 45
--- NOTE | 2020-04-29 21:52 | CON ---
Date of Consultation: 04/29/2020 Chief Complaint: Chronic kidney stage 3. History Of Present Illness: The patient has multiple medical problems including history of diabetes mellitus, hypertension, coronary artery disease, history of myocardial infarction, hypothyroidism, ch ronic congestive heart failure. She presented to the hospital because of shortness of breath, dyspne a on exertion. She was complaining of severe fatigue and history of fall. She was complaining of sh ortness of breath, progressively worse weakness. She had chest pain. She described chest pain as ac he and not alleviated or aggravated by exertion activity. She was complaining of right wrist pain, b ack pain, and recent history of multiple falls. She had CT scan done of the head, chest, abdomen, an d pelvis. There were no intracranial abnormalities, no cervical fracture, no traumatic abnormalities . The patient was found to have mild thickening of the gallbladder wall. Workup did not show leukoc ytosis. Creatinine level was elevated up to 2.17. Baseline creatinine is 1.6 to 1.8 according to pr evious lab work. BNP was up to 24,135. Review of Systems: General: Complains of generalized weakness. Denies fever. Eyes: Denies vision changes. Ears, Nose, Mouth, and Throat: Denies sore throat or earache. Respiratory: Dyspnea with exertion. Cardiovascular: Chest pain, ache in the precordial area, not associated with exertion or activity. GI: Denies nausea, vomiting, melena, hematemesis. : Denies dysuria, hematuria. No renal colic. Musculoskeletal: Complaining of generalized muscle aches and joint pain, generalized. All other systems reviewed and all are negative. Past Medical History: Hypertension, congestive heart failure, chronic diastolic and systolic dysfunc tion, hypothyroidism, hyperlipidemia, history of CVA, chronic constipation, appendectomy, heart larry terization, status post stent placement, pulmonary edema, diabetic neuropathy. Family History: Father had heart disease and diabetes. Social History: Denies tobacco or alcohol. Physical Examination: General: The patient is awake, alert, follows commands. Eyes: Anicteric sclerae. EOMI. Ears, Nose, Mouth, and Throat: Oral mucosa moist. No pallor. Neck: Supple. No bruits. Lungs: Diminished breath sounds at bases. No rhonchi. No crackles. Heart: S1, S2. No pericardial friction rub. Abdomen: Soft benign, nontender. No rebound. No guarding. Extremities: No erythema. Laboratory Data: WBC 10.9, hemoglobin 12.5, hematocrit 37.3, platelet count 151,000. Potassium 4.5, sodium 134, BUN 48, creatinine 2.17, glucose 289. Magnesium 2.3. Bilirubin total 2.2. CT scan wit hout contrast showed liver, spleen, pancreas, left adrenal gland appears normal; bilateral renal nadine ical thinning probably secondary to prior inflammation; 3 mm right renal mass unchanged from 2017, pr obably adenoma; gallbladder was mildly thickened. Impression And Plan: 1.Acute kidney injury, prerenal azotemia. The patient was complaining of shortness of breath. She was started on Lasix for volume control and management of congestive heart failure. Elevated BUN and creatinine with elevated BUN-creatinine ratio. May be related to cardiorenal syndrome. Worsening o f the renal function was found during this admission. The patient has uncontrolled diabetes, which m ay cause prerenal azotemia. Continue to control blood glucose. Adjust fluid intake accordingly. 2.Hypertension. Blood pressure controlled. Continue blood pressure medication. 3.Acute kidney injury, possible cardiorenal syndrome. The patient significantly does not appear to be fluid overloaded. Continue low-sodium diet and adjust diuretic dose for adequate volume control. The patient will continue blood pressure medication. 4.Diabetes mellitus with renal manifestation. The patient will continue insulin. Monitor proteinur ia. LAMINE/MODL Voice ID: [id number] Report ID: [id number]
--- NOTE | 2020-04-30 14:12 | CON ---
Date of Consultation: 04/29/2020 Reason For Consultation: Chest pain, shortness of breath. History Of Present Illness: This is a 74-year-old female with history of diabetes, coronary artery d isease, hypertension, chronic kidney disease, hypothyroidism, chronic congestive heart failure, prese nted with shortness of breath, chest pain and shortness of breath more with activities. The patient reported also a fall at home after she slipped due to having wet on the floor. Denies loss of consci ousness. Chest pain is retrosternal, not related to exertion and there are no specific triggers or r elieving factors. Evaluated by bedside. She is totally asymptomatic, resting in bed, wants to go ho me. The patient follows with a fishing vessel mate at [place]. Past Medical History: As outlined above in the HPI. Medications: Refer to reconciliation sheet for detailed list. Allergies: NO KNOWN DRUG ALLERGIES. Social History: She does not smoke or drink. Does not use any drugs. Review of Systems: All systems reviewed and they were negative except what mentioned in the HPI. Physical Examination: Vital Signs: Temperature is 97.5, pulse is 57, breathing 18, blood pressure 144/60, saturating 95%. General: Pleasant, elderly female, in no distress. Head and Neck: Pupils are equal, react to light. Intact eye movements. No JVD. No cervical lympha denopathy. Neck: Supple. Thyroid is not enlarged. Lungs: Clear to auscultation bilaterally. No rhonchi, rales, or crackles. No accessory muscle use. Heart: Regular rate and rhythm with aortic ejection systolic murmur that is early peaking. Abdomen: Soft, nontender. Bowel sounds positive. No organomegaly. No masses or hernia. No rigidi ty or rebound. Extremities: No edema, clubbing, or cyanosis. Intact pulses. Skin: No rash noted. Neurologic: Alert, awake, oriented x3. No acute focal deficits appreciated. Investigations: Sodium 138, creatinine is 2. NT-proBNP is 21,315 with troponin being negative. Assessment And Plan: Acute on chronic systolic congestive heart failure exacerbation. The patient h ad low EF. I reviewed her echo from previous hospitalization. She had what appears to be severe aor tic stenosis; however, with the low EF, the mean gradient was not high enough to be called severe , but the area was significant. I had a long discussion with her family and the patient ab out the need to further evaluate the aortic valve and recommended left and right heart catheterizatio n to get an accurate measures of gradient across the aortic valve and maybe challenged with dobutamin e to assess severity. This could represent a flow low gradient severe aortic valve stenosis that cou ld be responsible for her symptoms. Discussed with the primary hospitalist in details, who also emph asized the above plan. The patient, however, elected to go home and follow up with her own cardiolog ist on this matter. Of note, the patient claimed that she was turned down for aortic valve replaceme nt in the past and it was explained to the patient that if indeed she has severe aortic stenosis that a transcatheter approach would be a viable option for her. She understands and she will discuss thi s further with her primary fishing vessel mate. /COREY Voice ID: [id number] Report ID: [id number]
== END 2020-04-29 17:15 | disposition home or self-care (01) | DRG 306 ==
LOC: ER 10:22 → ERHOLD 14:18 → 2ND 17:38
PROVIDERS: ADMIT Hospitalist; ATTEND Hospitalist
DX: I35.0 Nonrheumatic aortic (valve) stenosis (principal); I50.23 Acute on chronic systolic (congestive) heart failure; N17.9 Acute kidney failure, unspecified; I13.0 Hypertensive heart and chronic kidney disease with heart failure and stage 1 through stage 4 chronic kidney disease, or unspecified chronic kidney disease; K21.9 Gastro-esophageal reflux disease without esophagitis; E78.5 Hyperlipidemia, unspecified; I25.10 Atherosclerotic heart disease of native coronary artery without angina pectoris; E11.22 Type 2 diabetes mellitus with diabetic chronic kidney disease; E11.40 Type 2 diabetes mellitus with diabetic neuropathy, unspecified; K59.09 Other constipation; E03.9 Hypothyroidism, unspecified; N18.30 Chronic kidney disease, stage 3 unspecified; I25.2 Old myocardial infarction; R07.9 Chest pain, unspecified; R42 Dizziness and giddiness; W01.0XXA Fall on same level from slipping, tripping and stumbling without subsequent striking against object, initial encounter; Z79.02 Long term (current) use of antithrombotics/antiplatelets; Z79.890 Hormone replacement therapy; Z79.4 Long term (current) use of insulin; Z79.899 Other long term (current) drug therapy; Z86.73 Personal history of transient ischemic attack (TIA), and cerebral infarction without residual deficits; Z90.49 Acquired absence of other specified parts of digestive tract; Z95.5 Presence of coronary angioplasty implant and graft; Z20.828 Contact with and (suspected) exposure to other viral communicable diseases
CPT/HCPCS: 36415; 70450; 71045; 71250; 72125; 80048; 80053; 80076; 81003; 82947; 83735; 83880; 84100; 84484; 85025; 85610; 93005; 94760; 97161; 99284; J1650; U0002

== ENCOUNTER 2020-08-02 16:11 | Observation (INO) | payer OTHER ==
--- OUTSIDE RECORDS SUMMARY | 2020-08-02 16:13 | XMS REPORT | Clinical Summary ---
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
--- OUTSIDE RECORDS SUMMARY | 2020-08-02 16:13 | XMS REPORT | Continuity of Care Document ---
:1945 Author Organization [facility] t Address [address] [place] [address] Care Team Providers Name Role Phone Asked, [...] Date Quantity Comments Source Sex Assigned At [facility] Alcohol intake 2016-04-09 2016[facility]04[facility]09 [facility] non-drinker of alcohol (finding) Smoking Status Start Date Stop Date Source Never smoker [facility] Medications Ordered Filled Start Stop Current Ordering Indication Dosage Frequency Signature Comments Components Source Medication Medication Date Date Medication? Clinician (SIG) Name Name Fosamax Fosamax 2020-0 2020- No Na Russell [facility] tablet [facility] Clinics Karla Acosta 2018-07 2020- No Na Russell [address] [facility] 1-20 05-18 [facility] clop[facility]ogrel 2016-0 Yes 75mg QD Take 75 mg [place] (PLAVIX) 75 9-26 by mouth Meth maria elena mg tablet 21:23: daily. st 05 levothyroxi 2015- Yes 125ug QD Take 125 [place] 9-26 mcg by Methodi (SYNTHROID, 21:23: mouth st LEVOTHROID) 05 every 125 MCG morning. tablet isosorbide Yes 120mg QD Take 120 [place] mononitrate 9-26 mg by Methodi (IMDUR) 120 21:23: mouth st MG 24 hr 05 daily. tablet furosemide 2015-0 Yes 20mg QD Take 20 mg [place] (LASIX) 20 9-26 by mouth Metho di MG tablet 21:23: daily. st 05 linagliptin 2016-0 Yes 5mg QD Take 5 mg [place] (TRADJENTA) 9- by mouth Meth maria elena 5 mg [...] Outpati ent Clinics Imdur Imdur Yes Na Rsusell not [facility] Yes Na Russell not [facility] [...] lsartan [facility] l Outpati ent Clinics [facility] [place] [facility] [place] Yes Na Russell USE ONCE A [facility] [...] POR l VIA ORAL Outpati ent Clinics Immunizations Ordered Filled Immunization Date Status Comments [facility] e Immunization Name Name FluAD FluAD 2019-05-[address] [facility] FluAD FluAD 2018-04-[address] [facility] Procedures This patient has no known procedures. Encounters Start End Encounter Admission Attending Care Care Encounter Source Date/Time Date/Time Type Type Clinicians Facility Department ID 2020-06-29 2020-06-29 Outpatient [facility] [id number] [facility] 2020-06-13 2020-06-13 Outpatient [facility] [id number] [facility] 2020-06-06 2020-06-06 Outpatient [facility] [id number] [facility] 2020-05-30 2020-05-30 Outpatient [facility] [id number] [facility] 2020-04-27 2020-04-27 Outpatient [facility] [id number] [facility] 2020-04-25 2020-04-25 Out[facility] [id number] 2020-04-24 2020-04-24 [facility] [id number] [facility] 2020-03-23 2020-03-23 [facility] [id number] [facility] 14[facility]26[facility] [facility] l Medicine Outpati ent Clinics 2020-03-23 2020-03-23 [facility] [id number] [facility] 13:00:00 13:00:00 [place] [employer] [facility] l Medicine Outpati ent Clinics 2020-01-21 2020-01-21 [facility] [id number] [facility] 14:00:00 14:00:00 [place] [facility] Medicine l Medicine Outpati ent Clinics 2020-01-21 2020-01-21 [facility] [id number] 13:20:00 13:20:00 [place] [employer] [facility] l Medicine Outpati ent Clinics 2020-01-02 2020-01-02 [facility] [id number] [facility] 03:03:00 03:03:00 [place] [address] [facility] Medicine l Medicine Outpati ent Clinics 2019-12-24 2019-12-24 [facility] [id number] 14:20:00 14:20:00 [place] [address] [facility] Medicine l Medicine Outpati ent Clinics 2019-12-10 2019-12-10 [facility] [id number] [facility] 15:00:00 15:00:00 [place] [employer] [facility] Medicine l Medicine Outpati ent Clinics 2019-12-02 2019-12-02 [facility] [id number] 14:07:00 14:07:00 [place] [employer] [address] [facility] Medicine l Medicine Outpati ent Clinics 2019-11-23 2019-11-23 [facility] [id number] 14:00:00 14:00:00 [place] [employer] s - [facility] Medicine l Medicine Outpati ent Clinics 2019-10-08 2019-10-08 [facility] [id number] 16:40:00 16:40:00 [place] [employer] [facility] [address] [facility] l Medicine Outpati ent Clinics 2019-09-09 2019-09-09 [facility] [id number] 14[facility]33:00 14:33:00 [place] [employer] [address] [facility] Medicine l Medicine Outpati ent Clinics 2019-08-10 2019-08-10 [facility] [id number] 09[facility]35:00 09:35:00 [place] [employer] [facility] Medicine Outpati ent Clinics 2019-07-02 2019-07-02 [facility] [id number] 15:00:00 15:00:00 [place] [employer] [address] [facility] Medicine l Medicine Outpati ent Clinics 2019-06-27 2019-06-27 [facility] [id number] [facility] 01:31:00 01:31:00 [place] [employer] [facility] Medicine l Medicine Outpati ent Clinics 2019-06-21 2019-06-21 [facility] [id number] 12:40:00 12:40:00 [place] [employer] [address] [facility] Medicine l Medicine Outpati ent Clinics 2019-06-18 2019-06-18 [facility] [id number] [facility] 14:20:00 14:20:00 [place] [employer] [address] [facility] l Medicine Outpati ent Clinics 2019-06-02 2019-06-02 [facility] [id number] 12:20:00 12:20:00 [place] [address] [facility] Medicine l Medicine Outpati ent Clinics 2019-05-24 2019-05-24 [facility] [id number] 11:00:00 11:00:[address] [place] [address] [place] [facility] [address] [facility] Medicine Medicine Outpati ent Clinics 2019-05-14 2019-05-14 [facility] [id number] 16:21:00 16:21:[address] [place] [address] [place] [address] [facility] Medicine Outpati ent Clinics 2019-05-13 2019-05-13 [facility] [id number] 10:40:00 10:40:[address] [place] [address] [place] - [address] [facility] Medicine Outpati ent Clinics 2019-05-04 2019-05-04 [facility] [id number] 09:56:00 09:56:[address] [place] [address] [place] - [address] [facility] Medicine Outpati ent Clinics 2019-04-06 2019-04-06 [facility] [id number] 16:35:00 16:35:00 [place] [employer] [place] - [address] [facility] Medicine Outpati ent Clinics 2019-03-26 2019-03-26 [facility] Radiology [facility] [id number] 10:22:25 23:59:00 Encounter [place] [id number] [place] [id number] [place] [id number] 2019-03-26 2019-03-26 Orders Doctor [facility] [id number] 00:00:00 00:00:00 Only Unassigned, FREDDIE [id number] [place] [id number] 2019-03-23 2019-03-23 [facility] [id number] [address] 09:00:00 09:00:00 [place] [employer] [place] - [address] [facility] Medicine Outpati ent Clinics 2019-03-05 2019-03-05 [facility] [id number] 16:40:00 16:40:00 [place] [employer] s - Drive [facility] Medicine Outpati ent Clinics 2019-01-26 2019-01-26 [facility] [id number] 16:20:00 16:20:[address] [place] [address] [place] Drive [facility] Medicine Outpati ent Clinics 2018-09-21 2018-09-21 [facility] [id number] [facility] 10:32:00 10:32:[address] [place] [address] [place] - Drive [facility] l Medicine Outpati ent Clinics 2018-09-21 2018-09-21 [facility] [id number] [facility] 09:15:00 09:15:00 [place] [employer] [place] [facility] - Drive [facility] Medicine Outpati ent Clinics 2018-07-23 2018-07-23 [facility] [id number] [facility] 11:15:00 11:15:00 [place] [employer] [facility] - Drive [facility] Medicine Outpati ent Clinics 2018-07-17 2018-07-17 [facility] [id number] 11:57:00 11:57:00 [place] [address] [facility] Medicine Outpati ent Clinics 2018-06-22 2018-06-22 [facility] [id number] [facility] 11:30:00 11:30:00 [place] [address] [facility] Medicine Outpati ent Clinics 2018-04-08 2018-04-08 [facility] [id number] [facility] 10:30:00 10:30:00 [place] [address] [facility] Medicine Outpati ent Clinics 2018-02-17 2018-02-17 [facility] [id number] 09:15:00 09:15:00 [place] [employer] [facility] - [address] [facility] Medicine Outpati ent Clinics 2017-11-17 2017-11-17 [facility] [id number] 11:00:00 11:00:00 [place] [place] [address] [facility] Medicine Outpati ent Clinics Results This patient has no known results.
--- OUTSIDE RECORDS SUMMARY | 2020-08-02 16:14 | XMS REPORT ---
:1945 Author Organization [facility] Address 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 Active 270385804 use of insulin Problem Hypothyroidism E03.9 Active 61548759 Problem Benign essential I10 Active 01093549 HTN Problem Hyperlipidemia E78.5 Active 76213905 Problem Diabetes E11.9 Active 164132863 Problem H/O: CVA Z86.73 Active 851116348 (cerebrovascular accident) Problem Obese E66.9 Active 256630624 Problem Mixed stress and N39.46 Active 488321221 urge urinary incontinence Problem Chronic diastolic I50.32 Active 948715000 heart failure Problem Type 2 diabetes E11.22 Active 69553432 mellitus with diabetic chronic kidney disease Problem Type 2 diabetes E11.65 Active 581332136773962 mellitus with hyperglycemia Problem Diabetic E11.42 Active 01922756 polyneuropathy associated with type 2 diabetes mellitus Problem Elevated blood R03.0 Active 63663567 pressure reading Problem Adult general Z00.00 Active 415261566 medical examination Problem Constipation, K59.00 Active 30596281 unspecified constipation type Problem Chronic kidney N18.3 Active 921164407 disease (CKD), stage III (moderate) Problem Other chronic pain G89.29 Active 55413642 Problem Chronic systolic I50.22 Active 128627507 congestive heart failure Problem Acute on chronic I50.33 Active 680729410 diastolic congestive heart failure Problem Elevated blood I10 Active 23257716 pressure reading with diagnosis of hypertension Problem History of skin Z85.828 Active 840068557 cancer in adulthood Problem Abnormal mammogram R92.8 Active 232823394 Problem Depression with F41.8 Active 394905537 anxiety Problem Unsteady gait R26.81 Active 90935657 Problem Heart failure, I50.9 Active 48212252 unspecified Problem Arteriosclerosis I25.10 Active 402730180550548 of coronary artery Problem CKD (chronic N18.4 Active 890021426 kidney disease) stage 4, GFR 15-29 ml/min Problem Gastroesophageal K21.9 Active 554545636 reflux disease, esophagitis presence not specified Problem Unspecified R32 Active 358268458 urinary incontinence Problem Female genital N81.9 Active 52146038 prolapse, unspecified Problem Primary insomnia F51.01 Active 7416295 ALLERGIES No Known Allergies ENCOUNTERS from 1945 to 2020-07-04 Encounter Location Date Provider Diagnosis [address] [place] Jun, Na Russell Typ e 2 diabetes mellitus Family Medicine [address], [place] [address] kidney disease E11.22 ; Elevated blood pressure reading with di agnosis of hypertension I10 ; Acute bilateral low back pain without sc iatica M54.5 ; Midepig astric pain R10.13 ; D epression with anxiety F4 1.8 ; Hypothyroidism E03.9 ; Hyperlipidemia E78.5 ; Diabetic polyne uropathy associated with type 2 diabetes mellit E11.42 ; Chronic diast olic heart failure I 50.32 ; Unsteady gait R 26.81 and CKD (chronic ki dney disease), stage IV N18.4 IMMUNIZATIONS Vaccine Route Administration Date Status FluAD [...] No information MEDICATIONS Medication SIG (Take, Route, Notes Start Date End Date Status Frequency, Duration) Vitamin D2 50 MCG (2000 1 tablet Orally Once a Active UT) day ZyrTEC Not-Taking Levothyroxine Sodium 150 1 tablet on an empty Active MCG stomach in the morning Orally Once a day for 90 days Amlodipine 1 tablet Orally Once a No t-Taking Besylate-Valsartan 10-160 day Linzess 72 MCG 1 capsule on an empty Active stomach Orally Once a day for 90 days Bumetanide 2 MG 1 tab Orally twice a Active day for swelling for 90 days Lipitor 40 MG 1 tablet Orally Once a Active day for 90 days Imdur Unknown Myrbetriq 25 MG 1 tablet Orally Once a Unknown day Losartan Potassium 100 MG 1 tablet Orally Once a Active day for 90 days HydrALAZINE HCl 25 MG 2 tablets with food Active Orally Three times a day ( hold if BP less 140/90 for 90 days Tradjenta 5 MG 1 tablet Orally Once a Active day for 90 days Fosamax 70 MG 1 tablet with water in Active the am 30 minutes prior to other medications, food or drink Orally once a week for 84 Pantoprazole Sodium 40 MG TOME SUSANA TABLETA SUSANA Active VEZ AL GERI POR VIA ORAL for 90 Citalopram Hydrobromide 1 tablet Orally Once a Active 10 MG day for 90 days Carvedilol 6.25 MG 1 tablet with food Active Orally Twice a day for 90 days Plavix 75 MG TOME SUSANA TABLETA SUSANA Ac tive VEZ AL GERI POR VIA ORAL for 90 Omeprazole 40 MG 1 capsule Orally Once a Active day for 90 Trazodone HCl 100 MG TOME SUSANA TABLETA POR Active VIA ORAL CADA NOCHE AL ACOSTARSE JULIAN SEA NECESARIO PARA SLEEP Gabapentin 100 MG TOME SUSANA CAPSULA POR Not-Taking VIA ORAL MARIA VICTORIA VECES POR GERI for 30 Lantus SoloStar 100 80 units at dinner Active UNIT/ML Subcutaneous once daily for 90 days Lasix 40 MG 1 tablet Orally Once a A ctive day for 90 Lyrica 50 MG 1 capsule Orally twice Active a day for 30 days Isosorbide Mononitrate ER 1 tablet in the morning Active 120 MG Orally Once a day for 90 days Metolazone 2.5 MG 1 tablet Orally Once a Active day for 30 day(s) [place] 32G X 4 MM USE ONCE A DAY WITH Active LANTUS for 90 Levothyroxine Sodium 150 TAKE ONE TABLET BY Active MCG MOUTH EVERY MORNING ON EMPTY STOMACH for 90 days Amitiza 24 MCG 1 capsule with food and Active water Orally Twice a day for 30 day(s) PROCEDURES No Information RESULTS No Results REASON FOR VISIT [facility] f/u [phone] , Telephone Only Visit, Blood glucose un controlled diabetes\, depression anxiety insomnia, htn, hld , cad MEDICAL (GENERAL) HISTORY Type Description Date Medical History Diabetes Medical History Benign essential HTN Medical History Hypothyroidism Medical History Hyperlipidemia Medical History Arteriosclerosis of coronary artery Medical History H/O: CVA (cerebrovascular accident) Medical History Obese Surgical History Heart Surgery Goals Section No Information Health Concerns No Information MEDICAL EQUIPMENT No Information MENTAL STATUS No Information FUNCTIONAL STATUS No Information ASSESSMENTS Encounter Date Diagnosis Assessment Treatment Notes Treatment Notes Clinical Notes Jun, Type 2 diabetes Advised pt needs to mellitus with take glipizide with diabetic chronic food. A1C kidney disease uncontrolled 9.4 FBG (ICD-10 - E11.22) 108 ( will get BG log 2 hours after eating) 10 (labs in hospital) up from 9.6 up from 9.4 -increase lantus from 60 units daily to 66 units daily and increase 2 unit every 2 days until FBG at 120 . - maintain low carb 1800 ADA diet. Avoid sodas, juices and remember portion control. Take your medication as prescribed. Monitor your blood sugar at home as directed and keep a log to bring back with you to your next visit for review. Schedule your annual diabetic eye exam with your eye doctor to screen for diabetic retinopathy. Check your feet daily to make sure you have no open wounds. Jun, Elevated blood -- Maintian a low pressure reading salt DASH diet, with diagnosis of exercise, weight loss hypertension and decrease stress (ICD-10 - I10) recommended. Keep BP log and will review next visit. If blood pressure consistently above 140/90 return to clinic for adjustment of meds. Try to quit smoking if you currently smoke. Decrease caffeine intake if possible. - - advised to avoid phenylephrine and pseudoephedrine in otc sinus/cold meds containing these decongestants which work by vasoconstricting blood vessels to help decrease congestion however may cause your BP to rise. -- If you have a cold may take Coricidin brand of cold medicines safe for high blood pressure patients. Jun, Acute bilateral low will check xrays of back pain without lower back to check sciatica (ICD-10 - for arthritis. pain M54.5) control with tyelnol recommended. max of 2000mg daily. Jun, Midepigastric pain discussed maintaining (ICD-10 - R10.13) low fat diet and eating small portions due to havign gallstones patient aware of but not surgical candidate. Advised if painful or fever go to ER. Jun, Depression with -- improved with anxiety (ICD-10 - citalopram. continue F41.8) current meds daily. Avoid caffeine. Make sure to exercise daily, take deep breaths, meditate, take frequent breaks. Take yourself away from the situation causing anxiety and stress by going for a 10-15 minute [place]. -- think of positive things in life to not dwell on negative things in life. -- watch [employer]. -- do not watch news close to bedtime. Jun, Hypothyroidism TSh elevated and T4 (ICD-10 - E03.9) normal with levothyoxine 137 will increase to 150mcg daily -Take thyroid medication on empty stomach first thing in AM with water. Avoid calcium, iron, and milk with medication. -Wait 60mintues before breakfast as thyroid medication binds with many foods/medications. Jun, Hyperlipidemia low fat diet, (ICD-10 - E78.5) decrease fast food and fried foods. Increase fruit and vegetable intake. exercise as tolerated 30minutes per day at least 3 days a week. May take fish oil 1000mg twice daily to help increase good cholesterol (HDL). Jun, Diabetic stop gabapentin for polyneuropathy neuropathic pain due associated with to dizziness will try type 2 diabetes on lyrica 50mg po bid mellitus (ICD-10 - start with one at E11.42) bedtime and increase to twice a day It is important to check your feet daily to makes sure you do not have any open cuts or sores in between your toes and soles of you feet because you may not be able to feel sores or wounds due to lack of sensation in feet due to diabetic neuropathy. contact your physician if you notice any. Jun, Chronic diastolic -low salt diet. heart failure -limit water intake (ICD-10 - I50.32) to no more than 1.5L per day - Weigh yourself daily. If increase swelling in legs and ankles or weight gain of more than 2-3 lbs in one day then call clinic because you are likely retaining fluid. - Go to ER if you develop any sob or chest pain. -May increase lasix for about 3 days to decrease edema. Jun, Unsteady gait -- Gait (ICD-10 - R26.81) unsteady difficulty leaving home. n o history of fall s and unable to stand and walk more than 5 fee t due to unsteady gait secondary to LE edema. diabetes and congestive hear t failure will t o get light weigh t wheelchair for family to push patient in home , to and from doctor appoinments and continue ADLs safely to decrease risk o f falls as patien t unable to balance using cane or walker as well due to weakness of UE due to neuropathy and weakness. Jun, CKD (chronic kidney physical disease), stage IV activity as (ICD-10 - N18.4) tolerated G FR 29 will monitor kidney function . - Avoid NSAIDs ( such as ibuprofen, motrin, aleive) - Hydrate your kidneys by drinking plenty of water. - f/u with nephrology Jun, Other -- medications Total time sp ent updated and hospital by prov ider /previous labs/ during this records reviewed labs teleph one visit imaging and plan was 27minu marcia. discussed with Also, time wa s patient all questions spent counseling answered to best of and coor dinating my knowledge. care including medications reviewed, but no t limited documented and to discussion of reconciled. test results, -- Treatment options, diagno stic or risks and benefits, treatmen t side effects reviewed recomm endations, in detail. Patient prognosis , risks accepts risk. and benefits o f management options, instructions, education, compliance and or risk reduction. PLAN OF TREATMENT Medication Medication Name Sig Start Date Stop Date Lantus SoloStar 100 UNIT/ML 80 units at dinner Subcutaneous once daily for 90 days Isosorbide Mononitrate ER 120 [...] if BP less 140/90 for 90 days Bumetanide 2 MG 1 tab Orally twice a day for swelling for 90 days Lipitor 40 MG 1 tablet Orally Once a day for 90 days Levothyroxine Sodium 150 MCG 1 tablet on an empty stomach in the morning Orally Once a day for 90 days Carvedilol 6.25 MG 1 tablet with food Orally Twice a day for 90 days Losartan Potassium 100 MG 1 tablet Orally Once a day for 90 days Treatment Notes Assessment Notes Clinical Notes Type 2 diabetes mellitus with Advised pt needs to take diabetic chronic kidney glipizide with food. A1C disease uncontrolled 9.4 FBG 108 ( will get BG log 2 hours after eating) 10 (labs in hospital) up from 9.6 up from 9.4-increase lantus from 60 units daily to 66 units daily and increase 2 unit every 2 days until FBG at 120.- maintain low carb 1800 ADA diet. Avoid sodas, juices and remember portion control. Take your medication as prescribed. Monitor your blood sugar at home as directed and keep a log to bring back with you to your next visit for review. Schedule your annual diabetic eye exam with your eye doctor to screen for diabetic retinopathy. Check your feet daily to make sure you have no open wounds. Elevated blood pressure -- Maintian a low salt DASH reading with diagnosis of diet, exercise, weight loss and hypertension decrease stress recommended. Keep BP log and will review next visit. If blood pressure consistently above 140/90 return to clinic for adjustment of meds. Try to quit smoking if you currently smoke. Decrease caffeine intake if possible. - - advised to avoid phenylephrine and pseudoephedrine in otc sinus/cold meds containing these decongestants which work by vasoconstricting blood vessels to help decrease congestion however may cause your BP to rise. -- If you have a cold may take Coricidin brand of cold medicines safe for high blood pressure patients. Acute bilateral low back pain will check xrays of lower back without sciatica to check for arthritis. pain control with tyelnol recommended.max of 2000mg daily. Midepigastric pain discussed maintaining low fat diet and eating small portions due to havign gallstones patient aware of but not surgical candidate. Advised if painful or fever go to ER. Depression with anxiety -- improved with citalopram. continue current meds daily. Avoid caffeine. Make sure to exercise daily, take deep breaths, meditate, take frequent breaks. Take yourself away from the situation causing anxiety and stress by going for a 10-15 minute walk.-- think of positive things in life to not dwell on negative things in life.-- watch comedies.-- do not watch news close to bedtime. Hypothyroidism TSh elevated and T4 normal with levothyoxine 137 will increase to 150mcg daily-Take thyroid medication on empty stomach first thing in AM with water. Avoid calcium, iron, and milk with medication. -Wait 60mintues before breakfast as thyroid medication binds with many foods/medications. Hyperlipidemia low fat diet, decrease fast food and fried foods. Increase fruit and vegetable intake. exercise as tolerated 30minutes per day at least 3 days a week. May take fish oil 1000mg twice daily to help increase good cholesterol (HDL). Diabetic polyneuropathy stop gabapentin for neuropathic associated with type 2 pain due to dizziness will try diabetes mellitus on lyrica 50mg po bid start with one at bedtime and increase to twice a dayIt is important to check your feet daily to makes sure you do not have any open cuts or sores in between your toes and soles of you feet because you may not be able to feel sores or wounds due to lack of sensation in feet due to diabetic neuropathy. contact your physician if you notice any. Chronic diastolic heart -low salt diet. -limit water failure intake to no more than 1.5L per day - Weigh yourself daily. If increase swelling in legs and ankles or weight gain of more than 2-3 lbs in one day then call clinic because you are likely retaining fluid. - Go to ER if you develop any sob or chest pain. -May increase lasix for about 3 days to decrease edema. Unsteady gait -- Gait unsteady difficulty leaving h ome. no history of falls and unable to stand and walk more than 5 feet due to unsteady gait second harjinder to LE edema. diabete s and congestive heart corinne lure will to get light w eight wheelchair for famil y to push patient in home , to and from doctor appoinments and cont inue ADLs safely to decre ase risk of falls as pat ient unable to balance us ing cane or walker as we ll due to weakness of U E due to neuropathy an d weakness. CKD (chronic kidney disease), physical a ctivity as stage IV tolerated GFR 29 lalitha l monitor kidney funct ion. - Avoid NSAIDs ( suc h as ibuprofen, motrin, aleive) - Hydrate yo ur kidneys by drinking plenty of water.- f/ u with nephrology Next Appt Details 2 M Reason: Insurance Providers Payer Name Payer Payer Insured Patient Coverage Coverage End Address Phone Name Relationship to Start Date Dontae e Insured [facility] [phone] Lola Braun [facility] [id number] [address] [facility] [id number]
--- OUTSIDE RECORDS SUMMARY | 2020-08-02 16:14 | XMS REPORT ---
:1945 Author Organization [facility] Address 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 Active 358673954 use of insulin Problem Hypothyroidism E03.9 Active 40198197 Problem Benign essential I10 Active 46680376 HTN Problem Hyperlipidemia E78.5 Active 57931332 Problem Diabetes E11.9 Active 951358793 Problem H/O: CVA Z86.73 Active 268998333 (cerebrovascular accident) Problem Obese E66.9 Active 866867674 Problem Mixed stress and N39.46 Active 169693269 urge urinary incontinence Problem Chronic diastolic I50.32 Active 577136613 heart failure Problem Type 2 diabetes E11.22 Active 54443414 mellitus with diabetic chronic kidney disease Problem Type 2 diabetes E11.65 Active 976244386063422 mellitus with hyperglycemia Problem Diabetic E11.42 Active 29909762 polyneuropathy associated with type 2 diabetes mellitus Problem Elevated blood R03.0 Active 80385406 pressure reading Problem Adult general Z00.00 Active 089776383 medical examination Problem Constipation, K59.00 Active 20288278 unspecified constipation type Problem Chronic kidney N18.3 Active 481422825 disease (CKD), stage III (moderate) Problem Other chronic pain G89.29 Active 15743690 Problem Chronic systolic I50.22 Active 499865652 congestive heart failure Problem Acute on chronic I50.33 Active 331610873 diastolic congestive heart failure Problem Elevated blood I10 Active 13729400 pressure reading with diagnosis of hypertension Problem History of skin Z85.828 Active 765779297 cancer in adulthood Problem Abnormal mammogram R92.8 Active 255674976 Problem Depression with F41.8 Active 838300482 anxiety Problem Unsteady gait R26.81 Active 33185915 Problem Heart failure, I50.9 Active 46887993 unspecified Problem Arteriosclerosis I25.10 Active 210523115677377 of coronary artery Problem CKD (chronic N18.4 Active 158890173 kidney disease) stage 4, GFR 15-29 ml/min Problem Gastroesophageal K21.9 Active 779168915 reflux disease, esophagitis presence not specified Problem Unspecified R32 Active 807738678 urinary incontinence Problem Female genital N81.9 Active 18680910 prolapse, unspecified Problem Primary insomnia F51.01 Active 0916196 ALLERGIES No Known Allergies ENCOUNTERS from 1945 to 2020-06-13 Encounter Location Date Provider Diagnosis [address] [place] Jun, Na Drew camacho blood pressure Family Medicine [address] [facility] [place] [address] of hypertensio n I10 IMMUNIZATIONS Vaccine Route Administration Date Status FluAD [...] Start Date End Date Status Frequency, Duration) Metolazone 2.5 MG 1 tablet Orally Once Active a day for 30 day(s) Isosorbide Mononitrate 1 tablet in the Active ER 120 MG morning Orally Once a day for 90 days ZyrTEC Not-Taking Lantus SoloStar 100 70 units at dinner Active UNIT/ML Subcutaneous once daily for 90 days Tradjenta 5 MG 1 tablet Orally Once Not-Taking a day Imdur Unknown Amlodipine 1 tablet Orally Once Not- Taking Besylate-Valsartan a day 10-160 Myrbetriq 25 MG 1 tablet Orally Once Unknown a day Tradjenta 5 MG 1 tablet Orally Once Active a day for 90 days Linzess 72 MCG 1 capsule on an empty Active stomach Orally Once a day for 90 days Citalopram 1 tablet Orally Once Acti ve Hydrobromide 10 MG a day for 90 days Losartan Potassium 100 1 tablet Orally Once Active MG a day for 90 days Pantoprazole Sodium 40 TOME SUSANA TABLETA SUSANA Active MG VEZ AL GERI POR VIA ORAL Bumetanide 2 MG 1 tab Orally twice a Active day for swelling for 90 days Fosamax 70 MG 1 tablet with water Dec, Jun, Active in the am 30 minutes prior to other medications, food or drink Orally once a week for 84 days Lyrica 50 MG 1 capsule Orally Active twice a day for 30 days Vitamin D2 50 MCG 1 tablet Orally Once Active (1999) a day Plavix 75 MG TOME SUSANA TABLETA SUSANA Ac tive VEZ AL GERI POR VIA ORAL Gabapentin 100 MG TOME SUSANA CAPSULA POR Not-Taking VIA ORAL MARIA VICTORIA VECES POR GERI for 30 Pen [place] 32G X 4 MM USE ONCE A DAY WITH Active LANTUS for Amitiza 24 MCG 1 capsule with food A ctive and water Orally Twice a day for 30 day(s) Trazodone HCl 100 MG TOME SUSANA TABLETA POR Active VIA ORAL CADA NOCHE AL ACOSTARSE JULIAN SEA NECESARIO PARA SLEEP Levothyroxine Sodium TAKE ONE TABLET BY Active 150 MCG MOUTH EVERY MORNING ON EMPTY STOMACH for 90 days HydrALAZINE HCl 25 MG 2 tablets with food Active Orally Three times a day ( hold if BP less 140/90 for 90 days Carvedilol 6.25 MG 1 tablet with food Active Orally Twice a day for 90 days Lipitor 40 MG 1 tablet Orally Once A ctive a day for 90 days Lasix 40 MG 1 tablet Orally Once Act jeremiah a day for 90 Omeprazole 40 MG 1 capsule Orally Once Active a day for 90 PROCEDURES No Information RESULTS No Results REASON FOR VISIT No Information MEDICAL (GENERAL) HISTORY Type Description Date Medical [...] No Information ASSESSMENTS Encounter Date Diagnosis Assessment Notes Treatment Notes Treatm ent Clinical Notes Jun, Elevated blood pressure reading with diagnosis of hypertension (ICD-10 - I10) PLAN OF TREATMENT Medication Medication Name Sig Start Date Stop Date Lipitor 40 MG 1 tablet Orally Once a day for 90 days Carvedilol 6.25 MG 1 tablet with food Orally Twice a day for 90 days Bumetanide 2 MG 1 tab Orally twice a day for swelling for 90 days HydrALAZINE HCl 25 MG [...] for 90 days Levothyroxine Sodium 150 MCG TAKE ONE TABLET BY MOUTH EVERY MORNING ON EMPTY STOMACH for 90 days Isosorbide Mononitrate ER 120 MG 1 tablet in the morning Orally Once a day for 90 days Lantus SoloStar 100 UNIT/ML 70 units at dinner Subcutaneous once daily for 90 days Next Appt Details Provider Name:Lola Russell, 2020-06-29 11:4 0:00 AM, [address], [address], [place], [address], Insurance Providers Payer Name Payer Payer Insured Patient Coverage Coverage End Address Phone Name Relationship to Start Date Dontae e Insured [facility] [phone] Lola Braun [facility] [address] [address] [place] [address]
[2020-08-02 18:52] LABS: Absolute Lymphocytes (CBC) 1.9 K/uL (0.7-4.9); Basophils % 0.5 % (0-1.3); Hematocrit 37.7 % (36.0-45.0); Lymphocytes % 23.5 % (15.3-44.8); MPV 9.2 fL (7.6-11.3); RBC Red Blood Cell Count 4.04 M/uL (3.86-4.86)
[2020-08-02 18:54] LABS: Protime INR 1.09
--- NOTE | 2020-08-02 19:02 | RAD REPORT ---
EXAM DESCRIPTION: RAD - Chest Single View - 08/02/2020 6:31 pm CLINICAL HISTORY: SOB Chest pain. COMPARISON: Abdomen 1 View (KUB) dated 05/30/2020; Chest Single View dated 04/28/2020; Chest Single View dated 03/18/2020; Chest Single View dated 02/09/2020 FINDINGS: Portable technique limits examination quality. Moderate pulmonary edema is noted. The heart is significantly enlarged. No displaced fractures. IMPRESSION: Moderate CHF.
[2020-08-02 19:13] LABS: Albumin 3.8 g/dL (3.4-5.0); Bilirubin Direct 0.4 mg/dL (0-0.2); Bilirubin Total 1.4 mg/dL (0.2-1.0); Magnesium 2.4 mg/dL (1.8-2.4); Potassium 4.2 mmol/L (3.5-5.1); Protein, Total 7.3 g/dL (6.4-8.2); Troponin (Emerg Dept Use Only) 0.02 ng/mL (0.0-0.045)
--- NOTE | 2020-08-02 19:44 | ER ---
Nurse's Notes [facility] Name: Lola Braun Age: 75 yrs Sex: Female : 1945 Arrival Date: 08/02/2020 Time: 16:14 Bed 14 Private MD: Lola Russell Diagnosis: Pulmonary edema;Dyspnea, unspecified;Unspecified combined systolic (congestive) and diastolic (congestive) heart failure Presentation: 08/02 16:33 Chief complaint: Patient states: SOB and CP with exertion for 1 month, none at this ll1 time. No cough or fever. 16:34 Coronavirus screen: Client denies travel out of the [place] in the last 14 days. At this ll1 time, the client does not indicate any symptoms associated with coronavirus-19. Ebola Screen: Patient denies travel to an Ebola-affected area in the 21 days before illness onset. No acute neurological deficit is noted. Initial Sepsis Screen: Does the patient meet any 2 criteria? No. Patient's initial sepsis screen is negative. Does the patient have a suspected source of infection? No. Patient's initial sepsis screen is negative. Risk Assessment: Do you want to hurt yourself or someone else? Patient reports no desire to harm self or others. Onset of symptoms was July 02, 2020. 16:34 Method Of Arrival: Ambulatory ll1 16:34 Acuity: RAUL 3 ll1 Stroke Activation: Symptom onset > 6 hours Physician: Stroke Attending; Name: ; Notified At: ; Arrived At: Physician: Chief Stroke Resident; Name: ; Notified At: ; Arrived At: Physician: Stroke Resident; Name: ; Notified At: ; Arrived At: Physician: ED Attending; Name: ; Notified At: ; Arrived At: Physician: ED Resident; Name: ; Notified At: ; Arrived At: Historical: - Allergies: 16:33 NKDA; ll1 - Home Meds: 19:31 Tradjenta 5 mg Oral tab 1 tab once daily [Active]; atorvastatin 40 mg Oral tab 1 tab vg1 once daily [Active]; clopidogrel 75 mg Oral tab 1 tab once daily [Active]; levothyroxine 137 mcg tab 1 tab once daily [Active]; glipizide 5 mg Oral tr24 1 tab once daily [Active]; isosorbide mononitrate 120 mg Oral Tb24 once daily [Active]; Bumetanide Oral [Active]; hydralazine 25 mg oral tab [Active]; carvedilol oral oral [Active]; pantoprazole oral oral [Active]; - PMHx: 16:33 Diabetes - IDDM; GERD; Hypertension; Myocardial infarction; Hyperlipidemia; kidney ll1 problems; - PSHx: 16:33 heart surgery; ll1 - Immunization history:: Flu vaccine is up to date. - Social history:: Smoking status: Patient denies any tobacco usage or history of. Assessment: 18:45 General: Appears in no apparent distress. comfortable, Behavior is calm, cooperative. vg1 Pain: Denies pain. Neuro: Level of Consciousness is awake, alert, obeys commands, Oriented to person, place, time, situation. Cardiovascular: Patient's skin is warm and dry. Respiratory: Airway is patent Respiratory effort is even, unlabored, Respiratory pattern is regular, symmetrical. GI: No signs and/or symptoms were reported involving the gastrointestinal system. : No signs and/or symptoms were reported regarding the genitourinary system. EENT: No signs and/or symptoms were reported regarding the EENT system. Derm: Skin is pink, warm \T\ dry. Musculoskeletal: Circulation, motion, and sensation intact. 18:45 Respiratory: Reports shortness of breath on exertion. vg1 19:51 Reassessment: Patient appears in no apparent distress at this time. Patient and/or vg1 family updated on plan of care and expected duration. Pain level reassessed. Patient is alert, oriented x 3, equal unlabored respirations, skin warm/dry/pink. Patient denies pain at this time. 21:49 Reassessment: Patient appears in no apparent distress at this time. Patient and/or vg1 family updated on plan of care and expected duration. Pain level reassessed. Patient is alert, oriented x 3, equal unlabored respirations, skin warm/dry/pink. Patient denies pain at this time. 22:53 Reassessment: No changes from previously documented assessment. vg1 Vital Signs: 16:34 BP 158 / 57; Pulse 52; Resp 18; Temp 97.0; Pulse Ox 98% ; Weight 88.45 kg; Height 5 ft. ll1 (152.40 cm); Pain 8/10; 18:00 BP 174 / 58; Pulse 55; Resp 16; Pulse Ox 99% on R/A; vg1 19:00 BP 165 / 111; Pulse 52; Resp 18; Pulse Ox 97% on R/A; vg1 21:50 BP 163 / 89; Pulse 50; Resp 16; Pulse Ox 96% on R/A; vg1 22:53 BP 166 / 61; Pulse 48; Resp 18; Pulse Ox 95% on R/A; vg1 16:34 Body Mass Index 38.08 (88.45 kg, 152.40 cm) ll1 ED Course: 16:14 Patient arrived in ED. mr 16:15 Lola Russell MD is Private Physician. mr 16:32 Arm band placed on. ll1 16:36 Triage completed. ll1 18:16 Emmett Rincon PA is PHCP. cp 18:16 John Lu MD is Attending Physician. cp 18:31 XRAY Chest (1 view) In Process Unspecified. EDMS 18:32 Shea Do RN is Primary Nurse. vg1 18:35 Initial lab(s) drawn, by nh, sent to lab. Inserted saline lock: 22 gauge in left jp3 forearm, using aseptic technique. Blood collected. Patient maintains SpO2 saturation greater than 95% on room air. 18:39 Bed in low position. Call light in reach. Side rails up X2. Warm blanket given. Verbal jp3 reassurance given. threat monitoring analyst on. Pulse ox on. NIBP on. 19:42 Eliel Jacques DO is Hospitalizing Provider. cp 20:07 COVID swab sent to lab. rr5 Administered Medications: 19:50 Drug: Lasix 40 mg Route: IVP; Site: left antecubital; vg1 21:25 Follow up: Response: No adverse reaction vg1 19:50 Drug: Aspirin Chewable Tablet 324 mg Route: PO; vg1 21:26 Follow up: Response: No adverse reaction vg1 20:19 Drug: Lasix 20 mg Route: IVP; Site: left forearm; rr5 21:49 Follow up: Response: No adverse reaction vg1 Output: 20:32 Urine: 500ml (Voided); Total: 500ml. vg1 Outcome: 19:43 Decision to Hospitalize by Provider. cp 08/03 01:08 Patient left the ED. sg Signatures: Dispatcher [employer] EDMS El Horan RN RN Michelle Dale mr Emmett Rincon PA PA cp Erick Singh jp3 Thomas Barajas RN RN rr5 Shea Do RN RN vg1 Keely Samayoa RN RN ll1 Corrections: (The following items were deleted from the chart) 08/02 16:36 16:33 Chief complaint: Patient states: CP and SOB for 1 month. SOB and CP with ll1 exertion, none now. No cough or fever. ll1
--- NOTE | 2020-08-02 19:44 | EDPHYS ---
Physician Documentation [facility] Name: Lola Braun Age: 75 yrs Sex: Female : 1945 Arrival Date: 08/02/2020 Time: 16:14 Bed 14 Private MD: Lola Russell ED Physician John Lu HPI: 08/02 18:20 This 75 yrs old Female presents to ER via Ambulatory with complaints of cp Trouble Walking, Chest Pain. 18:20 The patient or guardian reports chest pain that is located primarily in the anterior cp chest wall. 18:20 Onset: gradually, 1 month(s) ago. The pain does not radiate. Associated signs and cp symptoms: Pertinent positives: exertional shortness of breath, Pertinent negatives: cough, diaphoresis, lower extremity pain, lower extremity swelling, syncope, vomiting. The chest pain is described as a heaviness. Duration: The patient or guardian reports multiple episodes, that are intermittent. Modifying factors: The symptoms are alleviated by rest, the symptoms are aggravated by activity. Severity of pain: in the emergency department the pain has resolved. Historical: - Allergies: 16:33 NKDA; ll1 - Home Meds: 19:31 Tradjenta 5 mg Oral tab 1 tab once daily [Active]; atorvastatin 40 mg Oral tab 1 tab vg1 once daily [Active]; clopidogrel 75 mg Oral tab 1 tab once daily [Active]; levothyroxine 137 mcg tab 1 tab once daily [Active]; glipizide 5 mg Oral tr24 1 tab once daily [Active]; isosorbide mononitrate 120 mg Oral Tb24 once daily [Active]; Bumetanide Oral [Active]; hydralazine 25 mg oral tab [Active]; carvedilol oral oral [Active]; pantoprazole oral oral [Active]; - PMHx: 16:33 Diabetes - IDDM; GERD; Hypertension; Myocardial infarction; Hyperlipidemia; kidney ll1 problems; - PSHx: 16:33 heart surgery; ll1 - Immunization history:: Flu vaccine is up to date. - Social history:: Smoking status: Patient denies any tobacco usage or history of. ROS: 18:25 Constitutional: Negative for body aches, chills, fever, poor PO intake. cp 18:25 Eyes: Negative for injury, pain, redness, and discharge. cp 18:25 Cardiovascular: Positive for chest pain, Negative for palpitations. cp 18:25 Respiratory: Positive for shortness of breath, on exertion. Negative for cough, cp wheezing. 18:25 Abdomen/GI: Negative for abdominal pain, nausea, vomiting, and diarrhea. 18:25 Back: Negative for radiated pain. 18:25 Neuro: Negative for altered mental status, dizziness, headache, syncope, weakness. 18:25 All other systems are negative. Exam: 18:30 Constitutional: The patient appears in no acute distress, alert, awake, cp non-diaphoretic, non-toxic, well developed, well nourished, obese. 18:30 Head/Face: Normocephalic, atraumatic. cp 18:30 Eyes: Periorbital structures: appear normal, Conjunctiva: normal, no exudate, no injection, Sclera: no appreciated abnormality, Lids and lashes: appear normal, bilaterally. 18:30 ENT: External ear(s): are unremarkable, Nose: is normal, Mouth: Lips: moist, Oral mucosa: moist, Posterior pharynx: Airway: no evidence of obstruction, patent. 18:30 Neck: ROM/movement: is normal, is supple, without pain, no range of motions limitations. 18:30 Chest/axilla: Inspection: normal, Palpation: is normal, no crepitus, no tenderness. 18:30 Cardiovascular: Rate: bradycardic, Rhythm: regular, Edema: is not appreciated, JVD: is not appreciated. 18:30 Respiratory: the patient does not display signs of respiratory distress, Respirations: labored breathing, that is mild, Breath sounds: are clear throughout, no decreased breath sounds, no stridor, no wheezing. 18:30 Abdomen/GI: Inspection: abdomen appears normal, Bowel sounds: active, all quadrants, Palpation: soft, in all quadrants, mild abdominal tenderness, in the epigastric area, rebound tenderness, is not appreciated, voluntary guarding, is elicited in the epigastric area. 18:30 Back: pain, is absent, ROM is normal. 18:30 Neuro: Orientation: to person, place \T\ time. Mentation: is normal, Motor: moves all fours, strength is normal. 21:50 ECG was reviewed by the Attending Physician. cp Vital Signs: 16:34 BP 158 / 57; Pulse 52; Resp 18; Temp 97.0; Pulse Ox 98% ; Weight 88.45 kg; Height 5 ft. ll1 (152.40 cm); Pain 8/10; 18:00 BP 174 / 58; Pulse 55; Resp 16; Pulse Ox 99% on R/A; vg1 19:00 BP 165 / 111; Pulse 52; Resp 18; Pulse Ox 97% on R/A; vg1 21:50 BP 163 / 89; Pulse 50; Resp 16; Pulse Ox 96% on R/A; vg1 22:53 BP 166 / 61; Pulse 48; Resp 18; Pulse Ox 95% on R/A; vg1 16:34 Body Mass Index 38.08 (88.45 kg, 152.40 cm) ll1 MDM: 18:17 Patient medically screened. cp 18:30 Differential diagnosis: acute myocardial infarction, congestive heart failure cp pneumonia, pneumothorax, pulmonary embolus, stable angina, unstable angina. 19:40 Data reviewed: vital signs, nurses notes, lab test result(s), EKG, radiologic studies, cp plain films, and as a result, I will admit patient. 19:40 The patient was given aspirin in the Emergency Department. Test interpretation: by ED cp physician or midlevel provider: ECG, plain radiologic studies. Physician consultation: Rasheed HANNA was called at 19:35, was contacted at 19:35, regarding admission, to the medical/surgical unit. patient's condition. 08/02 18:16 Order name: Basic Metabolic Panel; Complete Time: 19:15 cp 08/02 18:16 Order name: CBC with Diff; Complete Time: 19:15 cp 08/02 18:16 Order name: LFT's; Complete Time: 19:15 cp 08/02 18:16 Order name: Magnesium; Complete Time: 19:15 cp 08/02 18:16 Order name: NT PRO-BNP; Complete Time: 19:15 cp 08/02 18:16 Order name: PT-INR; Complete Time: 19:15 cp 08/02 18:16 Order name: Troponin (emerg Dept Use Only); Complete Time: 19:15 cp 08/02 18:16 Order name: XRAY Chest (1 view); Complete Time: 19:15 cp 08/02 18:16 Order name: EKG; Complete Time: 18:17 cp 08/02 21:24 Order name: SARS-COV-2 RT PCR EDAK 08/02 18:16 Order name: Cardiac monitoring; Complete Time: 18:39 cp 08/02 18:16 Order name: EKG - Nurse/Tech; Complete Time: 21:48 cp 08/02 18:16 Order name: IV Saline Lock; Complete Time: 18:40 cp 08/02 18:16 Order name: Labs collected and sent; Complete Time: 18:39 cp 08/02 18:16 Order name: O2 Per Protocol; Complete Time: 18:39 cp 08/02 18:16 Order name: O2 Sat Monitoring; Complete Time: 18:39 cp EC:50 Rate is 49 beats/min. Rhythm is regular. MT interval is normal. QRS interval is cp prolonged at 168 msec. QT interval is normal. T waves are Inverted in leads V5, V6. Interpreted by me. Reviewed by me. Administered Medications: 19:50 Drug: Lasix 40 mg Route: IVP; Site: left antecubital; vg1 21:25 Follow up: Response: No adverse reaction vg1 19:50 Drug: Aspirin Chewable Tablet 324 mg Route: PO; vg1 21:26 Follow up: Response: No adverse reaction vg1 20:19 Drug: Lasix 20 mg Route: IVP; Site: left forearm; rr5 21:49 Follow up: Response: No adverse reaction vg1 Disposition: 08/02/20 19:43 Hospitalization ordered by Eliel Jacques for Inpatient Admission. Preliminary diagnosis are Pulmonary edema, Dyspnea, unspecified, Unspecified combined systolic (congestive) and diastolic (congestive) heart failure. - Bed requested for Telemetry/MedSurg (Inpatient). - Status is Inpatient Admission. sg - Condition is Stable. - Problem is an acute exacerbation. - Symptoms have improved. Addendum: 08/05/2020 10:10 Co-signature as Attending Physician, John Lu MD. r n Signatures: Dispatcher [employer] [facility] Yue Castellano RN RN dw Gay, Steven, RN RN sg Nieto, Roman, MD MD rn Attema, Lee, PURSE SEINER-C PURSE SEINER-Cla1 Emmett Rincon PA PA Thomas Rowland RN RN rr5 Shea Do RN RN vg1 Yao, Lynsay, RN RN ll1 Corrections: (The following items were deleted from the chart) 08/02 20:16 20:03 CORONAVIRUS+MR.LAB.BRZ ordered. EDAK EDMS 23:40 19:43 Hospitalization Ordered by Eliel Jacques DO for Inpatient Admission. Preliminary dw diagnosis is Pulmonary edema; Dyspnea, unspecified; Unspecified combined systolic (congestive) and diastolic (congestive) heart failure. Bed requested for Telemetry/MedSurg (Inpatient). Status is Inpatient Admission. Condition is Stable. Problem is an acute exacerbation. Symptoms have improved. cp 08/03 01:08 08/02 23:40 08/02/2020 19:43 Hospitalization Ordered by Eliel Jacques DO for Inpatient sg Admission. Preliminary diagnosis is Pulmonary edema; Dyspnea, unspecified; Unspecified combined systolic (congestive) and diastolic (congestive) heart failure. Bed requested for Telemetry/MedSurg (Inpatient). Status is Inpatient Admission. Condition is Stable. Problem is an acute exacerbation. Symptoms have improved. dw
[2020-08-02] MEDS ORDERED: FUROSEMIDE 40 MG/4 ML VIAL ONE (19:49)
[2020-08-02] MEDS ORDERED: ASPIRIN 81 MG CHEWABLE TABLET ONE (19:49)
[2020-08-02] MEDS ORDERED: FUROSEMIDE 20 MG/ 2ML VIAL ONE (20:29)
--- NOTE | 2020-08-02 21:02 | P.HP ---
Certification for Inpatient Patient admitted to: Observation With expected LOS: <2 Midnights Patient will require the following post-hospital care: None Practitioner: I am a practitioner with admitting privileges, knowledge of patient current condition, hospital course, and medical plan of care. Services: Services provided to patient in accordance with Admission requirements found in Title 42 Section 412.3 of the Code of Federal Regulations <Rasheed Valencia - Last Filed: 08/02/20 20:58> Patient admitted to: Observation <Eliel Jacques - Last Filed: 08/03/20 14:51> Patient History Date of Service: 08/02/20 Primary Care Provider: Dr. Russell Reason for admission: CHF exacerbation History of Present Illness: 75-year-old female with history of diabetes mellitus type 2, CKD, hypertension, CAD, hypothyroidism, chronic systolic CHF presents to the emergency department for chest pain, dyspnea on exertion, shortness of breath. Patient was evaluated in the emergency department, chest x-ray demonstrates moderate CHF, patient's saturations in the low 90s, labs significant for creatinine 2.33 baseline around 2.0 GFR 20 baseline around 25, elevated BNP 14567 troponin 0.02. ED provider wishes to admit patient for further evaluation and management. When I saw the patient in the ER she was awake, alert, oriented x3. Will admit under observation for further evaluation and management. - Past Medical/Surgical History Diabetic: Yes -: Hypertension -: Diabetes mellitus type 2, insulin-dependent -: Coronary artery disease, Cardiology-Dr. Donovan -: Hypothyroidism -: Hyperlipidemia -: History of CVA -: Obesity -: Chronic kidney disease, stage IIIB -: GERD -: Chronic constipation -: Diabetic neuropathy -: Pulmonary Edema -: Heart catheterization requiring stent -: Appendectomy Psychosocial/ Personal History: She is , has 9 children, she does not work. - Family History Father -: Heart disease, Diabetes - Social History Alcohol use: No CD- Drugs: No Caffeine use: Yes Place of Residence: Home <Rasheed Valencia - Last Filed: 08/02/20 20:58> Date of Service: 08/03/20 Home medications list reviewed: Yes - Social History Smoking Status: Never smoker <Eliel Jacques - Last Filed: 08/03/20 14:51> Allergies No Known Drug Allergies Allergy (Verified 03/11/19 14:05) Unknown Home Medications: Alendronate Sodium 70 mg PO Q7D 04/29/20 Atorvastatin Calcium 40 mg PO DAILY 04/29/20 Carvedilol [Coreg] 6.25 mg PO BID 04/29/20 Citalopram Hydrobromide [Citalopram HBr] 10 mg PO DAILY 04/29/20 Clopidogrel Bisulfate [Plavix*] 75 mg PO DAILY 04/29/20 Ergocalciferol (Vitamin D2) [Vitamin D2] 1.25 mcg PO Q30D 04/29/20 Glipizide [Glipizide Xl] 5 mg PO DAILY 04/29/20 Isosorbide Mononitrate [Isosorbide Mononitrate ER] 120 mg PO DAILY 04/29/20 Levothyroxine [Synthroid*] 150 mcg PO DAILY 04/29/20 Linaclotide [Linzess] 72 mcg PO BID 04/29/20 Linagliptin [Tradjenta] 5 mg PO DAILY 04/29/20 Pantoprazole [Protonix Tab*] 40 mg PO DAILY 04/29/20 Bumetanide 2 mg PO BID #60 08/03/20 Calcium 600mg 1 tab PO BID 08/03/20 Hydralazine HCl [Apresoline] 1 tab PO SEECOM 08/03/20 Trazodone HCl [Desyrel] 1 tab PO BEDTIME 08/03/20 Vit D3 2000 Iu 1 cap PO BID 08/03/20 Review of Systems Respiratory: Cough, Shortness of Breath, SOB with Excertion Cardiovascular: Chest Pain <Rasheed Valencia - Last Filed: 08/02/20 20:58> Physical Examination - Physical Exam General: Alert, In no apparent distress HEENT: Atraumatic, PERRLA, Mucous membr. moist/pink Neck: Supple, 2+ carotid pulse no bruit Respiratory: Normal air movement, Crackles/rales (Bilaterally) Cardiovascular: Regular rate/rhythm, Normal S1 S2 Capillary refill: <2 Seconds Gastrointestinal: Normal bowel sounds, No tenderness Musculoskeletal: No tenderness Integumentary: No rashes Neurological: Normal speech, Normal strength at 5/5 x4 extr, Normal tone, Normal affect Lymphatics: No axilla or inguinal lymphadenopathy - Studies Laboratory Data (last 24 hrs) 08/02/20 18:35: PT 12.8 H, INR 1.09 08/02/20 18:35: WBC 7.9, Hgb 12.5, Hct 37.7, Plt Count 157 08/02/20 18:35: Sodium 139, Potassium 4.2, BUN 52 H, Creatinine 2.33 H, Glucose 113 H, Magnesium 2.4, Total Bilirubin 1.4 H, AST 13 L, ALT 15, Alkaline Phosphatase 89 <Rasheed Valencia - Last Filed: 08/02/20 20:58> - Studies Laboratory Data (last 24 hrs) 08/02/20 18:35: PT 12.8 H, INR 1.09 08/02/20 18:35: WBC 7.9, Hgb 12.5, Hct 37.7, Plt Count 157 08/02/20 18:35: Sodium 139, Potassium 4.2, BUN 52 H, Creatinine 2.33 H, Glucose 113 H, Magnesium 2.4, Total Bilirubin 1.4 H, AST 13 L, ALT 15, Alkaline Phosphatase 89 <Eliel Jacques - Last Filed: 08/03/20 14:51> Assessment and Plan - Plan Assessment Acute on chronic systolic congestive heart failure NATHANIEL on CKD 4 DMII HTN Hypothyroidism Plan Acute on chronic systolic congestive heart failure: Fluid restriction, daily weights, IV diuresis with Lasix, obtain and continue home medications. Last echocardiogram on 02/09/2020 shows 44% EF. DVT prophylaxis with heparin 5000 units subcutaneous twice daily. Cardiology consult in place. NATHANIEL on CKD 4: Not far from baseline renal function, likely cardiorenal, will provide diuresis, check labs tomorrow morning. DMII: A.c. HS Accu-Cheks, sliding scale insulin therapy. Restart home medications once verified. HTN: Obtain and continue home medications as appropriate. Hypothyroidism: Obtain and continue home medications as appropriate. Discharge Plan: Home Plan to discharge in: 24 Hours - Advance Directives Does patient have a Living Will: No Does patient have a Durable POA for Healthcare: Yes - Code Status/Comfort Care Code Status Assessed: Yes (Full code) Critical Care: No Time Spent Managing Pts Care (In Minutes): 55 <Rasheed Valencia - Last Filed: 08/02/20 20:58> - Plan Case discussed in detail with nurse practitioner. Please see discharge summary for details. Case discussed in detail with nephrology <Eliel Jacques - Last Filed: 08/03/20 14:51>
[2020-08-03] MEDS ORDERED: ACETAMINOPHEN 500 MG TAB PO PRN (00:29)
[2020-08-03] MEDS ORDERED: ONDANSETRON 4 MG/2 ML VIAL IV PRN (00:29)
[2020-08-03] MEDS: INSULIN -REGULAR HUMAN 50 UNIT/0.5 ML ML SQ SCH ×3 (00:29→11:42)
[2020-08-03 01:52] VITALS: BMI 38.5
[2020-08-03] MEDS: HEPARIN 5000 UNIT/ML 1 ML VIAL SQ SCH ×2 (03:00→09:09)
[2020-08-03] MEDS ORDERED: HYDRALAZINE HCL 25 MG TABLET PO PRN (05:15)
[2020-08-03 05:45] LABS: Absolute Lymphocytes (CBC) 1.3 K/uL (0.7-4.9); Basophils % 0.5 % (0-1.3); Hematocrit 34.6 % (36.0-45.0); Lymphocytes % 15.6 % (15.3-44.8); MPV 9.3 fL (7.6-11.3); RBC Red Blood Cell Count 3.66 M/uL (3.86-4.86)
[2020-08-03 06:00] LABS: Magnesium 2.3 mg/dL (1.8-2.4); Potassium 3.9 mmol/L (3.5-5.1); Thyroid Stimulating Hormone 0.859 uIU/mL (0.360-3.740)
[2020-08-03] MEDS ORDERED: ALENDRONATE 70 MG TAB PO SCH (06:00)
[2020-08-03] MEDS ORDERED: carvediloL 3.125 MG TAB PO SCH (09:00)
[2020-08-03] MEDS ORDERED: CALCIUM CARBONATE 500 MG TAB PO SCH (09:00)
[2020-08-03] MEDS ORDERED: LEVOTHYROXINE SOD 0.1 MG TAB PO SCH (09:00)
[2020-08-03] MEDS ORDERED: HOME MED 1 EA UNK (Linaclotide [Linzess] 72 MCG Capsule) PO SCH (09:00)
[2020-08-03] MEDS ORDERED: ISOSORBIDE MONO SR 60 MG TAB PO SCH (09:00)
[2020-08-03] MEDS ORDERED: CITALOPRAM 10 MG TABLET PO SCH (09:00)
[2020-08-03] MEDS ORDERED: ATORVASTATIN 40 MG TAB PO SCH (09:00)
[2020-08-03] MEDS ORDERED: PANTOPRAZOLE 40MG TABLET PO SCH (09:00)
[2020-08-03] MEDS ORDERED: VITAMIN D 1000 UNIT TAB PO SCH (09:00)
[2020-08-03] MEDS ORDERED: FUROSEMIDE 40 MG/4 ML VIAL IV SCH (09:00)
[2020-08-03] MEDS ORDERED: CLOPIDOGREL 75 MG TABLET PO SCH (09:00)
--- NOTE | 2020-08-03 09:29 | RAD REPORT ---
EXAM DESCRIPTION: RAD - Chest Pa And Lat (2 Views) - 08/03/2020 8:35 am CLINICAL HISTORY: CHF COMPARISON: Portable August 02 TECHNIQUE: Frontal and lateral views of the chest were obtained. FINDINGS: The lungs are better aerated than on the prior examination. Extensive interstitial opacifi cation throughout the lung acosta, worse in the left base. Pattern is not substantially different fro m the prior study. Cardiomegaly is present but improved. No pleural effusion or pneumothorax seen. No acute bony finding noted. No aortic abnormality. IMPRESSION: CHF/volume overload findings are slightly improved from August 02.
--- NOTE | 2020-08-03 12:31 | CON ---
Date of Consultation: 08/03/2020 Reason For Consultation: Elevated BUN and creatinine, fluid management. History Of Present Illness: This is a pleasant 75-year-old female with significant past medical history of diabetes complicated with neuropathy and nephropathy, hypertension, hyperlipidemia, coronary artery disease complicated with congestive heart failure, systolic dysfunction, hypothyroidism, chronic kidney disease stage 3B/4, followed up with me in the office. The patient came to the hospital because of shortness of breath has been increasing gradually. The patient had office visit. At that time, I adjusted her Bumex. Apparently, the patient is not taking the Bumex completely currently. The patient over the night was started on diuresis, responded very well. Kidney function stayed around her baseline. Past Medical History: 1. Congestive heart failure, coronary artery disease complicated with congestive heart failure, systolic ejection fraction of 44% with diastolic dysfunction that as by echocardiogram back in January. 2. Hypertension. 3. Diabetes complicated with neuropathy and nephropathy. 4. Chronic kidney disease, baseline creatinine of 2 with GFR 22, secondary to diabetes nephropathy and cardiorenal. Allergies: NO KNOWN DRUGS ALLERGY. Home Medications: Include alendronate, atorvastatin, Bumex 2 mg b.i.d., carvedilol, citalopram, Plavix, glipizide, isosorbide, levothyroxine, pantoprazole. Family History: Positive for diabetes and hypertension. Social History: Denied smoking, denied drinking, denied drugs abuse. Review of Systems: Head and Neck: No red eye. No ear pain. GI: No nausea. No vomiting. : No polyuria. No dysuria. No hematuria. 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 Respiratory: Has shortness of breath. Cardiovascular: Has leg swelling. Endocrine: No polydipsia. Skin: No rash. Physical Examination: Vital Signs: When I saw the patient, blood pressure of 174/70, pulse of 59, afebrile. Chest: Crackles bilateral. Heart: S1, S2. Systolic murmur. Abdomen: Soft, nontender. Extremities: +1 edema. Neurologic: Alert. No focality. Laboratory Data: Sodium 141, potassium 3.9, bicarb 30, BUN 53, creatinine 2.1, calcium 9.1, magnesium 2.3. WBC 8.3, H and H 11.3/34.6. Assessment And Plan: 1. Chronic kidney disease, stage 4 secondary to cardiorenal/diabetes nephropathy, stable on her baseline, still looked to me on the over volume side. I am going to resume Bumex, but IV and we will follow up the patient closely. The patient is going to be cleared from the renal standpoint for discharge planning to follow up in the office in 2-3 weeks. 2. Hypertension, controlled, not optimal. We will utilize blood pressure for more diuresis. Given the congestive heart failure, I am going to go ahead and make her hydralazine as scheduled to maintain better blood pressure control. I am going to add isosorbide to her regimen and we will follow up. 3. Diabetes as by primary. 4. Coronary artery disease with congestive heart failure as above. 5. Anemia of chronic kidney disease. I do not see the need for any BEATRIZ. time spend discussing with the patient face to face , placing order , discusse with the patient and other merchandising team lead including hospitalist 75 min. CHENCHO Voice ID: [id number] Report ID: [id number] CRUZITO
[2020-08-03] MEDS ORDERED: HYDRALAZINE HCL 25 MG TABLET PO SCH (14:00)
[2020-08-03] MEDS ORDERED: ERGOCALCIFEROL PO SCH (14:15)
[2020-08-03] MEDS ORDERED: [UNRECOGNIZED DRUG - OTHER] PO SCH (14:15)
--- NOTE | 2020-08-03 14:45 | P.DS ---
Admission Date: 08/02/20 Discharge Date: 08/03/20 Primary Care Provider: Dr. Russell; Nephrology-Dr. Gilbert Disposition: ROUTINE DISCHARGE Discharge Condition: GOOD Reason for Admission: CHF exacerbation Consultations: Nephrology-Dr. Gilbert Cardiology-Dr. Arredondo Procedures: Follow up CXR: FINDINGS: The lungs are better aerated than on the prior examination. Extensive interstitial opacification throughout the lung acosta, worse in the left base. Pattern is not substantially different from the prior study. Cardiomegaly is present but improved. No pleural effusion or pneumothorax seen. No acute bony finding noted. No aortic abnormality. IMPRESSION: CHF/volume overload findings are slightly improved from August 02. Medical problem list: Dyspnea, edema to the lower extremities secondary to chronic renal disease stage IV complicated with cardiorenal/diabetes nephropathy/acute on chronic diastolic CHF Hypertension Diabetes mellitus type 2 CAD Anemia chronic disease Hyperlipidemia Hypothyroidism Chronic constipation Depression GERD Brief History of Present Illness: 75-year-old female with significant past medical history of diabetes complicated with neuropathy and nephropathy, hypertension, hyperlipidemia, coronary artery disease complicated with congestive heart failure, systolic dysfunction, hypothyroidism, chronic kidney disease stage 3B/4. Patient presented to the hospital with increasing shortness of breath and edema to the lower extremity. Medications have been adjusted as an outpatient. Patient found to have acute on chronic diastolic CHF. Patient admitted for further evaluation and treatment. Hospital Course: Patient presented with dyspnea, edema to the lower extremities. Patient with chronic kidney disease stage 4 with underlying cardiorenal/diabetes nephropathy. Medications have been adjusted by Nephrology recently. Decreased and Bumex was noted by family. Since that time patient has noted increasing shortness of breath. Patient was admitted for worsening symptoms. Patient with acute on chronic diastolic CHF with cardiorenal diabetic nephropathy. Nephrology was consulted. Patient received IV diuretic therapy with improvement. Patient back to baseline. At discharge patient will continue with Bumex 2 mg 1 pill twice daily. Recommend to monitor her weight daily. Recommend to continue 1500 cc per day fluid restriction and low-salt diet. If her weight increases by more than 5 lb or symptoms worsen, she is to contact nephrology for further recommendation. Further adjustment in medication may be required. This can be done with the help of her PCP or nephrology. Prior to discharge patient will be evaluated to see if patient requires home oxygen at discharge. If patient requires oxygen this will be arranged. Patient with hypertension. This appears stable. At discharge she will continue with carvedilol 6.25 mg 1 pill twice daily and hydralazine as directed. Recommend to maintain blood pressure less than 130/80. Further adjustment can be done by her PCP, Nephrology or Cardiology. Patient with diabetes mellitus type 2. At discharge she will continue with glipizide XL 5 mg daily and Tradjenta 5 mg daily. Recommend to maintain blood sugar less than 140 fasting and less than 200 after meals. Further adjustment can be done by her PCP. Patient with anemia of chronic disease. This appears stable. Patient with hyperlipidemia. At discharge she will continue with Lipitor 40 mg daily. Patient with cardiac disease. At discharge she will continue with Plavix 75 mg daily, isosorbide mononitrate 120 mg daily. Patient with hypothyroidism. At discharge she will continue with levothyroxine 150 mcg daily. Patient with chronic constipation. At discharge she will continue with Linzess 72 mcg twice daily. Patient with GERD. At discharge she will continue with Protonix 40 mg daily. Patient with depression anxiety. At discharge she will continue with Celexa 10 mg daily and trazodone 100 mg at bedtime. Vital Signs/Physical Exam: Temp Pulse Resp BP Pulse Ox 96.9 F 52 16 137/86 95 08/03/20 12:00 08/03/20 12:00 08/03/20 12:00 08/03/20 12:00 08/03/20 12:00 General: Alert, In no apparent distress, Oriented x3, Cooperative HEENT: Atraumatic Neck: Supple Respiratory: Clear to auscultation bilaterally, Normal air movement Cardiovascular: Normal pulses, Regular rate/rhythm Gastrointestinal: Normal bowel sounds, Soft and benign, Non-distended, No tenderness, No masses, No rebound Integumentary: No tenderness/swelling, No erythema, No warmth, No cyanosis Neurological: Normal speech, Normal strength at 5/5 x4 extr, Normal tone, Normal affect Laboratory Data at Discharge: WBC 8.3 K/uL (4.3-10.9) 08/03/20 04:57 Hgb 11.3 g/dL (12.0-15.0) L 08/03/20 04:57 Hct 34.6 % (36.0-45.0) L 08/03/20 04:57 Plt Count 154 K/uL (152-406) 08/03/20 04:57 PT 12.8 SECONDS (9.5-12.5) H 08/02/20 18:35 INR 1.09 08/02/20 18:35 Sodium 141 mmol/L (136-145) 08/03/20 04:57 Potassium 3.9 mmol/L (3.5-5.1) 08/03/20 04:57 BUN 53 mg/dL (7-18) H 08/03/20 04:57 Creatinine 2.14 mg/dL (0.55-1.3) H 08/03/20 04:57 Glucose 109 mg/dL (74-106) H 08/03/20 04:57 Magnesium 2.3 mg/dL (1.8-2.4) 08/03/20 04:57 Total Bilirubin 1.4 mg/dL (0.2-1.0) H 08/02/20 18:35 AST 13 U/L (15-37) L 08/02/20 18:35 ALT 15 U/L (12-78) 08/02/20 18:35 Alkaline Phosphatase 89 U/L (45-117) 08/02/20 18:35 Troponin I 0.03 ng/mL (0.0-0.045) 08/03/20 09:46 Home Medications: Alendronate Sodium 70 mg PO Q7D 04/29/20 Atorvastatin Calcium 40 mg PO DAILY 04/29/20 Carvedilol [Coreg] 6.25 mg PO BID 04/29/20 Citalopram Hydrobromide [Citalopram HBr] 10 mg PO DAILY 04/29/20 Clopidogrel Bisulfate [Plavix*] 75 mg PO DAILY 04/29/20 Ergocalciferol (Vitamin D2) [Vitamin D2] 1.25 mcg PO Q30D 04/29/20 Glipizide [Glipizide Xl] 5 mg PO DAILY 04/29/20 Isosorbide Mononitrate [Isosorbide Mononitrate ER] 120 mg PO DAILY 04/29/20 Levothyroxine [Synthroid*] 150 mcg PO DAILY 04/29/20 Linaclotide [Linzess] 72 mcg PO BID 04/29/20 Linagliptin [Tradjenta] 5 mg PO DAILY 10/17/20 Pantoprazole [Protonix Tab*] 40 mg PO DAILY 04/29/20 Bumetanide 2 mg PO BID #60 08/03/20 Calcium 600mg 1 tab PO BID 08/03/20 Hydralazine HCl [Apresoline] 1 tab PO SEECOM 08/03/20 Trazodone HCl [Desyrel] 1 tab PO BEDTIME 08/03/20 Vit D3 2000 Iu 1 cap PO BID 08/03/20 New Medications: Bumetanide 2 mg PO BID #60 Patient Discharge Instructions: Follow up with PCP in 1 week to follow up this hospitalization. Patient presented with dyspnea, edema to the lower extremities. Patient with chronic kidney disease stage 4 with underlying cardiorenal/diabetes nephropathy. Medications have been adjusted by Nephrology recently. Decreased and Bumex was noted by family. Since that time patient has noted increasing shortness of breath. Patient was admitted for worsening symptoms. Patient with acute on chronic diastolic CHF with cardiorenal diabetic nephropathy. Nephrology was consulted. Patient received IV diuretic therapy with improvement. Patient back to baseline. At discharge patient will continue with Bumex 2 mg 1 pill twice daily. Recommend to monitor her weight daily. Recommend to continue 1500 cc per day fluid restriction and low-salt diet. If her weight increases by more than 5 lb or symptoms worsen, she is to contact nephrology for further recommendation. Further adjustment in medication may be required. This can be done with the help of her PCP or nephrology. Prior to discharge patient will be evaluated to see if patient requires home oxygen at discharge. If patient requires oxygen this will be arranged. Patient with hypertension. This appears stable. At discharge she will continue with carvedilol 6.25 mg 1 pill twice daily and hydralazine as directed. Recommend to maintain blood pressure less than 130/80. Further adjustment can be done by her PCP, Nephrology or Cardiology. Patient with diabetes mellitus type 2. At discharge she will continue with glipizide XL 5 mg daily and Tradjenta 5 mg daily. Recommend to maintain blood sugar less than 140 fasting and less than 200 after meals. Further adjustment can be done by her PCP. Patient with anemia of chronic disease. This appears stable. Patient with hyperlipidemia. At discharge she will continue with Lipitor 40 mg daily. Patient with cardiac disease. At discharge she will continue with Plavix 75 mg daily, isosorbide mononitrate 120 mg daily. Patient with hypothyroidism. At discharge she will continue with levothyroxine 150 mcg daily. Patient with chronic constipation. At discharge she will continue with Linzess 72 mcg twice daily. Patient with GERD. At discharge she will continue with Protonix 40 mg daily. Patient with depression anxiety. At discharge she will continue with Celexa 10 mg daily and trazodone 100 mg at bedtime. Diet: ADA (1500 cc per day fluid restriction and low-salt diet) Activity: Ad yi Followup: Lola Russell DO [Primary Care Provider] - Time spent managing pt's care (in minutes): 55
[2020-08-03 16:45] VITALS: O2SAT 95
--- NOTE | 2020-08-03 17:16 | OP ---
Date of Procedure: 08/03/2020 Surgeon: СВЕТЛАНА SAWYER Reason For Consultation: Congestive heart failure. History Of Present Illness: A 75-year-old female with history of CKD, diabetes, coronary artery dise ase, hypertension, hypothyroidism, diastolic heart failure, presented with shortness of breath, ortho pnea, lower extremity edema, found to be in heart failure, started on IV diuretics, evaluated above b edside. She was lying flat. No shortness of breath. No distress. No chest pain. Past Medical History: As outlined above in the HPI. Medication: Refer to reconciliation sheet for detailed list. Allergies: NO KNOWN DRUG ALLERGIES. Family History: No premature coronary artery disease or cancer. Social History: She does not smoke or drink. Does not use any drugs. Review of Systems: All systems reviewed and they were negative except for mentioned in the HPI. Physical Examination: Vital Signs: Temperature is 96.7, pulse 52, breathing 16, blood pressure 137/87, saturating 95% on r oom air. General: Pleasant elderly female, in no apparent distress. Head and Neck: Pupils are equal , reactive to light. Intact eye movements. No JVD. No cervical lymphadenopathy. Neck: Supple. Thyroid is not enlarged. Lungs: Clear to auscultation bilaterally. No rhonchi, rales, or crackles. No accessory muscle use. Heart: Regular rate and rhythm. No extra sounds. Abdomen: Soft, nontender. Bowel sounds positive. No organomegaly or cyanosis.. Extremities: No clubbing, cyanosis. Intact pulses. Skin: No rash was noted. Neuro: Alert, awake, oriented x3. No acute focal deficits appreciated, Investigations: Echo done back in January showed a significant aortic stenosis with ejection fraction o f 40%-45%. Assessment And Plan: Acute on chronic congestive heart failure exacerbation, doing better with diure tics. Continue current management and I recommend to repeat echocardiogram to further evaluate the a ortic valve severity. The patient might benefit from aortic valve replacement if needed. Also due t o low ejection fraction, the patient never had ischemic workup. We recommend further ischemic evalua tion with coronary angiogram, which can be scheduled as an outpatient if the patient is hemodynamical ly stable. SR/MODL Voice ID: [id number] Report ID: [id number]
[2020-08-03 18:00] VITALS: BP 157/66; TEMP 96.8
[2020-08-03] MEDS ORDERED: TRAZODONE 50 MG TABLET PO SCH (21:00)
[2020-08-03] MEDS ORDERED: BUMETANIDE 1 MG/4 ML VIAL IV SCH (21:00)
[2020-08-04] MEDS ORDERED: ALENDRONATE 70 MG TAB PO SCH (06:00)
== END 2020-08-03 17:02 | disposition home or self-care (01) ==
LOC: ER 16:11 → ERHOLD 20:06 → 2ND 08-03 00:24
PROVIDERS: ADMIT Family Medicine; ATTEND Family Medicine
DX: I13.0 Hypertensive heart and chronic kidney disease with heart failure and stage 1 through stage 4 chronic kidney disease, or unspecified chronic kidney disease (principal); I50.33 Acute on chronic diastolic (congestive) heart failure; N18.4 Chronic kidney disease, stage 4 (severe); I35.0 Nonrheumatic aortic (valve) stenosis; E11.22 Type 2 diabetes mellitus with diabetic chronic kidney disease; N17.9 Acute kidney failure, unspecified; Z20.822 Contact with and (suspected) exposure to COVID-19; I25.10 Atherosclerotic heart disease of native coronary artery without angina pectoris; E03.9 Hypothyroidism, unspecified; E11.40 Type 2 diabetes mellitus with diabetic neuropathy, unspecified; E78.5 Hyperlipidemia, unspecified; D63.1 Anemia in chronic kidney disease; Z79.02 Long term (current) use of antithrombotics/antiplatelets; K59.09 Other constipation; K21.9 Gastro-esophageal reflux disease without esophagitis; Z79.4 Long term (current) use of insulin; Z86.73 Personal history of transient ischemic attack (TIA), and cerebral infarction without residual deficits; E66.9 Obesity, unspecified; Z68.38 Body mass index [BMI] 38.0-38.9, adult
CPT/HCPCS: 85025 ×2; 80048 ×2; 36415; 83735 ×2; 85610; 82947 ×5; 80076; 84443; 84484 ×3; 84439; 83880; 71045; 71046; 99285; U0003; J1940 ×3; J1644 ×2; G0378

== ENCOUNTER 2020-08-28 16:09 | Inpatient (IN) | payer OTHER ==
[2020-08-28 17:27] LABS: Absolute Lymphocytes (CBC) 1.2 K/uL (0.7-4.9); Basophils % 0.4 % (0-1.3); Hematocrit 40.7 % (36.0-45.0); MPV 9.5 fL (7.6-11.3); RBC Red Blood Cell Count 4.36 M/uL (3.86-4.86)
[2020-08-28 17:29] LABS: Protime INR 1.06
--- NOTE | 2020-08-28 17:29 | RAD REPORT ---
EXAM DESCRIPTION: RAD - Chest Single View - 08/28/2020 5:23 pm CLINICAL HISTORY: SOB Chest pain. COMPARISON: Chest Pa And Lat (2 Views) dated 08/03/2020; Chest Single View dated 08/02/2020; Abdomen 1 View (KUB) dated 05/30/2020; Chest Single View dated 04/28/2020 FINDINGS: Portable technique limits examination quality. Mild interstitial pulmonary edema is seen. The heart is significantly enlarged. No displaced fracture s. IMPRESSION: Mild CHF.
[2020-08-28 17:34] LABS: ALT/SGPT 17 U/L (12-78); AST/SGOT 17 U/L (15-37); Albumin 3.4 g/dL (3.4-5.0); Alkaline Phosphatase 84 U/L (45-117); BUN Blood Urea Nitrogen 59 mg/dL (7-18); Bicarbonate 26 mmol/L (21-32); Bilirubin Direct 0.4 mg/dL (0-0.2); Bilirubin Total 1.2 mg/dL (0.2-1.0); Ferritin 196.4 ng/mL (8-388); Glucose Level 225 mg/dL (74-106); Lipase 69 U/L (73-393); Potassium 4.4 mmol/L (3.5-5.1); Protein, Total 6.9 g/dL (6.4-8.2); Sodium Level 139 mmol/L (136-145); Troponin (Emerg Dept Use Only) 0.06 ng/mL (0.0-0.045)
[2020-08-28 17:36] LABS: C-Reactive Protein < 2.90 mg/L (<3.00)
--- NOTE | 2020-08-28 18:41 | ER ---
Nurse's Notes [facility] Name: Lola Braun Age: 75 yrs Sex: Female : 1945 Arrival Date: 08/28/2020 Time: 16:27 Bed 20 Private MD: Diagnosis: Hypoxemia;Unspecified combined systolic (congestive) and diastolic (congestive) heart failure Presentation: 08/28 16:29 Chief complaint: EMS states: SOB. Coronavirus screen: Client presents with at least one bp sign or symptom that may indicate coronavirus-19. Standard/surgical mask placed on the client. Provider contacted for isolation considerations. Ebola Screen: No symptoms or risks identified at this time. Initial Sepsis Screen: Does the patient meet any 2 criteria? No. Patient's initial sepsis screen is negative. Does the patient have a suspected source of infection? No. Patient's initial sepsis screen is negative. Risk Assessment: Do you want to hurt yourself or someone else? Patient reports no desire to harm self or others. Onset of symptoms is unknown. Care prior to arrival: IV initiated. 22 GA, in the left forearm, Glucose check: 298. 16:29 Method Of Arrival: EMS: [facility] bp 16:29 Acuity: RAUL 3 bp Triage Assessment: 16:30 General: Appears distressed, uncomfortable, Behavior is cooperative, appropriate for bp age, anxious. Pain: Denies pain. EENT: No deficits noted. Neuro: Level of Consciousness is awake, alert, obeys commands, Oriented to Appropriate for age. Cardiovascular: Rhythm is sinus rhythm. Respiratory: Reports shortness of breath cough that is Onset: The symptoms/episode began/occurred at an unknown time. the patient has moderate shortness of breath. GI: No signs and/or symptoms were reported involving the gastrointestinal system. : No signs and/or symptoms were reported regarding the genitourinary system. Derm: No deficits noted. Musculoskeletal: No deficits noted. Historical: - Allergies: 16:30 NKDA; bp - PMHx: 16:30 Diabetes - IDDM; GERD; Hyperlipidemia; Hypertension; kidney problems; Myocardial bp infarction; CHF; - Immunization history:: Adult Immunizations unknown. - Social history:: Smoking status: Patient denies any tobacco usage or history of. Screenin:30 Abuse screen: Denies threats or abuse. Denies injuries from another. Nutritional bp screening: No deficits noted. Tuberculosis screening: No symptoms or risk factors identified. Fall Risk None identified. Assessment: 16:30 General: SEE TRIAGE NOTE. bp 17:30 Reassessment: No changes from previously documented assessment. Patient and/or family bp updated on plan of care and expected duration. Pain level reassessed. Patient is alert, oriented x 3, equal unlabored respirations, skin warm/dry/pink. Cardiovascular: Rhythm is sinus bradycardia. Respiratory: Airway is patent Respiratory effort is even, relaxed, Breath sounds are coarse bilaterally. 18:30 Reassessment: No changes from previously documented assessment. Patient and/or family bp updated on plan of care and expected duration. Pain level reassessed. 21:07 General: Appears in no apparent distress. comfortable, Behavior is calm, cooperative. sf Pain: Denies pain. Neuro: No deficits noted. Level of Consciousness is awake, alert, Oriented to Appropriate for age. Cardiovascular: Patient's skin is warm and dry. Rhythm is sinus bradycardia. Respiratory: Airway is patent Respiratory effort is even, unlabored, Respiratory pattern is regular, symmetrical, Breath sounds are coarse bilaterally. Vital Signs: 16:29 BP 155 / 99; Pulse Ox 84% on R/A; bp 16:32 BP 159 / 62; Pulse 60; Resp 17; Temp 97.9; Pulse Ox 98% on 4 lpm NC; bp 17:37 BP 173 / 74; Pulse 48; Resp 17; Pulse Ox 97% ; bp 18:30 BP 175 / 64; Pulse 48; Resp 16; Pulse Ox 100% ; bp 19:00 BP 177 / 62; Pulse 48; Resp 20; Pulse Ox 100% on 3 lpm NC; sf 19:30 BP 182 / 52; Pulse 46; Pulse Ox 100% ; sf 20:00 BP 173 / 64; Pulse 47; Pulse Ox 100% ; sf 21:00 BP 164 / 58; Pulse 52; Resp 18; Pulse Ox 100% on 3 lpm NC; sf Vitals: 21:00 Cardiac Rhythm Assessment Sinus hillary. sf ED Course: 16:27 Patient arrived in ED. bp 16:30 Triage completed. bp 16:30 Arm band placed on. bp 16:30 Patient has correct armband on for positive identification. Bed in low position. Call bp light in reach. Side rails up X2. 16:30 Maintain EMS IV. Dressing intact. Good blood return noted. Site clean \T\ dry. Gauge \T\ bp site: 22 G LEFT AC. 16:42 Damon Joshi MD is Attending Physician. tw4 17:17 Js Jang, RN is Primary Nurse. bp 17:26 CXR XRAY In Process Unspecified. EDMS 18:39 Thomas Lu MD is Hospitalizing Provider. tw4 20:55 No provider procedures requiring assistance completed. Patient admitted, IV remains in sf place. 21:36 Report given to NICHOLAS Wood. sf Administered Medications: 18:30 Drug: Lasix 40 mg Route: IVP; Site: left antecubital; bp 21:06 Follow up: Response: No adverse reaction sf Outcome: 18:40 Decision to Hospitalize by Provider. tw4 21:36 Admitted to Tele accompanied by tech, via wheelchair, with oxygen, Report called to juan manuel Wood RN 21:40 Condition: stable sf 21:54 Patient left the ED. Signatures: Dispatcher [employer] EDTX Js Jang, RN RN Damon Joshi MD MD tw4 El Aquino RN RN
--- NOTE | 2020-08-28 18:41 | EDPHYS ---
Physician Documentation [facility] Name: Lola Braun Age: 75 yrs Sex: Female : 1945 Arrival Date: 08/28/2020 Time: 16:27 Bed 20 Private MD: ED Physician Damon Joshi HPI: 08/28 18:32 This 75 yrs old Female presents to ER via EMS with complaints of Shortness Of tw4 Breath. 18:32 The patient has shortness of breath at rest. Onset: The symptoms/episode began/occurred tw4 today. Duration: The symptoms are continuous, but are steadily getting better. The patient's shortness of breath has no apparent modifying factors. Associated signs and symptoms: The patient has no apparent associated signs or symptoms. Severity of symptoms: At their worst the symptoms were moderate in the emergency department the symptoms are unchanged. The patient has not experienced similar symptoms in the past. Historical: - Allergies: 16:30 NKDA; bp - PMHx: 16:30 Diabetes - IDDM; GERD; Hyperlipidemia; Hypertension; kidney problems; Myocardial bp infarction; CHF; - Immunization history:: Adult Immunizations unknown. - Social history:: Smoking status: Patient denies any tobacco usage or history of. ROS: 18:32 Constitutional: Negative for fever, chills, and weight loss, Eyes: Negative for injury, tw4 pain, redness, and discharge, Cardiovascular: Negative for chest pain, palpitations, and edema, Abdomen/GI: Negative for abdominal pain, nausea, vomiting, diarrhea, and constipation, Back: Negative for injury and pain, MS/Extremity: Negative for injury and deformity, Skin: Negative for injury, rash, and discoloration, Neuro: Negative for headache, weakness, numbness, tingling, and seizure. 18:32 Respiratory: Positive for shortness of breath, Negative for cough, dyspnea on exertion, hemoptysis, orthopnea, pleurisy, sputum production, wheezing. Exam: 18:32 Constitutional: This is a well developed, well nourished patient who is awake, alert, tw4 and in no acute distress. Head/Face: Normocephalic, atraumatic. Chest/axilla: Normal chest wall appearance and motion. Nontender with no deformity. No lesions are appreciated. Cardiovascular: Regular rate and rhythm with a normal S1 and S2. No gallops, murmurs, or rubs. Normal PMI, no JVD. No pulse deficits. Respiratory: Lungs have equal breath sounds bilaterally, clear to auscultation and percussion. No rales, rhonchi or wheezes noted. No increased work of breathing, no retractions or nasal flaring. Abdomen/GI: Soft, non-tender, with normal bowel sounds. No distension or tympany. No guarding or rebound. No evidence of tenderness throughout. Back: No spinal tenderness. No costovertebral tenderness. Full range of motion. Skin: Warm, dry with normal turgor. Normal color with no rashes, no lesions, and no evidence of cellulitis. MS/ Extremity: Pulses equal, no cyanosis. Neurovascular intact. Full, normal range of motion. Neuro: Awake and alert, GCS 15, oriented to person, place, time, and situation. Cranial nerves II-XII grossly intact. Motor strength 5/5 in all extremities. Sensory grossly intact. Cerebellar exam normal. Normal gait. Vital Signs: 16:29 BP 155 / 99; Pulse Ox 84% on R/A; bp 16:32 BP 159 / 62; Pulse 60; Resp 17; Temp 97.9; Pulse Ox 98% on 4 lpm NC; bp 17:37 BP 173 / 74; Pulse 48; Resp 17; Pulse Ox 97% ; bp 18:30 BP 175 / 64; Pulse 48; Resp 16; Pulse Ox 100% ; bp 19:00 BP 177 / 62; Pulse 48; Resp 20; Pulse Ox 100% on 3 lpm NC; sf 19:30 BP 182 / 52; Pulse 46; Pulse Ox 100% ; sf 20:00 BP 173 / 64; Pulse 47; Pulse Ox 100% ; sf 21:00 BP 164 / 58; Pulse 52; Resp 18; Pulse Ox 100% on 3 lpm NC; sf MDM: 18:32 Differential diagnosis: Anemia Anxiety Reaction reactive airway disease, Sepsis. tw4 Antibiotic administration: Not indicated. Data reviewed: vital signs, nurses notes. Data interpreted: Pulse oximetry: Interpretation: normal. Counseling: I had a detailed discussion with the patient and/or guardian regarding: the historical points, exam findings, and any diagnostic results supporting the discharge/admit diagnosis. 18:40 Patient medically screened. tw4 08/28 16:45 Order name: Blood Culture Adult (2) tw4 02/15 16:45 Order name: BMP 08/28 16:45 Order name: C-Reactive Protein 08/28 16:45 Order name: CBC with Diff 08/28 16:45 Order name: D-Dimer 08/28 16:45 Order name: Ferritin 08/28 16:45 Order name: Lactate; Complete Time: 17:44 08/28 17:44 Interpretation: Within normal limits: LAC 1.5. 08/28 16:45 Order name: LFT's; Complete Time: 17:44 08/28 16:45 Order name: Lipase; Complete Time: 17:44 08/28 16:45 Order name: Procalcitonin; Complete Time: 18:16 08/28 16:45 Order name: PT-INR; Complete Time: 17:44 08/28 17:44 Interpretation: Within normal limits: PT 12.2. 08/28 16:45 Order name: Ptt, Activated; Complete Time: 17:44 08/28 16:45 Order name: Strep 08/28 16:45 Order name: Troponin (emerg Dept Use Only); Complete Time: 17:44 08/28 16:45 Order name: Urine Microscopic Only 08/28 16:45 Order name: CXR XRAY; Complete Time: 17:31 08/28 16:45 Order name: EKG; Complete Time: 16:46 08/28 16:45 Order name: Cardiac monitoring; Complete Time: 17:19 08/28 16:45 Order name: Blood Culture [facility] 08/28 16:45 Order name: Basic Metabolic Panel; Complete Time: 17:44 EDNC 08/28 18:13 Interpretation: Normal except: CRE 2.01; BUN 59; GLUC 225; GFR 24. 08/28 16:45 Order name: C-Reactive Protein; Complete Time: 17:44 EDNC 08/28 16:45 Order name: CBC with Automated Diff; Complete Time: 17:31 EDNC 08/28 17:31 Interpretation: Normal except: WBC 11.80; MCHC 31.8; NEUT A 9.9; LYM% 10.0; KATE% 83.5. 08/28 16:45 Order name: D-Dimer; Complete Time: 17:44 EDMS 08/28 17:44 Interpretation: Abnormal: D-DIMER 799. tw4 08/28 16:45 Order name: Ferritin; Complete Time: 17:44 EDMS 08/28 17:44 Interpretation: Within normal limits: ALLISON 196.4. tw4 08/28 20:03 Order name: COVID-19/FLU A+B EDNC 08/28 20:05 Order name: Throat Culture EDNC 08/28 16:45 Order name: Droplet/Contact Precautions; Complete Time: 17:19 tw4 08/28 16:45 Order name: EKG - Nurse/Tech; Complete Time: 18:10 tw4 08/28 16:45 Order name: IV Start; Complete Time: 17:19 tw4 08/28 16:45 Order name: Labs collected and sent; Complete Time: 17:18 tw4 08/28 16:45 Order name: O2 Per Protocol; Complete Time: 17:18 tw4 08/28 16:45 Order name: O2 Sat Monitoring; Complete Time: 17:19 tw4 EC:32 Rate is 4 beats/min. Rhythm is regular. QRS [place] is Normal. CO interval is normal. QRS tw4 interval is prolonged. QT interval is normal. No Q waves. T waves are Normal. No ST changes noted. Clinical impression: Sinus bradycardia. Interpreted by me. Reviewed by me. Administered Medications: 18:30 Drug: Lasix 40 mg Route: IVP; Site: left antecubital; bp 21:06 Follow up: Response: No adverse reaction sf Disposition: 08/28/20 18:40 Hospitalization ordered by Thomas Lu for Inpatient Admission. Preliminary diagnosis are Hypoxemia, Unspecified combined systolic (congestive) and diastolic (congestive) heart failure. - Bed requested for Telemetry/MedSurg (Inpatient). - Status is Inpatient Admission. sf - Condition is Stable. - Problem is new. - Symptoms are unchanged. Signatures: Dispatcher [employer] Yue Carrasco RN RN Js Jang RN RN Damon Fonseca MD MD tw4 El Aquino RN RN sf Corrections: (The following items were deleted from the chart) 17:18 16:45 [place] ordered. tw4 bp 18:13 17:44 Normal except: GFR 24; CRE 2.01; BUN 59; GLUC 225. tw4 tw4 18:13 18:13 Normal except: CRE 2.01; BUN 59; GLUC 225. tw4 tw4 18:22 18:16 Chest For PE Angio+CT.RAD.BRZ ordered. EDNC EDMS 19:14 16:47 CORONAVIRUS+MR.LAB.BRZ ordered. EDMS EDMS 19:15 16:46 Influenza Screen (A \T\ B)+BA.LAB.BRZ ordered. EDNC EDMS 20:35 18:40 Hospitalization Ordered by Thomas Lu MD for Inpatient Admission. Preliminary dw diagnosis is Hypoxemia; Unspecified combined systolic (congestive) and diastolic (congestive) heart failure. Bed requested for Telemetry/MedSurg (Inpatient). Status is Inpatient Admission. Condition is Stable. Problem is new. Symptoms are unchanged. 4 21:54 20:35 08/28/2020 18:40 Hospitalization Ordered by Thomas Lu MD for Inpatient sf Admission. Preliminary diagnosis is Hypoxemia; Unspecified combined systolic (congestive) and diastolic (congestive) heart failure. Bed requested for Telemetry/MedSurg (Inpatient). Status is Inpatient Admission. Condition is Stable. Problem is new. Symptoms are unchanged. dw
[2020-08-28] MEDS ORDERED: FUROSEMIDE 40 MG/4 ML VIAL ONE (19:06)
[2020-08-28 20:03] LABS: SARS-COV-2 RT PCR NEGATIVE (NEGATIVE)
[2020-08-28] MEDS ORDERED: HEPARIN 5000 UNIT/ML 1 ML VIAL SQ SCH (21:33)
[2020-08-28] MEDS ORDERED: ACETAMINOPHEN 500 MG TAB PO PRN (21:33)
[2020-08-28] MEDS ORDERED: ONDANSETRON 4 MG/2 ML VIAL IV PRN (21:33)
[2020-08-28] MEDS: ATORVASTATIN 40 MG TAB PO SCH (22:28)
[2020-08-28] MEDS: INSULIN -REGULAR HUMAN 50 UNIT/0.5 ML ML SQ SCH (22:28)
--- NOTE | 2020-08-28 23:12 | P.HP ---
Certification for Inpatient Patient admitted to: Observation With expected LOS: <2 Midnights Patient will require the following post-hospital care: None Practitioner: I am a practitioner with admitting privileges, knowledge of patient current condition, hospital course, and medical plan of care. Services: Services provided to patient in accordance with Admission requirements found in Title 42 Section 412.3 of the Code of Federal Regulations Patient History Date of Service: 08/28/20 Primary Care Provider: Deep Donovan History of Present Illness: 75-year-old female with history of CKD 4, diabetes mellitus type 2, chronic systolic CHF complicated with severe aortic stenosis, hypertension, hypothyroidism presented emergency department for dyspnea. Patient was seen at our facility August 02 for similar symptoms, was diuresed and responded well. Patient was short of breath at home room air saturations found to be 84%. At discharge last month patient was due to follow up with cardiology to review treatment options regarding severe aortic stenosis, patient never did make it to follow up with cardiology. Workup in the ER significant for creatinine 2.01 which is very similar to baseline initial troponin 0.06 D-dimer 799 chest x-ray demonstrates mild CHF. ED provider wishes to admit patient for further evaluation and management. Allergies No Known Drug Allergies Allergy (Verified 08/28/20 22:13) Unknown Home Medications: Alendronate Sodium 70 mg PO Q7D 04/29/20 Atorvastatin Calcium 40 mg PO DAILY 04/29/20 Carvedilol [Coreg] 6.25 mg PO BID 04/29/20 Citalopram Hydrobromide [Citalopram HBr] 10 mg PO DAILY 04/29/20 Clopidogrel Bisulfate [Plavix*] 75 mg PO DAILY 04/29/20 Ergocalciferol (Vitamin D2) [Vitamin D2] 1.25 mcg PO Q30D 04/29/20 Glipizide [Glipizide Xl] 5 mg PO DAILY 04/29/20 Isosorbide Mononitrate [Isosorbide Mononitrate ER] 120 mg PO DAILY 04/29/20 Levothyroxine [Synthroid*] 150 mcg PO DAILY 04/29/20 Linaclotide [Linzess] 72 mcg PO BID 04/29/20 Linagliptin [Tradjenta] 5 mg PO DAILY 04/29/20 Pantoprazole [Protonix Tab*] 40 mg PO DAILY 04/29/20 Bumetanide 2 mg PO BID #60 08/03/20 Bumetanide [Bumex] 2 mg PO BID #60 tab 08/03/20 Calcium 600mg 1 tab PO BID 08/03/20 Hydralazine HCl [Apresoline] 1 tab PO SEECOM 08/03/20 Trazodone HCl [Desyrel] 1 tab PO BEDTIME 08/03/20 Vit D3 2000 Iu 1 cap PO BID 08/03/20 - Past Medical/Surgical History Has patient received pneumonia vaccine in the past: Yes Diabetic: Yes -: Hypertension -: Diabetes mellitus type 2, insulin-dependent -: Coronary artery disease, Cardiology-Dr. Donovan -: Hypothyroidism -: Hyperlipidemia -: History of CVA -: Obesity -: Chronic kidney disease, stage 4 -: GERD -: Chronic systolic congestive heart failure with aortic stenosis -: Heart catheterization requiring stent -: Appendectomy Psychosocial/ Personal History: She is , has 9 children, she does not work. - Family History Father -: Heart disease, Diabetes Mother -: Heart disease - Social History Smoking Status: Never smoker Alcohol use: No CD- Drugs: No Caffeine use: Yes Place of Residence: Home Review of Systems 10-point ROS is otherwise unremarkable Respiratory: Shortness of Breath Cardiovascular: Chest Pain, Orthopnea Physical Examination - Vital Signs Temperature: 97.9 F Blood Pressure: 164/58 Pulse: 52 Respirations: 18 - Physical Exam General: Alert, In no apparent distress, Oriented x3 HEENT: Atraumatic, Normocephalic, PERRLA Neck: Supple Respiratory: Crackles/rales (Bibasilar) Cardiovascular: Normal S1 S2, Irregular heart rate/rhythm (Sinus bradycardia rate around 50) Gastrointestinal: Normal bowel sounds Musculoskeletal: No swelling, No contractures, No erythema Integumentary: No breakdown, No significant lesion, No tenderness/swelling Neurological: Normal speech, Normal strength at 5/5 x4 extr, Normal tone, Sensation intact - Studies Laboratory Data (last 24 hrs) 08/28/20 17:04: PT 12.2, INR 1.06, APTT 23.1 L 08/28/20 17:04: WBC 11.80 H, Hgb 12.9, Hct 40.7, Plt Count 187 08/28/20 17:04: Sodium 139, Potassium 4.4, BUN 59 H, Creatinine 2.01 H, Glucose 225 H, Total Bilirubin 1.2 H, AST 17, ALT 17, Alkaline Phosphatase 84, Lipase 69 L Microbiology Data (last 24 hrs): 08/28/20 17:15 Throat Group A Streptococcus Rapid Screen - Final Assessment and Plan - Plan Assessment Acute on chronic systolic congestive heart failure complicated by severe aortic stenosis Dyspnea with elevated D-dimer Diabetes mellitus type 2 CAD Sinus bradycardia Hypertension Hyperlipidemia, hypothyroidism, GERD, depression with anxiety Plan Acute on chronic systolic congestive heart failure complicated by severe aortic stenosis: Continue with IV diuresis, fluid restrictions. Cardiology consult in place. Recent echocardiogram demonstrates ejection fraction around 35% with aortic stenosis, patient was supposed to follow up with cardiology at discharge but never made it, cardiology believed patient would likely require TAVR. 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 Trend troponins. DVT prophylaxis heparin 5000 units subcutaneous twice daily. Dyspnea with elevated D-dimer: V/Q scan in the morning Diabetes mellitus type 2: A.c. HS accuchecks, SSI CAD: Continue home medications, trend troponin. Sinus bradycardia: Hold carvedilol. Hypertension: Continue other home blood pressure medications. Hyperlipidemia, hypothyroidism, GERD, depression with anxiety: Stable at this time continue meds Discharge Plan: Home Plan to discharge in: 24 Hours - Advance Directives Does patient have a Living Will: No Does patient have a Durable POA for Healthcare: No - Code Status/Comfort Care Code Status Assessed: Yes (Full code) Critical Care: No Time Spent Managing Pts Care (In Minutes): 55
[2020-08-29 00:25] VITALS: BMI 32.5
[2020-08-29] MEDS ORDERED: HEPARIN/D5W 25,000 UNIT/500 ML BAG IV SCH (03:00)
[2020-08-29] MEDS: LEVOTHYROXINE SOD 0.075 MG TAB PO SCH (05:36)
[2020-08-29 06:32] LABS: Absolute Lymphocytes (CBC) 1.8 K/uL (0.7-4.9); Basophils % 0.2 % (0-1.3); Hematocrit 36.8 % (36.0-45.0); Lymphocytes % 15.4 % (15.3-44.8); MPV 9.6 fL (7.6-11.3); RBC Red Blood Cell Count 3.94 M/uL (3.86-4.86)
[2020-08-29 07:01] LABS: Magnesium 2.6 mg/dL (1.8-2.4); Potassium 4.6 mmol/L (3.5-5.1); Thyroid Stimulating Hormone 0.893 uIU/mL (0.360-3.740); Troponin I 0.29 ng/mL (0.0-0.045)
[2020-08-29] MEDS: INSULIN -REGULAR HUMAN 50 UNIT/0.5 ML ML SQ SCH ×4 (07:30→21:36)
[2020-08-29] MEDS: FUROSEMIDE 40 MG/4 ML VIAL IV SCH ×2 (09:38→17:03)
[2020-08-29] MEDS: ISOSORBIDE MONO SR 60 MG TAB PO SCH (09:39)
[2020-08-29] MEDS: CLOPIDOGREL 75 MG TABLET PO SCH (09:42)
--- NOTE | 2020-08-29 10:00 | EKG ---
Test Date: 2020-08-28 Test Time: 18:05:57 Director Mba: HERMANN MEASUREMENT RESULTS: Intervals: Rate: 49 IL: 154 QRSD: 168 QT: 572 QTc: 516 [place]: P: 107 IL: 154 QRS: -13 T: -8 INTERPRETIVE STATEMENTS: Sinus bradycardia Left bundle branch block Abnormal ECG Compared to ECG 08/02/2020 21:43:18 No significant changes Electronically Signed On 08-29-20 09:59:29 [employer] PRIMER MACHINE OPERATOR by Angel Luis Castaneda
--- NOTE | 2020-08-29 13:43 | P.PN ---
Subjective Date of Service: 08/29/20 Primary Care Provider: Deep Donovan Subjective: Other (Stable. No chest pain. SOB is improved.) Physical Examination - Vital Signs Temperature: 96.2 F Blood Pressure: 173/72 Pulse: 51 Respirations: 18 Pulse Ox (%): 97 - Studies Laboratory Data (last 24 hrs) 08/28/20 22:43: Troponin I 0.24 H 08/28/20 17:04: PT 12.2, INR 1.06, APTT 23.1 L 08/28/20 17:04: WBC 11.80 H, Hgb 12.9, Hct 40.7, Plt Count 187 08/28/20 17:04: Sodium 139, Potassium 4.4, BUN 59 H, Creatinine 2.01 H, Glucose 225 H, Total Bilirubin 1.2 H, AST 17, ALT 17, Alkaline Phosphatase 84, Lipase 69 L Microbiology Data (last 24 hrs): 08/28/20 17:20 Blood - Blood Anaerobic Blood Culture - Final 08/28/20 17:15 Throat Group A Streptococcus Rapid Screen - Final Assessment & Plan Discharge Plan: Home Plan to discharge in: 24 Hours Physician Review Additional Text: Physical Exam: Patient is stable. No SOB. Patient on 2 liter. Heart: Regular rate rhythm. Lung: Clear to auscultation GI: Nontender, nondistended. Ext: No edema. Assessment Acute on chronic systolic congestive heart failure complicated by severe aortic stenosis Dyspnea with elevated D-dimer Diabetes mellitus type 2 CAD Sinus bradycardia Hypertension Hyperlipidemia, hypothyroidism, GERD, depression with anxiety Plan Acute on chronic systolic congestive heart failure complicated by severe aortic stenosis: Continue IV diuretic therapy. Fluid restriction in place. Cardiology had wanted the patient to be seen as an outpatient for dobutamine echocardiogram, heart catheterization and TAVR. This will continue to be the plan of care. Discontinue heparin. Will monitor closely. Anticipate possible discharge in the next 24-48 hr with home oxygen. Workup for aortic stenosis will need to be done as an outpatient. Dyspnea with elevated D-dimer: V/Q scan ordered. Will discontinue heparin as shortness of breath likely related to acute on chronic systolic heart failure with aortic stenosis. Diabetes mellitus type 2: A.c. HS accuchecks, SSI CAD: Monitor closely. Sinus bradycardia: Hold carvedilol. Will make further adjustments in medication. Hypertension: Continue other home blood pressure medications. Hyperlipidemia, hypothyroidism, GERD, depression with anxiety: Stable at this time continue meds Time Spent Managing Pts Care (In Minutes): 55
[2020-08-29] MEDS ORDERED: HOME MED 1 EA UNK (Hydralazine Hcl [Apresoline] 50 MG Tablet) PO SCH (14:00)
[2020-08-29] MEDS: HEPARIN 5000 UNIT/ML 1 ML VIAL SQ SCH (21:35)
[2020-08-29] MEDS: ATORVASTATIN 40 MG TAB PO SCH (21:35)
[2020-08-29] MEDS: HYDRALAZINE HCL 25 MG TABLET PO SCH (21:35)
[2020-08-30 03:24] LABS: Urine Appearance CLEAR; Urine Bilirubin NEGATIVE (NEG); Urine Blood NEGATIVE (NEG); Urine Color YELLOW; Urine Glucose NEGATIVE (NEG); Urine Microscopic Reflex ORDER UMIC; Urine Protein TRACE (NEG); Urine pH 5.5 (5.0-7.0)
[2020-08-30 04:53] LABS: Urine Bacteria <20 /HPF (<20); Urine RBC <5 /HPF (NONE SEEN); Urine Urothelial Cells <5 /HPF (NONE SEEN)
[2020-08-30] MEDS: LEVOTHYROXINE SOD 0.075 MG TAB PO SCH (05:53)
[2020-08-30 06:30] LABS: Basophils % 0.3 % (0-1.3); Hematocrit 33.3 % (36.0-45.0); MPV 9.4 fL (7.6-11.3)
[2020-08-30 06:42] LABS: Magnesium 2.5 mg/dL (1.8-2.4); Potassium 4.3 mmol/L (3.5-5.1)
[2020-08-30] MEDS: INSULIN -REGULAR HUMAN 50 UNIT/0.5 ML ML SQ SCH ×4 (07:30→20:48)
[2020-08-30] MEDS ORDERED: HOME MED 1 EA UNK (Losartan Potassium [Losartan Potassium] 100 MG Tablet) PO SCH (09:00)
[2020-08-30] MEDS: FUROSEMIDE 40 MG/4 ML VIAL IV SCH (09:00)
--- NOTE | 2020-08-30 09:53 | P.DS ---
Admission Date: 08/29/20 Discharge Date: 08/30/20 Primary Care Provider: Dr. Russell; Cards- Dr. Donovan Disposition: DC HOME/HOME HEALTH CARE Discharge Condition: GOOD Reason for Admission: SOB Consultations: Cardiology-Dr. Castaneda Vital Signs/Physical Exam: Temp Pulse Resp BP Pulse Ox 97.3 F 62 18 136/65 97 08/30/20 08:00 08/30/20 08:00 08/30/20 08:00 08/30/20 08:00 08/30/20 08:00 General: Alert, In no apparent distress, Cooperative HEENT: Atraumatic Neck: Supple Respiratory: Clear to auscultation bilaterally Cardiovascular: Normal pulses, Regular rate/rhythm Gastrointestinal: Normal bowel sounds, No masses, No rebound, No guarding Integumentary: No erythema, No warmth, No cyanosis Neurological: Normal speech, Normal strength at 5/5 x4 extr, Normal tone, Normal affect Laboratory Data at Discharge: WBC 9.60 K/uL (4.3-10.9) D 08/30/20 05:48 Hgb 11.3 g/dL (12.0-15.0) L 08/30/20 05:48 Hct 33.3 % (36.0-45.0) L 08/30/20 05:48 Plt Count 137 K/uL (152-406) L 08/30/20 05:48 PT 12.2 SECONDS (9.5-12.5) 08/28/20 17:04 INR 1.06 08/28/20 17:04 APTT > 400.0 SECONDS (24.3-36.9) H* 08/29/20 12:19 Sodium 142 mmol/L (136-145) 08/30/20 05:48 Potassium 4.3 mmol/L (3.5-5.1) 08/30/20 05:48 BUN 66 mg/dL (7-18) H 08/30/20 05:48 Creatinine 2.44 mg/dL (0.55-1.3) H 08/30/20 05:48 Glucose 107 mg/dL (74-106) H 08/30/20 05:48 Magnesium 2.5 mg/dL (1.8-2.4) H 08/30/20 05:48 Total Bilirubin 1.2 mg/dL (0.2-1.0) H 08/28/20 17:04 AST 17 U/L (15-37) 08/28/20 17:04 ALT 17 U/L (12-78) 08/28/20 17:04 Alkaline Phosphatase 84 U/L (45-117) 08/28/20 17:04 Troponin I 0.29 ng/mL (0.0-0.045) H 08/29/20 06:08 Triglycerides 51 mg/dL (<150) 08/29/20 06:08 Cholesterol 120 mg/dL (<200) 08/29/20 06:08 HDL Cholesterol 43 mg/dL (40-60) 08/29/20 06:08 Cholesterol/HDL Ratio 2.79 08/29/20 06:08 Lipase 69 U/L (73-393) L 08/28/20 17:04 Home Medications: Alendronate Sodium 70 mg PO Q7D 04/29/20 Atorvastatin Calcium 40 mg PO DAILY 04/29/20 Citalopram Hydrobromide [Citalopram HBr] 10 mg PO DAILY 04/29/20 Clopidogrel Bisulfate [Plavix*] 75 mg PO DAILY 04/29/20 Ergocalciferol (Vitamin D2) [Vitamin D2] 1.25 mcg PO Q30D 04/29/20 Isosorbide Mononitrate [Isosorbide Mononitrate ER] 120 mg PO DAILY 04/29/20 Levothyroxine [Synthroid*] 150 mcg PO DAILY 04/29/20 Linaclotide [Linzess] 145 mcg PO DAILY 04/29/20 Pantoprazole [Protonix Tab*] 40 mg PO DAILY 04/29/20 Bumetanide 2 mg PO BID #60 08/03/20 Hydralazine HCl [Apresoline] 25 mg PO TID 08/03/20 Insulin Glargine Human [Lantus*] 80 unit SQ DAILY 08/29/20 Losartan Potassium 100 mg PO DAILY 08/29/20 Diet: Renal Activity: Fall precautions Followup: NONE,NONE [Primary Care Provider] - Time spent managing pt's care (in minutes): 55
--- NOTE | 2020-08-30 10:38 | RAD REPORT ---
EXAM DESCRIPTION: Nuria Pa And Lat (2 Views)08/30/2020 10:29 am CLINICAL HISTORY: Cough COMPARISON: August 28 FINDINGS: Partial resolution in mild bilateral interstitial lung opacities. The heart remains enlarg ed IMPRESSION: Partial resolution in mild CHF
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
[2020-08-30] MEDS: BUMETANIDE 1 MG TABLET PO SCH ×2 (11:26→20:47)
[2020-08-30] MEDS: LOSARTAN POTASSIUM 50 MG TABLET PO SCH (11:26)
[2020-08-30] MEDS: PANTOPRAZOLE 40MG TABLET PO SCH (11:27)
[2020-08-30] MEDS: HYDRALAZINE HCL 25 MG TABLET PO SCH ×3 (11:27→20:47)
[2020-08-30] MEDS: CITALOPRAM 10 MG TABLET PO SCH (11:27)
[2020-08-30] MEDS: CLOPIDOGREL 75 MG TABLET PO SCH (11:27)
[2020-08-30] MEDS: ISOSORBIDE MONO SR 60 MG TAB PO SCH (11:27)
[2020-08-30] MEDS: HEPARIN 5000 UNIT/ML 1 ML VIAL SQ SCH ×2 (11:33→20:48)
[2020-08-30] MEDS: ATORVASTATIN 40 MG TAB PO SCH (20:46)
[2020-08-31] MEDS: LEVOTHYROXINE SOD 0.075 MG TAB PO SCH (05:12)
[2020-08-31 06:04] LABS: MPV 9.3 fL (7.6-11.3)
[2020-08-31 06:19] LABS: Potassium 4.3 mmol/L (3.5-5.1)
[2020-08-31 07:31] LABS: Platelet Estimate DECR
[2020-08-31] MEDS: LOSARTAN POTASSIUM 50 MG TABLET PO SCH (09:59)
[2020-08-31] MEDS: CLOPIDOGREL 75 MG TABLET PO SCH (09:59)
[2020-08-31] MEDS: HYDRALAZINE HCL 25 MG TABLET PO SCH ×3 (09:59→21:17)
[2020-08-31] MEDS: CITALOPRAM 10 MG TABLET PO SCH (09:59)
[2020-08-31] MEDS: BUMETANIDE 1 MG TABLET PO SCH ×2 (09:59→21:18)
[2020-08-31] MEDS: PANTOPRAZOLE 40MG TABLET PO SCH (09:59)
[2020-08-31] MEDS: INSULIN -REGULAR HUMAN 50 UNIT/0.5 ML ML SQ SCH ×4 (10:00→21:00)
[2020-08-31] MEDS: HEPARIN 5000 UNIT/ML 1 ML VIAL SQ SCH ×2 (10:00→21:18)
--- NOTE | 2020-08-31 12:16 | PN ---
Date of Progress Note: 08/30/2020 Subjective: Ms. Braun is a complicated patient. She has a history of aortic stenosis, area of 1.0 c m square, recurrent congestive heart failure, acute on chronic systolic congestive heart failure with an ejection fraction of 44%, came in with acute exacerbation of chronic systolic congestive heart fa ilure. This is one of multiple admissions failure. She has a history of CAD, chronic troy al disease, hypertension, dyslipidemia, and diabetes that seems to be well controlled. She is improv ing today. Oxygen saturation is adequate. She is not complaining of any shortness of breath. On ex amination, she does not have any rales. She does not need to have any repeat cardiac workup at this point. Attention is to continue present regimen and she goes home. She is not a candidat e for goes home and follow up with . JESSIE/COREY Voice ID: [id number] Report ID: [id number]
[2020-08-31] MEDS: ISOSORBIDE MONO SR 60 MG TAB PO SCH (12:27)
--- NOTE | 2020-08-31 13:15 | P.DS ---
Admission Date: 08/29/20 Discharge Date: 08/31/20 Primary Care Provider: Cards- Dr. Donovan; Nephrology-Dr. Gilbert Disposition: DC HOME/HOME HEALTH CARE Discharge Condition: GOOD Reason for Admission: Shortness of breath Consultations: Cardiology-Dr. Castaneda Procedures: COVID: Negative CXR: COMPARISON: August 28 FINDINGS: Partial resolution in mild bilateral interstitial lung opacities. The heart remains enlarged IMPRESSION: Partial resolution in mild CHF Assessment Dyspnea secondary to Acute on chronic systolic congestive heart failure complicated by severe aortic stenosis Diabetes mellitus type 2 insulin-dependent CAD Sinus bradycardia Hypertension Hyperlipidemia Hypothyroidism GERD Depression with anxiety Brief History of Present Illness: 75-year-old female with history of severe aortic stenosis presented to emergency room with increasing shortness of breath. Patient was recently hospitalized for similar condition. Room-air saturations were low. Volume overload noted. Patient admitted for further evaluation and treatment. Hospital Course: Patient presented with shortness of breast secondary to acute on chronic systolic congestive heart failure complicated with severe aortic stenosis. Patient with similar recent hospitalization. Room-air saturations were low upon admission. Patient found to be fluid overloaded. Patient placed on fluid restriction an IV diuretic therapy was initiated. Patient has improved. At discharge patient still requiring home oxygen. Patient had seen her sausage tier about the possibility of aortic valve replacement. Family reports patient is high risk for surgery. Cardiology here recommended further evaluation with the possibility of future TAVR. Case discussed with daughter and patient. Will recommend patient to get 2nd opinion as an outpatient with cardiology. Patient to see Cardiology-Dr. Arredondo within the next 5 days. Cardiology plans for outpatient dobutamine echocardiogram, heart catheterization to evaluate for possible future TAVR. At discharge patient will continue with home oxygen to maintain sats above 93%. Currently on 2 L per nasal cannula. At discharge she will continue with a 1500 cc per day fluid restriction and low- salt diet. She is to monitor her weight daily. At discharge she will continue with Bumex 2 mg 1 pill twice daily. If weight increases or oxygen requirement increases then her diuretic therapy may need to be further adjusted. This can be done with the help of her PCP or cardiology. Recommend follow up as stated above with cardiology within 1 week. Recommend follow up with PCP to further monitor and address. Patient with diabetes mellitus type 2. Overall stable. At discharge she will continue with Lantus 80 units subcu daily. Recommend to maintain blood sugar less than 140 fasting and less than 200 after meals. Further adjustment can be done by her PCP. Patient with hypothyroidism. At discharge she will continue with levothyroxine 150 mcg daily. Patient with CAD. At discharge patient will continue with Plavix 75 mg daily and Imdur 120 mg daily. Recommend follow up with cardiology as directed. Patient with hypertension. Patient also had some sinus bradycardia. Patient previously on carvedilol. This has been discontinued. At discharge she will continue with hydralazine 25 mg 1 pill 3 times a day and losartan 100 mg daily. Recommend blood pressure to remain less than 130/80. Further adjustment can be done by her PCP. Patient with hyperlipidemia. At discharge she will continue with Lipitor 40 mg daily. Patient with GERD. At discharge she will continue with Protonix 40 mg daily. Patient with depression and anxiety. At discharge she will continue with Celexa 10 mg daily. Vital Signs/Physical Exam: Temp Pulse Resp BP Pulse Ox 97.4 F 60 20 155/68 H 99 08/31/20 12:00 08/31/20 12:00 08/31/20 12:00 08/31/20 12:00 08/31/20 12:00 General: Alert, In no apparent distress, Oriented x3, Cooperative HEENT: Atraumatic Neck: Supple Respiratory: Crackles/rales (Crackles to the bases but stable. Currently on 2 L per nasal cannula.) Cardiovascular: Normal pulses, Regular rate/rhythm Gastrointestinal: Normal bowel sounds, Soft and benign, Non-distended Integumentary: No tenderness/swelling Neurological: Normal speech, Normal strength at 5/5 x4 extr, Normal tone, Normal affect Laboratory Data at Discharge: WBC 9.60 K/uL (4.3-10.9) D 08/30/20 05:48 Hgb 11.3 g/dL (12.0-15.0) L 08/30/20 05:48 Hct 33.3 % (36.0-45.0) L 08/30/20 05:48 Plt Count 151 K/uL (152-406) L 08/31/20 05:39 PT 12.2 SECONDS (9.5-12.5) 08/28/20 17:04 INR 1.06 08/28/20 17:04 APTT > 400.0 SECONDS (24.3-36.9) H* 08/29/20 12:19 Sodium 140 mmol/L (136-145) 08/31/20 05:39 Potassium 4.3 mmol/L (3.5-5.1) 08/31/20 05:39 BUN 61 mg/dL (7-18) H 08/31/20 05:39 Creatinine 2.21 mg/dL (0.55-1.3) H 08/31/20 05:39 Glucose 151 mg/dL (74-106) H 08/31/20 05:39 Magnesium 2.5 mg/dL (1.8-2.4) H 08/30/20 05:48 Total Bilirubin 1.2 mg/dL (0.2-1.0) H 08/28/20 17:04 AST 17 U/L (15-37) 08/28/20 17:04 ALT 17 U/L (12-78) 08/28/20 17:04 Alkaline Phosphatase 84 U/L (45-117) 08/28/20 17:04 Troponin I 0.29 ng/mL (0.0-0.045) H 08/29/20 06:08 Triglycerides 51 mg/dL (<150) 08/29/20 06:08 Cholesterol 120 mg/dL (<200) 08/29/20 06:08 HDL Cholesterol 43 mg/dL (40-60) 08/29/20 06:08 Cholesterol/HDL Ratio 2.79 08/29/20 06:08 Lipase 69 U/L (73-393) L 08/28/20 17:04 Home Medications: Alendronate Sodium 70 mg PO Q7D 04/29/20 Atorvastatin Calcium 40 mg PO DAILY 04/29/20 Citalopram Hydrobromide [Citalopram HBr] 10 mg PO DAILY 04/29/20 Clopidogrel Bisulfate [Plavix*] 75 mg PO DAILY 04/29/20 Ergocalciferol (Vitamin D2) [Vitamin D2] 1.25 mcg PO Q30D 04/29/20 Isosorbide Mononitrate [Isosorbide Mononitrate ER] 120 mg PO DAILY 04/29/20 Levothyroxine [Synthroid*] 150 mcg PO DAILY 04/29/20 Linaclotide [Linzess] 145 mcg PO DAILY 10/17/20 Pantoprazole [Protonix Tab*] 40 mg PO DAILY 04/29/20 Bumetanide 2 mg PO BID #60 08/03/20 Hydralazine HCl [Apresoline] 25 mg PO TID 08/03/20 Insulin Glargine Human [Lantus*] 80 unit SQ DAILY 08/29/20 Losartan Potassium 100 mg PO DAILY 08/29/20 Physician Discharge Instructions: Recommend follow up with PCP in 1 week to follow up this hospitalization. Patient presented with shortness of breast secondary to acute on chronic systolic congestive heart failure complicated with severe aortic stenosis. Patient with similar recent hospitalization. Room-air saturations were low upon admission. Patient found to be fluid overloaded. Patient placed on fluid restriction an IV diuretic therapy was initiated. Patient has improved. At discharge patient still requiring home oxygen. Patient had seen her sausage tier about the possibility of aortic valve replacement. Family reports patient is high risk for surgery. Cardiology here recommended further evaluation with the possibility of future TAVR. Case discussed with daughter and patient. Will recommend patient to get 2nd opinion as an outpatient with cardiology. Patient to see Cardiology-Dr. Arredondo within the next 5 days. Cardiology plans for outpatient dobutamine echocardiogram, heart catheterization to evaluate for possible future TAVR. At discharge patient will continue with home oxygen to maintain sats above 93%. Currently on 2 L per nasal cannula. At discharge she will continue with a 1500 cc per day fluid restriction and low- salt diet. She is to monitor her weight daily. At discharge she will continue with Bumex 2 mg 1 pill twice daily. If weight increases or oxygen requirement increases then her diuretic therapy may need to be further adjusted. This can be done with the help of her PCP or cardiology. Recommend follow up as stated above with cardiology within 1 week. Recommend follow up with PCP to further monitor and address. Patient with diabetes mellitus type 2. Overall stable. At discharge she will continue with Lantus 80 units subcu daily. Recommend to maintain blood sugar less than 140 fasting and less than 200 after meals. Further adjustment can be done by her PCP. Patient with hypothyroidism. At discharge she will continue with levothyroxine 150 mcg daily. Patient with CAD. At discharge patient will continue with Plavix 75 mg daily and Imdur 120 mg daily. Recommend follow up with cardiology as directed. Patient with hypertension. Patient also had some sinus bradycardia. Patient previously on carvedilol. This has been discontinued. At discharge she will continue with hydralazine 25 mg 1 pill 3 times a day and losartan 100 mg daily. Recommend blood pressure to remain less than 130/80. Further adjustment can be done by her PCP. Patient with hyperlipidemia. At discharge she will continue with Lipitor 40 mg daily. Patient with GERD. At discharge she will continue with Protonix 40 mg daily. Patient with depression and anxiety. At discharge she will continue with Celexa 10 mg daily. Diet: ADA Activity: Fall precautions Followup: NONE,NONE [Primary Care Provider] - Time spent managing pt's care (in minutes): 55
--- NOTE | 2020-08-31 15:47 | CON ---
Date of Consultation: 08/29/2020 Reason For Request: Heart failure. History Of Present Illness: Ms. Braun is a 75-year-old followed by . She h as history of documented aortic stenosis with aortic area of 1.0 sq cm with ejection fraction of 44% with congestive heart failure. Troponin is 0.29, creatinine is , elevated white count 11.8. D-dimer was 799 already scheduled for recommended [facility]. The patient with congestive heart failure. She has chronic renal disease. D-dime r is 799. CT angiogram was not done because of her kidney function. The patient did not have any ch est pain, nausea, vomiting, diaphoresis. Has had PND, orthopnea and pedal edema. Denied palpitations. Denied syncope. Past Medical History: Include diabetes, aortic stenosis, chronic diastolic congestive heart failure, gastroesophageal reflux disease, hypertension, dyslipidemia, coronary artery disease. Allergies: NONE. Review of Systems: Negative. Social History: Negative. Family History: Negative. Medications: At home include Synthroid, Bumex, carvedilol, , Protonix, Tradjenta, glyburid e, and hydralazine. Physical Examination: . Her vital signs are otherwise stable. She is in sinus rhythm. Has obvious left bundle- branch block. HEENT: Negative. Neck: Supple with no bruit or lymphadenopathy, JVD, or thyromegaly. Chest: Revealed rales at both bases. Cardiac: Revealed regular rhythm and regular rate positive S4 gallops. No rubs. Abdomen: Obese, benign. Extremities: Revealed no clubbing, cyanosis, or edema. Neurologic: She was nonfocal. Skin: Dry and intact. Pulses were present distally bilaterally. Diagnostic Data: 1.EKG showed left bundle branch block. Chest x-ray showed congestive heart failure . Impression And Plan: 1.Aortic stenosis 1.0 sq cm, moderate with recurrent congestive heart failure on admission. ___ the patient would benefit from transcatheter aortic valve replacement. Case was discussed with t he family . 2.Acute on chronic diastolic congestive heart failure possibly related to aortic stenosis. 3.Chronic renal disease, stable. 4.Diabetes, well controlled. 5.Gastroesophageal reflux disease. 6.Hypertension, well controlled. 7.Dyslipidemia, well controlled. 8.Coronary artery disease, stable. 9.Elevated troponin and BNP and D-dimer and congestive heart failure. Patient is presently on Lipitor, Plavix, Lasix, heparin, insulin, Imdur, carvedilol, glyburide, Tradj enta, Synthroid, Protonix, present regimen. . She is not a candidate for CORRINE i nhibitors. I would diurese her well and consider Nephrology consultation and have . JESSIE/MODL Voice ID: [id number] Report ID: [id number]
[2020-08-31] MEDS: ATORVASTATIN 40 MG TAB PO SCH (21:17)
[2020-09-01] MEDS: LEVOTHYROXINE SOD 0.075 MG TAB PO SCH (05:57)
[2020-09-01] MEDS: INSULIN -REGULAR HUMAN 50 UNIT/0.5 ML ML SQ SCH ×2 (07:30→11:30)
[2020-09-01] MEDS: CITALOPRAM 10 MG TABLET PO SCH (09:00)
[2020-09-01] MEDS: CLOPIDOGREL 75 MG TABLET PO SCH (09:00)
[2020-09-01] MEDS: ISOSORBIDE MONO SR 60 MG TAB PO SCH (09:00)
[2020-09-01] MEDS: BUMETANIDE 1 MG TABLET PO SCH (09:00)
[2020-09-01] MEDS: LOSARTAN POTASSIUM 50 MG TABLET PO SCH (09:00)
[2020-09-01] MEDS: HEPARIN 5000 UNIT/ML 1 ML VIAL SQ SCH (09:00)
[2020-09-01] MEDS: PANTOPRAZOLE 40MG TABLET PO SCH (09:00)
[2020-09-01] MEDS: HYDRALAZINE HCL 25 MG TABLET PO SCH ×2 (09:00→13:56)
[2020-09-01 09:57] VITALS: O2SAT 93
--- NOTE | 2020-09-01 10:44 | P.DS ---
Admission Date: 08/29/20 Discharge Date: 09/01/20 Primary Care Provider: Cards- Dr. Donovan; Nephrology-Dr. Gilbert Disposition: DC HOME/HOME HEALTH CARE Discharge Condition: GOOD Reason for Admission: Shortness of breath Consultations: Cardiology-Dr. Castaneda Procedures: COVID: Negative CXR: COMPARISON: August 28 FINDINGS: Partial resolution in mild bilateral interstitial lung opacities. The heart remains enlarged IMPRESSION: Partial resolution in mild CHF Assessment Dyspnea secondary to Acute on chronic systolic congestive heart failure complicated by severe aortic stenosis Diabetes mellitus type 2 insulin-dependent CAD Sinus bradycardia Hypertension Hyperlipidemia Hypothyroidism GERD Depression with anxiety Brief History of Present Illness: 75-year-old female with history of severe aortic stenosis presented to emergency room with increasing shortness of breath. Patient was recently hospitalized for similar condition. Room-air saturations were low. Volume overload noted. Patient admitted for further evaluation and treatment. Hospital Course: Patient presented with shortness of breast secondary to acute on chronic systolic congestive heart failure complicated with severe aortic stenosis. Patient with similar recent hospitalization. Room-air saturations were low upon admission. Patient found to be fluid overloaded. Patient placed on fluid restriction an IV diuretic therapy was initiated. Patient has improved. At discharge patient still requiring home oxygen. Patient had seen her beef selector about the possibility of aortic valve replacement. Family reports patient is high risk for surgery. Cardiology here recommended further evaluation with the possibility of future TAVR. Case discussed with daughter and patient. Will recommend patient to get 2nd opinion as an outpatient with cardiology. Patient to see Cardiology-Dr. Arredondo within the next 5 days. Cardiology plans for outpatient dobutamine echocardiogram, heart catheterization to evaluate for possible future TAVR. Discharge was delayed due to oxygen set up. Oxygen has been arranged. At discharge patient will continue with home oxygen to maintain sats above 93%. Currently on 2 L per nasal cannula. At discharge she will continue with a 1500 cc per day fluid restriction and low- salt diet. She is to monitor her weight daily. At discharge she will continue with Bumex 2 mg 1 pill twice daily. If weight increases or oxygen requirement increases then her diuretic therapy may need to be further adjusted. This can be done with the help of her PCP or cardiology. Recommend follow up as stated above with cardiology within 1 week. Recommend follow up with PCP to further monitor and address. Plan of care discussed with patient and daughter. Daughter will hold make arrangements to see Cardiology for 2nd opinion. Patient with diabetes mellitus type 2. Overall stable. At discharge she will continue with Lantus 80 units subcu daily. Recommend to maintain blood sugar less than 140 fasting and less than 200 after meals. Further adjustment can be done by her PCP. Patient with hypothyroidism. At discharge she will continue with levothyroxine 150 mcg daily. Patient with CAD. At discharge patient will continue with Plavix 75 mg daily and Imdur 120 mg daily. Recommend follow up with cardiology as directed. Patient with hypertension. Patient also had some sinus bradycardia. Patient previously on carvedilol. This has been discontinued. At discharge she will continue with hydralazine 25 mg 1 pill 3 times a day and losartan 100 mg daily. Recommend blood pressure to remain less than 130/80. Further adjustment can be done by her PCP. Patient with hyperlipidemia. At discharge she will continue with Lipitor 40 mg daily. Patient with GERD. At discharge she will continue with Protonix 40 mg daily. Patient with depression and anxiety. At discharge she will continue with Celexa 10 mg daily. Vital Signs/Physical Exam: Temp Pulse Resp BP Pulse Ox 96.9 F 54 16 153/67 H 97 09/01/20 08:00 09/01/20 08:00 09/01/20 08:00 09/01/20 08:00 09/01/20 08:00 General: Alert, In no apparent distress, Oriented x3, Cooperative HEENT: Atraumatic Neck: Supple Respiratory: Crackles/rales (Minimal crackles) Cardiovascular: Normal pulses, Regular rate/rhythm Gastrointestinal: No masses, No rebound, No guarding Neurological: Normal speech, Normal strength at 5/5 x4 extr, Normal tone, Normal affect Laboratory Data at Discharge: WBC 9.60 K/uL (4.3-10.9) D 08/30/20 05:48 Hgb 11.3 g/dL (12.0-15.0) L 08/30/20 05:48 Hct 33.3 % (36.0-45.0) L 08/30/20 05:48 Plt Count 151 K/uL (152-406) L 08/31/20 05:39 PT 12.2 SECONDS (9.5-12.5) 08/28/20 17:04 INR 1.06 08/28/20 17:04 APTT > 400.0 SECONDS (24.3-36.9) H* 08/29/20 12:19 Sodium 140 mmol/L (136-145) 08/31/20 05:39 Potassium 4.3 mmol/L (3.5-5.1) 08/31/20 05:39 BUN 61 mg/dL (7-18) H 08/31/20 05:39 Creatinine 2.21 mg/dL (0.55-1.3) H 08/31/20 05:39 Glucose 151 mg/dL (74-106) H 08/31/20 05:39 Magnesium 2.5 mg/dL (1.8-2.4) H 08/30/20 05:48 Total Bilirubin 1.2 mg/dL (0.2-1.0) H 08/28/20 17:04 AST 17 U/L (15-37) 08/28/20 17:04 ALT 17 U/L (12-78) 08/28/20 17:04 Alkaline Phosphatase 84 U/L (45-117) 08/28/20 17:04 Troponin I 0.29 ng/mL (0.0-0.045) H 08/29/20 06:08 Triglycerides 51 mg/dL (<150) 08/29/20 06:08 Cholesterol 120 mg/dL (<200) 08/29/20 06:08 HDL Cholesterol 43 mg/dL (40-60) 08/29/20 06:08 Cholesterol/HDL Ratio 2.79 08/29/20 06:08 Lipase 69 U/L (73-393) L 08/28/20 17:04 Home Medications: Alendronate Sodium 70 mg PO Q7D 04/29/20 Atorvastatin Calcium 40 mg PO DAILY 04/29/20 Citalopram Hydrobromide [Citalopram HBr] 10 mg PO DAILY 04/29/20 Clopidogrel Bisulfate [Plavix*] 75 mg PO DAILY 04/29/20 Ergocalciferol (Vitamin D2) [Vitamin D2] 1.25 mcg PO Q30D 04/29/20 Isosorbide Mononitrate [Isosorbide Mononitrate ER] 120 mg PO DAILY 04/29/20 Levothyroxine [Synthroid*] 150 mcg PO DAILY 04/29/20 Linaclotide [Linzess] 145 mcg PO DAILY 04/29/20 Pantoprazole [Protonix Tab*] 40 mg PO DAILY 04/29/20 Bumetanide 2 mg PO BID #60 08/03/20 Hydralazine HCl [Apresoline] 25 mg PO TID 08/03/20 Insulin Glargine Human [Lantus*] 80 unit SQ DAILY 08/29/20 Losartan Potassium 100 mg PO DAILY 08/29/20 Physician Discharge Instructions: Recommend follow up with PCP in 1 week to follow up this hospitalization. Patient presented with shortness of breast secondary to acute on chronic systolic congestive heart failure complicated with severe aortic stenosis. Patient with similar recent hospitalization. Room-air saturations were low upon admission. Patient found to be fluid overloaded. Patient placed on fluid restriction an IV diuretic therapy was initiated. Patient has improved. At discharge patient still requiring home oxygen. Patient had seen her beef selector about the possibility of aortic valve replacement. Family reports patient is high risk for surgery. Cardiology here recommended further evaluation with the possibility of future TAVR. Case discussed with daughter and patient. Will recommend patient to get 2nd opinion as an outpatient with cardiology. Patient to see Cardiology-Dr. Arredondo within the next 5 days. Cardiology plans for outpatient dobutamine echocardiogram, heart catheterization to evaluate for possible future TAVR. Discharge was delayed due to oxygen set up. Oxygen has been arranged. At discharge patient will continue with home oxygen to maintain sats above 93%. Currently on 2 L per nasal cannula. At discharge she will continue with a 1500 cc per day fluid restriction and low- salt diet. She is to monitor her weight daily. At discharge she will continue with Bumex 2 mg 1 pill twice daily. If weight increases or oxygen requirement increases then her diuretic therapy may need to be further adjusted. This can be done with the help of her PCP or cardiology. Recommend follow up as stated above with cardiology within 1 week. Recommend follow up with PCP to further monitor and address. Plan of care discussed with patient and daughter. Daughter will hold make arrangements to see Cardiology for 2nd opinion. Patient with diabetes mellitus type 2. Overall stable. At discharge she will continue with Lantus 80 units subcu daily. Recommend to maintain blood sugar less than 140 fasting and less than 200 after meals. Further adjustment can be done by her PCP. Patient with hypothyroidism. At discharge she will continue with levothyroxine 150 mcg daily. Patient with CAD. At discharge patient will continue with Plavix 75 mg daily and Imdur 120 mg daily. Recommend follow up with cardiology as directed. Patient with hypertension. Patient also had some sinus bradycardia. Patient previously on carvedilol. This has been discontinued. At discharge she will continue with hydralazine 25 mg 1 pill 3 times a day and losartan 100 mg daily. Recommend blood pressure to remain less than 130/80. Further adjustment can be done by her PCP. Patient with hyperlipidemia. At discharge she will continue with Lipitor 40 mg daily. Patient with GERD. At discharge she will continue with Protonix 40 mg daily. Patient with depression and anxiety. At discharge she will continue with Celexa 10 mg daily. Diet: ADA Activity: Fall precautions Followup: NONE,NONE [Primary Care Provider] - Time spent managing pt's care (in minutes): 55
[2020-09-01 14:58] VITALS: BP 151/68; TEMP 97
== END 2020-09-01 15:52 | disposition home health service (06) | DRG 291 ==
LOC: ER 16:09 → OBSVTOIN 21:01 → ERHOLD 21:01 → INTOOBSV 21:01 → 2ND 21:43 → OBSVTOIN 08-29 02:00
PROVIDERS: ADMIT Family Medicine; ATTEND Family Medicine
DX: I13.0 Hypertensive heart and chronic kidney disease with heart failure and stage 1 through stage 4 chronic kidney disease, or unspecified chronic kidney disease (principal); I50.23 Acute on chronic systolic (congestive) heart failure; J96.20 Acute and chronic respiratory failure, unspecified whether with hypoxia or hypercapnia; N18.4 Chronic kidney disease, stage 4 (severe); E11.22 Type 2 diabetes mellitus with diabetic chronic kidney disease; K21.9 Gastro-esophageal reflux disease without esophagitis; E78.5 Hyperlipidemia, unspecified; I35.0 Nonrheumatic aortic (valve) stenosis; I25.10 Atherosclerotic heart disease of native coronary artery without angina pectoris; F41.8 Other specified anxiety disorders; E03.9 Hypothyroidism, unspecified; I25.2 Old myocardial infarction; R00.1 Bradycardia, unspecified; Z79.890 Hormone replacement therapy; Z79.899 Other long term (current) drug therapy; Z86.73 Personal history of transient ischemic attack (TIA), and cerebral infarction without residual deficits; Z90.49 Acquired absence of other specified parts of digestive tract; Z79.4 Long term (current) use of insulin; Z79.02 Long term (current) use of antithrombotics/antiplatelets; Z20.822 Contact with and (suspected) exposure to COVID-19
CPT/HCPCS: 0240U; 36415; 71045; 71046; 80048; 80061; 80076; 81003; 81015; 82728; 82947; 83036; 83605; 83690; 83735; 84145; 84439; 84443; 84484; 85025; 85049; 85379; 85610; 85730; 86140; 87040; 87070; 87081; 87205; 93005; 96374; 99285; G0378; J1644; J1940

== ENCOUNTER 2020-10-16 18:02 | Emergency (ER) | payer OTHER ==
--- OUTSIDE RECORDS SUMMARY | 2020-10-16 18:08 | XMS REPORT | Continuity of Care Document ---
:1945 Author Organization [facility] t Address [address] [place] [address] Care Team Providers Name Role Phone Radiology Attending Clinician Unavailable Doctor Unassigned, [place] Attending Clinician Unavailable Problems This patient has no known problems. Allergies, Adverse Reactions, Alerts This patient has no known allergies or adverse reactions. Medications Ordered Filled Start Stop Current Ordering Indication Dosage Frequency Signature Comments Components Source Medication Medication Date Date Medication? Clinician (SIG) Name Name Fosamax Fosamax 2019- 2020- No Na Russell [address] [facility] -[facility]21 [facility] am [facility] :00 30 minutes l prior to Outpati other ent medication Clinics s, food or drink Citalopram Citalopram Yes Na Russell [address] [facility] Hydrobromid Hydrobromid 5-12 [facility] - e e 00:00: [facility] 00 l Outpati ent Clinics Linzess Linzess 2018-07 2020- No Na Russell [address] [facility] 1-20 05-18 on an [facility]:00 empty [facility] 00 :00 stomach l Outpati ent Clinics Isosorbide Isosorbide Yes Na Russell [address] [facility] Mononitrate Mononitrate in the [facility] ER morning [facility] ent Clinics Imdur Imdur Yes Na Russell not [facility] defined [facility]ics ZyrC [facility] Yes Na Russell not [facility] [...] lsartan [facility] Out[facility] ent Clinics [place] Yes Na Rusesll USE ONCE A [facility] DAY WITH [...] [facility] Levothyroxi Levothyroxi Yes Na Russell [...] 2019-05-[address] [facility] [facility] Outpatient [facility] FluAD FluAD 2018-04-[address] [facility] [facility] Outpatient Clinics Procedures This patient has no known procedures. Encounters Start End Encounter Admission Attending Care Care Encounter Source Date/Time Date/Time Type Type Clinicians Facility Department ID 2020-10-09 2020-10-09 Outpatient [facility] [id number] [facility] 2020-09-15 2020-09-15 Outpatient [facility] [id number] [facility] 2020-09-13 2020-09-13 Outpatient [facility] [id number] [facility] 2020-09-06 2020-09-06 [facility] [id number] [facility] 2020-06-29 2020-06-29 Out[facility] [id number] [facility] 2020-06-13 2020-06-13 [facility] [id number] [facility] 2020-06-06 2020-06-06 [facility] [id number] [facility] 2020-05-30 2020-05-30 [facility] [id number] [facility] 2020-04-27 2020-04-27 [facility] [id number] [facility] 2020-04-25 2020-04-25 Out[facility] [id number] [facility] 2020-04-24 2020-04-24 Outpatient [facility] [id number] [facility] 2020-03-23 2020-03-23 [facility] [id number] [facility] 14:26:00 14:26:[address] [facility] Medicine l Medicine Outpati ent Clinics 2020-03-23 2020-03-23 [facility] [id number] [facility] 13:00:00 13:00:[address] [employer] [facility] - Drive [facility] Medicine l Medicine Outpati ent Clinics 2020-01-21 2020-01-21 [facility] [id number] 14:00:00 14:00:[address] [place] [address] [employer] [facility] - Drive [facility] Medicine l Medicine Outpati ent Clinics 2020-01-21 2020-01-21 [facility] [id number] 13:20:00 13:20:00 [place] [employer] [facility] l Medicine Outpati ent Clinics 2020-01-02 2020-01-02 [facility] [id number] 03:03:00 03:03:00 t [place] [facility] l Medicine Outpati ent Clinics 2019-12-24 2019-12-24 [facility] [id number] [facility] 14:20:00 14:20:00 t [place] Medicine Outpati ent Clinics 2019-12-10 2019-12-10 [facility] [id number] 15:00:00 15:00:00 t [place] Medicine Outpati ent Clinics 2019-12-02 2019-12-02 [facility] [id number] [facility] 14:07:00 14:07:00 t [place] [facility] Medicine Outpati ent Clinics 2019-11-23 2019-11-23 [facility] [id number] [facility] 14:00:00 14:00:00 t [place] [facility] Medicine Outpati ent Clinics 2019-10-08 2019-10-08 [facility] [id number] [facility] 16:40:00 16:40:00 t [facility] Medicine Medicine Outpati ent Clinics 2019-09-09 2019-09-09 [facility] [id number] [facility] 14:33:00 14:33:00 t [place] [facility] Medicine Outpati ent Clinics 2019-08-10 2019-08-10 [facility] [id number] 09:35:00 09:35:00 t [email or web address] [facility] l Medicine Outpati ent Clinics 2019-07-02 2019-07-02 [facility] [id number] [address] 15:00:00 15:00:[address] [place] [address] [facility] - Drive [facility] Medicine l Medicine Outpati ent Clinics 2019-06-27 2019-06-27 [facility] [id number] [facility] 01:31:00 01:31:[address] [place] [address] [facility] Medicine l Medicine Outpati ent Clinics 2019-06-21 2019-06-21 [facility] [id number] [facility] 12:40:00 12:40:[address] [place] [address] [facility] Medicine l Medicine Outpati ent Clinics 2019-06-18 2019-06-18 [facility] [id number] 14:20:00 14:20:[address] [place] [address] [facility] - [facility] Medicine l Medicine Outpati ent Clinics 2019-06-02 2019-06-02 [facility] [id number] 12:20:00 12:20:[address] [place] [address] [facility] - [facility] Medicine l Medicine Outpati ent Clinics 2019-05-24 2019-05-24 [facility] [id number] [facility] 11:00:00 11:00:[address] [place] [address] [facility] Medicine l Medicine Outpati ent Clinics 2019-05-14 2019-05-14 [facility] [id number] 16:21:00 16:21:00 t [place] [employer] [facility] - [facility] Medicine l Medicine Outpati ent Clinics 2019-05-13 2019-05-13 [facility] [id number] [facility] 10:40:00 10:40:[address] [place] [address] [facility] - Drive [facility] Medicine l Medicine Outpati ent Clinics 2019-05-04 2019-05-04 [facility] [id number] [facility] 09:56:00 09:56:[address] [place] [address] [facility] - Drive [facility] Medicine l Medicine Outpati ent Clinics 2019-04-06 2019-04-06 [facility] [id number] 16:35:00 16:35:[address] [place] [address] [facility] - Drive [facility] Medicine l Medicine Outpati ent Clinics 2019-03-26 2019-03-26 Hospital Radiology [facility] [id number] 10:22:25 23:59:00 Encounter [place] [id number] [place] [id number] [place] [id number] 2019-03-26 2019-03-26 Orders Doctor ADAM [id number] 00:00:00 00:00:00 Only Unassigned, FREDDIE [id number] [place] [id number] 2019-03-23 2019-03-23 [facility] [id number] 09:00:00 09:00:00 [place] [employer] [employer] [facility] - Drive [facility] Family Medicine l Medicine Outpati ent Clinics 2019-03-05 2019-03-05 [facility] [id number] 16:40:00 16:40:00 [place] [employer] [facility] - [facility] Medicine l Medicine Outpati ent Clinics 2019-01-26 2019-01-26 [facility] [id number] 16:20:00 16:20:00 [place] [employer] [employer] [facility] - Drive [facility] Family Medicine l Medicine Outpati ent Clinics 2018-09-21 2018-09-21 [facility] [id number] 10:32:00 10:32:00 [place] [employer] [employer] [facility] - Drive [facility] Family Medicine l Medicine Outpati ent Clinics 2018-09-21 2018-09-21 [facility] [id number] 09:15:00 09:15:00 [place] [employer] [employer] [facility] Drive [facility] Family Medicine l Medicine Outpati ent Clinics 2018-07-23 2018-07-23 [facility] [id number] 11:15:00 11:15:[address] [place] [address] [facility] - Drive [facility] Family Medicine l Medicine Outpati ent Clinics 2018-07-17 2018-07-17 [facility] [id number] [facility] 11:57:00 11:57:[address] [place] [address] [facility] - Drive [facility] Medicine l Medicine Outpati ent Clinics 2018-06-22 2018-06-22 [facility] [id number] [facility] 11:30:00 11:30:00 t [email or web address] [facility] Medicine Outpati ent Clinics 2018-04-08 2018-04-08 [facility] [id number] [facility] 10:30:00 10:30:00 t [email or web address] [facility] Medicine Outpati ent Clinics 2018-02-17 2018-02-17 [facility] [id number] 09:15:00 09:15:00 t [email or web address] [place] [facility] Medicine Outpati ent Clinics 2017-11-17 2017-11-17 [facility] [id number] [facility] 11:00:00 11:00:00 t [place] [facility] Medicine Outpati ent Clinics Results This patient has no known results.
--- NOTE | 2020-10-16 19:14 | RAD REPORT ---
EXAM DESCRIPTION: CT - CTHCSPWOC - 10/16/2020 6:32 pm CLINICAL HISTORY: Trauma, head and neck injury. Fall injury COMPARISON: No comparisons TECHNIQUE: Axial 5 mm thick images of the head were obtained. Axial 2 mm thick images of the cervical spine were obtained with sagittal and coronal reconstruction images generated and reviewed. All CT scans are performed using dose optimization technique as appropriate and may include automated exposure control or mA/KV adjustment according to patient size. FINDINGS: CT HEAD WITHOUT CONTRAST: No acute hemorrhage, hydrocephalus or extra-axial collection is identified.Moderate generalized brain atrophy is present with moderate periventricular and deep white matter chronic microvascular ischemi c changes.No areas of brain edema or midline shift. The paranasal sinuses and mastoids are clear.The calvarium is intact. CT CERVICAL SPINE WITHOUT CONTRAST: No fracture or subluxation.Mild motion artifact is present at the C2 level.No prevertebral soft tissu es swelling is identified. IMPRESSION: No acute intracranial or cervical spine findings.
--- NOTE | 2020-10-16 20:00 | RAD REPORT ---
EXAM DESCRIPTION: RAD - Humerus Right - 10/16/2020 7:25 pm CLINICAL HISTORY: PAIN COMPARISON: None FINDINGS: Right shoulder and right humerus - multiple projections are submitted The bones are demineralized. Glenohumeral dislocation is identified. The exact location of the conchita l head relative to the glenoid is somewhat difficult to ascertain. A lateral projection of the should er would be recommended.
[2020-10-16] MEDS ORDERED: KETAMINE HCL 500 MG/5 ML VIAL ONE (21:04)
[2020-10-16] MEDS ORDERED: ONDANSETRON 4 MG/2 ML VIAL ONE (21:05)
[2020-10-16] MEDS ORDERED: MORPHINE 4 MG/ML SYR ONE (21:05)
--- NOTE | 2020-10-16 22:14 | ER ---
Nurse's Notes [facility] Name: Lola Braun Age: 75 yrs Sex: Female : 1945 Arrival Date: 10/16/2020 Time: 18:11 Bed 8 Private MD: Diagnosis: Unspecified dislocation of right shoulder joint;Fall on same level, unspecified Presentation: 10/16 18:12 Chief complaint: EMS states: Pt tripped while walking, fell on top of her while hb attempting to help her up, now c/o right arm pain 04/22. Fentanyl 150 mcg administered SAP BW ARCHITECT. Coronavirus screen: At this time, the client does not indicate any symptoms associated with coronavirus-19. Ebola Screen: No symptoms or risks identified at this time. Initial Sepsis Screen: Does the patient meet any 2 criteria? No. Patient's initial sepsis screen is negative. Does the patient have a suspected source of infection? No. Patient's initial sepsis screen is negative. Risk Assessment: Do you want to hurt yourself or someone else? Patient reports no desire to harm self or others. Onset of symptoms was October 16, 2020. 18:12 Method Of Arrival: EMS: [facility] hb 18:12 Acuity: RAUL 2 hb 18:13 Ebola Screen: Patient denies travel to an Ebola-affected area in the 21 days before tw2 illness onset. Historical: - Allergies: 18:15 NKDA; tw2 18:15 NKDA; hb - Home Meds: 18:15 Amitiza 24 mcg Oral cap 1 cap 2 times per day [Active]; atorvastatin 40 mg Oral tab 1 hb tab once daily [Active]; Bumetanide Oral [Active]; clopidogrel 75 mg Oral tab 1 tab once daily [Active]; furosemide 40 mg Oral tab 1 tab once daily [Active]; gabapentin 100 mg Oral cap 1 caps 3 times per day [Active]; glipizide 5 mg Oral tr24 1 tab once daily [Active]; hydralazine 25 mg Oral tab [Active]; Lantus 100 unit/mL Sub-Q soln 60 unit nightly [Active]; levothyroxine 137 mcg tab 1 tab once daily [Active]; isosorbide mononitrate 120 mg Oral Tb24 once daily [Active]; ranitidine HCl 150 mg Oral cap 1 cap 2 times per day [Active]; Tradjenta 5 mg Oral tab 1 tab once daily [Active]; valsartan 160 mg Oral tab 1 tab once daily [Active]; - PMHx: 18:15 CHF; Diabetes - IDDM; Hyperlipidemia; GERD; Hypertension; kidney problems; Myocardial tw2 infarction; - Immunization history:: Adult Immunizations Adult Immunizations up to date. - Social history:: Smoking status: Smoking status: Patient denies any tobacco usage or history of. Screenin:12 Abuse screen: Denies threats or abuse. Nutritional screening: No deficits noted. tw2 Tuberculosis screening: No symptoms or risk factors identified. Fall Risk Secondary diagnosis (15 points) impaired mobility, CVA. Assessment: 18:16 General: Appears in no apparent distress. Behavior is calm, cooperative. Pain: Pain hb currently is 10 out of 10 on a pain scale. Neuro: Level of Consciousness is awake, alert, obeys commands, Oriented to person, place, time, situation. Cardiovascular: Capillary refill < 3 seconds Patient's skin is warm and dry. Respiratory: Respiratory effort is even, unlabored, Respiratory pattern is regular, symmetrical. GI: No signs and/or symptoms were reported involving the gastrointestinal system. : No signs and/or symptoms were reported regarding the genitourinary system. EENT: No signs and/or symptoms were reported regarding the EENT system. Derm: Skin is pink, warm \T\ dry. Musculoskeletal: Reports right arm pain. 21:23 Reassessment: online wardsperson utilized prior to manual reduction. mg2 22:59 Reassessment: Lacy( daughter) will come and pick her up in 45 mins. patient kept mg2 in the waiting area to be picked up by her. Vital Signs: 18:12 BP 213 / 91; Pulse 74; Resp 20; Temp 97.9; Pulse Ox 86% on R/A; Pain 10/10; hb 21:08 Weight 77.11 kg; mg2 21:23 BP 164 / 63; Pulse 71; Resp 18; Pulse Ox 98% on 3 lpm NC; mg2 22:36 BP 154 / 67; Pulse 67; Resp 18; Pulse Ox 95% on 3 lpm NC; mg2 ED Course: 18:11 Patient arrived in ED. hb 18:12 Angel Cormier NP is PHCP. pm1 18:12 John Lu MD is Attending Physician. pm1 18:12 Arm band placed on. tw2 18:13 Bed in low position. Call light in reach. Side rails up X2. Pulse ox on. NIBP on. tw2 18:14 Triage completed. hb 18:32 Sindy Seymour, RN is Primary Nurse. hb 18:33 CT Head C Spine In Process Unspecified. EDMS 19:23 Shoulder Right (2 View) XRAY In Process Unspecified. EDMS 19:23 Humerus Right XRAY In Process Unspecified. EDMS 19:34 Primary Nurse role handed off by Sindy Seymour, NICHOLAS mw2 20:45 Andrew Villarreal, NICHOLAS is Primary Nurse. mg2 21:22 Assist provider with reduction of right shoulder using traction, manipulation, Set up mg2 for procedure. Performed by Andrew Villarreal RN Immobilized with shoulder immobilizer Patient tolerated well. 22:14 Joselito Eason MD is Referral Physician. pm1 22:18 Shoulder 1 View In Process Unspecified. EDMS 22:35 IV discontinued, intact, bleeding controlled, No redness/swelling at site. Pressure mg2 dressing applied. Administered Medications: 21:00 Drug: Zofran (Ondansetron) 4 mg Route: IVP; Site: right hand; mg2 22:04 Follow up: Response: No adverse reaction mg2 21:03 Drug: morphine 4 mg Route: IVP; Site: right hand; mg2 22:04 Follow up: Response: No adverse reaction mg2 21:12 Drug: Ketamine 40 mg Route: IVP; Site: right hand; mg2 22:04 Follow up: Response: No adverse reaction; RASS: Alert and Calm (0) mg2 Outcome: 22:14 Discharge ordered by . pm1 22:35 Discharged to home via wheelchair. mg2 22:35 Condition: stable 22:35 Discharge instructions given to patient, Instructed on discharge instructions, follow up and referral plans. Demonstrated understanding of instructions, follow-up care. 22:36 Patient left the ED. mg2 Signatures: Dispatcher [employer] EDMS Angel Cormier, [employer] NET FRONT END DEVELOPER pm1 Sindy Seymour, NICHOLAS RN Yanet Mesa RN RN tw2 Mitzi Spencer mw2 Andrew Villarreal RN RN mg2
--- NOTE | 2020-10-16 22:14 | EDPHYS ---
Physician Documentation [facility] Name: Lola Braun Age: 75 yrs Sex: Female : 1945 Arrival Date: 10/16/2020 Time: 18:11 Bed 8 Private MD: ED Physician John Lu HPI: 10/16 20:31 This 75 yrs old Female presents to ER via EMS with complaints of Arm Injury. pm1 20:31 The patient or guardian complains of pain, that is acute. The complaints affect the pm1 anterior aspect of right shoulder. Context: The problem was sustained at home, resulted from mechanical fall. Patient tripped and fell down without any injury or pain. attempted to help her get up and he fell down on her. Patient presenting with pain to right shoulder area. Onset: The symptoms/episode began/occurred just prior to arrival. Treatment prior to arrival includes: sling, fentanyl by EMS. Modifying factors: The symptoms are alleviated by remaining still, the symptoms are aggravated by movement. Associated signs and symptoms: Pertinent negatives: LOC, head injury, headache, neck pain. Severity of symptoms: in the emergency department the symptoms have improved, by medications by EMS. The patient has not experienced similar symptoms in the past. Historical: - Allergies: 18:15 NKDA; tw2 18:15 NKDA; hb - Home Meds: 18:15 Amitiza 24 mcg Oral cap 1 cap 2 times per day [Active]; atorvastatin 40 mg Oral tab 1 hb tab once daily [Active]; Bumetanide Oral [Active]; clopidogrel 75 mg Oral tab 1 tab once daily [Active]; furosemide 40 mg Oral tab 1 tab once daily [Active]; gabapentin 100 mg Oral cap 1 caps 3 times per day [Active]; glipizide 5 mg Oral tr24 1 tab once daily [Active]; hydralazine 25 mg Oral tab [Active]; Lantus 100 unit/mL Sub-Q soln 60 unit nightly [Active]; levothyroxine 137 mcg tab 1 tab once daily [Active]; isosorbide mononitrate 120 mg Oral Tb24 once daily [Active]; ranitidine HCl 150 mg Oral cap 1 cap 2 times per day [Active]; Tradjenta 5 mg Oral tab 1 tab once daily [Active]; valsartan 160 mg Oral tab 1 tab once daily [Active]; - PMHx: 18:15 CHF; Diabetes - IDDM; Hyperlipidemia; GERD; Hypertension; kidney problems; Myocardial tw2 infarction; - Immunization history:: Adult Immunizations Adult Immunizations up to date. - Social history:: Smoking status: Smoking status: Patient denies any tobacco usage or history of. ROS: 20:31 Constitutional: Negative for fever, chills, and weight loss, Neck: Negative for injury, pm1 pain, and swelling, Cardiovascular: Negative for chest pain, palpitations, and edema, Respiratory: Negative for shortness of breath, cough, wheezing, and pleuritic chest pain. 20:31 Abdomen/GI: Negative for abdominal pain, nausea, vomiting, diarrhea, and constipation, Back: Negative for injury and pain. 20:31 Skin: Negative for injury, rash, and discoloration, Neuro: Negative for headache, weakness, numbness, tingling, and seizure. 20:31 MS/extremity: Positive for pain, of the right shoulder, Negative for paresthesias, tingling. Exam: 20:31 Constitutional: This is a well developed, well nourished patient who is awake, alert, pm1 and in no acute distress. Head/Face: Normocephalic, atraumatic. 20:31 Skin: Warm, dry with normal turgor. Normal color with no rashes, no lesions, and no evidence of cellulitis. 20:31 Chest/axilla: Inspection: normal, Palpation: is normal, tenderness, is not appreciated. 20:31 Cardiovascular: Exam negative for acute changes, Rate: normal, Rhythm: regular, Pulses: no pulse deficits are appreciated. 20:31 Respiratory: Exam negative for acute changes, respiratory distress, shortness of breath. 20:31 Abdomen/GI: Inspection: abdomen appears normal, Palpation: abdomen is soft and non-tender, in all quadrants. 20:31 Musculoskeletal/extremity: Extremities: grossly normal except: noted in the anterior aspect of right shoulder: tenderness, Circulation is intact in all extremities. 20:31 Neuro: Exam negative for acute changes, Orientation: is normal, Mentation: is normal, Motor: is normal, moves all fours. Vital Signs: 18:12 BP 213 / 91; Pulse 74; Resp 20; Temp 97.9; Pulse Ox 86% on R/A; Pain 10/10; hb 21:08 Weight 77.11 kg; mg2 21:23 BP 164 / 63; Pulse 71; Resp 18; Pulse Ox 98% on 3 lpm NC; mg2 22:36 BP 154 / 67; Pulse 67; Resp 18; Pulse Ox 95% on 3 lpm NC; mg2 Procedures: 21:21 Reduction: of the right shoulder, using traction, Immobilized with shoulder pm1 immobilizer. Patient tolerated well. Post reduction film - reveals normal alignment. MDM: 18:17 Patient medically screened. pm1 22:12 Data reviewed: vital signs. Data interpreted: Pulse oximetry: on room air is 98 %. pm1 Interpretation: normal. Counseling: I had a detailed discussion with the patient and/or guardian regarding: the historical points, exam findings, and any diagnostic results supporting the discharge/admit diagnosis, radiology results, the need for outpatient follow up, for definitive care, a orthopedic surgeon, to return to the emergency department if symptoms worsen or persist or if there are any questions or concerns that arise at home. 10/16 18:19 Order name: Shoulder Right (2 View) XRAY pm1 10/16 18:19 Order name: Humerus Right XRAY; Complete Time: 20:09 pm1 10/16 18:19 Order name: CT Head C Spine; Complete Time: 19:18 pm1 10/16 22:04 Order name: Shoulder 1 View EDMS 10/16 20:31 Order name: Conscious Sedation; Complete Time: 21:19 pm1 10/16 21:21 Order name: Shoulder Immobilizer; Complete Time: 21:22 pm1 Administered Medications: 21:00 Drug: Zofran (Ondansetron) 4 mg Route: IVP; Site: right hand; mg2 22:04 Follow up: Response: No adverse reaction mg2 21:03 Drug: morphine 4 mg Route: IVP; Site: right hand; mg2 22:04 Follow up: Response: No adverse reaction mg2 21:12 Drug: Ketamine 40 mg Route: IVP; Site: right hand; mg2 22:04 Follow up: Response: No adverse reaction; RASS: Alert and Calm (0) mg2 Disposition: 10/17 08:22 Co-signature as Attending Physician, John Lu MD. rn Disposition: 10/16/20 22:14 Discharged to Home. Impression: Unspecified dislocation of right shoulder joint, Fall on same level, unspecified. - Condition is Stable. - Discharge Instructions: Shoulder Dislocation, How to Use a Shoulder Immobilizer. - Medication Reconciliation Form, Thank You Letter, Antibiotic Education, Prescription Opioid Use form. - Follow up: Emergency Department; When: As needed; Reason: Recheck today's complaints, Continuance of care, Re-evaluation by your physician. Follow up: Joselito Eason MD; When: 2 - 3 days; Reason: Recheck today's complaints, Continuance of care, Re-evaluation by your physician. - Problem is new. - Symptoms have improved. Signatures: Dispatcher [employer] EDMS John Lu MD MD rn Angel Cormier, MICROSCOPIST MICROSCOPIST pm1 Sindy Seymour, RN RN Yanet Mesa RN RN tw2 Andrew Villarreal RN RN mg2 Corrections: (The following items were deleted from the chart) 10/16 22:04 21:33 Shoulder Right 2 View ordered. [facility] 22:34 22:33 Shoulder Right 2 View+RAD.RAD.BRZ ordered. [facility] 22:36 22:14 10/16/2020 22:14 Discharged to Home. Impression: Unspecified dislocation of right mg2 shoulder joint; Fall on same level, unspecified. Condition is Stable. Forms are Medication Reconciliation Form, Thank You Letter, Antibiotic Education, Prescription Opioid Use. Follow up: Emergency Department; When: As needed; Reason: Recheck today's complaints, Continuance of care, Re-evaluation by your physician. Follow up: Joselito Eason; When: 2 - 3 days; Reason: Recheck today's complaints, Continuance of care, Re-evaluation by your physician. Problem is new. Symptoms have improved. pm1
--- NOTE | 2020-10-17 05:50 | RAD REPORT ---
EXAM DESCRIPTION: RAD - Shoulder 1 View - 10/16/2020 10:19 pm CLINICAL HISTORY: Right shoulder pain FINDINGS: The previously described dislocation has been reduced. A Hill-Sachs deformity is present
--- NOTE | 2020-10-17 10:30 | RAD REPORT ---
EXAM DESCRIPTION: RAD - Shoulder Right 2 View - 10/16/2020 7:25 pm CLINICAL HISTORY: PAIN COMPARISON: None FINDINGS: Right shoulder and right humerus - multiple projections are submitted The bones are demineralized. Glenohumeral dislocation is identified. The exact location of the conchita l head relative to the glenoid is somewhat difficult to ascertain. A lateral projection of the should er would be recommended.
== END 2020-10-16 22:36 | disposition home or self-care (01) ==
LOC: ER 18:02
PROC: 0RSJXZZ Reposition Right Shoulder Joint, External Approach (ICD-10-PCS; principal; 2020-10-16)
DX: S43.004A Unspecified dislocation of right shoulder joint, initial encounter (principal); W01.0XXA Fall on same level from slipping, tripping and stumbling without subsequent striking against object, initial encounter; E11.9 Type 2 diabetes mellitus without complications; Z79.4 Long term (current) use of insulin; I11.0 Hypertensive heart disease with heart failure; I50.9 Heart failure, unspecified; E78.5 Hyperlipidemia, unspecified; K21.9 Gastro-esophageal reflux disease without esophagitis; I25.2 Old myocardial infarction
CPT/HCPCS: 70450; 72125; 73020; 73060; 73030; 96375; 96374; 99284; 23650; J2405